=== PATIENT | female | born 1945 | race Caucasian/White ===

== ENCOUNTER 2019-10-05 14:52 | Emergency (ER) | payer MEDICARE, SELFPAY ==
--- NOTE | ~2019-10-05 | CT_ITS ---
EXAMINATION: CTA chest PE protocol DATE: 10/14/2019 18:46 INDICATION: Shortness of breath and hypoxia TECHNIQUE: Computed tomography angiography (CTA) of the chest was performed with 100 mL Omnipaque-350 intravenous contrast timed to evaluate the pulmonary arteries. Coronal maximum intensity projection 3D-reconstructions were created by the technologist. The dose-length product (DLP) was 327.93 mGy-cm. Automated exposure control and iterative reconstruction technique were employed. COMPARISON: 03/28/2019 FINDINGS: The pulmonary arteries are well-opacified. No pulmonary embolism is identified. There is mo derate to severe emphysema. There are airspace opacities with an upper lung zone predominance. Some s mooth interlobular septal thickening is seen in the upper lobes. Small pleural effusions are present. There is no pneumothorax. The heart size is normal. Mediastinal lymph nodes are subcentimeter in lali rt axis diameter. There is low attenuation of the left hepatic lobe compared to the right which may r eflect transient hepatic attenuation difference. There is atrophy of the pancreas with innumerable ca lcifications throughout the body of the pancreas, consistent with chronic pancreatitis. There is a 2. 3 cm hemorrhagic cyst of the left kidney upper pole. Severe thoracic spondylosis is noted. IMPRESSION: 1. No pulmonary embolism. 2. Diffuse airspace opacities, consistent with multifocal pneumonia and pulmonary edema. 3. Small pleural effusions. Reviewed, dictated and finalized at location A. GER SALES SUPPORT
--- NOTE | ~2019-10-05 | CT_ITS ---
EXAMINATION: CT brain wo con DATE: 10/05/2019 15:46 INDICATION: Head injury. TECHNIQUE: Computed tomography (CT) of the head was performed without intravenous contrast. The mA wa s adjusted according to patient size. Iterative reconstruction technique was employed. The dose-lengt h product was 605.33 mGy-cm. COMPARISON: Head CT 09/27/2017 FINDINGS: There is no intracranial hemorrhage, acute infarction, or abnormal intracranial mass lesion . The ventricles are normal in size. The orbits are normal. There is mild mucosal thickening in the p aranasal sinuses. The mastoid air cells are normal. IMPRESSION: 1. Normal brain. Reviewed, dictated and finalized at location A. GEMENT TECHNICIAN IMPRESSION: 1. Normal brain.
--- NOTE | ~2019-10-05 | XR_ITS ---
EXAMINATION: XR hip LT 2V w AP pelvis DATE: 10/05/2019 16:01 INDICATION: Left hip pain. Fall. TECHNIQUE: An anteroposterior view of the pelvis and 2 views of left hip were obtained. COMPARISON: Pelvis and hip radiographs 09/27/2017, CT abdomen and pelvis 04/06/2018 FINDINGS: There is a subcapital fracture of left femoral neck. The distal fracture fragment demonstra toño varus angulation, 1.0 cm lateral displacement, and 2.4 cm shortening. There are benign bone islan ds in proximal right femur. There is mild osteoarthritis of the hips. There is severe lumbar spondylo sis. IMPRESSION: 1. Subcapital fracture of left femoral neck. Reviewed, dictated and finalized at location A. TIC MIXER
[2019-10-05 14:52] VITALS: BP 148/75; PULSE 77; RESP 16; TEMP 36.6; O2SAT 95
--- NOTE | 2019-10-05 14:59 | ED.FALL ---
HPI - Fall General Chief Complaint: Extremity Injury, Lower Stated Complaint: Ambulance Time Seen by Provider: 10/05/19 14:59 Source: patient Mode of arrival: EMS Limitations: no limitations History of Present Illness HPI Narrative: 74-year-old woman comes in today complaining of left hip pain that she fell in the bathroom. She states that she bent over and thinks that she lost her balance. She does not recall exactly what happened. She denies any other injury, thorax, limb, neck or abdominal pain. She did not lose consciousness. She states she had a similar fall 2 weeks ago in which she struck her left lower leg resulting in a large hematoma and hit her head. complaint: fall Onset (ago): hour(s) (1) Fall from: standing Fall witnessed: no Place fall occurred: home Loss of consciousness: none Prolonged down time: no Symptoms prior to fall: none Location of injury - extremities: Left: thigh Severity: moderate Quality: sharp Associated symptoms (after fall): denies Related Data Allergies Allergy/AdvReac Type Severity Reaction Status Date / Time No Known Allergies Allergy Unverified 09/17/17 12:33 Review of Systems Constitutional: Constitutional: Denies chills, Denies fever(s) and Denies weakness Eyes: Eyes: Denies change in vision and Denies photophobia ENT: Denies dysphagia, Denies nasal congestion and Denies sore throat Cardiovascular: Cardiovascular: Denies chest pain and Denies radiating jaw, neck or arm pain Respiratory: Respiratory: Denies cough, Denies dyspnea and Denies wheezing Gastrointestinal: Gastrointestinal: Denies abdominal pain, Denies diarrhea, Denies nausea and Denies vomiting Genitourinary: Genitourinary: Denies hematuria, Denies nocturia and Denies dysuria Musculoskeletal: Musculoskeletal: Denies back pain, Reports arthralgias, Denies joint swelling and Denies muscle cramps Integumentary/Breasts: Skin/Breast: Denies pruritus, Denies erythema and Denies rash Neurologic: Denies vertigo, Denies dizziness and Denies syncope Psychiatric: Psychiatric: Denies anxiety and Denies depression Endocrine: Endocrine: Denies polydipsia and Denies polyuria Hematologic/Lymphatic: Hematologic/Lymphatic: Denies easy bleeding and Denies easy bruising Allergic/Immunologic: Allergic/Immunologic: Denies lip swelling and Denies wheezing PMFSH Past Medical History Medical History (Updated 10/05/19 @ 17:18 by Will Santos MD) CHF (congestive heart failure) COPD (chronic obstructive pulmonary disease) HTN (hypertension) Pancreatitis Surgical History Surgical History History of bladder suspension procedure History of hysterectomy S/P cholecystectomy Family History Family History Other Family history of malignant neoplasm Hypertension Social History Social History Smoking status: Former smoker Alcohol intake: never Gender identity (if verbalized by the patient): Female Course Vital Signs Vital signs: Vital Signs Temperature 36.6 C 10/05/19 14:52 Pulse Rate 77 10/05/19 14:52 Respiratory Rate 16 10/05/19 14:52 Blood Pressure 148/75 H 10/05/19 14:52 Pulse Oximetry 95 10/05/19 14:52 Temperature 36.6 C 10/05/19 14:52 Pulse Rate 81 10/05/19 15:59 Respiratory Rate 20 10/05/19 15:59 Blood Pressure 111/67 10/05/19 15:59 Pulse Oximetry 95 10/05/19 15:59 Transfer Transfered to: [place] Transfer rationale: Ortho consultation Accepting physician: Dr Birch. [facility] - Fall Lab Data Result diagrams: 10/05/19 15:21 10/05/19 15:21 Labs: Lab Results 10/05/19 10/05/19 10/05/19 Range/Units 15:21 15:21 15:21 WBC 11.1 H (4.8-10.8) K/mm3 RBC 3.90 L (4.20-5.40) M/mm3 Hgb 11.7 (11.7-13.8) g/dL Hct 35.9 (35.0-42.0) % MCV 92.1 (78.0
--- NOTE | 2019-10-05 15:03 | ECG_ITS ---
Measurements Intervals [place] Rate: 76 P: 82 AL: 161 QRS: 59 QRSD: 88 T: 76 QT: 376 QTc: 424 Interpretive Statements SINUS RHYTHM CANNOT RULE OUT SEPTAL INFARCT, AGE INDETERMINATE ST-T WAVE ABNORMALITY IN ANT/INF LEADS- CONSIDER ISCHEMIA BASELINE ARTIFACT- I, II, III, AVR, AVL, AVF ABNORMAL ECG Electronically Signed On 10-06-2019 8:14:52 ACCOUNT ANALYST by Ayush Pratt D.O.
[2019-10-05] MEDS: HYDROMORPHONE HCL 2 MG/ML VIAL 0.25 MG IV PUSH ×2 (15:16→17:25)
[2019-10-05 15:27] LABS: Basophils Absolute Auto 0.04 K/mm3 (0.00-0.10); Basophils Percent Auto 0.4 % (0.0-1.0); Eosinophils Absolute Auto 0.09 K/mm3 (0.02-0.50); Eosinophils Percent Auto 0.8 % (1.0-6.0); Hematocrit 35.9 % (35.0-42.0); Hemoglobin 11.7 g/dL (11.7-13.8); Immature Granulocyte Absolute 0.08 K/mm3 (0.00-0.00); Immature Granulocyte Percent A 0.7 % (0.0-0.0); Lymphocytes Absolute Auto 1.73 K/mm3 (1.10-4.50); Lymphocytes Percent Auto 15.6 % (18.0-42.0); Mean Corpuscular HGB Conc 32.6 g/dL (32.0-36.0); Mean Corpuscular Volume 92.1 fL (78.0-102.0); Monocytes Absolute Auto 0.41 K/mm3 (0.10-0.90); Monocytes Percent Auto 3.7 % (2.0-11.0); Neutrophils Absolute Auto 8.7 K/mm3 (1.7-7.2); Neutrophils Percent Auto 78.8 % (50.0-70.0); Platelet Count Result 208 K/mm3 (150-420); Red Cell Distribution Width 14.6 % (11.6-14.4); White Blood Count 11.1 K/mm3 (4.8-10.8)
[2019-10-05 15:35] LABS: INR 1.1; Partial Thromboplastin Time 29.7 SEC (22.3-31.6); Prothrombin Time 11.7 Seconds (9.64-11.0)
[2019-10-05 15:39] LABS: Alanine Aminotransferase 22 U/L (14-59); Albumin Level 1.8 g/dL (3.4-5.0); Alkaline Phosphatase 174 U/L (46-116); Anion Gap 9.1 mmol/L (7-16); Aspartate Amino Transferase 27 U/L (15-37); Bilirubin,Total 0.5 mg/dL (0.00-1.00); Blood Urea Nitrogen 19 mg/dL (7-18); Calcium 7.8 mg/dL (8.5-10.1); Carbon Dioxide 30 mmol/L (21-32); Chloride 106 mmol/L (98-108); Estimated CRCL calculation 37 ml/min; Estimated Glomerular Filt Rate 54; Glucose 78 mg/dL (70-99); Osmolality Calculated 293 mOsm/kg (285-295); Potassium 4.1 mmol/L (3.5-5.1); Sodium 141 mmol/L (136-145); Total Protein 5.8 g/dL (6.4-8.2)
[2019-10-05 15:41] LABS: Lactic Acid 0.7 mmol/L (0.4-2.0); Troponin I < 0.02 ng/mL (0.00-0.056)
[2019-10-05 15:59] VITALS: BP 111/67; PULSE 81; RESP 20; O2SAT 95
[2019-10-05 16:08] LABS: Add Urine Microscopic? YES; Appearance Urine Sl Cloudy (Clear); Bilirubin Urine Negative (Negative); Blood Urine Negative (Negative); Color Urine Yellow (Yellow); Glucose Urine UA Negative (Negative); Ketones Urine Negative (Negative); Leukocyte Esterase Ur Negative (Negative); Nitrate Urine Positive (Negative); Protein Urine Negative (Negative); Specific Grav Ur 1.015 (1.010-1.020); pH Urine 7.5 (5.0-8.0)
[2019-10-05 16:14] LABS: RBC Urine None seen /hpf (0-2); Renal Epithelial Cells Urine Few /hpf; Squamous Epithelial Cell Urine Few /hpf (Few); WBC Urine None seen /hpf (0-3)
[2019-10-05 16:15] LABS: Bacteria Urine 4+ /hpf
--- NOTE | 2019-10-05 16:25 | PC.NURSE ---
Call placed to [facility] charhouse worker for orthopedic consult. Awaiting call back.
[2019-10-05 16:57] VITALS: BP 151/80; PULSE 80; RESP 18; O2SAT 95
[2019-10-05 16:58] LABS: Lipase 78 U/L (73-393)
--- NOTE | 2019-10-05 16:58 | PC.NURSE ---
Resting quietly without change in condition. Aware that ortho has been called at [facility], awaiting call back.
--- NOTE | 2019-10-05 17:20 | PC.NURSE ---
Pt accepted by Dr Birch at [facility]. Awaiting room assignment from satish sup.
[2019-10-05 17:57] VITALS: BP 135/78; PULSE 80; RESP 20; O2SAT 94
--- NOTE | 2019-10-05 18:00 | PC.NURSE ---
Room assignment rcvd from [facility] house sup at this time. Pt will be admitted to room 325.
--- NOTE | 2019-10-05 18:08 | PC.NURSE ---
Attempt to call report to 3rd medical at [facility]. RICK Colon unavailable- will call back.
--- NOTE | 2019-10-05 18:15 | PC.NURSE ---
Report to RICK Colon, [address] [place] [address].
--- NOTE | 2019-10-05 18:25 | PC.NURSE ---
Verbal order Dr Santos: pt may be transported to [facility] by BLS unit. [facility] contacted at this time.
[2019-10-05 18:35] VITALS: BP 119/78; PULSE 80; RESP 20; O2SAT 98
== END 2019-10-05 18:50 | disposition short-term general hospital (02) ==
PROVIDERS: Emergency Provider Emergency Medicine; PCP Nurse Practitioner Family
DX: S72.002A Fracture of unspecified part of neck of left femur, initial encounter for closed fracture (principal); I50.9 Heart failure, unspecified; J44.9 Chronic obstructive pulmonary disease, unspecified; I10 Essential (primary) hypertension; Z87.891 Personal history of nicotine dependence; W18.30XA Fall on same level, unspecified, initial encounter
CPT/HCPCS: 36415; 70450; 71275; 73502; 73521; 80053; 81001; 83605; 83690; 84484; 85025; 85610; 85730; 93005; 96374; 96376; 99284; 99285; J1170; J2405; Q9965

== ENCOUNTER 2019-10-05 19:30 | Inpatient (IN) | payer MEDICARE, SELFPAY ==
--- NOTE | ~2019-10-05 | XR_ITS ---
EXAMINATION: XR chest 2V DATE: 10/09/2019 08:26 INDICATION: Shortness of breath. TECHNIQUE: Frontal and lateral views of the chest were obtained. COMPARISON: Chest 2 views 09/27/2017 FINDINGS: There is mild atelectasis at the lung bases. There are small pleural effusions. No pneumoth orax. The heart size is normal. IMPRESSION: 1. Small pleural effusions. 2. Mild atelectasis at the lung bases. Reviewed, dictated and finalized at location A. LE SCHOOL SPANISH TEACHER
--- NOTE | ~2019-10-05 | XR_ITS ---
EXAMINATION: XR hip LT min 2V EXAM DATE: 10/06/2019 16:26 INDICATION: Postoperative for left hip replacement. TECHNIQUE: Portable frontal, crosstable lateral projections left hip obtained immediately following arthroplasty. Procedure performed by Carrillo Foley MD. FINDINGS: Patient is status post left hip arthroplasty. The orthopedic hardware is in expected posi tion. There are britta overlying the lateral aspect of the thigh. There is small amount of subcuta neous gas, some soft tissue swelling. Correlate with procedure note. IMPRESSION: Status post left hip arthroplasty. Reviewed, dictated and finalized at location A. O PALEONTOLOGIST
[2019-10-05 19:35] VITALS: BMI 22.4
[2019-10-05 20:00] VITALS: BP 135/64; PULSE 97; RESP 16; TEMP 36.2; O2SAT 98
--- NOTE | 2019-10-05 20:03 | ADMGEN ---
This patient, Dahlia Bell, was admitted to [facility] Surg Room 325-01. Patient/family oriented to hospital policies and general routines including ID bracelet, bed and alarms, visiting hours, pain management, procedures, bathroom and other care routines, personal items, smoking policy, room service/diet, and visiting hours. Valuables list has been completed. Information on how to activate the Rapid Response Team has been discussed. Patient/Family are encouraged to report perceived risks to care and to ask questions if they do not understand what they are told or what they should do.
--- NOTE | 2019-10-05 20:28 | PM.IMHP ---
H&P: HPI History of Present Illness Chief complaint: Direct admission for left femoral neck fracture Narrative: This is a pleasant 74-year-old female with known history of chronic smoldering pancreatitis for which she has been attempting to gain enough weight to have a Whipple procedure done and who has been battling chronic fatigue and generalized weakness for some time now. She reports that she had a fall about 2 weeks ago when she did suffer head trauma. Today while she was in the bathroom she was getting ready to use the bathroom when suddenly she felt very nervous and realize she was about to fall she attempted to grab the door knob in the bathroom but continue to fall and landed on her left side. She denies passing out or suffering any head trauma today. Her daughter who lives with her attempted to help her get up but the patient could not ambulate on her own. She was experiencing significant left hip pain and was brought to [facility] for evaluation. The patient was found to have a subcapital fracture of left femoral neck. On further questioning she denies any fever, chills, nausea, vomiting, headache, abdominal pain, chest pain, dysuria, hematuria, diarrhea, or rectal bleeding. She is known to have chronic abdominal pain from her pancreatitis although tonight she denies any significant abdominal pain. [facility] has consulted Ortho, Dr. Gutierrez who has agreed to see the patient tomorrow. Wyatt catheter has been placed in the ER and [facility]. Review of Systems Review of Systems: All systems reviewed & are unremarkable except as noted in HPI and below PMFSH Past Medical History Medical History (Updated 10/06/19 @ 05:27 by Will Adkins MD) CHF (congestive heart failure) Chronic pancreatitis COPD (chronic obstructive pulmonary disease) HTN (hypertension) Pancreatitis Surgical History Surgical History History of bladder suspension procedure History of hysterectomy S/P cholecystectomy Family History Family History Other Family history of malignant neoplasm Hypertension Social History Social History Smoking packs per day: 1 Smoking cigarettes per day: 20.0 Years smoked: 20 Smoking pack-years: 20.00 Smoking status: Former smoker Alcohol intake: never Substance use: never Gender identity (if verbalized by the patient): Female Spiritual care concerns: No Agree to blood products: Yes Meds Home Medications and Allergies Home Medications Medication Instructions Recorded Confirmed Type budesonide-formoterol HFA 160 2 puff INHALATION Q12H #10.2 gm 07/08/19 10/05/19 Rx mcg-4.5 mcg/actuation aerosol inhaler bupropion HCl 150 mg tablet,12 hr 150 mg PO QAM #90 tablet 10/01/19 10/05/19 Rx sustained-release gabapentin 300 mg capsule 300 mg PO TID #270 cap 10/01/19 10/05/19 Rx omeprazole 20 mg capsule,delayed 20 mg PO BID #180 cap 10/01/19 10/05/19 Rx release sertraline 100 mg tablet 100 mg PO DAILY #90 tablet 10/03/19 10/05/19 Rx aspirin 81 mg PO DAILY 10/05/19 10/05/19 History carvedilol 3.125 mg PO BID 10/05/19 10/05/19 History diphenoxylate-atropine 1 tablet PO BID 10/05/19 10/05/19 History hydroxyzine HCl 25 mg PO TID 10/05/19 10/05/19 History montelukast 10 mg PO DAILY 10/05/19 10/05/19 History Allergies Allergy/AdvReac Type Severity Reaction Status Date / Time No Known Allergies Allergy Unverified 09/17/17 12:33 Exam Const: General: cooperative, healthy appearing, alert and awake Nutritional Appearance: thin and underweight Orientation/consciousness: patient oriented x3 HENMT: Head: normal to inspection General nose exam: Normal external nose present Face and sinus: normal facial exam Mouth: Yes Normal oral and palatal mucosa present and Yes oropharynx normal Eyes: Pupils: Equa
[2019-10-05] MEDS: ONDANSETRON INJ 4 MG/2 ML VIAL IV PUSH (20:38)
[2019-10-05] MEDS: MORPHINE SULFATE 4 MG/ML INJ IV PUSH ×2 (20:38→23:31)
[2019-10-05 20:42] LABS: Hematocrit 36.3 % (37.0-47.0); Hemoglobin 11.9 g/dL (12.0-15.0); Mean Corpuscular HGB Conc 32.8 g/dl (32-36); Mean Corpuscular Hemoglobin 30.4 pg (26-34); Mean Corpuscular Volume 92.8 fl (80-100); Mean Platelet Volume 9.9 fl (7.4-10.4); Platelet Count Result 204 k/mm3 (150-375); Red Blood Count 3.91 M/mm3 (4.2-5.4); Red Cell Distribution Width 14.6 % (11.5-14.5); White Blood Count 10.4 K/mm3 (4.5-10.0)
[2019-10-05 20:54] LABS: Blood Urea Nitrogen 19 mg/dL (7-17); Calcium 7.6 mg/dL (8.4-10.2); Carbon Dioxide 29 mmol/L (22-30); Chloride 100 mmol/L (98-107); Estimated Glomerular Filt Rate > 60; Glucose 62 mg/dL (65-105); Potassium 3.5 mmol/L (3.4-5.0); Sodium 135 mmol/L (137-145)
[2019-10-05] MEDS: LACTATED RINGERS 1,000 ML 100 ML IV CONT (20:57)
[2019-10-05] MEDS: PANTOPRAZOLE 40 MG TABLET PO (20:57)
[2019-10-05 21:09] LABS: INR 1.1; Prothrombin Time 13.5 Seconds (11.1-14.7)
[2019-10-06] VITALS (12 sets, daily range): BP systolic 101–156; BP diastolic 56–88; PULSE 92–101; RESP 10–18; TEMP 37.1–37.6; O2SAT 91–100
[2019-10-06] MEDS: MORPHINE SULFATE 4 MG/ML INJ IV PUSH ×2 (03:53→09:07)
--- NOTE | 2019-10-06 10:00 | WPDANESEPP ---
Anes - Eval Pre Procedure Procedure: Operation Date: 10/06/19 13:30 Proposed Procedures p Left Bipolar Hip Replacement - Carrillo Foley MD Date/Time: 10/06/19 10:01 Surgeon: Iman Foley MD Preop Diagnosis: closed hip fracture Pre Op Diagnosis: Direct admission for left femoral neck fracture Patient Data Age: 74 Gender: F Height: 5 ft 3 in Weight: 57.3 kg Last Vital Signs Temp 98.7 F 10/06/19 06:00 Pulse 96 10/06/19 06:00 Resp 18 10/06/19 06:00 BP 101/56 L 10/06/19 06:00 Pulse Ox 96 10/06/19 06:00 Allergies Allergy/AdvReac Type Severity Reaction Status Date / Time No Known Allergies Allergy Unverified 09/17/17 12:33 Home Medications Medication Instructions Recorded Confirmed Type budesonide-formoterol HFA 160 2 puff INHALATION Q12H #10.2 gm 07/08/19 10/05/19 Rx mcg-4.5 mcg/actuation aerosol inhaler bupropion HCl 150 mg tablet,12 hr 150 mg PO QAM #90 tablet 10/01/19 10/05/19 Rx sustained-release gabapentin 300 mg capsule 300 mg PO TID #270 cap 10/01/19 10/05/19 Rx omeprazole 20 mg capsule,delayed 20 mg PO BID #180 cap 10/01/19 10/05/19 Rx release sertraline 100 mg tablet 100 mg PO DAILY #90 tablet 10/03/19 10/05/19 Rx aspirin 81 mg PO DAILY 10/05/19 10/05/19 History carvedilol 3.125 mg PO BID 10/05/19 10/05/19 History diphenoxylate-atropine 1 tablet PO BID 10/05/19 10/05/19 History hydroxyzine HCl 25 mg PO TID 10/05/19 10/05/19 History montelukast 10 mg PO DAILY 10/05/19 10/05/19 History Laboratory Tests 10/05/19 10/05/19 10/05/19 20:31 20:31 20:31 WBC 10.4 K/mm3 H K/mm3 (4.5-10.0) RBC 3.91 M/mm3 L M/mm3 (4.2-5.4) Hgb 11.9 g/dL L g/dL (12.0-15.0) Hct 36.3 % L % (37.0-47.0) MCV 92.8 fl fl (80-100) MCH 30.4 pg pg (26-34) MCHC 32.8 g/dl g/dl (32-36) RDW 14.6 % H % (11.5-14.5) Plt Count 204 k/mm3 k/mm3 (150-375) MPV 9.9 fl fl (7.4-10.4) PT 13.5 Seconds Seconds (11.1-14.7) INR 1.1 Sodium 135 mmol/L L mmol/L (137-145) Potassium 3.5 mmol/L mmol/L (3.4-5.0) Chloride 100 mmol/L mmol/L (98-107) Carbon Dioxide 29 mmol/L mmol/L (22-30) BUN 19 mg/dL H mg/dL (7-17) Creatinine 0.90 mg/dL mg/dL (0.7-1.0) Estim Creat Clear Calc Not Reportable Estimated GFR > 60 (59 - ) Glucose 62 mg/dL L mg/dL (65-105) Calcium 7.6 mg/dL L mg/dL (8.4-10.2) ECG: Patient: Dahlia Bell GMR#: [id number] : 7Acct:[id number] Age/Sex: 74 / FADM Date: 10/05/19 Ordering Physician: Will Santos MD Date of Service: 10/05/19 Procedure(s): CA 12 lead EKG Accession Number(s): [id number] Measurements Intervals [place] Rate: 76 P: 82 MN: 161 QRS: 59 QRSD: 88 T: 76 QT: 376 QTc: 424 Interpretive Statements SINUS RHYTHM CANNOT RULE OUT SEPTAL INFARCT, AGE INDETERMINATE ST-T WAVE ABNORMALITY IN ANT/INF LEADS- CONSIDER ISCHEMIA BASELINE ARTIFACT- I, II, III, AVR, AVL, AVF ABNORMAL ECG Electronically Signed On 10-06-2019 8:14:52 PHOTOGRAPHER ASSISTANT by Ayush Pratt D.O. Dictated By: Ayush Pratt DO 10/05/19 1548 Signed By: <Electronically signed by Ayush Pratt DO in OV>10/06/19 0815 previous ECG 2018 LBBB, rate 60 : patient denies Patient hx anesthesia problems: other (intraoperative awareness) Family hx anesthesia problems: none Prior Surgeries: lap rena, hyste[facility], [facility] Past Medical History Medical History (Updated 10/06/19 @ 10:07 by Dora Marion CRNA)
[2019-10-06] MEDS: SERTRALINE HCL 50 MG TABLET 100 MG PO (10:08)
[2019-10-06] MEDS: carvediloL 3.125 MG TABLET PO ×2 (10:08→18:27)
--- NOTE | 2019-10-06 11:05 | PM.CNOR ---
Assessment and Plan Assessment and plan (1) Femoral neck fracture: Qualifiers: Encounter type: initial encounter Fracture type: closed Laterality: left Qualified Code(s): S72.002A - Fracture of unspecified part of neck of left femur, initial encounter for closed fracture Code(s): S72.009A - Fracture of unspecified part of neck of unspecified femur, initial encounter for closed fracture Status: Acute Assessment and Plan: 74 year old female transferred from [facility] s/p fall at home resulting in a fracture of left femoral neck. History, exam and radiographs reviewed with the patient. Radiographs of the left hip reveal a subcaptial fracture of the left femoral neck. Fracture type, condition, nature, etiology and course of natural history discussed. Conservative and operative treatment options reviewed as well as the risks and benefits of both. Discussed LEFT Hip Bipolar Arthroplasty by Dr. Foley Risks of surgery including but not limited to neurovascular damage, wound complications, blood clot, pulmonary embolus, stroke, myocardial infarction, anesthetic risks up to and including were reviewed. Continued pain and possible dysfunction were explained. No guarantees were offered. The patient understands and wishes to proceed. Plan: LEFT Hip Bipolar by Dr. Foley today NPO Bedrest. NWB Wyatt Catheter Pain control. Ice. History of Present Illness HPI Consult date: 10/06/19 Consult reason: fracture (Left Femoral Neck Fracture ) Chief complaint: Direct admission for left femoral neck fracture Narrative: 74 year old female admitted from [facility] s/p fall on 10/05 which resulted in a left femoral neck fracture. Patient reports a fall at home in the bathroom yesterday after going to sit on her raised toliet seat, losing her balance and landing on the left side. Her daughter, who lives with the patient, successfully lifted her off of the floor and back to the toliet but she was unable to bear weight on the LLE. She also reports a fall 2 weeks ago onto the left side which resulted in a hematoma of the lower leg. She did not seek medical treatment after that fall. Patient endorses generalized weakness/fatigue/weight loss and poor appetite due to chronic pancreatitis. She was scheduled to have a whipple procedure but did not gain enough weight per patient, causing it to be cancelled. Review of Systems Constitutional: Constitutional: Denies chills, Reports fatigue, Denies night sweats and Reports weakness Eyes: Eyes: Reports no additional eye complaints ENT: Reports Normal hearing present, Denies nasal congestion and Denies nasal discharge Cardiovascular: Cardiovascular: Denies chest pain and Denies lightheadedness Respiratory: Respiratory: Denies dyspnea and Denies wheezing Gastrointestinal: Gastrointestinal: Denies abdominal pain, Denies constipation and Denies diarrhea Genitourinary: Comments: Wyatt Catheter Musculoskeletal: Musculoskeletal: Denies back pain, Reports arthralgias (LEFT HIP ), Reports joint swelling (LEFT HIP ) and Denies neck pain Integumentary/Breasts: Comments: Hematoma LLE (anterior rascon) Neurologic: Comments: Weakness b/l LE Psychiatric: Psychiatric: Reports no additional psychiatric complaints [facility] Past Medical History Medical History (Updated 10/06/19 @ 11:59 by TIFFANIE Liriano) Anxiety CHF (congestive heart failure) Chronic GERD Chronic pancreatitis CKD (chronic kidney disease) COPD (chronic obstructive pulmonary disease) Depression Femoral neck fracture HTN (hypertension) Pancreatitis Surgical History Surgical History (Updated 10/06/19 @ 11:22 by TIFFANIE Liriano) History of appendectomy History of bladder suspension procedure History of hysterectomy Previous back surgery Discs removed S/P cholecystectomy Family History Family History Other Family history of malignant neopl
[2019-10-06] MEDS: LACTATED RINGERS 1,000 ML 30 ML IV CONT ×2 (12:45→16:07)
--- NOTE | 2019-10-06 13:26 | WPDANESEPPF ---
Anes - Initial Pre Proc Eval Procedure: Operation Date: 10/06/19 13:30 Proposed Procedures p Left Bipolar Hip Replacement - Carrillo Foley MD Date/Time: 10/06/19 13:26 Surgeon: Obed Tolentino PA-C Pre Op Diagnosis: Direct admission for left femoral neck fracture Patient Data Age: 74 Gender: F Height: 5 ft 3 in Weight: 57.3 kg Last Vital Signs Temp 98.7 F 10/06/19 06:00 Pulse 96 10/06/19 10:08 Resp 18 10/06/19 06:00 BP 101/56 L 10/06/19 06:00 Pulse Ox 96 10/06/19 06:00 Allergies Allergy/AdvReac Type Severity Reaction Status Date / Time No Known Allergies Allergy Unverified 09/17/17 12:33 Home Medications Medication Instructions Recorded Confirmed Type budesonide-formoterol HFA 160 2 puff INHALATION Q12H #10.2 gm 07/08/19 10/05/19 Rx mcg-4.5 mcg/actuation aerosol inhaler bupropion HCl 150 mg tablet,12 hr 150 mg PO QAM #90 tablet 10/01/19 10/05/19 Rx sustained-release gabapentin 300 mg capsule 300 mg PO TID #270 cap 10/01/19 10/05/19 Rx omeprazole 20 mg capsule,delayed 20 mg PO BID #180 cap 10/01/19 10/05/19 Rx release sertraline 100 mg tablet 100 mg PO DAILY #90 tablet 10/03/19 10/05/19 Rx aspirin 81 mg PO DAILY 10/05/19 10/05/19 History carvedilol 3.125 mg PO BID 10/05/19 10/05/19 History diphenoxylate-atropine 1 tablet PO BID 10/05/19 10/05/19 History hydroxyzine HCl 25 mg PO TID 10/05/19 10/05/19 History montelukast 10 mg PO DAILY 10/05/19 10/05/19 History Laboratory Tests 10/05/19 10/05/19 10/05/19 20:31 20:31 20:31 WBC 10.4 K/mm3 H K/mm3 (4.5-10.0) RBC 3.91 M/mm3 L M/mm3 (4.2-5.4) Hgb 11.9 g/dL L g/dL (12.0-15.0) Hct 36.3 % L % (37.0-47.0) MCV 92.8 fl fl (80-100) MCH 30.4 pg pg (26-34) MCHC 32.8 g/dl g/dl (32-36) RDW 14.6 % H % (11.5-14.5) Plt Count 204 k/mm3 k/mm3 (150-375) MPV 9.9 fl fl (7.4-10.4) PT 13.5 Seconds Seconds (11.1-14.7) INR 1.1 Sodium 135 mmol/L L mmol/L (137-145) Potassium 3.5 mmol/L mmol/L (3.4-5.0) Chloride 100 mmol/L mmol/L (98-107) Carbon Dioxide 29 mmol/L mmol/L (22-30) BUN 19 mg/dL H mg/dL (7-17) Creatinine 0.90 mg/dL mg/dL (0.7-1.0) Estim Creat Clear Calc Not Reportable Estimated GFR > 60 (59 - ) Glucose 62 mg/dL L mg/dL (65-105) Calcium 7.6 mg/dL L mg/dL (8.4-10.2) : patient denies Patient hx anesthesia problems: other (intraoperative awareness) Family hx anesthesia problems: none [facility] Past Medical History Medical History (Updated 10/06/19 @ 11:59 by TIFFANIE Liriano) Anxiety CHF (congestive heart failure) Chronic GERD Chronic pancreatitis CKD (chronic kidney disease) COPD (chronic obstructive pulmonary disease) Depression Femoral neck fracture HTN (hypertension) Pancreatitis Surgical History Surgical History (Updated 10/06/19 @ 11:22 by TIFFANIE Liriano) History of appendectomy History of bladder suspension procedure History of hysterectomy Previous back surgery Discs removed S/P cholecystectomy Family History Family History Other Family history of malignant neoplasm Hypertension Social History Social History Smoking packs per day: 1 Smoking cigarettes per day: 20.0 Years smoked: 20 Smoking pack-years: 20.00 Smoking status: Former smoker Tobacco type: cigarettes Alcohol intake: never Substance use: never Living arrangements: with family Additional living arrangements comments: Lives at home with 22 year old daughter Occupation/Education: retired Additional occupation/education comments: [employer] as a Coordinator for Domestic Violence Gender identity (if verbalized by the patient):
[2019-10-06] MEDS: BUPIVACAINE/EPINEPHRINE 0.5% 30 ML VIAL INFILTRATE (14:52)
--- NOTE | 2019-10-06 16:24 | PM.PROC ---
Procedure Note - Detailed Date of procedure: 10/06/19 Pre-op diagnosis: left hip fracture Left hip femoral neck fracture Post-op diagnosis: same Procedure performed: Left hip bipolar hemiarthroplasty Description of procedure: OPERATIVE INDICATIONS: The patient is an 74year-old woman who fell and sustained a left hip fracture. Requested operative treatment. A full discussion of the risks, benefits, and alternatives was had with the patient and family. They verbalized undferstanding and agreement. Patient has multiple medical comorbidities including chronic pancreatitis. Her fracture pattern is not amenable to fixation. She has elected for hemiarthroplasty. WHAT WAS DONE: After informed consent was given, the operative extremity was marked in the preoperative holding area. The patient received intravenous antibiotics. Patient was brought to the operating room where they underwent a general anesthetic. Positioned in the lateral decubitus position nonop side down and the operative hip up. The left hip was then prepped and draped in the usual sterile surgical fashion using ChloraPrep skin solution. Time-out performed confirming the patient, side of the surgery, and the plan. A longitudinal incision was then made over the lateral side of the hip with the 10-blade knife. Hemostasis was controlled with electrocautery. Dissection was carried down through the fascia, which was incised in line with the skin incision. Subfascial retractor was placed. The abductor musculature was then elevated off the lateral side of the femur leaving a cuff of tissue for repair. The short abductor musculature was then elevated off the capsule and retention sutures were placed at the corner. The capsule was then incised in line with the femoral neck and T'd at the base. This allowed exposure of the fracture. The fracture hematoma was evacuated. Proximal femoral cutting guide was used to make a femoral neck cut at 2 cm above the lesser trochanter. This bone was removed with a rongeur. We then removed the head with a corkscrew. This was measured on the back table. Trialing of the acetabulum was done and a size 45mm had excellent fit. The acetabulum was thoroughly irrigated and suctioned. Part of the fovea was removed with cautery. The rest of the acetabulum was inspected and noted to be with minimal degenerative changes. The proximal femur was then prepared. A posterior femoral retractor elevator was placed and a box cutting chisel was used to enter the femoral canal. We then used the canal finder. Broaching was then performed sequentially in 1 mm increments from a size 4 up to a size 13. This was noted to have excellent fit. We then trialed the hip. Excellent fit, stability with external and internal rotation at full extension and flexion of his hip and leg shuck were noted. The trial components were then removed. There was thorough irrigation with antibiotic solution of the proximal femur, acetabulum, and the wound. The femoral stem was then impacted into place. Good fit was noted. Trialing was once again performed and a -3mm neck with a 45mm acetabular cup had excellent stability and range of motion. The trial components were removed and the 28 mm head acetabular cup were then impacted onto the femoral stem. The hip was then reduced once again, taken through full range of motion and noted to be stable with the leg extended in full external and internal rotation with the hip flexed to 90 degrees with internal and external rotation. There was equal leg length noted. Wound was thoroughly irrigated with antibiotic solution. The capsule was repaired with #1 Vicryl interrupted suture. The abductors were repaired back with #1 Vicryl interrupted suture. The fascia was repaired with #1 Vicryl running suture. Subcutaneous tissue was repaired in layers with 2-0 Vicryl interrupted suture. Skin repaired with britta. A sterile dressing was placed. A hip abduction stave T pillow
--- NOTE | 2019-10-06 17:10 | PC.NURSE ---
Returned from OR. Family at bedside.
--- NOTE | 2019-10-06 17:58 | PM.IMPN ---
Progress Note: A&P Assessment and Plan (1) Closed left hip fracture: Qualifiers: Encounter type: initial encounter Qualified Code(s): S72.002A - Fracture of unspecified part of neck of left femur, initial encounter for closed fracture Code(s): S72.002A - Fracture of unspecified part of neck of left femur, initial encounter for closed fracture Status: Inactive Assessment and Plan: POD0 left hip bipolar hemiarthroplasty per Dr. Foley. Doing well post-op. PT/OT, DVT ppx, postop/pain management, placement planning per Orthopedic Surgery Monitor Artificial tears for left eye discomfort (2) Chronic pancreatitis: Qualifiers: Pancreatitis type: unspecified pancreatitis type Qualified Code(s): K86.1 - Other chronic pancreatitis Code(s): K86.1 - Other chronic pancreatitis Status: Chronic Assessment and Plan: No acute issues. Pain control as needed. Monitor for change in condition (3) COPD (chronic obstructive pulmonary disease): Qualifiers: COPD type: unspecified COPD Qualified Code(s): J44.9 - Chronic obstructive pulmonary disease, unspecified Code(s): J44.9 - Chronic obstructive pulmonary disease, unspecified Status: Chronic Assessment and Plan: Asymptomatic. Lung exam benign Continue bronchodilators. (4) HTN (hypertension): Qualifiers: Hypertension type: unspecified Qualified Code(s): I10 - Essential (primary) hypertension Code(s): I10 - Essential (primary) hypertension Status: Chronic Assessment and Plan: BP 147/76 post op Monitor Continue home Coreg for now Consider Orthostatics once able to ambulate as her history sounds she may have orthostatic hypotension Patient follow with what sounds like [facility] in [place] Consider f/u with their photographic equipment mechanic after discharge vs cardiology consult (5) CHF (congestive heart failure): Qualifiers: Heart failure type: unspecified Heart failure chronicity: chronic Qualified Code(s): I50.9 - Heart failure, unspecified Code(s): I50.9 - Heart failure, unspecified Status: Chronic Assessment and Plan: Well compensated. Continue home CHF meds. (6) CKD (chronic kidney disease): Code(s): N18.9 - Chronic kidney disease, unspecified Status: Acute Assessment and Plan: Cr is 0.90 - seemingly at baseline per EMR review Trend tomorrow Subjective Date/time seen: 10/06/19 17:58 Interval history: Patient is a 74 yo F with history of chronic smoldering pancreatitis for which she has been attempting to gain enough weight to have a Whipple procedure done, chronic fatigue and generalized weakness for some time now who is here s/p fall with subsequent left hip fracture; left hip bipolar hemiarthroplasty POD0 per Dr[address] Foley. Patient is doing okay postoperatively stating her main complaint is her left eye pain stating it feels like I scratched it . Her left hip pain is reasonable today. She has been noting some lightheadedness at home when she stands up too fast with the recent fall 2 weeks ago due to what sounds like a syncopal or presyncopal event from standing up too fast. Otherwise no complaints. Denies f/c/ns, headaches, changes in v/h, cp/palpitations, sob/cough, n/v/d/c, abd pain, dysphagia, melena, brbpr, dysuria, hematuria, cloudy urine, calf pain/swelling, s/sx of stroke. Review of Systems Review of Systems: All systems reviewed & are unremarkable except as noted in HPI and below Exam Narrative: Exam Narrative: Patient lying supine in bed with head raised. Family in room visiting Const: General: cooperative, healthy appearing, comfortable, no acute distress, alert a
[2019-10-06] MEDS: MONTELUKAST SODIUM 10 MG TABLET PO (18:27)
[2019-10-06] MEDS: PANTOPRAZOLE 40 MG TABLET PO ×2 (18:27→21:05)
[2019-10-06] MEDS: DOCUSATE SODIUM 100 MG CAPSULE PO (18:27)
[2019-10-06] MEDS: hydrOXYzine HCL 25 MG TABLET PO (18:28)
[2019-10-06] MEDS: GABAPENTIN 300 MG CAPSULE PO (18:28)
[2019-10-06] MEDS: MORPHINE SULFATE 2 MG/ML INJ IV PUSH ×2 (18:28→21:39)
[2019-10-06] MEDS: KCL 20 MEQ/D5/0.45% SOD CHL 1,000 ML 80 ML IV CONT (18:31)
[2019-10-06] MEDS: PROPARACAINE HCL 0.5% 15 ML OPHTH SOLN 1 DROP EACH EYE (19:39)
[2019-10-06] MEDS: DICLOFENAC SODIUM 0.1% OPHTH SOLN 2.5 ML BOTTLE 1 DROP EACH EYE (21:06)
[2019-10-06] MEDS: MOXIFLOXACIN HCL 0.5% 3 ML OPHTH SOLN 1 DROP EACH EYE (21:39)
[2019-10-07] VITALS (9 sets, daily range): BP systolic 101–110; BP diastolic 49–71; PULSE 73–100; RESP 16–18; TEMP 36.2–37.2; O2SAT 90–96
[2019-10-07] MEDS: MORPHINE SULFATE 2 MG/ML INJ IV PUSH ×4 (04:31→21:22)
[2019-10-07] MEDS: DICLOFENAC SODIUM 0.1% OPHTH SOLN 2.5 ML BOTTLE 1 DROP EACH EYE ×3 (05:06→21:20)
[2019-10-07] MEDS: MOXIFLOXACIN HCL 0.5% 3 ML OPHTH SOLN 1 DROP EACH EYE ×3 (05:07→21:20)
[2019-10-07 06:11] LABS: Basophils Absolute Auto 0.1 K/mm3 (0.0-0.1); Basophils Percent Auto 0.4 % (0.2-1.2); Eosinophils Absolute Auto 0.1 K/mm3 (0-0.3); Eosinophils Percent Auto 0.5 % (0-4.4); Hematocrit 30.5 % (37.0-47.0); Hemoglobin 9.7 g/dL (12.0-15.0); Immature Granulocyte Absolute 0.04 K/mm3 (0.00-0.031); Immature Granulocyte Percent A 0.3 % (0-0.5); Lymphocytes Percent Auto 14.9 % (18.3-44.2); Mean Corpuscular HGB Conc 31.8 g/dl (32-36); Mean Corpuscular Hemoglobin 29.6 pg (26-34); Mean Platelet Volume 10.5 fl (7.4-10.4); Monocytes Absolute Auto 0.8 K/mm3 (0.1-0.6); Neutrophils Percent Auto 77.9 % (45.5-73.1); Platelet Count Result 181 k/mm3 (150-375); Red Blood Count 3.28 M/mm3 (4.2-5.4); Red Cell Distribution Width 14.8 % (11.5-14.5); White Blood Count 12.8 K/mm3 (4.5-10.0)
[2019-10-07 06:23] LABS: Blood Urea Nitrogen 21 mg/dL (7-17); Calcium 7.2 mg/dL (8.4-10.2); Carbon Dioxide 28 mmol/L (22-30); Chloride 98 mmol/L (98-107); Estimated CRCL calculation 41 ml/min; Estimated Glomerular Filt Rate > 60; Glucose 98 mg/dL (65-105); Magnesium 1.3 mg/dL (1.6-2.3); Potassium 3.8 mmol/L (3.4-5.0); Sodium 131 mmol/L (137-145)
--- NOTE | 2019-10-07 07:54 | WPDANESPN ---
Anes - Prog Note Post-Op Date/Time: 10/07/19 07:54 Cardiovascular status: normal Respiratory status: normal Airway patency: baseline Mental status: baseline Post-Op hydration status: normal Vital Signs: Last Vital Signs Temp 37.1 C 10/07/19 06:00 Pulse 84 10/07/19 06:00 Resp 18 10/07/19 06:00 BP 110/60 10/07/19 06:00 Pulse Ox 96 10/07/19 06:00 I/O: Intake & Output 10/06/19 10/06/19 10/07/19 15:59 23:59 07:59 Intake Total 150 950 Output Total 550 Balance -400 950 Laboratory Tests 10/07/19 05:54 10/07/19 05:53 10/07/19 10/07/19 10/07/19 05:53 05:53 05:54 WBC 12.8 H RBC 3.28 L Hgb 9.7 L Hct 30.5 L MCV 93.0 MCH 29.6 MCHC 31.8 L RDW 14.8 H Plt Count 181 MPV 10.5 H Immature Gran % (Auto) 0.3 Neut % (Auto) 77.9 H Lymph % (Auto) 14.9 L [place] % (Auto) 6.0 Eos % (Auto) 0.5 Baso % (Auto) 0.4 Lymph # (Auto) 1.90 [place] # (Auto) 0.8 H Eos # (Auto) 0.1 Baso # (Auto) 0.1 Abs Immat Gran (auto) 0.04 H Absolute Neuts (auto) 10.0 H Absolute Nucleated RBC 0.0 Nucleated RBC % 0.0 Sodium 131 L Potassium 3.8 Chloride 98 Carbon Dioxide 28 BUN 21 H Creatinine 0.90 Estim Creat Clear Calc 41 Estimated GFR > 60 Glucose 98 Calcium 7.2 L Magnesium 1.3 L TSH (Reflex) 2.080 Post-procedural complaints: none Patient Feedback: Patient satisfied with anesthetic care.
[2019-10-07] MEDS: MAGNESIUM SULF 4 GM/WATER100ML 4 GM/100 ML BAG IVPB (09:21)
[2019-10-07] MEDS: ONDANSETRON INJ 4 MG/2 ML VIAL IV PUSH (09:26)
[2019-10-07] MEDS: ASPIRIN 81 MG CHEWABLE TABLET PO (09:28)
[2019-10-07] MEDS: carvediloL 3.125 MG TABLET PO ×2 (09:29→16:43)
[2019-10-07] MEDS: FONDAPARINUX SODIUM 2.5 MG/0.5 ML SYRINGE SUB-Q (09:36)
[2019-10-07] MEDS: MONTELUKAST SODIUM 10 MG TABLET PO (09:37)
[2019-10-07] MEDS: GABAPENTIN 300 MG CAPSULE PO ×3 (09:37→16:44)
[2019-10-07] MEDS: PANTOPRAZOLE 40 MG TABLET PO ×2 (09:38→21:19)
[2019-10-07] MEDS: SERTRALINE HCL 50 MG TABLET 100 MG PO (09:38)
[2019-10-07] MEDS: hydrOXYzine HCL 25 MG TABLET PO ×3 (09:40→16:44)
--- NOTE | 2019-10-07 09:46 | PM.PNORT ---
Progress Note: A&P Assessment and Plan (1) Femoral neck fracture: Qualifiers: Encounter type: initial encounter Fracture type: closed Laterality: left Qualified Code(s): S72.002A - Fracture of unspecified part of neck of left femur, initial encounter for closed fracture Code(s): S72.009A - Fracture of unspecified part of neck of unspecified femur, initial encounter for closed fracture Status: Acute Assessment and Plan: POD #1: LEFT Hip Bipolar Continue PT/OT. WBAT with Assistive Device/Supervision. OOB to chair. High Fall Risk. Continue pain control. Ice Lateral Hip. Monitor dressing. Change tomorrow. DVT prophylaxis with Arixtra. SCDs. Incentive Spirometry. Dispo: Acute Rehab at [facility] when medically stable. Care coordination consulted. Begin discharge planning process. Subjective Subjective Date/Time Seen: 10/07/19 09:46 Post Op day: 1 Principal diagnosis: Left Hip Bipolar Review of Systems Review of Systems: All systems reviewed & are unremarkable except as noted in HPI and below Constitutional: Constitutional: Denies chills, Denies fever(s) and Denies night sweats Cardiovascular: Cardiovascular: Denies chest pain and Denies lightheadedness Respiratory: Respiratory: Denies cough and Denies dyspnea Gastrointestinal: Gastrointestinal: Denies abdominal pain, Denies constipation, Denies diarrhea, Reports nausea and Denies vomiting Genitourinary: Comments: Wyatt Catheter Removed this AM, has not urinated yet Musculoskeletal: Musculoskeletal: Reports arthralgias (Left Hip ), Reports joint swelling (Left Hip ), Denies neck pain, Denies numbness and Denies tingling Exam Const: General: comfortable and no acute distress Resp: Effort & Inspection: normal respiratory effort Cardio: Rate: regular rate Rhythm: regular rhythm GI: Inspection: non-distended Neuro: Cognition (Neuro): normal cognition Motor exam (neuro): Abnormal motor strength present (Decreased b/l ) Sensory Exam: normal sensation Extrem: Right lower extremity: normal to inspection, full ROM, normal capillary refill and hip/thigh Details: normal to inspection; no tenderness and no swelling Left lower extremity: normal to inspection, normal capillary refill, hip/thigh Details: normal to inspection, tenderness Location: of the hip Location: laterally, swelling Location: of the hip and abnormal ROM (Limited due to recent surgery ), ankle (+ankle dorsiflexion/plantarflexion. Negative Arley's Sign) Details: no tenderness and no swelling and foot (2+ pedal pulses. Sensation intact to light touch. Moves toes. ) Details: vascular exam Details: dorsalis pedis pulse present and posterior tibial pulse present and motor-sensory exam light-touch normal Psych: Mental Status: mental status grossly normal Affect: normal affect Objective Data Vital Signs Vital Signs: Vital Signs - 24 hr 10/06/19 10:08 10/06/19 16:07 10/06/19 16:20 Temperature 37.3 C Pulse Rate 96 96 92 Respiratory Rate 10 L 10 L Blood Pressure 156/75 H 125/70 Pulse Oximetry 99 100 10/06/19 16:35 10/06/19 16:50 10/06/19 17:10 Temperature 37.1 C Pulse Rate 100 98 101 H Respiratory Rate 14 15 16 Blood Pressure 125/70 151/71 H 141/80 H Pulse Oximetry 100 93 91 10/06/19 17:25 10/06/19 17:55 10/06/19 18:27 Temperature 37.1 C 37.1 C Pulse Rate 100 94 94 Respiratory Rate 16 14 Blood Pressure 136/70 147/76 H Pulse Oximetry 91 94 10/06/19 18:55 10/06/19 22:00 10/07/19 03:31 Temperature 37.6 C 37.3 C 37.2 C Pulse Rate 96 97 88 Respiratory Rate 16 18 18 Blood Pressure 138/88 103/65 108/60 Pulse Oximetry 93 94 96 10/07/19 06:00 10/07/19 09:29 Temperature 37.1 C Pulse Rate 84 100 Respiratory Rate 18 Blood Pressure 110/60 Pulse Oximetry 96 Intake/Output Intake/Output: Intake & Output 10/04/19 10/05/19 10/06/19 10/07/19 23:59 23:59 23:59 23:59 Intake Total 940 950 Output Total 950 Balance -10 950 Meds
--- NOTE | 2019-10-07 10:33 | PM.IMPN ---
Progress Note: A&P Assessment and Plan (1) Closed left hip fracture: Qualifiers: Encounter type: initial encounter Qualified Code(s): S72.002A - Fracture of unspecified part of neck of left femur, initial encounter for closed fracture Code(s): S72.002A - Fracture of unspecified part of neck of left femur, initial encounter for closed fracture Status: Inactive Assessment and Plan: POD #1 left hip bipolar hemiarthroplasty per Dr. Foley. Doing well post-op. PT/OT, DVT ppx, postop/pain management, placement planning per Orthopedic Surgery Care coordination is working on getting the patient placed in a swing bed in [facility]. We are waiting for PT/OT evaluations to go through and we will send them to her insurance for authorization approval. Monitor (2) Chronic pancreatitis: Qualifiers: Pancreatitis type: unspecified pancreatitis type Qualified Code(s): K86.1 - Other chronic pancreatitis Code(s): K86.1 - Other chronic pancreatitis Status: Chronic Assessment and Plan: No acute issues. Pain control as needed. Monitor for change in condition (3) COPD (chronic obstructive pulmonary disease): Qualifiers: COPD type: unspecified COPD Qualified Code(s): J44.9 - Chronic obstructive pulmonary disease, unspecified Code(s): J44.9 - Chronic obstructive pulmonary disease, unspecified Status: Chronic Assessment and Plan: Asymptomatic. Lung exam benign Lungs are clear to auscultation this morning. Continue bronchodilators. (4) HTN (hypertension): Qualifiers: Hypertension type: unspecified Qualified Code(s): I10 - Essential (primary) hypertension Code(s): I10 - Essential (primary) hypertension Status: Chronic Assessment and Plan: BP 110/60 this morning. Continue home Coreg for now She is not having any lightheadedness or dizziness today. She denies any history of syncopal episodes at home causing her falls. She cannot tell me the reason why he has fallen multiple times over the last few months. Consider Orthostatics once able to ambulate as her history sounds she may have orthostatic hypotension Patient follow with what sounds like [facility] in [place] Consider f/u with their computed tomography scanner operator after discharge vs cardiology consult (5) CHF (congestive heart failure): Qualifiers: Heart failure chronicity: chronic Heart failure type: unspecified Qualified Code(s): I50.9 - Heart failure, unspecified Code(s): I50.9 - Heart failure, unspecified Status: Chronic Assessment and Plan: Well compensated. Continue home CHF meds. (6) CKD (chronic kidney disease): Code(s): N18.9 - Chronic kidney disease, unspecified Status: Acute Assessment and Plan: Cr is 0.90 - seemingly at baseline per EMR review Stable today. Time Spent With Patient Time with patient: 25 - 35 minutes Subjective Date/time seen: 10/07/19 10:33 Interval history: Date of service 10/07/2019: The patient is feeling well after surgery yesterday on her left hip. Pod #1. She has been eating and drinking without any issues other than some slight nausea this morning. She has been passing gas without any issues but has not had a bowel movement yet. She reports having history of soft stools since she has chronic pancreatitis and she refused to have a stool softener this morning to prevent further diarrhea issues. We will continue monitoring her bowel issues at this time. She denies any fever, chills, headache, lightheadedness, dizziness, chest pain, shortness of breath, cough, vomiting, abdominal pain, leg swelling, calf pain, or any other symptoms this t
[2019-10-08] VITALS (12 sets, daily range): BP systolic 75–100; BP diastolic 38–86; PULSE 87–98; RESP 16–18; TEMP 36.7–37.4; O2SAT 91–100
[2019-10-08] MEDS: DICLOFENAC SODIUM 0.1% OPHTH SOLN 2.5 ML BOTTLE 1 DROP EACH EYE ×3 (06:22→21:24)
[2019-10-08] MEDS: MOXIFLOXACIN HCL 0.5% 3 ML OPHTH SOLN 1 DROP EACH EYE ×3 (06:22→21:24)
[2019-10-08 06:33] LABS: Basophils Percent Auto 0.2 % (0.2-1.2); Eosinophils Absolute Auto 0.3 K/mm3 (0-0.3); Hematocrit 26.4 % (37.0-47.0); Hemoglobin 8.4 g/dL (12.0-15.0); Immature Granulocyte Absolute 0.11 K/mm3 (0.00-0.031); Immature Granulocyte Percent A 0.9 % (0-0.5); Lymphocytes Absolute Auto 2.07 K/mm3 (0.9-3.2); Lymphocytes Percent Auto 16.5 % (18.3-44.2); Mean Corpuscular HGB Conc 31.8 g/dl (32-36); Mean Corpuscular Hemoglobin 29.8 pg (26-34); Mean Corpuscular Volume 93.6 fl (80-100); Mean Platelet Volume 11.4 fl (7.4-10.4); Monocytes Absolute Auto 0.8 K/mm3 (0.1-0.6); Monocytes Percent Auto 6.1 % (2.6-8.5); Neutrophils Absolute Auto 9.4 K/mm3 (1.3-6.7); Neutrophils Percent Auto 74.3 % (45.5-73.1); Platelet Count Result 146 k/mm3 (150-375); Red Blood Count 2.82 M/mm3 (4.2-5.4); Red Cell Distribution Width 14.9 % (11.5-14.5); White Blood Count 12.6 K/mm3 (4.5-10.0)
[2019-10-08] MEDS: MORPHINE SULFATE 2 MG/ML INJ IV PUSH (06:33)
[2019-10-08 06:57] LABS: Blood Urea Nitrogen 29 mg/dL (7-17); Carbon Dioxide 29 mmol/L (22-30); Chloride 94 mmol/L (98-107); Estimated CRCL calculation 27 ml/min; Estimated Glomerular Filt Rate 37; Glucose 94 mg/dL (65-105); Magnesium 2.4 mg/dL (1.6-2.3); Potassium 4.1 mmol/L (3.4-5.0); Sodium 128 mmol/L (137-145)
[2019-10-08] MEDS: SODIUM CHLORIDE 0.9% IV 1,000 ML 75 ML IV CONT (08:37)
--- NOTE | 2019-10-08 09:06 | PM.PNORT ---
Progress Note: A&P Assessment and Plan (1) Femoral neck fracture: Onset Date: 10/06/19 Qualifiers: Encounter type: initial encounter Fracture type: closed Laterality: left Qualified Code(s): S72.002A - Fracture of unspecified part of neck of left femur, initial encounter for closed fracture Code(s): S72.009A - Fracture of unspecified part of neck of unspecified femur, initial encounter for closed fracture Status: Acute Assessment and Plan: postoperative day 2. Left hip hemiarthroplasty. Incision with mild drainage, otherwise appears normal. Expected postoperative pain with movement and weight-bearing. Continue with physical therapy/ occupational therapy. Weightbearing as tolerated left leg. DVT prophylaxis with Arixtra. Pain control. Patient most likely will require placement. Subjective Subjective Date/Time Seen: 10/08/19 09:06 Complains of pain left hip with motion and weight-bearing. No new complaints. Exam Const: General: comfortable and no acute distress Resp: Effort & Inspection: normal respiratory effort Cardio: Rate: regular rate Rhythm: regular rhythm GI: Inspection: non-distended Neuro: Cognition (Neuro): normal cognition Motor exam (neuro): Abnormal motor strength present (Decreased b/l ) Sensory Exam: normal sensation Extrem: Right lower extremity: normal to inspection, full ROM, normal capillary refill and hip/thigh Details: normal to inspection; no tenderness and no swelling Left lower extremity: normal to inspection, normal capillary refill, hip/thigh Details: normal to inspection, tenderness Location: of the hip Location: laterally, swelling Location: of the hip and abnormal ROM (Limited due to recent surgery ), ankle (+ankle dorsiflexion/plantarflexion. Negative Arley's Sign) Details: no tenderness and no swelling and foot (2+ pedal pulses. Sensation intact to light touch. Moves toes. ) Details: vascular exam Details: dorsalis pedis pulse present and posterior tibial pulse present and motor-sensory exam light-touch normal Other: Scant serosanguineous drainage left hip incision. Surrounding muscle compartments soft. No erythema or increased warmth. Able to flex and extend knee and ankle. Good sensation light touch throughout the toes. Palpable dorsalis pedis pulse. Psych: Mental Status: mental status grossly normal Affect: normal affect Objective Data Vital Signs Vital Signs: Vital Signs - 24 hr 10/07/19 09:29 10/07/19 10:52 10/07/19 10:55 Temperature 98.1 F Pulse Rate 100 73 Respiratory Rate 18 Blood Pressure 110/70 Pulse Oximetry 94 10/07/19 15:17 10/07/19 16:43 10/07/19 22:00 Temperature 97.2 F L 97.9 F Pulse Rate 86 78 93 Respiratory Rate 16 16 Blood Pressure 101/71 110/49 L Pulse Oximetry 94 90 10/07/19 22:18 10/08/19 06:00 10/08/19 07:35 Temperature 99.3 F 99.2 F Pulse Rate 97 98 Respiratory Rate 16 16 Blood Pressure 91/43 L 91/60 L Pulse Oximetry 94 100 91 Intake/Output Intake/Output: Intake & Output 10/05/19 10/06/19 10/07/19 10/08/19 23:59 23:59 23:59 23:59 Intake Total 940 1540 790 Output Total 950 1000 Balance -10 1540 -210 Meds/Results Medications: Active Medications Generic Name Dose Route Start Last Admin Trade Name Freq PRN Reason Stop Dose Admin Acetaminophen 650 mg 10/06/19 16:14 Tylenol Tablet PO Q6H PRN Mild Pain (1-3) or Fever Hydrocodone Bitart/Acetaminophen 1 tab 10/06/19 16:14 [place] 5-325 Mg PO Q3H PRN Pain Rated 4-6 Artificial Tears 1 drop 10/06/19 16:51 Artificial Tears EACH EYE Q2H PRN Dry Eye(s) Aspirin 81 mg 10/07/19 09:00 10/07/19 09:28 Aspirin Chewable PO 81 mg DAILY CHRISTELLE Administration Bisacodyl 10 mg 10/06/19 16:19 Dulcolax Suppository RECTAL DAILY PRN Constipation Budesonide/Formoterol Fumarate 2 puff 10/05/19 20:00 10/07/19 22:10 Symbicort 160-4.5 Mcg (*Sp) Inhaler IN
[2019-10-08] MEDS: carvediloL 3.125 MG TABLET PO (09:19)
[2019-10-08] MEDS: hydrOXYzine HCL 25 MG TABLET PO (09:19)
[2019-10-08] MEDS: MONTELUKAST SODIUM 10 MG TABLET PO (09:20)
[2019-10-08] MEDS: SERTRALINE HCL 50 MG TABLET 100 MG PO (09:20)
[2019-10-08] MEDS: GABAPENTIN 300 MG CAPSULE PO ×3 (09:21→17:38)
[2019-10-08] MEDS: PANTOPRAZOLE 40 MG TABLET PO ×2 (09:21→21:24)
[2019-10-08] MEDS: FONDAPARINUX SODIUM 2.5 MG/0.5 ML SYRINGE SUB-Q (09:21)
[2019-10-08] MEDS: DOCUSATE SODIUM 100 MG CAPSULE PO ×2 (09:21→17:39)
[2019-10-08] MEDS: ASPIRIN 81 MG CHEWABLE TABLET PO (09:21)
[2019-10-08] MEDS: ONDANSETRON INJ 4 MG/2 ML VIAL IV PUSH (09:30)
--- NOTE | 2019-10-08 10:34 | PCOTNOTE ---
Attempted to see patient this am, however patient unavailable. First attempt, pt was with physical therapy. Second attempt, pt was eating breakfast. Third attempt, patient was with nursing students and instructor. Fourth attempt, patient declined stating, I am not doing anything right now.
[2019-10-08 10:44] LABS: Add Urine Microscopic? YES; Appearance Urine Clear (Clear); Bacteria Urine Trace /hpf; Bilirubin Urine Negative (Negative); Blood Urine Negative (Negative); Color Urine Yellow (Yellow); Glucose Urine UA Negative (Negative); Hyaline Casts Urine 15-19 /lpf; Ketones Urine Negative (Negative); Leukocyte Esterase Ur 1+ LEU/UL (Negative); Mucus Urine Rare /lpf; Nitrate Urine Negative (Negative); Protein Urine Negative (Negative); RBC Urine 0-2 /hpf (0-2); Specific Grav Ur 1.016 (1.001-1.035); Squamous Epithelial Cell Urine Occasional /hpf (Few); Urobilinogen Urine Negative mg/dL (<2.0)
[2019-10-08 10:44] LABS: Iron 14 ug/dL (37-170)
[2019-10-08 10:51] LABS: Creatinine Urine 126.2 mg/dL
[2019-10-08 10:53] LABS: Percent Iron Saturation 11 % (20-50)
[2019-10-08 11:49] LABS: Folic Acid > 20.0 ng/mL (2.76->20)
[2019-10-08 12:02] LABS: Sodium Urine Random < 5 meq/L
[2019-10-08 12:14] LABS: Transferrin < 80 mg/dL (206-381)
--- NOTE | 2019-10-08 14:32 | PC.NURSE ---
On 10/08/19, the student, [ Akua Alarcon], provided care and completed [employer] documentation on this patient. I have reviewed the student's documentation and agree with the findings.
[2019-10-08 15:09] LABS: Hematocrit 25.6 % (37.0-47.0); Hemoglobin 8.3 g/dL (12.0-15.0)
[2019-10-08 15:20] LABS: Blood Urea Nitrogen 28 mg/dL (7-17); Carbon Dioxide 27 mmol/L (22-30); Chloride 95 mmol/L (98-107); Estimated CRCL calculation 29 ml/min; Estimated Glomerular Filt Rate 40; Glucose 115 mg/dL (65-105); Potassium 3.9 mmol/L (3.4-5.0); Sodium 128 mmol/L (137-145)
--- NOTE | 2019-10-08 15:23 | PM.IMPN ---
Progress Note: A&P Assessment and Plan (1) Hypotension: Code(s): I95.9 - Hypotension, unspecified Status: Acute Assessment and Plan: Blood pressure this morning was 91/43. She was started on IV fluid hydration at that time. Patient had orthostatic blood pressures checked which showed supine was 100/86, sitting was 85/65, standing was 94/52. She was positive for her orthostatics with the drop from diastolic blood pressure. We increased her IV fluids at this time 100 mils per hour. Her blood pressure was checked again and was 75/40. We recheck her H&H which remains stable with a hemoglobin of 8.3 and hematocrit at 25.6. I checked her FENA which showed that it was 0% which could include hypovolemia verses sepsis verses pre renal problem. We checked a urinalysis earlier which showed no acute signs of an infection. She is not having any respiratory symptoms that would require immediate check a chest x-ray at this time. We will give the patient a 500 cc bolus at this time and recheck her blood pressure. We will continue giving her IV fluid hydration and further monitoring for her symptoms and hypotension. (2) Urinary retention: Code(s): R33.9 - Retention of urine, unspecified Status: Acute Assessment and Plan: The patient had a Wyatt catheter placed once she was found to have an acute fracture. Her Wyatt catheter was removed yesterday and since then she has had a hard time urinating. She was straight cath this morning around 0500 and again when we needed a urinalysis at 10:30 a.m. this morning and catheterized amount out was 800 cc. If the patient continues to have urinary retention issues we will place a Wyatt catheter and start Flomax daily and have her follow-up with the urologist as an outpatient. Patient understands and agrees the plan at this time. (3) LAUREN (acute kidney injury): Code(s): N17.9 - Acute kidney failure, unspecified Status: Acute Assessment and Plan: Patient's creatinine increased this morning to 1.4. She is normally within normal range with a creatinine is 0.9-1. Patient's LAUREN could be from dehydration in a eating or drinking much, UTI was ruled out, urinary retention issues, hypotension She is receiving IV fluids at this time and will continue monitoring her creatinine, urine output, renal status. (4) Anemia of chronic disease: Code(s): D63.8 - Anemia in other chronic diseases classified elsewhere Status: Acute Assessment and Plan: The patient's hemoglobin is normally within normal range at 11.7. Yesterday after her surgery her hemoglobin dropped to 9.7. This could have been secondary to IV fluids during the procedure and some blood loss. This morning her hemoglobin dropped to 8.4. Repeat hemoglobin at 3:00 3.m. was 8.3 which is stable. She denies having any dark stools or bloody stools when she had a bowel movement yesterday. I completed an iron panel which shows she has anemia of chronic disease, with a normal vitamin B12 and folic acid level. We will continue to trend her H&H Q 6 hours. Transfuse as needed. (5) Closed left hip fracture: Qualifiers: Encounter type: initial encounter Qualified Code(s): S72.002A - Fracture of unspecified part of neck of left femur, initial encounter for closed fracture Code(s): S72.002A - Fracture of unspecified part of neck of left femur, initial encounter for closed fracture Status: Inactive Assessment and Plan: POD #2 left hip bipolar hemiarthroplasty per Dr. Foley. She did not do well with PT/OT today since she was feeling lightheaded and dizzy. DVT ppx, postop/pain management, placement planning per Orthopedic Surgery The patient was accepted into a swing bed at [facility]
[2019-10-08] MEDS: SODIUM CHLORIDE 0.9% IV 1,000 ML 100 ML IV CONT ×2 (16:16→17:37)
[2019-10-08 22:00] LABS: Hematocrit 25.8 % (37.0-47.0); Hemoglobin 8.2 g/dL (12.0-15.0)
[2019-10-09] VITALS (12 sets, daily range): BP systolic 85–119; BP diastolic 43–78; PULSE 80–103; RESP 16–18; TEMP 36.6–37.3; O2SAT 92–100; BMI 22.4
[2019-10-09] MEDS: SODIUM CHLORIDE 0.9% IV 1,000 ML 100 ML IV CONT (04:00)
[2019-10-09] MEDS: MOXIFLOXACIN HCL 0.5% 3 ML OPHTH SOLN 1 DROP EACH EYE ×3 (04:49→21:05)
[2019-10-09] MEDS: DICLOFENAC SODIUM 0.1% OPHTH SOLN 2.5 ML BOTTLE 1 DROP EACH EYE ×3 (04:49→21:05)
[2019-10-09 07:06] LABS: Alanine Aminotransferase 9 U/L (4-35); Albumin Level 1.7 g/dL (3.5-5.1); Alkaline Phosphatase 133 U/L (38-126); Aspartate Amino Transferase 20 U/L (14-36); Bilirubin,Total 0.3 mg/dL (0.2-1.3); Blood Urea Nitrogen 23 mg/dL (7-17); Calcium 6.5 mg/dL (8.4-10.2); Carbon Dioxide 23 mmol/L (22-30); Chloride 105 mmol/L (98-107); Estimated CRCL calculation 37 ml/min; Estimated Glomerular Filt Rate 55; Glucose 95 mg/dL (65-105); Magnesium 1.9 mg/dL (1.6-2.3); Potassium 3.8 mmol/L (3.4-5.0); Sodium 134 mmol/L (137-145)
[2019-10-09 07:07] LABS: Basophils Percent Auto 0.2 % (0.2-1.2); Eosinophils Absolute Auto 0.2 K/mm3 (0-0.3); Eosinophils Percent Auto 1.9 % (0-4.4); Hematocrit 22.9 % (37.0-47.0); Hemoglobin 7.4 g/dL (12.0-15.0); Immature Granulocyte Absolute 0.08 K/mm3 (0.00-0.031); Immature Granulocyte Percent A 0.7 % (0-0.5); Lymphocytes Absolute Auto 1.61 K/mm3 (0.9-3.2); Lymphocytes Percent Auto 13.7 % (18.3-44.2); Mean Corpuscular HGB Conc 32.3 g/dl (32-36); Mean Corpuscular Hemoglobin 30.5 pg (26-34); Mean Corpuscular Volume 94.2 fl (80-100); Mean Platelet Volume 11.2 fl (7.4-10.4); Monocytes Absolute Auto 0.6 K/mm3 (0.1-0.6); Monocytes Percent Auto 4.7 % (2.6-8.5); Neutrophils Absolute Auto 9.3 K/mm3 (1.3-6.7); Neutrophils Percent Auto 78.8 % (45.5-73.1); Platelet Count Result 134 k/mm3 (150-375); Red Blood Count 2.43 M/mm3 (4.2-5.4); Red Cell Distribution Width 15.1 % (11.5-14.5); White Blood Count 11.8 K/mm3 (4.5-10.0)
[2019-10-09 07:08] LABS: Lipase 11 U/L (23-300)
[2019-10-09] MEDS: SERTRALINE HCL 50 MG TABLET 100 MG PO (09:14)
[2019-10-09] MEDS: PANTOPRAZOLE 40 MG TABLET PO ×2 (09:14→21:04)
[2019-10-09] MEDS: hydrOXYzine HCL 25 MG TABLET PO ×3 (09:14→16:42)
[2019-10-09] MEDS: ACETAMINOPHEN 325 MG TABLET 650 MG PO (09:14)
[2019-10-09] MEDS: MONTELUKAST SODIUM 10 MG TABLET PO (09:15)
[2019-10-09] MEDS: DOCUSATE SODIUM 100 MG CAPSULE PO ×2 (09:15→16:42)
[2019-10-09] MEDS: ASPIRIN 81 MG CHEWABLE TABLET PO (09:15)
[2019-10-09] MEDS: GABAPENTIN 300 MG CAPSULE PO ×3 (09:15→16:42)
[2019-10-09] MEDS: FONDAPARINUX SODIUM 2.5 MG/0.5 ML SYRINGE SUB-Q (09:15)
[2019-10-09 09:17] LABS: Parathyroid Intact 126.1 pg/mL (7.5-53.5)
--- NOTE | 2019-10-09 09:28 | PM.PNORT ---
Progress Note: A&P Assessment and Plan (1) Femoral neck fracture: Onset Date: 10/06/19 Qualifiers: Encounter type: initial encounter Fracture type: closed Laterality: left Qualified Code(s): S72.002A - Fracture of unspecified part of neck of left femur, initial encounter for closed fracture Code(s): S72.009A - Fracture of unspecified part of neck of unspecified femur, initial encounter for closed fracture Status: Acute Assessment and Plan: POD #3: Left hip hemiarthroplasty. HgB 7.4 today. 2 units PRBCs ordered by Medicine team. Incision with mild serousanguinous drainage, otherwise appears normal. Continue coverlet dressings daily. Plan to transition to Mepilex Silver dressing prior to discharge if drainage slows. Continue pain control. Continue PT/OT. WBAT with walker. Fall Risk. DVT prophylaxis with Arixtra. Dispo: Acute Rehab when medically stable Subjective Subjective Date/Time Seen: 10/09/19 09:28 Post Op day: 3 Principal diagnosis: Left Hip Bipolar Interval history: No new complaints. Sitting up in chair. Awaiting blood transfusion. Review of Systems Review of Systems: All systems reviewed & are unremarkable except as noted in HPI and below Constitutional: Constitutional: Denies chills, Reports fatigue, Denies fever(s) and Denies night sweats Cardiovascular: Cardiovascular: Denies chest pain, Reports leg edema (LLE ) and Denies lightheadedness Respiratory: Respiratory: Denies cough and Denies dyspnea Gastrointestinal: Gastrointestinal: Denies abdominal pain, Denies constipation, Denies diarrhea, Reports nausea and Denies vomiting Genitourinary: Genitourinary: Reports urinary hesitancy (now with salgado catheter again ) Musculoskeletal: Musculoskeletal: Reports arthralgias (Left Hip ), Reports joint swelling (Left Hip/Left Knee ), Denies neck pain, Denies numbness and Denies tingling Exam Const: General: comfortable and no acute distress Resp: Effort & Inspection: normal respiratory effort Cardio: Rate: regular rate Rhythm: regular rhythm GI: Inspection: non-distended Urinary Catheter: Urinary Catheter: patent and draining and urine clear Neuro: Cognition (Neuro): normal cognition Motor exam (neuro): Abnormal motor strength present (Decreased b/l ) Sensory Exam: normal sensation Extrem: Right lower extremity: normal to inspection, full ROM, normal capillary refill and hip/thigh Details: normal to inspection; no tenderness and no swelling Left lower extremity: normal to inspection, normal capillary refill, hip/thigh Details: normal to inspection, tenderness Location: of the hip Location: laterally, swelling Location: of the hip and abnormal ROM (Limited due to recent surgery ), knee Details: swelling (Mild effusion ), normal ROM (AROM/PROM without pain ) and ecchymosis; no tenderness, ankle (+ankle dorsiflexion/plantarflexion. Negative Arley's Sign) Details: no tenderness and no swelling and foot (2+ pedal pulses. Sensation intact to light touch. Moves toes. ) Details: vascular exam Details: dorsalis pedis pulse present and posterior tibial pulse present and motor-sensory exam light-touch normal Other: Mild to moderate serosanguinous drainage left hip incision. Surrounding muscle compartments soft. No erythema or increased warmth. +ankle dorsiflexion/plantarflexion. Good sensation light touch throughout the toes. Palpable dorsalis pedis pulse. Psych: Mental Status: mental status grossly normal Affect: normal affect Objective Data Vital Signs Vital Signs: Vital Signs - 24 hr 10/08/19 10:19 10/08/19 10:20 10/08/19 13:48 Temperature Pulse Rate Respiratory Rate Blood Pressure 85/65 L 94/52 L 80/40 L Pulse Oximetry 10/08/19 14:00 10/08/19 15:12 10/08/19 17:08 Temperature 36.7 C Pulse Rate 89 Respiratory Rate 18 Blood Pressure 78/38 L 75/40 L 98/50 L Pulse Oximetry 94 10/08/19 17:36 10/08/19 20:01 10/08/19 21:47 Temperature
[2019-10-09 10:04] LABS: Vitamin D 25 Hydroxy < 12.8 ng/mL
--- NOTE | 2019-10-09 10:12 | PCOTNOTE ---
Attempted to see patient twice this am, however patient first attempt patient was eating breakfast. Second attempt, pt declined stating, I wish I could, but I can't. I'm getting ready to have a blood transfusion, and I already got cleaned up earlier today.
--- NOTE | 2019-10-09 10:30 | PCPTNOTE ---
PT attempted to see pt this AM. Pt declined PT. Pt receiving blood.
[2019-10-09 15:40] LABS: Hematocrit 29.7 % (37.0-47.0); Hemoglobin 9.4 g/dL (12.0-15.0)
--- NOTE | 2019-10-09 16:22 | PM.IMPN ---
Progress Note: A&P Assessment and Plan (1) Hypotension: Code(s): I95.9 - Hypotension, unspecified Status: Acute Assessment and Plan: Blood pressure this morning was 90/56. Yesterday, I checked her FENA which showed that it was 0% which could include hypovolemia verses sepsis verses pre renal problem. We checked a urinalysis earlier which showed no acute signs of an infection. Chest x-ray showed Small pleural effusions. Mild atelectasis at the lung bases. No acute infection. Yesterday, patient had orthostatic blood pressures checked which showed supine was 100/86, sitting was 85/65, standing was 94/52. She was positive for her orthostatics with the drop from diastolic blood pressure. Will recheck Orthostatics and Shay Hose are ordered. Continue on IV fluid hydration. The patients H&H was was low this morning and she received 1 Unit of PRBCs. We will continue giving her IV fluid hydration and further monitoring for her symptoms and hypotension. (2) Urinary retention: Code(s): R33.9 - Retention of urine, unspecified Status: Acute Assessment and Plan: The patient had a Wyatt catheter placed once she was found to have urinary retention after her Wyatt catheter was removed after surgery. We replaced a Wyatt catheter yesterday afternoon after she was having retention symptoms. Will start Flomax daily She will need to follow-up with the urologist as an outpatient. Patient understands and agrees the plan at this time. (3) LAUREN (acute kidney injury): Code(s): N17.9 - Acute kidney failure, unspecified Status: Acute Assessment and Plan: Patient's creatinine increased yesterday morning to 1.4. She is normally within normal range with a creatinine is 0.9-1. Patient's LAUREN could be from dehydration in a eating or drinking much, UTI was ruled out, urinary retention issues, hypotension Today, Cr was 1.0, normalized and BUN still slightly elevated at 23. Will continue light fluid hydration. She is receiving IV fluids at this time and will continue monitoring her creatinine, urine output, renal status. (4) Anemia of chronic disease: Code(s): D63.8 - Anemia in other chronic diseases classified elsewhere Status: Acute Assessment and Plan: The patient's hemoglobin is normally within normal range at 11.7. After her surgery her hemoglobin dropped to 9.7. This could have been secondary to IV fluids during the procedure and some blood loss. H&H was lower this morning hemoglobin of 7.4 and hematocrit at 22.9%. Could be secondary to IV fluids, recent surgery. I gave her 1 Unit of PRBCs with improvement of Hgb to 9.4 and Hct 29.7. She denies having any dark stools or bloody stools when she had a bowel movement yesterday. I completed an iron panel which shows she has anemia of chronic disease, with a normal vitamin B12 and folic acid level. We will continue to trend her H&H. Transfuse as needed. (5) Femoral neck fracture: Onset Date: 10/06/19 Qualifiers: Encounter type: initial encounter Fracture type: closed Laterality: left Qualified Code(s): S72.002A - Fracture of unspecified part of neck of left femur, initial encounter for closed fracture Code(s): S72.009A - Fracture of unspecified part of neck of unspecified femur, initial encounter for closed fracture Status: Acute Assessment and Plan: POD #2 left hip bipolar hemiarthroplasty per Dr. Foley. She reported doing better with PT/OT today but still has not walked very much. DVT ppx, postop/pain management, placement planning per Orthopedic Surgery The patient was accepted into a swing bed at [facility] Continue monitoring how she does with PT/OT. Orthopedic surgery will continue to monitor her fro
[2019-10-09] MEDS: ERGOCALCIFEROL 50,000 UNIT CAPSULE 50000 UNITS PO (16:42)
[2019-10-09] MEDS: SODIUM CHLORIDE 0.9% IV 1,000 ML 65 ML IV CONT (17:22)
[2019-10-09] MEDS: MELATONIN 3 MG TABLET PO (21:05)
--- NOTE | 2019-10-10 02:12 | PCRCNOTE ---
Window of time for administration has passed. See next scheduled administration.
[2019-10-10 05:00] VITALS: BP 85/44; PULSE 84; RESP 16; TEMP 36.6; O2SAT 94
[2019-10-10] MEDS: MOXIFLOXACIN HCL 0.5% 3 ML OPHTH SOLN 1 DROP EACH EYE ×3 (05:42→19:54)
[2019-10-10] MEDS: DICLOFENAC SODIUM 0.1% OPHTH SOLN 2.5 ML BOTTLE 1 DROP EACH EYE ×3 (05:42→19:54)
[2019-10-10 06:34] LABS: Basophils Percent Auto 0.5 % (0.2-1.2); Eosinophils Absolute Auto 0.2 K/mm3 (0-0.3); Eosinophils Percent Auto 2.4 % (0-4.4); Hematocrit 26.7 % (37.0-47.0); Hemoglobin 8.6 g/dL (12.0-15.0); Immature Granulocyte Absolute 0.07 K/mm3 (0.00-0.031); Immature Granulocyte Percent A 0.8 % (0-0.5); Lymphocytes Absolute Auto 1.46 K/mm3 (0.9-3.2); Lymphocytes Percent Auto 17.5 % (18.3-44.2); Mean Corpuscular HGB Conc 32.2 g/dl (32-36); Mean Corpuscular Hemoglobin 30.2 pg (26-34); Mean Corpuscular Volume 93.7 fl (80-100); Monocytes Absolute Auto 0.5 K/mm3 (0.1-0.6); Monocytes Percent Auto 6.5 % (2.6-8.5); Neutrophils Percent Auto 72.3 % (45.5-73.1); Platelet Count Result 126 k/mm3 (150-375); Red Blood Count 2.85 M/mm3 (4.2-5.4); Red Cell Distribution Width 15.3 % (11.5-14.5); White Blood Count 8.3 K/mm3 (4.5-10.0)
[2019-10-10 06:43] LABS: Albumin Level 1.6 g/dL (3.5-5.1); Blood Urea Nitrogen 18 mg/dL (7-17); Calcium 6.9 mg/dL (8.4-10.2); Carbon Dioxide 25 mmol/L (22-30); Chloride 105 mmol/L (98-107); Estimated CRCL calculation 46 ml/min; Estimated Glomerular Filt Rate > 60; Glucose 69 mg/dL (65-105); Phosphorus 2.3 mg/dL (2.5-4.5); Potassium 3.8 mmol/L (3.4-5.0); Sodium 137 mmol/L (137-145)
[2019-10-10 08:05] VITALS: BP 118/64
[2019-10-10] MEDS: SODIUM CHLORIDE 0.9% IV 1,000 ML 65 ML IV CONT (09:14)
[2019-10-10] MEDS: FONDAPARINUX SODIUM 2.5 MG/0.5 ML SYRINGE SUB-Q (09:15)
[2019-10-10] MEDS: SERTRALINE HCL 50 MG TABLET 100 MG PO (09:16)
[2019-10-10] MEDS: TAMSULOSIN HCL 0.4 MG CAPSULE PO (09:16)
[2019-10-10] MEDS: GABAPENTIN 300 MG CAPSULE PO ×3 (09:17→17:57)
[2019-10-10] MEDS: ASPIRIN 81 MG CHEWABLE TABLET PO (09:17)
[2019-10-10] MEDS: hydrOXYzine HCL 25 MG TABLET PO ×3 (09:18→17:58)
[2019-10-10] MEDS: PANTOPRAZOLE 40 MG TABLET PO ×2 (09:18→19:54)
[2019-10-10] MEDS: MONTELUKAST SODIUM 10 MG TABLET PO (09:18)
[2019-10-10] MEDS: DOCUSATE SODIUM 100 MG CAPSULE PO (09:18)
[2019-10-10 10:52] VITALS: PULSE 70
--- NOTE | 2019-10-10 12:55 | PM.IMPN ---
Progress Note: A&P Assessment and Plan (1) Hypotension: Code(s): I95.9 - Hypotension, unspecified Status: Acute Assessment and Plan: Blood pressure this morning was 85/44. I called the nurse had her mainly recheck it and it was 118/64. 10/08/2019: I checked her FENA which showed that it was 0% which could include hypovolemia verses sepsis verses pre renal problem. 10/08/2019: Patient had orthostatic blood pressures checked which showed supine was 100/86, sitting was 85/65, standing was 94/52. She was positive for her orthostatics with the drop from diastolic blood pressure. 10/09/2019: The patients H&H was was low 10/09/2019 and she received 1 Unit of PRBCs. We checked a urinalysis earlier which showed no acute signs of an infection. Chest x-ray showed Small pleural effusions. Mild atelectasis at the lung bases. No acute infection. Will continue Shay Hose. Continue with light IV fluid hydration. She is feeling better today. We will continue giving her IV fluid hydration and further monitoring for her symptoms and hypotension. (2) Urinary retention: Code(s): R33.9 - Retention of urine, unspecified Status: Acute Assessment and Plan: The patient had a Wyatt catheter placed once she was found to have urinary retention after her Wyatt catheter was removed after surgery. We placed a Wyatt catheter after she was having retention symptoms. Will start Flomax daily She will need to follow-up with the urologist as an outpatient. Patient understands and agrees the plan at this time. (3) LAUREN (acute kidney injury): Code(s): N17.9 - Acute kidney failure, unspecified Status: Acute Assessment and Plan: She is normally within normal range with a creatinine is 0.9-1. Patient's LAUREN could be from dehydration in a eating or drinking much, UTI was ruled out, urinary retention issues, hypotension Today, Cr was 0.8, normalized and BUN still slightly elevated at 25. Will continue light fluid hydration. She is receiving IV fluids at this time and will continue monitoring her creatinine, urine output, renal status. (4) Anemia of chronic disease: Code(s): D63.8 - Anemia in other chronic diseases classified elsewhere Status: Acute Assessment and Plan: The patient's hemoglobin is normally within normal range at 11.7. After her surgery her hemoglobin dropped to 9.7. This could have been secondary to IV fluids during the procedure and some blood loss. H&H was lower 10/09/2019 hemoglobin of 7.4 and hematocrit at 22.9%. Could be secondary to IV fluids, recent surgery. I gave her 1 Unit of PRBCs with improvement of Hgb to 9.4 and Hct 29.7. She denies having any dark stools or bloody stools when she had a bowel movement yesterday. I completed an iron panel which shows she has anemia of chronic disease, with a normal vitamin B12 and folic acid level. We will continue to trend her H&H. Transfuse as needed. (5) Femoral neck fracture: Onset Date: 10/06/19 Qualifiers: Encounter type: initial encounter Fracture type: closed Laterality: left Qualified Code(s): S72.002A - Fracture of unspecified part of neck of left femur, initial encounter for closed fracture Code(s): S72.009A - Fracture of unspecified part of neck of unspecified femur, initial encounter for closed fracture Status: Acute Assessment and Plan: POD #4 left hip bipolar hemiarthroplasty per Dr. Foley. She reported doing better with PT/OT today and walked to the bathroom. DVT ppx, postop/pain management, placement planning per Orthopedic Surgery The patient was accepted into a swing bed at [facility] Continue monitoring how she does with PT/OT. Orthopedic surgery will continue to monitor her from their [place]
[2019-10-10] MEDS: ONDANSETRON INJ 4 MG/2 ML VIAL IV PUSH (13:01)
[2019-10-10 14:00] VITALS: BP 100/64; PULSE 72; RESP 18; TEMP 36.7; O2SAT 100
--- NOTE | 2019-10-10 15:36 | PM.PNORT ---
Progress Note: A&P Assessment and Plan (1) Femoral neck fracture: Onset Date: 10/06/19 Qualifiers: Encounter type: initial encounter Fracture type: closed Laterality: left Qualified Code(s): S72.002A - Fracture of unspecified part of neck of left femur, initial encounter for closed fracture Code(s): S72.009A - Fracture of unspecified part of neck of unspecified femur, initial encounter for closed fracture Status: Acute Assessment and Plan: Postoperative day #4, left hip hemiarthroplasty. anemia from acute blood loss, chronic disease and possible other undiagnosed etiology improved with transfusion. Left hip drainage consistent with postoperative swelling and anticoagulation. Continue with dressing changes. Continue PT/OT. Weightbearing as tolerated. Agree with swing bed placement when medically stable and cleared. Subjective Subjective Date/Time Seen: 10/10/19 12:36. Patient complains of general malaise. States left hip pain improved. In complains of discomfort associated with pancreatitis. Review of Systems Review of Systems: All systems reviewed & are unremarkable except as noted in HPI and below Constitutional: Constitutional: Denies chills, Reports fatigue, Denies fever(s) and Denies night sweats Cardiovascular: Cardiovascular: Denies chest pain, Reports leg edema (LLE ) and Denies lightheadedness Respiratory: Respiratory: Denies cough and Denies dyspnea Gastrointestinal: Gastrointestinal: Denies abdominal pain, Denies constipation, Denies diarrhea, Reports nausea and Denies vomiting Genitourinary: Genitourinary: Reports urinary hesitancy (now with salgado catheter again ) Musculoskeletal: Musculoskeletal: Reports arthralgias (Left Hip ), Reports joint swelling (Left Hip/Left Knee ), Denies neck pain, Denies numbness and Denies tingling Exam Const: General: comfortable and no acute distress Resp: Effort & Inspection: normal respiratory effort Cardio: Rate: regular rate Rhythm: regular rhythm GI: Inspection: non-distended Urinary Catheter: Urinary Catheter: patent and draining and urine clear Neuro: Cognition (Neuro): normal cognition Motor exam (neuro): Abnormal motor strength present (Decreased b/l ) Sensory Exam: normal sensation Extrem: Right lower extremity: normal to inspection, full ROM, normal capillary refill and hip/thigh Details: normal to inspection; no tenderness and no swelling Left lower extremity: normal to inspection, normal capillary refill, hip/thigh Details: normal to inspection, tenderness Location: of the hip Location: laterally, swelling Location: of the hip and abnormal ROM (Limited due to recent surgery ), knee Details: swelling (Mild effusion ), normal ROM (AROM/PROM without pain ) and ecchymosis; no tenderness, ankle (+ankle dorsiflexion/plantarflexion. Negative Arley's Sign) Details: no tenderness and no swelling and foot (2+ pedal pulses. Sensation intact to light touch. Moves toes. ) Details: vascular exam Details: dorsalis pedis pulse present and posterior tibial pulse present and motor-sensory exam light-touch normal Other: Moderate serosanguinous drainage left hip incision. Surrounding muscle compartments soft. No erythema or increased warmth. +ankle dorsiflexion/plantarflexion. Good sensation light touch throughout the toes. Palpable dorsalis pedis pulse. Moderate swelling at the knee consistent with dependent edema. Psych: Mental Status: mental status grossly normal Affect: normal affect Objective Data Vital Signs Vital Signs: Vital Signs - 24 hr 10/09/19 16:42 10/09/19 22:00 10/10/19 05:00 Temperature 98.8 F 97.9 F Pulse Rate 95 84 Respiratory Rate 16 16 Blood Pressure 119/73 118/78 85/44 L Pulse Oximetry 97 94 10/10/19 08:05 10/10/19 10:52 10/10/19 14:00 Temperature 98.1 F Pulse Rate 70 72 Respiratory Rate 18 Blood Pressure 118/64 100/64 Pulse Oximetry 100 Intake/Output Intake/Output: Intake & Output
[2019-10-10] MEDS: MELATONIN 3 MG TABLET PO (19:54)
[2019-10-10 22:00] VITALS: BP 116/50; PULSE 95; RESP 16; TEMP 37.2; O2SAT 94
[2019-10-11] MEDS: SODIUM CHLORIDE 0.9% IV 1,000 ML 65 ML IV CONT (01:46)
[2019-10-11 06:00] VITALS: BP 108/52; PULSE 95; RESP 16; TEMP 36.6; O2SAT 95
[2019-10-11 06:45] LABS: Hemoglobin 8.8 g/dL (12.0-15.0); Mean Corpuscular HGB Conc 32.6 g/dl (32-36); Mean Corpuscular Volume 92.2 fl (80-100); Mean Platelet Volume 10.5 fl (7.4-10.4); Platelet Count Result 146 k/mm3 (150-375); Red Blood Count 2.93 M/mm3 (4.2-5.4); Red Cell Distribution Width 15.4 % (11.5-14.5); White Blood Count 9.5 K/mm3 (4.5-10.0)
[2019-10-11 06:55] LABS: Albumin Level 1.7 g/dL (3.5-5.1); Blood Urea Nitrogen 15 mg/dL (7-17); Carbon Dioxide 23 mmol/L (22-30); Chloride 107 mmol/L (98-107); Estimated CRCL calculation 52 ml/min; Estimated Glomerular Filt Rate > 60; Glucose 63 mg/dL (65-105); Phosphorus 2.4 mg/dL (2.5-4.5); Potassium 3.9 mmol/L (3.4-5.0); Sodium 136 mmol/L (137-145)
[2019-10-11 08:00] VITALS: PULSE 95; RESP 16; O2SAT 95
[2019-10-11] MEDS: GABAPENTIN 300 MG CAPSULE PO ×3 (09:45→18:00)
[2019-10-11] MEDS: DOCUSATE SODIUM 100 MG CAPSULE PO ×2 (09:46→18:00)
[2019-10-11] MEDS: PANTOPRAZOLE 40 MG TABLET PO (09:46)
[2019-10-11] MEDS: MONTELUKAST SODIUM 10 MG TABLET PO (09:46)
[2019-10-11] MEDS: hydrOXYzine HCL 25 MG TABLET PO ×3 (09:47→17:59)
[2019-10-11] MEDS: ASPIRIN 81 MG CHEWABLE TABLET PO (09:47)
[2019-10-11] MEDS: TAMSULOSIN HCL 0.4 MG CAPSULE PO (09:48)
[2019-10-11] MEDS: SERTRALINE HCL 50 MG TABLET 100 MG PO (09:48)
[2019-10-11] MEDS: FONDAPARINUX SODIUM 2.5 MG/0.5 ML SYRINGE SUB-Q (09:50)
[2019-10-11] MEDS: POTASSIUM/PHOSPHORUS/SODIUM 1.5 GM PACKET 1 PACKET PO (10:40)
[2019-10-11 12:30] VITALS: BP 118/80; PULSE 72; RESP 18; TEMP 36.7; O2SAT 92
--- NOTE | 2019-10-11 12:35 | PM.DS ---
DS: Diagnosis Admitting Diagnosis Admitting Diagnosis: Fracture of unspecified part of neck of left femur, initial encounter for closed fracture Discharge Diagnosis (1) Hypotension: Code(s): I95.9 - Hypotension, unspecified Status: Acute Assessment and Plan: Blood pressure at this time is 108/52. I called the nurse had her mainly recheck it and it was 118/80. We checked a urinalysis earlier which showed no acute signs of an infection. Chest x-ray showed Small pleural effusions. Mild atelectasis at the lung bases. No acute infection. 10/08/2019: I checked her FENA which showed that it was 0% which could include hypovolemia verses sepsis verses pre renal problem. 10/08/2019: Patient had orthostatic blood pressures checked which showed supine was 100/86, sitting was 85/65, standing was 94/52. She was positive for her orthostatics with the drop from diastolic blood pressure. 10/09/2019: The patients H&H was was low 10/09/2019 and she received 1 Unit of PRBCs. 10/10/2019: Patient is feeling better, hypotension is improved. Will switch her Beta Jordan to Metoprolol Succinate 12.5 mg HS once daily to prevent lightheadedness/dizziness while awake, less affect on causing hypotension and continue BB for CHF history. Will continue Shay Hose daily. She will be discharged to a Swing Bed for further PT/OT and monitoring of her BP. The patient understands and agrees with the plan. All questions answered. (2) Urinary retention: Code(s): R33.9 - Retention of urine, unspecified Status: Acute Assessment and Plan: The patient had a Wyatt catheter placed once she was found to have urinary retention after her Wyatt catheter was removed after surgery. We placed a Wyatt catheter after she was having retention symptoms. Will start Flomax daily She will need to follow-up with the urologist as an outpatient within 1 week. Patient understands and agrees the plan at this time. (3) LAUREN (acute kidney injury): Code(s): N17.9 - Acute kidney failure, unspecified Status: Acute Assessment and Plan: She is normally within normal range with a creatinine is 0.9-1. Patient's LAUREN could be from dehydration in a eating or drinking much, UTI was ruled out, urinary retention issues, hypotension Today, Cr was 0.7, normalized and BUN normal at 23. Will recheck BMP in 1 week. (4) Anemia of chronic disease: Code(s): D63.8 - Anemia in other chronic diseases classified elsewhere Status: Acute Assessment and Plan: The patient's hemoglobin is normally within normal range at 11.7. After her surgery her hemoglobin dropped to 9.7. This could have been secondary to IV fluids during the procedure and some blood loss. H&H was lower 10/09/2019 hemoglobin of 7.4 and hematocrit at 22.9%. Could be secondary to IV fluids, recent surgery. I gave her 1 Unit of PRBCs with improvement of Hgb to 9.4 and Hct 29.7. She denies having any dark stools or bloody stools when she had a bowel movement yesterday. I completed an iron panel which shows she has anemia of chronic disease, with a normal vitamin B12 and folic acid level. Today Hgb 8.8 and Hct 27%. Will recheck CBC in 1 week. (5) Femoral neck fracture: Onset Date: 10/06/19 Qualifiers: Encounter type: initial encounter Fracture type: closed Laterality: left Qualified Code(s): S72.002A - Fracture of unspecified part of neck of left femur, initial encounter for closed fracture Code(s): S72.009A - Fracture of unspecified part of neck of unspecified femur, initial encounter for closed fracture Status: Acute Assessment and Plan: POD #5 left hip bipolar hemiarthroplasty per Dr. Foley. She reported doing better with PT/OT today and walked to the bath
[2019-10-11 13:46] VITALS: BP 116/70; PULSE 78; RESP 18; TEMP 36.8; O2SAT 95
[2019-10-11] MEDS: FUROSEMIDE 20 MG TABLET PO (17:05)
[2019-10-12 04:34] LABS: Osmolality, Urine 385 mOsm/kg (50-1200)
[2019-10-12 04:34] LABS: Ionized Calcium 4.4 mg/dL (4.8-5.6)
[2019-10-13 12:09] LABS: Vitamin D 1,25 (OH)2 Total 16 pg/mL (18-72); Vitamin D2 1,25 (OH)2 <8 pg/mL; Vitamin D3 1,25 (OH)2 16 pg/mL
== END 2019-10-11 19:45 | disposition swing bed (61) | DRG 470 ==
PROVIDERS: Orthopaedic Surgery; Physician Assistant; Admitting Provider Hospitalist; PCP Nurse Practitioner Family; Visit Provider Internal Medicine
PROC: 0SRS01A Replacement of Left Hip Joint, Femoral Surface with Metal Synthetic Substitute, Uncemented, Open Approach (ICD-10-PCS; CPT 27125; principal; 2019-10-06 13:30)
DX: S72.012A Unspecified intracapsular fracture of left femur, initial encounter for closed fracture (principal); K86.1 Other chronic pancreatitis; N17.9 Acute kidney failure, unspecified; E46 Unspecified protein-calorie malnutrition; D62 Acute posthemorrhagic anemia; W19.XXXA Unspecified fall, initial encounter; J44.9 Chronic obstructive pulmonary disease, unspecified; I10 Essential (primary) hypertension; F41.8 Other specified anxiety disorders; I50.9 Heart failure, unspecified; N18.9 Chronic kidney disease, unspecified; Z87.891 Personal history of nicotine dependence; Z90.710 Acquired absence of both cervix and uterus; I95.9 Hypotension, unspecified; R33.9 Retention of urine, unspecified; D63.8 Anemia in other chronic diseases classified elsewhere; Z68.22 Body mass index [BMI] 22.0-22.9, adult; E83.51 Hypocalcemia; E55.9 Vitamin D deficiency, unspecified; E88.09 Other disorders of plasma-protein metabolism, not elsewhere classified; E86.0 Dehydration
CPT/HCPCS: 36415; 36430; 71046; 73502; 80048; 80053; 80069; 81001; 82306; 82330; 82570; 82607; 82652; 82728; 82746; 83519; 83540; 83550; 83690; 83735; 83935; 83970; 84300; 84443; 84466; 85014; 85018; 85025; 85027; 85610; 86850; 86900; 86901; 86923; 94640; 97110; 97116; 97161; 97165; 97530; 97535; A9270; C1776; J0330; J0690; J1100; J1652; J2250; J2270; J2405; J2704; J3010; J3475; J3480; J7030; J7120; P9016

== ENCOUNTER 2019-10-11 20:50 | Inpatient (IN) | payer MEDICARE, SELFPAY ==
--- NOTE | ~2019-10-11 | CT_ITS ---
EXAMINATION: CTA chest PE protocol DATE: 10/14/2019 18:46 INDICATION: Shortness of breath and hypoxia TECHNIQUE: Computed tomography angiography (CTA) of the chest was performed with 100 mL Omnipaque-350 intravenous contrast timed to evaluate the pulmonary arteries. Coronal maximum intensity projection 3D-reconstructions were created by the technologist. The dose-length product (DLP) was 327.93 mGy-cm. Automated exposure control and iterative reconstruction technique were employed. COMPARISON: 03/28/2019 FINDINGS: The pulmonary arteries are well-opacified. No pulmonary embolism is identified. There is mo derate to severe emphysema. There are airspace opacities with an upper lung zone predominance. Some s mooth interlobular septal thickening is seen in the upper lobes. Small pleural effusions are present. There is no pneumothorax. The heart size is normal. Mediastinal lymph nodes are subcentimeter in lali rt axis diameter. There is low attenuation of the left hepatic lobe compared to the right which may r eflect transient hepatic attenuation difference. There is atrophy of the pancreas with innumerable ca lcifications throughout the body of the pancreas, consistent with chronic pancreatitis. There is a 2. 3 cm hemorrhagic cyst of the left kidney upper pole. Severe thoracic spondylosis is noted. IMPRESSION: 1. No pulmonary embolism. 2. Diffuse airspace opacities, consistent with multifocal pneumonia and pulmonary edema. 3. Small pleural effusions. Reviewed, dictated and finalized at location A. N SKIN LIFTER IMPRESSION: 1. No pulmonary embolism. 2. Diffuse airspace opacities, consistent with multifocal pneumonia and pulmona ry edema. 3. Small pleural effusions.
--- NOTE | ~2019-10-11 | US_ITS ---
EXAMINATION: US venous doppler [facility] EXAM DATE: 10/16/2019 12:29 INDICATION: Bilateral lower extremity edema. TECHNIQUE: Multiple grayscale, color flow and Doppler images of the lower extremity deep venous syste ms bilaterally were obtained and reviewed. Comparison is made to prior examination from 09/28/2017. FINDINGS: Right side: The right common femoral, femoral and profunda veins demonstrate normal color flow, respi ratory variation, augmentation and compressibility. Compressibility, color flow confirmed within the right popliteal, posterior tibial, peroneal, and greater saphenous veins. Left side: The left common femoral, femoral and profunda veins demonstrate normal color flow, respira tory variation, augmentation and compressibility. Compressibility, color flow confirmed within the l eft popliteal, posterior tibial, peroneal, and greater saphenous veins. IMPRESSION: 1. No lower extremity deep venous thrombosis bilaterally. Reviewed, dictated and finalized at location B. NCE TECHNICIAN
--- NOTE | ~2019-10-11 | XR_ITS ---
EXAMINATION: XR hip LT min 2V DATE: 10/16/2019 14:05 INDICATION: Worsening left hip pain TECHNIQUE: Anteroposterior and cross-table lateral views of the left hip were obtained. COMPARISON: Radiograph dated 10/05/2019 and 10/06/2019 FINDINGS: Again seen is a noncemented bipolar type left hip hemiarthroplasty. There is 2 cm proximal/medial dis placement of a small fragment along the proximal tip of the greater trochanter. Unclear whether this represents a new fracture or displacement of a previously nondisplaced fracture related to the initia l trauma from 11 days prior. No other fractures identified although the distal tip of the femoral com ponent is excluded on the frontal projection. The head of the arthroplasty remains normally seated in the left acetabulum which demonstrates mild nonuniform air space narrowing consistent with partial t hickness cartilage loss along the superomedial aspect of the acetabulum. Multiple skin britta latera l to the left hip. Atherosclerotic calcific a cyst at the left groin. Surgical clip in the left hemip kurtis. IMPRESSION: 1. Approximately 2 cm proximal/medial displacement of a small likely avulsion fracture fragment arisi ng from the proximal tip of the greater trochanter which likely comprises at least a portion of the g luteal medius and/or minimus tendon footplate. Reviewed, dictated and finalized at location A. REEZE OPERATOR IMPRESSION: 1. Approximately 2 cm proximal/medial displacement of a small likely avulsion f racture fragment arising from the proximal tip of the greater trochanter which likely comprises at least a portion of the gluteal medius and/or minimus tendon footplate.
--- NOTE | ~2019-10-11 | XR_ITS ---
EXAMINATION: XR chest 2V DATE: 10/14/2019 16:03 INDICATION: Increasing oxygen requirements. TECHNIQUE: Frontal and lateral views of the chest were obtained. COMPARISON: Chest 2 views 10/12/2019, chest CT 03/28/2019 FINDINGS: There is a diffuse interstitial pattern in the lungs, left worse than right. There are smal l pleural effusions. No pneumothorax. The heart size is normal. IMPRESSION: 1. Worsened diffuse lung disease, consistent with pneumonia versus asymmetric pulmonary edema. 2. Stable small pleural effusions. Reviewed, dictated and finalized at location A. TING AGENT IMPRESSION: 1. Worsened diffuse lung disease, consistent with pneumonia versus asymmetric p ulmonary edema. 2. Stable small pleural effusions.
--- NOTE | ~2019-10-11 | CT_ITS ---
EXAMINATION: CTA chest PE protocol EXAM DATE: 10/16/2019 13:08 INDICATION: Elevated shortness of breath, hypoxia. TECHNIQUE: Spiral CTA of the chest (pulmonary arteries) was performed with 100 cc Omnipaque 350 intr avenous contrast injection. Images were acquired during the pulmonary arterial phase. Coronal maxi mum intensity projection 3D-reconstructions were created by the technologist on dedicated workstation . Axial, coronal and sagittal reformatted images were reviewed. The dose-length product (DLP) for t his examination was 243.87 mGy-cm. The exposure was tailored according to patient size (auto mA exp osure control), and iterative reconstruction (ASIR) was used as additional dose reduction technique. Comparison is made to prior examination from 10/14/2019. FINDINGS: Pulmonary arteries are well opacified and without intraluminal filling defects. No thora cic aortic dissection. The lungs are clear. Small bilateral nonloculated pleural effusions. There has been progression of rather extensive bilateral groundglass opacities with upper lobe predominance , could be edema or pneumonia. Tracheobronchial tree is patent. There is no mediastinal, hilar or axillary lymphadenopathy. There is no pneumothorax. Heart normal in size. There is mild coronar y arterial calcification, arterial sclerosis. Left liver lobe is lower in density, appears to have s teatosis. There is lesion at the superior pole of the left kidney likely hemorrhagic cysts correlatin g with prior studies. Chronic pancreatitis. There is moderate thoracic spondylosis without osteoblast ic or osteolytic lesions identified. IMPRESSION: 1. Progression of rather extensive groundglass airspace disease likely edema or pneumonia. 2. Small bilateral pleural effusions unchanged. 3. No pulmonary emboli. Reviewed, dictated and finalized at location B. ODITIES MANAGER IMPRESSION: 1. Progression of rather extensive groundglass airspace disease likely edema o r pneumonia. 2. Small bilateral pleural effusions unchanged. 3. No pulmonary emboli.
--- NOTE | ~2019-10-11 | XR_ITS ---
EXAMINATION: XR chest 2V DATE: 10/12/2019 14:42 INDICATION: Cough and elevated white blood cell count TECHNIQUE: frontal and lateral views of the chest were obtained. COMPARISON: Chest radiograph dated 10/09/2019 FINDINGS: Full development of patchy airspace opacities in the left mid to lower lung zone concerning for pneum onia. Mild increased interstitial pattern throughout the left lung and at the right upper and lower l sommer zones which could also be related to pneumonia or superimposed mild pulmonary edema. Very small b ilateral pleural effusions with blunting of the posterior sulci. No pneumothorax. The cardiomediastin al silhouette is normal. Atherosclerotic aorta. Severe thoracic spondylosis. IMPRESSION: 1. Bilateral lung disease most prominent in the left mid and lower lung zones which is concerning for pneumonia, potentially with superimposed mild pulmonary edema. 2. Very small bilateral pleural effusions. Reviewed, dictated and finalized at location A. GLE PACKER IMPRESSION: 1. Bilateral lung disease most prominent in the left mid and lower lung zones w hich is concerning for pneumonia, potentially with superimposed mild pulmonary edema. 2. Very small bilateral pleural effusions.
[2019-10-11 20:59] VITALS: BMI 27.3
--- NOTE | 2019-10-11 21:24 | PC.NURSE ---
pt reports trouble swallowing since surgery, also reports that salgado has been in since surgery due to inability to pee on her own, dressing to hip has serous/yellow drainage visible upon arrival, pt states they were having trouble with that at [place], it just keeps having so much drainage , rates pain 03/12, belongings in room, dr notified of arrival, no s/sx of distress
[2019-10-11 21:27] VITALS: BP 119/67; PULSE 106; RESP 16; TEMP 36.7; O2SAT 94
[2019-10-11 23:43] VITALS: PULSE 95; RESP 14; O2SAT 87
[2019-10-12] VITALS (7 sets, daily range): BP systolic 98–126; BP diastolic 53–92; PULSE 91–101; RESP 14–20; TEMP 36.3–37.7; O2SAT 85–95
[2019-10-12] MEDS: BUDESONIDE/FORMOTEROL (*SP) 160-4.5 MCG 6 GM INH 2 PUFF INHALATION ×2 (06:17→18:09)
--- NOTE | 2019-10-12 09:33 | PC.NURSE ---
0900 pt here to eval and message left with speech therapy Re. swallowing issues since intubation.
[2019-10-12] MEDS: GABAPENTIN 300 MG CAPSULE PO ×3 (10:28→16:42)
[2019-10-12] MEDS: ASPIRIN 81 MG CHEWABLE TABLET PO (10:28)
[2019-10-12] MEDS: hydrOXYzine HCL 25 MG TABLET PO ×3 (10:28→16:42)
[2019-10-12] MEDS: TAMSULOSIN HCL 0.4 MG CAPSULE PO (10:29)
[2019-10-12] MEDS: SERTRALINE HCL 50 MG TABLET 100 MG PO (10:29)
[2019-10-12] MEDS: METOPROLOL SUCCINATE EXT REL 25 MG TABCR PO (10:29)
[2019-10-12] MEDS: buPROPion HCL XL (24 HR) 150 MG TABCR PO (10:30)
[2019-10-12] MEDS: PANTOPRAZOLE 40 MG TABLET PO (10:30)
[2019-10-12] MEDS: FONDAPARINUX SODIUM 2.5 MG/0.5 ML SYRINGE SUB-Q (10:30)
[2019-10-12] MEDS: ONDANSETRON HCL ODT 4 MG TABLET PO (10:39)
[2019-10-12] MEDS: POLYSACCHARIDE IRON COMPLEX 150 MG CAPSULE PO ×2 (11:22→16:42)
[2019-10-12 12:41] LABS: Hematocrit 28.9 % (35.0-42.0); Hemoglobin 9.8 g/dL (11.7-13.8); Mean Corpuscular HGB Conc 33.9 g/dL (32.0-36.0); Mean Corpuscular Volume 91.5 fL (78.0-102.0); Mean Platelet Volume 10.1 fl (9.2-11.8); Platelet Count Result 184 K/mm3 (150-420); Red Blood Count 3.16 M/mm3 (4.20-5.40); Red Cell Distribution Width 15.2 % (11.6-14.4); White Blood Count 13.9 K/mm3 (4.8-10.8)
[2019-10-12 12:58] LABS: Alanine Aminotransferase 12 U/L (14-59); Albumin Level 1.2 g/dL (3.4-5.0); Alkaline Phosphatase 190 U/L (46-116); Anion Gap 12.5 mmol/L (7-16); Aspartate Amino Transferase 20 U/L (15-37); Bilirubin,Total 0.7 mg/dL (0.00-1.00); Blood Urea Nitrogen 17 mg/dL (7-18); Calcium 7.3 mg/dL (8.5-10.1); Carbon Dioxide 26 mmol/L (21-32); Chloride 105 mmol/L (98-108); Estimated CRCL calculation 44 ml/min; Estimated Glomerular Filt Rate 58; Glucose 123 mg/dL (70-99); Magnesium 1.2 mg/dL (1.8-2.4); Osmolality Calculated 292 mOsm/kg (285-295); Phosphorus 3.3 mg/dL (2.6-4.7); Potassium 3.5 mmol/L (3.5-5.1); Sodium 140 mmol/L (136-145); Total Protein 5.2 g/dL (6.4-8.2)
--- NOTE | 2019-10-12 14:11 | PM.IMHP ---
H&P: HPI History of Present Illness Chief complaint: admit from [facility] Narrative: Dahlia Bell is a 74 year old female admitted to [facility] care s/p Left hip bipolar hemiarthroplasty per Dr. Foley due to femoral neck fracture from falling in the bathroom at her home. Will inpatient at [facility], she had some Hypotensive episodes, received RBCs due to significant anemia, as well as urinary retention requiring replacement of indwelling salgado catheter. She has a prior history of chronic pancreatitis, COPD, HTN, and CHF. Ordered daily doll wig hackler orthostatic BPs, as she had concerning +orthostatic BPs while at [facility]. Continue to encourage oral hydration. Leaving Lasix as PRN due to CHF history. Continuing NUBIA hose. Patient having foul odor from perineum, noted clear nikole drainage and some redness upon exam, no purulent drainage noted, and no swelling noted. Will check labwork, get a urine culture, ordered Fluconazole, continue her Flomax and complete a salgado/voiding trial today. If voiding trial not successful today, she will need to follow up with Urologist Dr. Quirino Mathew after discharge. Her CBC showed an elevated WBC, so ordered blood cultures and CXR. CXR then showed development of patchy airspace opacities in the left mid to lower lung zone concerning for pneumonia. Mild increased interstitial pattern throughout the left lung and at the right upper and lower lung zones which could also be related to pneumonia or superimposed mild pulmonary edema. Very small bilateral pleural effusions with blunting of the posterior sulci. To treat her bilateral pleural effusions AND her BLL and LML hospital acquired pneumonia (with no previous antibx used at [facility]), I ordered Incentive Spirometery, DouNeb Txs every 6 hours scheduled, and Levaquin 750mg daily PO dosing for 5 days. Will repeat CXR in 5-6 days. Keep left hip incision and blister site CLEAN and DRY, change dressing as needed due to serous drainage. After drainage has stopped, my start trying to leave open to air (unless britta are catching on clothing). Remove her Left hip britta on , which is 2 weeks s/p surgery. Her Orthopedic surgery follow up is scheduled for November 02 at 10:15am with Ortho Dr. Foley She is to follow up with Urologist Dr. Quirino Mathew due to her Urinary Retention, failed Salgado/Voiding trial x 1, and need for Salgado longer than expected. F/U with PCP Radha Dale of [place], [place]. Review of Systems Constitutional: Constitutional: Denies excessive sweating, Denies headache(s), Denies increased appetite, Denies snoring and Denies weight gain Eyes: Eyes: Denies exophthalmos, Denies diplopia, Denies floaters and Denies loss of peripheral vision ENT: Denies facial pain, Denies headache(s), Denies odynophagia and Denies tinnitus Respiratory: Respiratory: Denies snoring Gastrointestinal: Gastrointestinal: Denies odynophagia Neurologic: Denies headache(s) Endocrine: Endocrine: Denies excessive sweating [facility] Past Medical History Medical History Anxiety CHF (congestive heart failure) Chronic GERD Chronic pancreatitis CKD (chronic kidney disease) COPD (chronic obstructive pulmonary disease) Depression Femoral neck fracture (10/06/19) HTN (hypertension) Pancreatitis Surgical History Surgical History History of appendectomy History of bladder suspension procedure History of hysterectomy Previous back surgery Discs removed S/P cholecystectomy Family History Family History Other Family history of malignant neoplasm Hypertension Social History Social History Smoking packs per day: 1 Smoking cigarettes per day: 20.0 Years smoked: 20 Smoking pack-years: 20.00 Smoking status: Current every
[2019-10-12 15:24] LABS: Add Urine Microscopic? YES; Appearance Urine Clear (Clear); Bilirubin Urine Negative (Negative); Blood Urine 1+ (Negative); Color Urine Yellow (Yellow); Glucose Urine UA Negative (Negative); Ketones Urine Trace (Negative); Leukocyte Esterase Ur 1+ (Negative); Nitrate Urine Negative (Negative); Protein Urine Negative (Negative); Specific Grav Ur 1.025 (1.010-1.020)
[2019-10-12 15:45] LABS: Bacteria Urine Trace /hpf; Squamous Epithelial Cell Urine Many /hpf (Few)
[2019-10-12] MEDS: MAGNESIUM OXIDE 400 MG TABLET PO (16:42)
[2019-10-12] MEDS: IPRATROPIUM 0.5 MG/ALBUTEROL SULFATE 2.5 MG AMPUL.NEB 3 ML INHALATION (18:09)
--- NOTE | 2019-10-12 20:50 | P.PNCROSS_ITS ---
Event Note Event Note Event Note: For this patient encounter, I reviewed the RISK MANAGEMENT INTERN or PA documentation, treatment plan, and medical decision making; and I had wwqk-ab-nwie time with this patient. Pt is in no resp. distress. Lungs sounds are distant. No wheezes or rales auscultated. Left lateral hip without redness or exudate. Internal/external rotation without pain.
--- NOTE | 2019-10-12 20:50 | PM.EVENT ---
Event Note Event Note Event Note: For this patient encounter, I reviewed the PIECER UP or PA documentation, treatment plan, and medical decision making; and I had krxq-dh-bjro time with this patient. Pt is in no resp. distress. Lungs sounds are distant. No wheezes or rales auscultated. Left lateral hip without redness or exudate. Internal/external rotation without pain.
[2019-10-12] MEDS: MONTELUKAST SODIUM 10 MG TABLET PO (21:00)
[2019-10-12] MEDS: MELATONIN 3 MG TABLET PO (21:01)
[2019-10-13] VITALS (8 sets, daily range): BP systolic 90–100; BP diastolic 48–59; PULSE 88–98; RESP 14–20; TEMP 36.2–36.9; O2SAT 85–94
[2019-10-13] MEDS: IPRATROPIUM 0.5 MG/ALBUTEROL SULFATE 2.5 MG AMPUL.NEB 3 ML INHALATION ×3 (00:08→13:31)
[2019-10-13] MEDS: BUDESONIDE/FORMOTEROL (*SP) 160-4.5 MCG 6 GM INH 2 PUFF INHALATION (06:14)
[2019-10-13] MEDS: ONDANSETRON HCL ODT 4 MG TABLET PO ×2 (07:09→15:26)
--- NOTE | 2019-10-13 09:10 | ECG_ITS ---
Measurements Intervals [place] Rate: 97 P: 85 MN: 163 QRS: 95 QRSD: 166 T: -32 QT: 389 QTc: 495 Interpretive Statements SINUS RHYTHM RIGHT AXIS DEVIATION LEFT BUNDLE BRANCH BLOCK ABNORMAL ECG Electronically Signed On 10-13-2019 14:23:39 [facility] by Ayush Pratt D.O.
[2019-10-13] MEDS: METOPROLOL SUCCINATE EXT REL 25 MG TABCR PO (09:53)
[2019-10-13] MEDS: buPROPion HCL XL (24 HR) 150 MG TABCR PO (09:53)
[2019-10-13] MEDS: FONDAPARINUX SODIUM 2.5 MG/0.5 ML SYRINGE SUB-Q (09:53)
[2019-10-13] MEDS: LORATADINE 10 MG TABLET PO (09:53)
[2019-10-13] MEDS: LIDOCAINE 5% PATCH 2 PATCH TRANSDERM (09:53)
[2019-10-13] MEDS: PANTOPRAZOLE 40 MG TABLET PO (09:54)
[2019-10-13] MEDS: SERTRALINE HCL 50 MG TABLET 100 MG PO (09:54)
[2019-10-13] MEDS: GABAPENTIN 300 MG CAPSULE PO ×3 (09:54→17:44)
[2019-10-13] MEDS: TAMSULOSIN HCL 0.4 MG CAPSULE PO (09:54)
[2019-10-13] MEDS: POLYSACCHARIDE IRON COMPLEX 150 MG CAPSULE PO ×2 (09:54→17:44)
[2019-10-13] MEDS: MAGNESIUM OXIDE 400 MG TABLET PO ×3 (09:54→17:44)
[2019-10-13] MEDS: ASPIRIN 81 MG CHEWABLE TABLET PO (09:55)
--- NOTE | 2019-10-13 11:07 | PC.NURSE ---
Speech Therapist Jennifer here to evaluate patient.
--- NOTE | 2019-10-13 15:36 | PM.IMPN ---
Progress Note: A&P Assessment and Plan (1) Weakness: Code(s): R53.1 - Weakness Status: Acute Assessment and Plan: ACUTE. RECOVERING. in REHAB. S/P Left hip bipolar hemiarthroplasty per Dr. Foley on 2019 due to a fall [facility] therapy admission PT/OT Therapeutic activity participation on daily Anticoagulation - daily Fondaparinux for DVT prophlaxis. pain controlled with current regime PRNs ordered and scheduled lidocaine patches. (2) History of left hip hemiarthroplasty: Code(s): Z96.642 - Presence of left artificial hip joint Status: Acute Assessment and Plan: ACUTE. RECOVERING. in REHAB. S/P Left hip bipolar hemiarthroplasty per Dr. Foley on 2019 due to a fall Sw[facility] Re[facility] therapy admission PT/OT Therapeutic activity participation on daily Anticoagulation - daily Fondaparinux for DVT prophlaxis. pain controlled with current regime PRNs ordered and scheduled lidocaine patches. (3) Hypotension: Code(s): I95.9 - Hypotension, unspecified Status: Acute Assessment and Plan: RESOLVED. Improved. Anemia improved after 1 RBC. Monitoring and treating Anemia, as well as CHF. Lasix is not scheduled, but PRN. Metoprolol 25 mg PO Q HS. Vital signs are Q 8 hours. (4) Anemia of chronic disease: Code(s): D63.8 - Anemia in other chronic diseases classified elsewhere Status: Acute Assessment and Plan: CHRONIC. Treated and Monitored. ordered occult of stool x 1 (was not done at [facility]) CBC done today Hgb 9.8, improved from 8.8 on previous day. Hct 28.9 today, improved from 27.0 on previous day. Continue Niferex BID her Vit B12 and Folic acid levels were WNL at [facility]. on daily Anticoagulation - daily Fondaparinux. (5) COPD (chronic obstructive pulmonary disease): Qualifiers: COPD type: unspecified COPD Qualified Code(s): J44.9 - Chronic obstructive pulmonary disease, unspecified Code(s): J44.9 - Chronic obstructive pulmonary disease, unspecified Status: Chronic Assessment and Plan: CHRONIC. CONTROLLED with home medications. on daily Singular and Budesonide-formoterol HFA inhaler. To treat her BLL and LML hospital acquired pneumonia (with no previous antibx used at [facility]), I ordered Incentive Spirometery, DouNeb Txs every 6 hours scheduled, and Levaquin 750mg daily PO dosing for 5 days. Will repeat CXR in 5-6 days. (6) Chronic pancreatitis: Qualifiers: Pancreatitis type: unspecified pancreatitis type Qualified Code(s): K86.1 - Other chronic pancreatitis Code(s): K86.1 - Other chronic pancreatitis Status: Chronic Assessment and Plan: CONTROLLED. Chronic. BASELINE. last lipase was Oct.09 and was WNL. no abdominal pain, no bloating, no N/V/diarrhea today. no complaints at this time. (7) CHF (congestive heart failure): Qualifiers: Heart failure chronicity: chronic Heart failure type: unspecified Qualified Code(s): I50.9 - Heart failure, unspecified Code(s): I50.9 - Heart failure, unspecified Status: Chronic Assessment and Plan: TREATING. CXR showed bilateral pleural effusions. BPs and HRs stable. To treat her bilateral pleural effusions, I ordered Incentive Spirometery, DouNeb Txs every 6 hours scheduled. Lasix is already ordered PRN. Will repeat CXR in 5-6 days. (8) Hospital acquired PNA: Code(s): J18.9 - Pneumonia, unspecified organism; Y95 - Nosocomial condition Status: Acute Assessment and Plan: ACUTE. TREATING and MONITORING. Her CBC showed an elevated WBC, so ordered blood cultures and CXR. CXR then showed development of patchy airspace opacities in the left mid to lower lung zone concerning for pneumonia. Mild increased interstitial pattern throughout the left lung and at the right upper and lower lung zones which could also be related to pneumonia or sup
[2019-10-13 19:16] LABS: Occult Blood Negative (Negative)
[2019-10-13] MEDS: SENNA/DOCUSATE SODIUM TABLET 1 TAB PO (21:36)
[2019-10-13] MEDS: MONTELUKAST SODIUM 10 MG TABLET PO (21:36)
[2019-10-14] VITALS (12 sets, daily range): BP systolic 90–110; BP diastolic 39–60; PULSE 80–108; RESP 14–20; TEMP 36.7–37.4; O2SAT 85–95
[2019-10-14] MEDS: IPRATROPIUM 0.5 MG/ALBUTEROL SULFATE 2.5 MG AMPUL.NEB 3 ML INHALATION ×6 (00:29→23:57)
[2019-10-14] MEDS: BUDESONIDE/FORMOTEROL (*SP) 160-4.5 MCG 6 GM INH 2 PUFF INHALATION ×3 (05:44→20:27)
--- NOTE | 2019-10-14 08:57 | ECG_ITS ---
Measurements Intervals [place] Rate: 102 P: 78 LA: 171 QRS: 85 QRSD: 153 T: -27 QT: 388 QTc: 507 Interpretive Statements SINUS TACHYCARDIA LEFT BUNDLE BRANCH BLOCK BASELINE ARTIFACT- II, III, AVF ABNORMAL ECG Electronically Signed On 10-14-2019 11:33:57 WELDER AND FITTER by Ayush Pratt D.O.
[2019-10-14] MEDS: buPROPion HCL XL (24 HR) 150 MG TABCR PO (08:58)
[2019-10-14] MEDS: LIDOCAINE 5% PATCH 2 PATCH TRANSDERM (08:58)
[2019-10-14] MEDS: TAMSULOSIN HCL 0.4 MG CAPSULE PO (08:59)
[2019-10-14] MEDS: POLYSACCHARIDE IRON COMPLEX 150 MG CAPSULE PO ×2 (09:00→16:45)
[2019-10-14] MEDS: PANTOPRAZOLE 40 MG TABLET PO (09:01)
[2019-10-14] MEDS: SERTRALINE HCL 50 MG TABLET 100 MG PO (09:01)
[2019-10-14] MEDS: METOPROLOL SUCCINATE EXT REL 25 MG TABCR PO (09:01)
[2019-10-14] MEDS: MAGNESIUM OXIDE 400 MG TABLET PO ×3 (09:01→16:47)
[2019-10-14] MEDS: LORATADINE 10 MG TABLET PO (09:01)
[2019-10-14] MEDS: FONDAPARINUX SODIUM 2.5 MG/0.5 ML SYRINGE SUB-Q (09:02)
[2019-10-14] MEDS: ASPIRIN 81 MG CHEWABLE TABLET PO (09:02)
[2019-10-14] MEDS: GABAPENTIN 300 MG CAPSULE PO ×3 (09:02→16:45)
--- NOTE | 2019-10-14 09:05 | PCPTNOTE ---
10/14/19- Attempted to see pt at 9:40. Upon arrival pt reported she felt very tired and nauseated, and had been unable to eat. pt states she is also getting dizzy. pt was on 2.5 liters of O2, and pt oxygen level was recorded at 85% with one machine on two different fingers, then again on a different machine with same read out. Iva/RN was notified and came in and took full vitals. pt had not done any exercises at all at this point, she was just sitting in her chair with her breakfast in front of her. pt did report pain rated at 6/10 on left hip, and notes pain across her chest as well. Nurse was going to notify nurse practitioner. Held PT at this time secondary to pt symptoms and low oxygen level. - HM/TUTORING ASSISTANT.
[2019-10-14] MEDS: ONDANSETRON HCL ODT 4 MG TABLET PO (09:10)
[2019-10-14 10:14] LABS: Hematocrit 26.3 % (35.0-42.0); Hemoglobin 8.7 g/dL (11.7-13.8); Mean Corpuscular HGB Conc 33.1 g/dL (32.0-36.0); Mean Corpuscular Hemoglobin 30.4 pg (27.0-31.0); Platelet Count Result 194 K/mm3 (150-420); Red Blood Count 2.86 M/mm3 (4.20-5.40); Red Cell Distribution Width 15.6 % (11.6-14.4)
[2019-10-14 10:21] LABS: BNP 52.9 pg/mL (0-100)
[2019-10-14 10:31] LABS: Alanine Aminotransferase 12 U/L (14-59); Albumin Level 1.1 g/dL (3.4-5.0); Alkaline Phosphatase 192 U/L (46-116); Anion Gap 12.4 mmol/L (7-16); Aspartate Amino Transferase 21 U/L (15-37); Bilirubin,Total 0.5 mg/dL (0.00-1.00); Blood Urea Nitrogen 14 mg/dL (7-18); Calcium 7.3 mg/dL (8.5-10.1); Carbon Dioxide 25 mmol/L (21-32); Chloride 105 mmol/L (98-108); Estimated CRCL calculation 36 ml/min; Estimated Glomerular Filt Rate 53; Glucose 123 mg/dL (70-99); Osmolality Calculated 289 mOsm/kg (285-295); Potassium 3.4 mmol/L (3.5-5.1); Sodium 139 mmol/L (136-145); Total Protein 4.9 g/dL (6.4-8.2)
[2019-10-14 10:39] LABS: Lactic Acid 3.6 mmol/L (0.4-2.0)
[2019-10-14 10:53] LABS: Troponin I < 0.02 ng/mL (0.00-0.056)
--- NOTE | 2019-10-14 10:58 | PC.NURSE ---
Hellen Muhammad LOCK MASTER notified that labs are resulted with abnormal labs.
[2019-10-14 11:17] LABS: Magnesium 1.1 mg/dL (1.8-2.4)
[2019-10-14] MEDS: SODIUM CHLORIDE 0.9% IV 500 ML IV CONT (11:56)
[2019-10-14] MEDS: levoFLOXacin TAB 500 MG, levoFLOXacin TAB 250 MG 750 MG PO (12:10)
[2019-10-14] MEDS: POTASSIUM CHLORIDE 20 MEQ TABLET PO (12:10)
[2019-10-14] MEDS: MAGNESIUM SULF 4 GM/WATER100ML 4 GM/100 ML BAG IVPB (13:03)
--- NOTE | 2019-10-14 15:37 | PM.IMPN ---
Progress Note: A&P Assessment and Plan (1) Weakness: Code(s): R53.1 - Weakness Status: Acute Assessment and Plan: ACUTE. RECOVERING. in REHAB. S/P Left hip bipolar hemiarthroplasty per Dr. Foley on 2019 due to a fall Swing Rehab therapy admission PT/OT Therapeutic activity participation on daily Anticoagulation - daily Fondaparinux for DVT prophlaxis. pain controlled with current regime PRNs ordered and scheduled lidocaine patches. (2) History of left hip hemiarthroplasty: Code(s): Z96.642 - Presence of left artificial hip joint Status: Acute Assessment and Plan: ACUTE. RECOVERING. in REHAB. S/P Left hip bipolar hemiarthroplasty per Dr. Foley on 2019 due to a fall Swing Rehab therapy admission PT/OT Therapeutic activity participation on daily Anticoagulation - daily Fondaparinux for DVT prophlaxis. pain controlled with current regime PRNs ordered and scheduled lidocaine patches. (3) Hypotension: Code(s): I95.9 - Hypotension, unspecified Status: Acute Assessment and Plan: RESOLVED. Improved. Anemia improved after 1 RBC. Monitoring and treating Anemia, as well as CHF. Lasix is not scheduled, but PRN. Metoprolol 25 mg PO Q HS. Vital signs are Q 8 hours. moniotoring BNPs, Vital signs and CBCs to avoid futher hypotension. (4) Anemia of chronic disease: Code(s): D63.8 - Anemia in other chronic diseases classified elsewhere Status: Acute Assessment and Plan: CHRONIC. Treated and Monitored. ordered occult of stool x 1 (was not done at [facility]) CBC past Hgb 9.8, improved from 8.8 on previous day. Hct 28.9 today, improved from 27.0 on previous day. Continue Niferex BID her Vit B12 and Folic acid levels were WNL at [facility]. on daily Anticoagulation - daily Fondaparinux. Repeating CBC. (5) COPD (chronic obstructive pulmonary disease): Qualifiers: COPD type: unspecified COPD Qualified Code(s): J44.9 - Chronic obstructive pulmonary disease, unspecified Code(s): J44.9 - Chronic obstructive pulmonary disease, unspecified Status: Chronic Assessment and Plan: CHRONIC. CONTROLLED with home medications. on daily Singular and Budesonide-formoterol HFA inhaler. To treat her BLL and LML hospital acquired pneumonia (with no previous antibx used at [facility]), I ordered Incentive Spirometery, DouNeb Txs every 6 hours scheduled, and Levaquin 750mg daily PO dosing for 5 days. Repeating CXR today. (6) Chronic pancreatitis: Qualifiers: Pancreatitis type: unspecified pancreatitis type Qualified Code(s): K86.1 - Other chronic pancreatitis Code(s): K86.1 - Other chronic pancreatitis Status: Chronic Assessment and Plan: CONTROLLED. Chronic. BASELINE. MONITORING. last lipase was Oct.09 and was WNL. no abdominal pain, no bloating, no N/V/diarrhea today. no complaints at this time. Checking Lactic Acid and Lipase level. (7) CHF (congestive heart failure): Qualifiers: Heart failure type: unspecified Heart failure chronicity: chronic Qualified Code(s): I50.9 - Heart failure, unspecified Code(s): I50.9 - Heart failure, unspecified Status: Chronic Assessment and Plan: TREATING. CXR showed bilateral pleural effusions. BPs and HRs stable. To treat her bilateral pleural effusions, I ordered Incentive Spirometery, DouNeb Txs every 6 hours scheduled. Lasix is already ordered PRN. Will repeat CXR in 5-6 days. (8) Hospital acquired PNA: Code(s): J18.9 - Pneumonia, unspecified organism; Y95 - Nosocomial condition Status: Acute Assessment and Plan: ACUTE. TREATING and MONITORING. Her CBC showed an elevated WBC, so ordered blood cultures and CXR. CXR then showed development of patchy airspace opacities in the left mid to lower lung zone concerning for pneumonia. Mild increased interstitial pa
[2019-10-14 17:29] LABS: Magnesium 2.1 mg/dL (1.8-2.4)
[2019-10-14 17:38] LABS: Lactic Acid 2.5 mmol/L (0.4-2.0)
[2019-10-14 17:54] LABS: Lipase 54 U/L (73-393)
--- NOTE | 2019-10-14 18:23 | PC.NURSE ---
Patient transported off of floor for CTA
--- NOTE | 2019-10-14 18:38 | PC.NURSE ---
Patient transported back to floor
[2019-10-14] MEDS: MONTELUKAST SODIUM 10 MG TABLET PO (20:34)
--- NOTE | 2019-10-14 23:07 | PM.EVENT ---
Event Note Event Note Event Note: Patient is having increasing shortness of breath and developed an oxygen requirement today. She denies any chest pain but feels short of breath. Is a large amount of serous fluid from wound when she rolled over. He states her pain is controlled enough to participate in physical therapy. Few rales of the left base with decreased breath sounds there as well. She is otherwise moving air well. Regular rate rhythm murmur. Change in status MRSA workup including CTA of chest. Elevated lactate. BNP, CBC and electrolytes are stable. Will reassess after fluid bolus. I have reviewed the chart and examined the patient. Have discussed the patient's care with A Jb GARCIA and agree with her assessment and plan.
[2019-10-15] VITALS (9 sets, daily range): BP systolic 91–113; BP diastolic 45–77; PULSE 60–108; RESP 16–20; TEMP 36.5–37.2; O2SAT 90–95
--- NOTE | 2019-10-15 02:20 | PC.NURSE ---
pt sleeping, respirations even and regular, no evidence of distress noted, call light and belongings within reach
[2019-10-15 05:22] LABS: Hematocrit 25.1 % (35.0-42.0); Hemoglobin 8.4 g/dL (11.7-13.8); Mean Corpuscular HGB Conc 33.5 g/dL (32.0-36.0); Mean Corpuscular Hemoglobin 30.7 pg (27.0-31.0); Mean Corpuscular Volume 91.6 fL (78.0-102.0); Mean Platelet Volume 10.3 fl (9.2-11.8); Platelet Count Result 176 K/mm3 (150-420); Red Blood Count 2.74 M/mm3 (4.20-5.40); Red Cell Distribution Width 15.9 % (11.6-14.4); White Blood Count 12.1 K/mm3 (4.8-10.8)
[2019-10-15] MEDS: BUDESONIDE/FORMOTEROL (*SP) 160-4.5 MCG 6 GM INH 2 PUFF INHALATION ×2 (05:29→19:00)
[2019-10-15 05:36] LABS: Anion Gap 10.1 mmol/L (7-16); Blood Urea Nitrogen 13 mg/dL (7-18); Calcium 7.1 mg/dL (8.5-10.1); Carbon Dioxide 27 mmol/L (21-32); Chloride 108 mmol/L (98-108); Estimated CRCL calculation 41 ml/min; Estimated Glomerular Filt Rate > 60; Glucose 71 mg/dL (70-99); Osmolality Calculated 290 mOsm/kg (285-295); Potassium 4.1 mmol/L (3.5-5.1); Sodium 141 mmol/L (136-145)
[2019-10-15] MEDS: IPRATROPIUM 0.5 MG/ALBUTEROL SULFATE 2.5 MG AMPUL.NEB 3 ML INHALATION ×3 (05:36→19:00)
[2019-10-15] MEDS: FONDAPARINUX SODIUM 2.5 MG/0.5 ML SYRINGE SUB-Q (08:56)
[2019-10-15] MEDS: SERTRALINE HCL 50 MG TABLET 100 MG PO (08:56)
[2019-10-15] MEDS: buPROPion HCL XL (24 HR) 150 MG TABCR PO (08:56)
[2019-10-15] MEDS: LIDOCAINE 5% PATCH 2 PATCH TRANSDERM (08:56)
[2019-10-15] MEDS: GABAPENTIN 300 MG CAPSULE PO ×3 (08:56→17:01)
[2019-10-15] MEDS: METOPROLOL SUCCINATE EXT REL 25 MG TABCR PO (08:57)
[2019-10-15] MEDS: TAMSULOSIN HCL 0.4 MG CAPSULE PO (08:57)
[2019-10-15] MEDS: LORATADINE 10 MG TABLET PO (08:57)
[2019-10-15] MEDS: PANTOPRAZOLE 40 MG TABLET PO (08:57)
[2019-10-15] MEDS: MAGNESIUM OXIDE 400 MG TABLET PO ×3 (08:57→17:01)
[2019-10-15] MEDS: ASPIRIN 81 MG CHEWABLE TABLET PO (08:58)
[2019-10-15] MEDS: levoFLOXacin TAB 500 MG, levoFLOXacin TAB 250 MG 750 MG PO (08:58)
[2019-10-15] MEDS: POLYSACCHARIDE IRON COMPLEX 150 MG CAPSULE PO ×2 (08:58→17:01)
--- NOTE | 2019-10-15 09:23 | PC.NURSE ---
Patient transported off of floor for therapy
--- NOTE | 2019-10-15 10:15 | PC.NURSE ---
Patient transported back to floor
[2019-10-15] MEDS: TRAMADOL HCL 50 MG TABLET PO (17:00)
[2019-10-15] MEDS: MELATONIN 3 MG TABLET PO (21:35)
[2019-10-15] MEDS: MONTELUKAST SODIUM 10 MG TABLET PO (21:35)
--- NOTE | 2019-10-15 21:59 | PC.NURSE ---
blister located below incision is c/d/i, left open to air
[2019-10-16] VITALS (11 sets, daily range): BP systolic 94–98; BP diastolic 44–57; PULSE 82–103; RESP 12–20; TEMP 36.7–36.8; O2SAT 86–96
[2019-10-16] MEDS: IPRATROPIUM 0.5 MG/ALBUTEROL SULFATE 2.5 MG AMPUL.NEB 3 ML INHALATION ×2 (05:34→13:31)
[2019-10-16] MEDS: BUDESONIDE/FORMOTEROL (*SP) 160-4.5 MCG 6 GM INH 2 PUFF INHALATION (05:46)
[2019-10-16] MEDS: TRAMADOL HCL 50 MG TABLET PO ×2 (05:51→14:12)
[2019-10-16] MEDS: LIDOCAINE 5% PATCH 2 PATCH TRANSDERM (09:41)
[2019-10-16] MEDS: POLYSACCHARIDE IRON COMPLEX 150 MG CAPSULE PO ×2 (09:42→17:17)
[2019-10-16] MEDS: buPROPion HCL XL (24 HR) 150 MG TABCR PO (09:42)
[2019-10-16] MEDS: FONDAPARINUX SODIUM 2.5 MG/0.5 ML SYRINGE SUB-Q (09:42)
[2019-10-16] MEDS: METOPROLOL SUCCINATE EXT REL 25 MG TABCR PO (09:43)
[2019-10-16] MEDS: SERTRALINE HCL 50 MG TABLET 100 MG PO (09:44)
[2019-10-16] MEDS: TAMSULOSIN HCL 0.4 MG CAPSULE PO (09:44)
[2019-10-16] MEDS: ASPIRIN 81 MG CHEWABLE TABLET PO (09:44)
[2019-10-16] MEDS: LORATADINE 10 MG TABLET PO (09:44)
[2019-10-16] MEDS: PANTOPRAZOLE 40 MG TABLET PO (09:45)
[2019-10-16] MEDS: GABAPENTIN 300 MG CAPSULE PO ×3 (09:45→17:17)
[2019-10-16] MEDS: MAGNESIUM OXIDE 400 MG TABLET PO ×3 (09:45→17:17)
--- NOTE | 2019-10-16 11:06 | PC.NURSE ---
Patient transported off of floor for CTA, bilateral doppler
--- NOTE | 2019-10-16 12:04 | PM.IMPN ---
Progress Note: A&P Assessment and Plan (1) Hospital acquired PNA: Code(s): J18.9 - Pneumonia, unspecified organism; Y95 - Nosocomial condition Status: Acute Assessment and Plan: ACUTE. TREATING and MONITORING. Her CBC showed an elevated WBC, - blood cultures Eliminate every reading with no growth CXR then showed development of patchy airspace opacities in the left mid to lower lung zone concerning for pneumonia. Mild increased interstitial pattern throughout the left lung and at the right upper and lower lung zones which could also be related to pneumonia or superimposed mild pulmonary edema. Very small bilateral pleural effusions with blunting of the posterior sulci. 1. Bilateral lung disease most prominent in the left mid and lower lung zones which is concerning for pneumonia, potentially with superimposed mild pulmonary edema. 2. Very small bilateral pleural effusions. To treat her BLL and LML hospital acquired pneumonia (with no previous antibx used at [facility]), ordered Incentive Spirometery, DouNeb Txs every 6 hours scheduled, Levaquin 750mg daily PO dosing for 5 days. Repeating CXR today (2) History of left hip hemiarthroplasty: Code(s): Z96.642 - Presence of left artificial hip joint Status: Acute Assessment and Plan: ACUTE. RECOVERING. in REHAB. S/P Left hip bipolar hemiarthroplasty per Dr. Foley on 2019 due to a fall [facility] admission PT/OT Therapeutic activity participation on daily Anticoagulation - daily Fondaparinux for DVT prophlaxis. pain controlled with current regime PRNs ordered and scheduled lidocaine patches. (3) Weakness: Code(s): R53.1 - Weakness Status: Acute Assessment and Plan: ACUTE. RECOVERING. in REHAB. S/P Left hip bipolar hemiarthroplasty per Dr. Foley on 2019 due to a fall [facility] admission PT/OT Therapeutic activity participation on daily Anticoagulation - daily Fondaparinux for DVT prophlaxis. pain controlled with current regime PRNs ordered and scheduled lidocaine patches. (4) Femoral neck fracture: Onset Date: 10/06/19 Qualifiers: Encounter type: initial encounter Fracture type: closed Laterality: left Qualified Code(s): S72.002A - Fracture of unspecified part of neck of left femur, initial encounter for closed fracture Code(s): S72.009A - Fracture of unspecified part of neck of unspecified femur, initial encounter for closed fracture Status: Acute (5) CKD (chronic kidney disease): Code(s): N18.9 - Chronic kidney disease, unspecified Status: Acute (6) COPD (chronic obstructive pulmonary disease): Qualifiers: COPD type: unspecified COPD Qualified Code(s): J44.9 - Chronic obstructive pulmonary disease, unspecified Code(s): J44.9 - Chronic obstructive pulmonary disease, unspecified Status: Chronic Assessment and Plan: CHRONIC. CONTROLLED with home medications. on daily Singular and Budesonide-formoterol HFA inhaler. To treat her BLL and LML hospital acquired pneumonia (with no previous antibx used at [facility]), I ordered Incentive Spirometery, DouNeb Txs every 6 hours scheduled, and Levaquin 750mg daily PO dosing for 5 days. Repeating CXR today. (7) HTN (hypertension): Qualifiers: Hypertension type: unspecified Qualified Code(s): I10 - Essential (primary) hypertension Code(s): I10 - Essential (primary) hypertension Status: Chronic (8) CHF (congestive heart failure): Qualifiers: Heart failure type: unspecified Heart failure chronicity: chronic Qualified Code(s): I50.9 - Heart failure, unspecified Code(s): I50.9 - Heart failure, unspecified Status: Chronic Assessment and Plan: TREATING. CXR showed bilateral pleural effusions. BPs and HRs stable. To treat her bilateral pleural effusions, I ordered Incentive Spirometery, DouNe
--- NOTE | 2019-10-16 12:39 | PC.NURSE ---
Patient transported back to floor from CTA and doppler. Class C Driver picked patient's foot off of pedal on wheelchair. Patient yelled loudly, stated her hip hurts worse than ever. Patient stated my hip popped as I was scooting off of doppler table. Bijan Fernandez notified.
[2019-10-16 13:00] LABS: Hematocrit 27.2 % (35.0-42.0); Mean Corpuscular HGB Conc 33.1 g/dL (32.0-36.0); Mean Corpuscular Hemoglobin 30.6 pg (27.0-31.0); Mean Corpuscular Volume 92.5 fL (78.0-102.0); Mean Platelet Volume 10.1 fl (9.2-11.8); Platelet Count Result 283 K/mm3 (150-420); Red Blood Count 2.94 M/mm3 (4.20-5.40); Red Cell Distribution Width 16.2 % (11.6-14.4); White Blood Count 17.6 K/mm3 (4.8-10.8)
[2019-10-16 13:15] LABS: Alanine Aminotransferase 17 U/L (14-59); Albumin Level 1.2 g/dL (3.4-5.0); Alkaline Phosphatase 225 U/L (46-116); Anion Gap 13.5 mmol/L (7-16); Aspartate Amino Transferase 31 U/L (15-37); Bilirubin,Total 0.5 mg/dL (0.00-1.00); Blood Urea Nitrogen 13 mg/dL (7-18); Calcium 7.5 mg/dL (8.5-10.1); Carbon Dioxide 25 mmol/L (21-32); Chloride 103 mmol/L (98-108); Estimated CRCL calculation 37 ml/min; Estimated Glomerular Filt Rate 55; Glucose 70 mg/dL (70-99); Magnesium 1.5 mg/dL (1.8-2.4); Osmolality Calculated 282 mOsm/kg (285-295); Potassium 4.5 mmol/L (3.5-5.1); Sodium 137 mmol/L (136-145); Total Protein 5.4 g/dL (6.4-8.2)
[2019-10-16 13:17] LABS: Lactic Acid Reflex 2.8 mmol/L (0.4-2.0)
[2019-10-16 13:18] LABS: BNP 73.1 pg/mL (0-100)
[2019-10-16] MEDS: SODIUM CHLORIDE 0.9% IV 500 ML IV CONT (14:06)
[2019-10-16] MEDS: methylPREDNISolone SOD SUCC 125 MG VIAL 80 MG IV PUSH (14:06)
[2019-10-16] MEDS: LORAZEPAM INJ 2 MG/ML VIAL 0.5 MG IV PUSH (14:19)
[2019-10-16] MEDS: LIDOCAINE HCL 2% JELLY 5 ML TUBE 1 APPLIC MUCOUS MEM (14:20)
[2019-10-16 14:56] LABS: Base Excess ABG -0.1 mmol/L (0-2); Fractional Inspired Oxygen 50 %; HCO3 ABG 23.9 mmol/L (23-29); Oxygen Content ABG 9.9 %vol (16.0-22.0); Oxygen Saturation ABG 83.7 % (95-97); Oxyhemoglobin 82.3 % (94-100); PCO2 ABG 35.7 mmHg (35-45); PO2 ABG 48.3 mmHg (75-85); PO2 FiO2 Ratio Arterial Blood 0.97 %; Total Hemoglobin 8.5 g/dL; pH ABG 7.44 (7.35-7.45)
[2019-10-16 15:00] LABS: Device HIGH FLOW NASAL CANN; Modified Allen's Test Pass; Site Drawn RIGHT RADIAL
--- NOTE | 2019-10-16 15:22 | PM.DS ---
DS: Diagnosis Admitting Diagnosis Admitting Diagnosis: 10/12 admission notes from previous provider Chief complaint: admit from [facility] Narrative: Dahlia Bell is a 74 year old female admitted to [facility] care s/p Left hip bipolar hemiarthroplasty per Dr. Foley due to femoral neck fracture from falling in the bathroom at her home. Will inpatient at [facility], she had some Hypotensive episodes, received RBCs due to significant anemia, as well as urinary retention requiring replacement of indwelling salgado catheter. She has a prior history of chronic pancreatitis, COPD, HTN, and CHF. Ordered daily junior systems engineer orthostatic BPs, as she had concerning +orthostatic BPs while at [facility]. Continue to encourage oral hydration. Leaving Lasix as PRN due to CHF history. Continuing NUBIA hose. Patient having foul odor from perineum, noted clear nikole drainage and some redness upon exam, no purulent drainage noted, and no swelling noted. Will check labwork, get a urine culture, ordered Fluconazole, continue her Flomax and complete a salgado/voiding trial today. If voiding trial not successful today, she will need to follow up with Urologist Dr. Quirino Mathew after discharge. Her CBC showed an elevated WBC, so ordered blood cultures and CXR. CXR then showed development of patchy airspace opacities in the left mid to lower lung zone concerning for pneumonia. Mild increased interstitial pattern throughout the left lung and at the right upper and lower lung zones which could also be related to pneumonia or superimposed mild pulmonary edema. Very small bilateral pleural effusions with blunting of the posterior sulci. To treat her bilateral pleural effusions AND her BLL and LML hospital acquired pneumonia (with no previous antibx used at [facility]), I ordered Incentive Spirometery, DouNeb Txs every 6 hours scheduled, and Levaquin 750mg daily PO dosing for 5 days. Will repeat CXR in 5-6 days. Keep left hip incision and blister site CLEAN and DRY, change dressing as needed due to serous drainage. After drainage has stopped, my start trying to leave open to air (unless britta are catching on clothing). Remove her Left hip britta on , which is 2 weeks s/p surgery. Her Orthopedic surgery follow up is scheduled for November 02 at 10:15am with Ortho Dr. Foley She is to follow up with Urologist Dr. Quirino Mathew due to her Urinary Retention, failed Salgado/Voiding trial x 1, and need for Salgado longer than expected. F/U with PCP Radha Dale of [place], [place]. discharge summary on 10/16/19 12:04 Received a call from physical therapy, patient seemed to be more short of breath and complained of shortness of breath while in therapy today. Patient did appear to be short of breath with labored breathing this assessment. CTA and Doppler of the lower extremities ordered both negative for DVT or PE, labs and an ABG also ordered refer to labs. patient sats in the mid to upper 80s with 2 L nasal cannula. patient placed on high-flow nasal cannula saturation improved to 96%. Patient noted that when she went for her get her CTA she heard a pop on her operatively leg. afterwards she was unable to move her left leg without pain. x-ray of the right hip indicated a 2 cm proximal / medial displacement of a small fragment along the proximal tip of the greater trochanter. Unclear whether this represents a new fracture or disc placement of a previous nondisplaced fracture related to the initial trauma from 11 days prior. this patient will transfer back to [facility] under hospitalist and ortho will be consulted. Her chest x-ray does indicate that her pneumonia has worsening vancomycin has been aided to the levo. this patient has been accepted by Dr. Stewart at [facility] in Dr. Foley office has been notified patient's condition. Discharge Diagnosis (1) Hospital acquired PNA: Code(s): J18.9 - Pneumonia, unspecified organism; Y95 - Noso
[2019-10-16 15:56] LABS: Reflex Lactic Acid Yes or No Add Lactic
--- NOTE | 2019-10-16 16:16 | PC.NURSE ---
Report called to [facility]
--- NOTE | 2019-10-16 16:18 | PC.NURSE ---
RN called for EMS transfer by [facility]
--- NOTE | 2019-10-16 16:23 | PC.NURSE ---
[facility] called back, unable to take transfer for three to four hours. Called to [facility] for transfer
[2019-10-16] MEDS: MAGNESIUM SULF 2 GM/WATER 50ML 2 GM/50 ML BAG IVPB (17:10)
--- NOTE | 2019-10-31 10:40 | PCOTNOTE ---
Patient is discharged from skilled OT services as she was transferred to another facility. Patient was making good progress towards goals, see last treatment note for status of skills. Discharged skilled OT services. MS
== END 2019-10-16 17:35 | disposition short-term general hospital (02) | DRG 559 ==
PROVIDERS: Nurse Practitioner; Admitting Provider Family Medicine; PCP Physician Assistant; Visit Provider Family Medicine
DX: S72.002D Fracture of unspecified part of neck of left femur, subsequent encounter for closed fracture with routine healing (principal); J18.9 Pneumonia, unspecified organism; K86.1 Other chronic pancreatitis; I13.0 Hypertensive heart and chronic kidney disease with heart failure and stage 1 through stage 4 chronic kidney disease, or unspecified chronic kidney disease; I50.9 Heart failure, unspecified; N18.9 Chronic kidney disease, unspecified; M25.552 Pain in left hip; R06.02 Shortness of breath; D63.8 Anemia in other chronic diseases classified elsewhere; K21.9 Gastro-esophageal reflux disease without esophagitis; J44.9 Chronic obstructive pulmonary disease, unspecified; F41.9 Anxiety disorder, unspecified; F17.210 Nicotine dependence, cigarettes, uncomplicated; R33.9 Retention of urine, unspecified; W19.XXXD Unspecified fall, subsequent encounter
CPT/HCPCS: 36415; 36600; 71046; 71275; 73502; 80048; 80053; 81001; 82272; 82805; 83605; 83690; 83735; 83880; 84100; 84484; 85027; 87040; 87070; 87081; 87086; 87205; 93005; 93970; 94640; 97110; 97161; 97165; 97530; 97535; A9270; J1652; J2060; J2930; J3370; J3475; J7040; Q9965

== ENCOUNTER 2019-10-16 18:13 | Inpatient (IN) | payer MEDICARE, SELFPAY ==
[2019-10-16] VITALS (9 sets, daily range): BP systolic 111–140; BP diastolic 57–91; PULSE 84–98; RESP 18–28; TEMP 36.2–36.9; O2SAT 92–99; BMI 26.4
--- NOTE | ~2019-10-16 | XR_ITS ---
EXAMINATION: XR chest 2V DATE: 10/29/2019 09:19 INDICATION: Shortness of breath. Infiltrates. TECHNIQUE: Frontal and lateral views of the chest were obtained. COMPARISON: Chest 2 views 10/22/2019, 10/09/2019, chest CT 10/16/2019 FINDINGS: There are diffuse coarse interstitial opacities and hazy airspace opacities in the lungs, l eft worse than right. There is a small left pleural effusion. No pneumothorax. The heart size is norm al. IMPRESSION: 1. Stable diffuse lung disease, consistent with pulmonary edema versus pneumonia superimposed on emph ysema. 2. Stable small left pleural effusion. Reviewed, dictated and finalized at location A. E GAMES DEALER IMPRESSION: 1. Stable diffuse lung disease, consistent with pulmonary edema versus pneumoni a superimposed on emphysema. 2. Stable small left pleural effusion.
--- NOTE | ~2019-10-16 | XR_ITS ---
XR chest 1V portable DATE: 10/20/2019 08:01 INDICATION: Shortness of breath, hypoxia TECHNIQUE: Portable upright AP chest on 10/20/2019 at 0754 hours COMPARISON: 10/14/2019 AP chest FINDINGS: There are increased diffuse bilateral pulmonary infiltrates bilaterally, increased particul silas on the right since 10/14/2019. Differential diagnosis includes pulmonary edema, pneumonia, adult respiratory distress syndrome. Slight pleural effusions are suggested. Normal heart size. Aortic arch calcification and minimal aortic unfolding. Diffuse osteopenia. IMPRESSION: Diffuse bilateral pulmonary infiltrates, increased since 10/14/2019 Reviewed, dictated and finalized at location B. REPRESENTATIVE
--- NOTE | ~2019-10-16 | XR_ITS ---
XR chest 2V 10/22/2019 16:55 Indication: Respiratory failure. Procedure: AP and lateral views of the chest Comparison: Comparison to multiple prior studies sequentially, with oldest reviewed study dated 02/2020. Findings: There is persistent extensive bilateral airspace disease. Small pleural effusions. There is underlying emphysema. No pneumothorax. Impression: 1: Extensive bilateral airspace disease superimposed on emphysema. Differential diagnosis includes ed armen and pneumonia. 2: Small pleural effusions. Reviewed, dictated and finalized at location A. ETING EXECUTIVE Impression: 1: Extensive bilateral airspace disease superimposed on emphysema. Differential diagnosis includes edema and pneumonia. 2: Small pleural effusions.
--- NOTE | 2019-10-16 18:13 | PC.NURSE ---
This patient, Dahlia Bell, was admitted to IMU Room 200-01. Patient/family oriented to hospital policies and general routines including ID bracelet, bed and alarms, visiting hours, pain management, procedures, bathroom and other care routines, personal items, smoking policy, room service/diet, and visiting hours. Valuables list has been completed. Information on how to activate the Rapid Response Team has been discussed. Patient/Family are encouraged to report perceived risks to care and to ask questions if they do not understand what they are told or what they should do.
--- NOTE | 2019-10-16 19:18 | PM.IMHP ---
H&P: HPI History of Present Illness Chief complaint: Pneumonia, Dislocated L Hip Narrative: Dahlia Bell is a 74 year old female who is a direct admit from [facility]. I spoke to nury Fernandez the hospitalist nurse-practitioner at [facility]. The patient had been in [facility] re[facility] therapy. Looks like she was having some urinary retention and was cath x1 and that seemed to resolve. Also she had a episode were blood pressure dropped and she was given IV fluids and that her blood pressure came up. The patient had been treated for Hcap. The patient has been very short of breath and a CTA pulmonary as well as venous Dopplers were performed. The patient has been on anticoagulation since her left hip arthroplasty that was performed on the 06 of October this year by Dr. davis. The patient had just completed her venous Dopplers when she was getting off the table and heard a pop. Left hip x-ray today was read as approximately 2 cm proximal medial displacement of a small likely of avulsion fracture fragment arising from the proximal tip of the greater trochanter which likely compromises at least a portion of the gluteal medius and/are minimus tendon footplate. Dr. davis had been notified. Is recommended that the patient be transferred to [facility]. The patient also has a history of congestive heart failure. Her CTA pulmonary was read as progression of rather extensive ground-glass airspace disease likely edema or pneumonia. Small bilateral pleural effusions unchanged no pulmonary emboli. Venous Dopplers were read as no lower extremity deep vein thrombosis bilaterally. Patient was on a non-rebreather mask at 50%. Arterial blood gases were obtained. PH was normal but PO2 was 48.3 O2 saturation were 82.3. Date of service 10/16/2019 Review of Systems Review of Systems: Narrative: Left hip pain especially with movement. All systems reviewed & are unremarkable except as noted in HPI and below Constitutional: Constitutional: Reports as per HPI and Reports no additional constitutional complaints Eyes: Eyes: Reports as per HPI and Reports no additional eye complaints ENT: Reports system reviewed and no additional complaints, except as documented and Reports Normal hearing present Cardiovascular: Cardiovascular: Reports no additional cardiovascular complaints Respiratory: Respiratory: Reports no additional respiratory complaints and Reports no additional respiratory complaints Gastrointestinal: Gastrointestinal: Reports as per HPI and Reports no additional gastrointestinal complaints Musculoskeletal: Musculoskeletal: Reports no additional musculoskeletal complaints Integumentary/Breasts: Skin/Breast: Reports system reviewed and no additional complaints, except as docu and Reports as per HPI Neurologic: Reports system reviewed and no additional complaints, except as documented, Reports as per HPI and Reports Normal hearing present Psychiatric: Psychiatric: Reports no additional psychiatric complaints and Reports as per HPI Endocrine: Endocrine: Reports no additional endocrine complaints Hematologic/Lymphatic: Hematologic/Lymphatic: Reports no additional hematologic/lymphatic complaints Allergic/Immunologic: Allergic/Immunologic: Reports no additional allergic/immunologic complaints [facility] Past Medical History Medical History (Updated 10/16/19 @ 19:27 by Christine Salazar NP) Anxiety CHF (congestive heart failure) Chronic GERD Chronic pancreatitis CKD (chronic kidney disease) COPD (chronic obstructive pulmonary disease) Depression Femoral neck fracture (10/06/19) HTN (hypertension) Osteoarthritis Pancreatitis Surgical History Surgical History (Updated 10/16/19 @ 19:25 by Christine Salazar NP) History of appendectomy History of bladder suspension procedure History of hysterectomy History of total left hip arthroplasty On October 06, 2019 Previous back surgery Discs removed S/P cholecystectomy Family
[2019-10-16 20:24] LABS: Estimated CRCL calculation 46 ml/min; Estimated Glomerular Filt Rate > 60
[2019-10-16] MEDS: levoFLOXacin 500 MG/D5W 100 ML 500 MG/100 ML BAG 100 MG IVPB (21:33)
[2019-10-16] MEDS: MELATONIN 3 MG TABLET PO (23:14)
[2019-10-16] MEDS: METOPROLOL SUCCINATE EXT REL 25 MG TABCR PO (23:46)
[2019-10-16] MEDS: GABAPENTIN 300 MG CAPSULE PO (23:46)
[2019-10-16] MEDS: hydrOXYzine HCL 25 MG TABLET PO (23:46)
[2019-10-17] VITALS (30 sets, daily range): BP systolic 97–121; BP diastolic 47–77; PULSE 75–88; RESP 16–20; TEMP 36–37; O2SAT 89–100
[2019-10-17] MEDS: IPRATROPIUM BR 0.02% INH SOLN 0.5 MG/2.5 ML VIAL INHALATION ×4 (01:27→19:54)
[2019-10-17] MEDS: ALBUTEROL SULFATE NEB 2.5 MG/0.5 ML INH INHALATION ×4 (01:27→19:54)
[2019-10-17 04:56] LABS: Basophils Percent Auto 0.1 % (0.2-1.2); Eosinophils Percent Auto 0.2 % (0-4.4); Hematocrit 23.3 % (37.0-47.0); Hemoglobin 7.6 g/dL (12.0-15.0); Immature Granulocyte Absolute 0.14 K/mm3 (0.00-0.031); Immature Granulocyte Percent A 0.9 % (0-0.5); Lymphocytes Absolute Auto 1.04 K/mm3 (0.9-3.2); Mean Corpuscular HGB Conc 32.6 g/dl (32-36); Mean Corpuscular Hemoglobin 30.5 pg (26-34); Mean Corpuscular Volume 93.6 fl (80-100); Mean Platelet Volume 10.5 fl (7.4-10.4); Monocytes Absolute Auto 0.4 K/mm3 (0.1-0.6); Monocytes Percent Auto 2.5 % (2.6-8.5); Neutrophils Absolute Auto 13.3 K/mm3 (1.3-6.7); Neutrophils Percent Auto 89.3 % (45.5-73.1); Platelet Count Result 231 k/mm3 (150-375); Red Blood Count 2.49 M/mm3 (4.2-5.4); Red Cell Distribution Width 16.1 % (11.5-14.5); White Blood Count 14.9 K/mm3 (4.5-10.0)
[2019-10-17 05:17] LABS: Alanine Aminotransferase 17 U/L (4-35); Albumin Level 1.7 g/dL (3.5-5.1); Alkaline Phosphatase 175 U/L (38-126); Aspartate Amino Transferase 26 U/L (14-36); Bilirubin,Total 0.2 mg/dL (0.2-1.3); Blood Urea Nitrogen 13 mg/dL (7-17); Carbon Dioxide 26 mmol/L (22-30); Chloride 101 mmol/L (98-107); Estimated CRCL calculation 47 ml/min; Estimated Glomerular Filt Rate > 60; Glucose 88 mg/dL (65-105); Magnesium 1.9 mg/dL (1.6-2.3); Potassium 4.4 mmol/L (3.4-5.0); Sodium 134 mmol/L (137-145)
[2019-10-17 08:18] LABS: Free T4 Free Thyroxine Reflex 0.57 ng/dL (0.78-2.19)
[2019-10-17] MEDS: ASPIRIN 81 MG CHEWABLE TABLET PO (08:31)
[2019-10-17] MEDS: POLYSACCHARIDE IRON COMPLEX 150 MG CAPSULE PO ×2 (08:31→17:41)
[2019-10-17] MEDS: PANTOPRAZOLE 40 MG TABLET PO (08:32)
[2019-10-17] MEDS: LORATADINE 10 MG TABLET PO (08:32)
[2019-10-17] MEDS: GABAPENTIN 300 MG CAPSULE PO ×3 (08:32→17:41)
[2019-10-17] MEDS: hydrOXYzine HCL 25 MG TABLET PO ×3 (08:32→17:41)
[2019-10-17] MEDS: LIDOCAINE 5% PATCH 2 PATCH TRANSDERM (08:32)
[2019-10-17] MEDS: TAMSULOSIN HCL 0.4 MG CAPSULE PO (08:32)
[2019-10-17] MEDS: FONDAPARINUX SODIUM 2.5 MG/0.5 ML SYRINGE SUB-Q (08:32)
[2019-10-17] MEDS: MONTELUKAST SODIUM 10 MG TABLET PO (08:32)
[2019-10-17] MEDS: DOCUSATE SODIUM 100 MG CAPSULE PO ×2 (08:32→17:41)
[2019-10-17] MEDS: MAGNESIUM OXIDE 400 MG TABLET PO ×3 (08:32→17:41)
[2019-10-17] MEDS: SERTRALINE HCL 50 MG TABLET 100 MG PO (08:32)
--- NOTE | 2019-10-17 11:14 | PM.IMPN ---
Progress Note: A&P Assessment and Plan (1) Hospital acquired PNA: Code(s): J18.9 - Pneumonia, unspecified organism; Y95 - Nosocomial condition Status: Acute Assessment and Plan: The patient has been on vancomycin and Zosyn and levaquin for now. Continue with nebulizer treatments. Sputum specimen when able. Patient had ABGs performed in the pH was within normal limits but patient is hypoxic. Patient was on 50% non-rebreather however the patient may possibly have COPD. Now on high flow saturating ok. We will titrate oxygen level to keep her above 92%. CTA shows no signs of any PE. She has been on anticoagulation since her left hip arthroplasty. with arixtra (2) Femoral neck fracture: Onset Date: 10/06/19 Qualifiers: Encounter type: initial encounter Fracture type: closed Laterality: left Qualified Code(s): S72.002A - Fracture of unspecified part of neck of left femur, initial encounter for closed fracture Code(s): S72.009A - Fracture of unspecified part of neck of unspecified femur, initial encounter for closed fracture Status: Acute Assessment and Plan: This was repaired on the of the month by Dr. davis with total hip prosthesis. The x-ray from 10/16 shows that there is a some dislocation of 2 cm on the left hip. Dr. davis is aware and has been consulted. He was notified from [facility]. The patient has been on Arixtra For DVT prophylaxis (3) Depression: Code(s): F32.9 - Major depressive disorder, single episode, unspecified Status: Chronic Assessment and Plan: Continue with Wellbutrin. And sertraline. (4) Chronic pancreatitis: Qualifiers: Pancreatitis type: unspecified pancreatitis type Qualified Code(s): K86.1 - Other chronic pancreatitis Code(s): K86.1 - Other chronic pancreatitis Status: Chronic Assessment and Plan: Low-fat diet. (5) COPD (chronic obstructive pulmonary disease): Qualifiers: COPD type: unspecified COPD Qualified Code(s): J44.9 - Chronic obstructive pulmonary disease, unspecified Code(s): J44.9 - Chronic obstructive pulmonary disease, unspecified Status: Chronic Assessment and Plan: Nebs. And Singulair. (6) HTN (hypertension): Qualifiers: Hypertension type: unspecified Qualified Code(s): I10 - Essential (primary) hypertension Code(s): I10 - Essential (primary) hypertension Status: Chronic Assessment and Plan: Continue metoprolol (7) CHF (congestive heart failure): Qualifiers: Heart failure type: unspecified Heart failure chronicity: chronic Qualified Code(s): I50.9 - Heart failure, unspecified Code(s): I50.9 - Heart failure, unspecified Status: Chronic Assessment and Plan: Continue with metoprolol for blood pressure allows and Lasix. BNP only 75 (8) Anemia of chronic disease: Code(s): D63.8 - Anemia in other chronic diseases classified elsewhere Status: Acute Assessment and Plan: Looks like the patient has been on an iron supplement. Continue to monitor CBC. Her hemoglobin appears to be at baseline. down some today and follow . could be some loss with hip trauma (9) Acute respiratory failure with hypoxia: Code(s): J96.01 - Acute respiratory failure with hypoxia Status: Acute Assessment and Plan: secondary to pna, continue antibiotics broad spectrum and (10) DVT prophylaxis: Code(s): Z29.9 - Encounter for prophylactic measures, unspecified Status: Acute Assessment and Plan: continue arixtra Subjective Date/time seen: 10/17/19 11:14 Interval history: Date of visit 10/17. 79-year-old hypertensive white female with COPD status post left total hip arthroplasty for femeral neck fracture 10/06/2019. She was rehabbing at [facility] and developed what appeared to be pneumonia the and was being treated for the same.
--- NOTE | 2019-10-17 14:04 | PM.CNOR ---
Assessment and Plan Assessment and plan (1) Femoral neck fracture: Onset Date: 10/06/19 Qualifiers: Encounter type: initial encounter Fracture type: closed Laterality: left Qualified Code(s): S72.002A - Fracture of unspecified part of neck of left femur, initial encounter for closed fracture Code(s): S72.009A - Fracture of unspecified part of neck of unspecified femur, initial encounter for closed fracture Status: Acute Assessment and Plan: 11 days status post left hip hemiarthroplasty. Continue with dry gauze dressings for the incision. Arixtra for DVT prophylaxis. Continue with PT /OT with weight-bearing as tolerated. (2) Anemia of chronic disease: Code(s): D63.8 - Anemia in other chronic diseases classified elsewhere Status: Acute Assessment and Plan: Decreased hemoglobin and hematocrit on lab. Consider transfusion. (3) Malnutrition: Qualifiers: Malnutrition type: protein-calorie malnutrition Protein-calorie malnutrition severity: moderate Qualified Code(s): E44.0 - Moderate protein-calorie malnutrition Code(s): E46 - Unspecified protein-calorie malnutrition Status: Acute Assessment and Plan: Decreased protein and albumin. Decreased wound healing and bone healing with malnutrition. Consider supplement. (4) Avulsion fracture of left hip: Onset Date: 10/16/19 Qualifiers: Encounter type: initial encounter Fracture type: closed Qualified Code(s): S72.002A - Fracture of unspecified part of neck of left femur, initial encounter for closed fracture Code(s): S72.002A - Fracture of unspecified part of neck of left femur, initial encounter for closed fracture Status: Acute Assessment and Plan: Radiographs reviewed which show avulsion fracture from the greater trochanter. Not surprising given the patient's osteoporosis, malnutrition and overall medical condition. Mild displacement of small fracture fragment. Discussed operative and non operative treatment with the patient. She has declined operative treatment. The risks, benefits and alternatives were discussed in detail. She verbalizes understanding. She should do okay with conservative treatment. Pain control with gentle range of motion of the left hip during therapy. May continue with weight-bearing as tolerated. Most likely will continue to need placement after discharge with rehab or [facility] facility. Will continue to follow. No surgical indication at this time. History of Present Illness HPI Consult date: 10/17/19 Requesting physician: Ross Huerta MD Consult reason: joint pain Chief complaint: Pneumonia Narrative: 74-year-old woman known to me for previous left hip femoral neck fracture. Treated with hemiarthroplasty October 06, 2019. postoperative course complicated by anemia requiring transfusion, urinary incontinence requiring Wyatt catheter and orthostatic hypotensive episodes. Was discharged to [facility] swing bed for rehab. while she was there she developed respiratory difficulty and was transferred back to [facility] for possible pneumonia and hypoxia. Apparently yesterday had episode where she felt a pop in left hip while she was getting off the x-ray table. New x-rays show a avulsion from the greater trochanter. States that today her pain is better but she still has difficulty moving the leg. Review of Systems Review of Systems: All systems reviewed & are unremarkable except as noted in HPI and below Constitutional: Constitutional: Denies chills, Reports fatigue, Denies fever(s) and Denies night sweats Cardiovascular: Cardiovascular: Denies chest pain, Reports leg edema (LLE ) and Denies lightheadedness Respiratory: Respiratory: Denies cough and Denies dyspnea Gastrointestinal: Gastrointestinal: Denies abdominal pain, Denies constipation, Denies diarrhea, Reports nausea and Denies vomiting Genitou
[2019-10-17 17:04] LABS: Glucose Point of Care 66 (65-105)
[2019-10-17] MEDS: levoFLOXacin 500 MG/D5W 100 ML 500 MG/100 ML BAG 100 MG IVPB (20:04)
[2019-10-17] MEDS: METOPROLOL SUCCINATE EXT REL 25 MG TABCR PO (20:08)
[2019-10-17] MEDS: MELATONIN 3 MG TABLET PO (23:14)
[2019-10-18] VITALS (25 sets, daily range): BP systolic 94–129; BP diastolic 43–86; PULSE 69–95; RESP 16–20; TEMP 36–36.8; O2SAT 93–100
[2019-10-18] MEDS: ALBUTEROL SULFATE NEB 2.5 MG/0.5 ML INH INHALATION ×4 (02:11→20:05)
[2019-10-18] MEDS: IPRATROPIUM BR 0.02% INH SOLN 0.5 MG/2.5 ML VIAL INHALATION ×4 (02:12→20:04)
[2019-10-18 04:41] LABS: Basophils Absolute Auto 0.1 K/mm3 (0.0-0.1); Basophils Percent Auto 0.3 % (0.2-1.2); Eosinophils Percent Auto 6.4 % (0-4.4); Hematocrit 24.7 % (37.0-47.0); Immature Granulocyte Absolute 0.09 K/mm3 (0.00-0.031); Immature Granulocyte Percent A 0.6 % (0-0.5); Lymphocytes Absolute Auto 1.95 K/mm3 (0.9-3.2); Lymphocytes Percent Auto 13.2 % (18.3-44.2); Mean Corpuscular HGB Conc 32.4 g/dl (32-36); Mean Corpuscular Hemoglobin 30.1 pg (26-34); Mean Corpuscular Volume 92.9 fl (80-100); Mean Platelet Volume 10.2 fl (7.4-10.4); Monocytes Absolute Auto 0.3 K/mm3 (0.1-0.6); Monocytes Percent Auto 1.7 % (2.6-8.5); Neutrophils Absolute Auto 11.5 K/mm3 (1.3-6.7); Neutrophils Percent Auto 77.8 % (45.5-73.1); Platelet Count Result 248 k/mm3 (150-375); Red Blood Count 2.66 M/mm3 (4.2-5.4); Red Cell Distribution Width 16.5 % (11.5-14.5); White Blood Count 14.8 K/mm3 (4.5-10.0)
[2019-10-18 04:55] LABS: Blood Urea Nitrogen 14 mg/dL (7-17); Calcium 7.1 mg/dL (8.4-10.2); Carbon Dioxide 29 mmol/L (22-30); Chloride 100 mmol/L (98-107); Estimated CRCL calculation 42 ml/min; Estimated Glomerular Filt Rate 55; Glucose 61 mg/dL (65-105); Potassium 4.8 mmol/L (3.4-5.0); Sodium 133 mmol/L (137-145)
[2019-10-18] MEDS: SERTRALINE HCL 50 MG TABLET 100 MG PO (08:09)
[2019-10-18] MEDS: hydrOXYzine HCL 25 MG TABLET PO ×3 (08:10→17:40)
[2019-10-18] MEDS: MAGNESIUM OXIDE 400 MG TABLET PO ×3 (08:10→17:41)
[2019-10-18] MEDS: LORATADINE 10 MG TABLET PO (08:10)
[2019-10-18] MEDS: ASPIRIN 81 MG CHEWABLE TABLET PO (08:11)
[2019-10-18] MEDS: POLYSACCHARIDE IRON COMPLEX 150 MG CAPSULE PO ×2 (08:11→17:41)
[2019-10-18] MEDS: GABAPENTIN 300 MG CAPSULE PO ×3 (08:11→17:40)
[2019-10-18] MEDS: TAMSULOSIN HCL 0.4 MG CAPSULE PO (08:11)
[2019-10-18] MEDS: MONTELUKAST SODIUM 10 MG TABLET PO (08:11)
[2019-10-18] MEDS: PANTOPRAZOLE 40 MG TABLET PO (08:11)
[2019-10-18] MEDS: LIDOCAINE 5% PATCH 2 PATCH TRANSDERM (08:12)
[2019-10-18] MEDS: FONDAPARINUX SODIUM 2.5 MG/0.5 ML SYRINGE SUB-Q (08:12)
--- NOTE | 2019-10-18 10:58 | PM.IMPN ---
Progress Note: A&P Assessment and Plan (1) Hospital acquired PNA: Code(s): J18.9 - Pneumonia, unspecified organism; Y95 - Nosocomial condition Status: Acute Assessment and Plan: The patient has been on vancomycin and Zosyn and levaquin for now. Continue with nebulizer treatments. Sputum specimen if able. Patient had ABGs performed in the pH was within normal limits but patient was hypoxic. Patient was on 50% non-rebreather however the patient may possibly have COPD. Now on high flow saturating ok. We will titrate oxygen level to keep her above 90%. CTA shows no signs of any PE. She has been on anticoagulation since her left hip arthroplasty. with arixtra (2) Femoral neck fracture: Onset Date: 10/06/19 Qualifiers: Encounter type: initial encounter Fracture type: closed Laterality: left Qualified Code(s): S72.002A - Fracture of unspecified part of neck of left femur, initial encounter for closed fracture Code(s): S72.009A - Fracture of unspecified part of neck of unspecified femur, initial encounter for closed fracture Status: Acute Assessment and Plan: This was repaired on the of the month by Dr. davis with total hip prosthesis. The x-ray from 10/16 shows that there is a some dislocation of 2 cm on the left hip. Dr. davis has seen and recommending conservative treatment with continue to Ot/ PT. The patient has been on Arixtra For DVT prophylaxis (3) Depression: Code(s): F32.9 - Major depressive disorder, single episode, unspecified Status: Chronic Assessment and Plan: Continue with Wellbutrin. And sertraline. (4) Chronic pancreatitis: Qualifiers: Pancreatitis type: unspecified pancreatitis type Qualified Code(s): K86.1 - Other chronic pancreatitis Code(s): K86.1 - Other chronic pancreatitis Status: Chronic Assessment and Plan: Low-fat diet. (5) COPD (chronic obstructive pulmonary disease): Qualifiers: COPD type: unspecified COPD Qualified Code(s): J44.9 - Chronic obstructive pulmonary disease, unspecified Code(s): J44.9 - Chronic obstructive pulmonary disease, unspecified Status: Chronic Assessment and Plan: Nebs. And Singulair. (6) HTN (hypertension): Qualifiers: Hypertension type: unspecified Qualified Code(s): I10 - Essential (primary) hypertension Code(s): I10 - Essential (primary) hypertension Status: Chronic Assessment and Plan: Continue metoprolol (7) CHF (congestive heart failure): Qualifiers: Heart failure type: unspecified Heart failure chronicity: chronic Qualified Code(s): I50.9 - Heart failure, unspecified Code(s): I50.9 - Heart failure, unspecified Status: Chronic Assessment and Plan: Continue with metoprolol for blood pressure allows and Lasix. BNP only 73 (8) Anemia of chronic disease: Code(s): D63.8 - Anemia in other chronic diseases classified elsewhere Status: Acute Assessment and Plan: Looks like the patient has been on an iron supplement. Continue to monitor CBC. Her hemoglobin 8.0 today. could be some loss with hip trauma (9) Acute respiratory failure with hypoxia: Code(s): J96.01 - Acute respiratory failure with hypoxia Status: Acute Assessment and Plan: secondary to pna, continue antibiotics broad spectrum and (10) DVT prophylaxis: Code(s): Z29.9 - Encounter for prophylactic measures, unspecified Status: Acute Assessment and Plan: continue arixtra Subjective Date/time seen: 10/18/19 10:58 Interval history: Date of visit 10/18. 79-year-old hypertensive white female with COPD status post left total hip arthroplasty for femoral neck fracture 10/06/2019. She was rehabbing at [facility] and developed what appeared to be pneumonia the and was being treated for the same. After venous Doppler exam she was getting off a
--- NOTE | 2019-10-18 12:18 | PM.PNORT ---
Progress Note: A&P Additional Plan LEFT GREATER TROCH AVULSION FRX DOING WELL. CONT CURRENT REGIMEN. NONOPERATIVE TREATMENT FOR GREATER TROCH FRACTURE. Subjective Subjective Date/Time Seen: 10/18/19 12:LEFT GREATER TROCH AVULSION FRACTURE. DOING WELL TODAY. 02 SATS ARE IMPROVED. NO CALF PAIN Exam Extrem: Other: VSS AFEBRILE WOUND CLEAN [place] INTACT NEG HOMANS SIGN Objective Data Vital Signs Vital Signs: Vital Signs - 24 hr 10/17/19 12:28 10/17/19 14:00 10/17/19 15:08 Temperature 37.0 C Pulse Rate 84 83 83 Respiratory Rate 18 16 Blood Pressure 98/51 L Pulse Oximetry 100 10/17/19 15:18 10/17/19 15:24 10/17/19 16:00 Temperature 36.3 C L Pulse Rate 81 82 83 Respiratory Rate 18 16 Blood Pressure 97/57 L Pulse Oximetry 100 96 10/17/19 18:00 10/17/19 19:25 10/17/19 19:48 Temperature 36.6 C Pulse Rate 85 87 75 Respiratory Rate 18 Blood Pressure 104/47 L Pulse Oximetry 91 89 L 10/17/19 19:54 10/17/19 20:00 10/17/19 20:05 Temperature Pulse Rate 75 88 77 Respiratory Rate 16 16 16 Blood Pressure Pulse Oximetry 93 10/17/19 20:08 10/17/19 22:00 10/17/19 23:29 Temperature Pulse Rate 87 85 85 Respiratory Rate 16 Blood Pressure Pulse Oximetry 93 10/18/19 00:34 10/18/19 02:00 10/18/19 02:12 Temperature 36.1 C L Pulse Rate 85 88 69 Respiratory Rate 18 16 Blood Pressure 122/86 Pulse Oximetry 98 10/18/19 04:11 10/18/19 05:14 10/18/19 05:44 Temperature 36.8 C Pulse Rate 88 87 88 Respiratory Rate 16 20 Blood Pressure 104/45 L Pulse Oximetry 98 95 10/18/19 08:00 10/18/19 08:40 10/18/19 08:42 Temperature Pulse Rate 90 87 Respiratory Rate 16 Blood Pressure Pulse Oximetry 93 10/18/19 08:45 10/18/19 08:55 10/18/19 10:00 Temperature 36.1 C L Pulse Rate 87 87 91 Respiratory Rate 20 16 Blood Pressure 129/63 Pulse Oximetry 100 10/18/19 11:35 Temperature 36.0 C L Pulse Rate 84 Respiratory Rate 20 Blood Pressure 100/53 L Pulse Oximetry 100 Intake/Output Intake/Output: Intake & Output 10/15/19 10/16/19 10/17/19 10/18/19 23:59 23:59 23:59 23:59 Intake Total 450 1430 630 Output Total 300 1000 950 Balance 150 430 -320 Meds/Results Medications: Active Medications Generic Name Dose Route Start Last Admin Trade Name Freq PRN Reason Stop Dose Admin Acetaminophen 650 mg 10/16/19 22:46 Tylenol Tablet PO Q6H PRN Mild Pain (1-3) Or Fever Hydrocodone Bitart/Acetaminophen 1 tab 10/16/19 22:47 10/18/19 06:15 [place] 5-325 Mg PO 1 tab Q4H PRN Administration Pain Rated 4-6 Albuterol 2.5 mg 10/16/19 20:00 10/18/19 08:39 Albuterol Sulf Neb 2.5mg/0.5ml INHALATION 2.5 mg Q6HRT CHRISTELLE Administration Aspirin 81 mg 10/17/19 09:00 10/18/19 08:11 Aspirin Chewable PO 81 mg DAILY CHRISTELLE Administration Budesonide/Formoterol Fumarate 2 puff 10/17/19 08:00 10/18/19 08:39 Symbicort 160-4.5 Mcg (*Sp) Inhaler INHALATION 2 puff Q12HRT CHRISTELLE Administration Bupropion HCl 150 mg 10/17/19 09:00 10/18/19 08:11 Wellbutrin-Sr (12 Hr) PO 150 mg QAM CHRISTELLE Administration Diphenoxylate HCl/Atropine 1 tablet 10/17/19 09:00 10/18/19 10:10 Lomotil Tab 2.5 Mg PO Not Given BID CHRISTELLE Docusate Sodium 100 mg 10/16/19 17:00 10/18/19 10:10 Colace Capsule PO Not Given BID CHRISTELLE Docusate Sodium 100 mg 10/16/19 22:46 Colace Capsule PO BID PRN constipation Fentanyl Citrate 25 mcg 10/16/19 22:47 Sublimaze IV PUSH Q4H PRN Pain Rated 7-10 Fondaparinux 2.5 mg 10/17/19 09:00 10/18/19 08:12 Arixtra SUB-Q 2.5 mg DAILY CHRISTELLE Administration Furosemide 20 mg 10/16/19 22:46 Lasix Tablet PO DAILY PRN leg swelling Gabapentin 300 mg 10/16/19 23:00 10/18/19 08:11 Neurontin PO 300 mg TID CHRISTELLE Administration Guaifenesin 600 mg 10/16/19 23:00 10/18/19 08:11 Mucinex 12 Hr Tab PO 600 mg Q1
[2019-10-18] MEDS: ONDANSETRON INJ 4 MG/2 ML VIAL IV PUSH (13:58)
[2019-10-18] MEDS: METOPROLOL SUCCINATE EXT REL 25 MG TABCR PO (20:24)
[2019-10-18] MEDS: levoFLOXacin 500 MG/D5W 100 ML 500 MG/100 ML BAG 100 MG IVPB (21:30)
[2019-10-19] VITALS (22 sets, daily range): BP systolic 95–118; BP diastolic 46–60; PULSE 80–96; RESP 16–24; TEMP 36.1–36.9; O2SAT 87–99
[2019-10-19] MEDS: IPRATROPIUM BR 0.02% INH SOLN 0.5 MG/2.5 ML VIAL INHALATION ×4 (02:06→21:45)
[2019-10-19] MEDS: ALBUTEROL SULFATE NEB 2.5 MG/0.5 ML INH INHALATION ×4 (02:06→21:45)
[2019-10-19 05:39] LABS: Basophils Absolute Auto 0.1 K/mm3 (0.0-0.1); Basophils Percent Auto 0.5 % (0.2-1.2); Eosinophils Absolute Auto 0.9 K/mm3 (0-0.3); Eosinophils Percent Auto 6.7 % (0-4.4); Hemoglobin 8.1 g/dL (12.0-15.0); Immature Granulocyte Absolute 0.13 K/mm3 (0.00-0.031); Lymphocytes Absolute Auto 1.31 K/mm3 (0.9-3.2); Lymphocytes Percent Auto 10.2 % (18.3-44.2); Mean Corpuscular HGB Conc 32.4 g/dl (32-36); Mean Corpuscular Hemoglobin 30.6 pg (26-34); Mean Corpuscular Volume 94.3 fl (80-100); Mean Platelet Volume 10.2 fl (7.4-10.4); Monocytes Absolute Auto 0.3 K/mm3 (0.1-0.6); Monocytes Percent Auto 2.3 % (2.6-8.5); Neutrophils Absolute Auto 10.2 K/mm3 (1.3-6.7); Neutrophils Percent Auto 79.3 % (45.5-73.1); Platelet Count Result 226 k/mm3 (150-375); Red Blood Count 2.65 M/mm3 (4.2-5.4); Red Cell Distribution Width 16.7 % (11.5-14.5); White Blood Count 12.8 K/mm3 (4.5-10.0)
[2019-10-19 06:11] LABS: Blood Urea Nitrogen 13 mg/dL (7-17); Calcium 7.1 mg/dL (8.4-10.2); Carbon Dioxide 29 mmol/L (22-30); Chloride 102 mmol/L (98-107); Estimated CRCL calculation 42 ml/min; Estimated Glomerular Filt Rate 55; Glucose 56 mg/dL (65-105); Potassium 4.4 mmol/L (3.4-5.0); Sodium 135 mmol/L (137-145)
[2019-10-19 06:41] LABS: Glucose Point of Care 83 (65-105)
[2019-10-19] MEDS: GABAPENTIN 300 MG CAPSULE PO ×3 (09:40→17:53)
[2019-10-19] MEDS: MONTELUKAST SODIUM 10 MG TABLET PO (09:40)
[2019-10-19] MEDS: ASPIRIN 81 MG CHEWABLE TABLET PO (09:40)
[2019-10-19] MEDS: hydrOXYzine HCL 25 MG TABLET PO ×3 (09:40→17:53)
[2019-10-19] MEDS: POLYSACCHARIDE IRON COMPLEX 150 MG CAPSULE PO ×2 (09:40→17:54)
[2019-10-19] MEDS: LORATADINE 10 MG TABLET PO (09:40)
[2019-10-19] MEDS: SERTRALINE HCL 50 MG TABLET 100 MG PO (09:40)
[2019-10-19] MEDS: PANTOPRAZOLE 40 MG TABLET PO (09:41)
[2019-10-19] MEDS: TAMSULOSIN HCL 0.4 MG CAPSULE PO (09:41)
[2019-10-19] MEDS: FONDAPARINUX SODIUM 2.5 MG/0.5 ML SYRINGE SUB-Q (09:41)
[2019-10-19] MEDS: MAGNESIUM OXIDE 400 MG TABLET PO ×3 (09:41→17:53)
[2019-10-19] MEDS: LIDOCAINE 5% PATCH 2 PATCH TRANSDERM (09:41)
[2019-10-19] MEDS: ONDANSETRON INJ 4 MG/2 ML VIAL IV PUSH (09:45)
--- NOTE | 2019-10-19 13:36 | PM.IMPN ---
Progress Note: A&P Assessment and Plan (1) Hospital acquired PNA: Code(s): J18.9 - Pneumonia, unspecified organism; Y95 - Nosocomial condition Status: Acute Assessment and Plan: The patient has been on vancomycin and Zosyn and levaquin for now.D#5 Continue with nebulizer treatments. . Patient had ABGs performed in the pH was within normal limits but patient was hypoxic. . Now on high flow saturating ok. We will titrate oxygen level to keep her above 90%. CTA shows no signs of any PE. She has been on anticoagulation since her left hip arthroplasty. with arixtra, recheck xray am (2) Femoral neck fracture: Onset Date: 10/06/19 Qualifiers: Encounter type: initial encounter Fracture type: closed Laterality: left Qualified Code(s): S72.002A - Fracture of unspecified part of neck of left femur, initial encounter for closed fracture Code(s): S72.009A - Fracture of unspecified part of neck of unspecified femur, initial encounter for closed fracture Status: Acute Assessment and Plan: This was repaired on the of the month by Dr. davis with total hip prosthesis. The x-ray from 10/16 shows that there is a some dislocation of 2 cm on the left hip. Dr. davis has seen and recommending conservative treatment with continue to Ot/ PT. The patient has been on Arixtra For DVT prophylaxis and will continue (3) Depression: Code(s): F32.9 - Major depressive disorder, single episode, unspecified Status: Chronic Assessment and Plan: Continue with Wellbutrin. And sertraline. (4) Chronic pancreatitis: Qualifiers: Pancreatitis type: unspecified pancreatitis type Qualified Code(s): K86.1 - Other chronic pancreatitis Code(s): K86.1 - Other chronic pancreatitis Status: Chronic Assessment and Plan: Low-fat diet. (5) COPD (chronic obstructive pulmonary disease): Qualifiers: COPD type: unspecified COPD Qualified Code(s): J44.9 - Chronic obstructive pulmonary disease, unspecified Code(s): J44.9 - Chronic obstructive pulmonary disease, unspecified Status: Chronic Assessment and Plan: Nebs. And Singulair.no steroids with no bronchospasm (6) HTN (hypertension): Qualifiers: Hypertension type: unspecified Qualified Code(s): I10 - Essential (primary) hypertension Code(s): I10 - Essential (primary) hypertension Status: Chronic Assessment and Plan: Continue metoprolol (7) CHF (congestive heart failure): Qualifiers: Heart failure type: unspecified Heart failure chronicity: chronic Qualified Code(s): I50.9 - Heart failure, unspecified Code(s): I50.9 - Heart failure, unspecified Status: Chronic Assessment and Plan: Continue with metoprolol for blood pressure allows and Lasix. BNP only 73 (8) Anemia of chronic disease: Code(s): D63.8 - Anemia in other chronic diseases classified elsewhere Status: Acute Assessment and Plan: Looks like the patient has been on an iron supplement. Continue to monitor CBC. Her hemoglobin 8.1 today. could be some loss with hip trauma (9) Acute respiratory failure with hypoxia: Code(s): J96.01 - Acute respiratory failure with hypoxia Status: Acute Assessment and Plan: secondary to pna, continue antibiotics broad spectrum and bronchodilators (10) DVT prophylaxis: Code(s): Z29.9 - Encounter for prophylactic measures, unspecified Status: Acute Assessment and Plan: continue arixtra Subjective Date/time seen: 10/19/19 13:36 Interval history: Date of visit 10/19. 79-year-old hypertensive white female with COPD status post left total hip arthroplasty for femoral neck fracture 10/06/2019. She was rehabbing at [facility] and developed what appeared to be pneumonia the and was being treated for the same. After venous Doppler exam she was getting off a table when
--- NOTE | 2019-10-19 13:52 | PCPTNOTE ---
Patient refused treatment this session due to eating lunch at this time.
--- NOTE | 2019-10-19 18:40 | PC.NURSE ---
This patient, Dahlia Bell, was received from IMU on 10/19/19 at 1840. Personal belongings list checked and signed. Patient/family oriented to unit policies and routines
[2019-10-19] MEDS: METOPROLOL SUCCINATE EXT REL 25 MG TABCR PO (20:19)
[2019-10-19] MEDS: levoFLOXacin 500 MG/D5W 100 ML 500 MG/100 ML BAG 100 MG IVPB (20:19)
[2019-10-19 20:30] LABS: Vancomycin Trough 12.5 ug/mL (10.0-20.0)
[2019-10-20] VITALS (10 sets, daily range): BP systolic 90–105; BP diastolic 50–52; PULSE 75–90; RESP 16–20; TEMP 36.3–37.2; O2SAT 91–98
[2019-10-20] MEDS: ALBUTEROL SULFATE NEB 2.5 MG/0.5 ML INH INHALATION ×3 (03:09→13:53)
[2019-10-20] MEDS: IPRATROPIUM BR 0.02% INH SOLN 0.5 MG/2.5 ML VIAL INHALATION ×3 (03:09→13:53)
[2019-10-20 06:06] LABS: Basophils Absolute Auto 0.1 K/mm3 (0.0-0.1); Basophils Percent Auto 0.4 % (0.2-1.2); Eosinophils Percent Auto 7.3 % (0-4.4); Hematocrit 25.6 % (37.0-47.0); Hemoglobin 8.2 g/dL (12.0-15.0); Immature Granulocyte Absolute 0.11 K/mm3 (0.00-0.031); Immature Granulocyte Percent A 0.8 % (0-0.5); Mean Corpuscular Hemoglobin 30.3 pg (26-34); Mean Corpuscular Volume 94.5 fl (80-100); Monocytes Absolute Auto 0.3 K/mm3 (0.1-0.6); Monocytes Percent Auto 2.2 % (2.6-8.5); Neutrophils Absolute Auto 10.3 K/mm3 (1.3-6.7); Neutrophils Percent Auto 77.3 % (45.5-73.1); Platelet Count Result 232 k/mm3 (150-375); Red Blood Count 2.71 M/mm3 (4.2-5.4); Red Cell Distribution Width 17.1 % (11.5-14.5); White Blood Count 13.3 K/mm3 (4.5-10.0)
[2019-10-20 06:17] LABS: Blood Urea Nitrogen 15 mg/dL (7-17); Calcium 7.3 mg/dL (8.4-10.2); Carbon Dioxide 28 mmol/L (22-30); Chloride 100 mmol/L (98-107); Estimated CRCL calculation 42 ml/min; Estimated Glomerular Filt Rate 55; Glucose 60 mg/dL (65-105); Potassium 4.5 mmol/L (3.4-5.0); Sodium 134 mmol/L (137-145)
[2019-10-20] MEDS: GABAPENTIN 300 MG CAPSULE PO ×3 (08:52→17:47)
[2019-10-20] MEDS: LIDOCAINE 5% PATCH 2 PATCH TRANSDERM (08:52)
[2019-10-20] MEDS: PANTOPRAZOLE 40 MG TABLET PO (08:52)
[2019-10-20] MEDS: LORATADINE 10 MG TABLET PO (08:52)
[2019-10-20] MEDS: TAMSULOSIN HCL 0.4 MG CAPSULE PO (08:55)
[2019-10-20] MEDS: hydrOXYzine HCL 25 MG TABLET PO ×3 (08:55→17:47)
[2019-10-20] MEDS: MAGNESIUM OXIDE 400 MG TABLET PO ×3 (08:56→17:48)
[2019-10-20] MEDS: MONTELUKAST SODIUM 10 MG TABLET PO (08:56)
[2019-10-20] MEDS: SERTRALINE HCL 50 MG TABLET 100 MG PO (08:56)
[2019-10-20] MEDS: FONDAPARINUX SODIUM 2.5 MG/0.5 ML SYRINGE SUB-Q (08:56)
[2019-10-20] MEDS: POLYSACCHARIDE IRON COMPLEX 150 MG CAPSULE PO ×2 (08:57→17:47)
[2019-10-20] MEDS: ASPIRIN 81 MG CHEWABLE TABLET PO (08:57)
[2019-10-20 09:39] LABS: Glucose Point of Care 102 (65-105)
--- NOTE | 2019-10-20 14:32 | PM.IMPN ---
Progress Note: A&P Assessment and Plan (1) Hospital acquired PNA: Code(s): J18.9 - Pneumonia, unspecified organism; Y95 - Nosocomial condition Status: Acute Assessment and Plan: The patient has been on vancomycin and Zosyn and levaquin for now.D#6 Continue with nebulizer treatments. . Patient had ABGs performed and the pH was within normal limits but patient was hypoxic. . Now on high flow saturating ok. CTA shows no signs of any PE. She has been on anticoagulation since her left hip arthroplasty. with arixtra, chest x-ray today revealed worsening diffuse infiltrates. Her BNP was normal but will check echocardiogram Eosinophil percentage has been slightly increase so will check absolute eosinophil count and aspergillosis antigen. Have seen by ID (2) Femoral neck fracture: Onset Date: 10/06/19 Qualifiers: Encounter type: initial encounter Fracture type: closed Laterality: left Qualified Code(s): S72.002A - Fracture of unspecified part of neck of left femur, initial encounter for closed fracture Code(s): S72.009A - Fracture of unspecified part of neck of unspecified femur, initial encounter for closed fracture Status: Acute Assessment and Plan: This was repaired on the 3rd of the month by Dr. davis with total hip prosthesis. The x-ray from 10/16 shows that there is a some dislocation of 2 cm on the left hip. Dr. davis has seen and recommending conservative treatment with continue to Ot/ PT. The patient has been on Arixtra For DVT prophylaxis and will continue (3) Depression: Code(s): F32.9 - Major depressive disorder, single episode, unspecified Status: Chronic Assessment and Plan: Continue with Wellbutrin. And sertraline. (4) Chronic pancreatitis: Qualifiers: Pancreatitis type: unspecified pancreatitis type Qualified Code(s): K86.1 - Other chronic pancreatitis Code(s): K86.1 - Other chronic pancreatitis Status: Chronic Assessment and Plan: Low-fat diet. (5) COPD (chronic obstructive pulmonary disease): Qualifiers: COPD type: unspecified COPD Qualified Code(s): J44.9 - Chronic obstructive pulmonary disease, unspecified Code(s): J44.9 - Chronic obstructive pulmonary disease, unspecified Status: Chronic Assessment and Plan: Nebs. And Singulair.no steroids with no bronchospasm (6) HTN (hypertension): Qualifiers: Hypertension type: unspecified Qualified Code(s): I10 - Essential (primary) hypertension Code(s): I10 - Essential (primary) hypertension Status: Chronic Assessment and Plan: Continue metoprolol (7) CHF (congestive heart failure): Qualifiers: Heart failure type: unspecified Heart failure chronicity: chronic Qualified Code(s): I50.9 - Heart failure, unspecified Code(s): I50.9 - Heart failure, unspecified Status: Chronic Assessment and Plan: Continue with metoprolol for blood pressure allows and Lasix. BNP only 73. Probable diastolic heart failure chronic but with chest x-ray findings will obtain echocardiogram (8) Anemia of chronic disease: Code(s): D63.8 - Anemia in other chronic diseases classified elsewhere Status: Acute Assessment and Plan: Looks like the patient has been on an iron supplement. Continue to monitor CBC. Her hemoglobin 8.2 today. could be some loss with hip trauma (9) Acute respiratory failure with hypoxia: Code(s): J96.01 - Acute respiratory failure with hypoxia Status: Acute Assessment and Plan: secondary to pna, continue antibiotics broad spectrum and bronchodilators (10) DVT prophylaxis: Code(s): Z29.9 - Encounter for prophylactic measures, unspecified Status: Acute Assessment and Plan: continue arixtra Subjective Date/time seen: 10/20/19 14:32 Interval history: Date of visit 10/20. 79-year-old hypertensive white fem
--- NOTE | 2019-10-20 16:44 | WPDINFPN2 ---
Progress Note: A&P Assessment and Plan (1) Lung infiltrate: Onset Date: 10/12/19 Code(s): R91.8 - Other nonspecific abnormal finding of lung field Status: Acute Assessment and Plan: 1. Lung infiltrates with hypoxia. I think this is TRALI (transfusion lung injury) and not HCAP. But cannot exclude the latter 2. Leukocytosis 3. Hip fracture, with drainage likely from seroma 4. COPD/chronic bronchitis Rec Cefepime # 1, several days additional therapy. Micro in process. Subjective Date/time seen: 10/20/19 16:44 Objective Data Vital Signs Vital Signs: Vital Signs - 24 hr 10/19/19 20:19 10/19/19 21:45 10/19/19 22:00 Temperature 36.9 C Pulse Rate 84 85 84 Respiratory Rate 16 16 Blood Pressure 110/52 L Pulse Oximetry 87 L 96 10/19/19 22:02 10/19/19 22:20 10/20/19 03:09 Temperature Pulse Rate 82 80 Respiratory Rate 16 16 Blood Pressure Pulse Oximetry 93 93 10/20/19 03:17 10/20/19 03:20 10/20/19 06:04 Temperature 36.9 C Pulse Rate 78 86 Respiratory Rate 16 16 Blood Pressure 105/52 L Pulse Oximetry 91 98 10/20/19 08:20 10/20/19 08:30 10/20/19 13:50 Temperature Pulse Rate 76 79 75 Respiratory Rate 16 16 16 Blood Pressure Pulse Oximetry 91 10/20/19 14:00 Temperature 36.3 C L Pulse Rate 90 Respiratory Rate 18 Blood Pressure 90/50 L Pulse Oximetry 97 Intake/Output Intake/Output: Intake & Output 10/17/19 10/18/19 10/19/19 10/20/19 23:59 23:59 23:59 23:59 Intake Total 1430 1620 1270 460 Output Total 1000 1900 1600 951 Balance 080 -067 -142 -710 Meds/Results Medications: Active Medications Generic Name Dose Route Start Last Admin Trade Name Freq PRN Reason Stop Dose Admin Acetaminophen 650 mg 10/16/19 22:46 Tylenol Tablet PO Q6H PRN Mild Pain (1-3) Or Fever Hydrocodone Bitart/Acetaminophen 1 tab 10/16/19 22:47 10/20/19 15:31 [place] 5-325 Mg PO 1 tab Q4H PRN Administration Pain Rated 4-6 Albuterol 2.5 mg 10/16/19 20:00 10/20/19 13:53 Albuterol Sulf Neb 2.5mg/0.5ml INHALATION 2.5 mg Q6HRT CHRISTELLE Administration Aspirin 81 mg 10/17/19 09:00 10/20/19 08:57 Aspirin Chewable PO 81 mg DAILY CHRISTELLE Administration Budesonide/Formoterol Fumarate 2 puff 10/17/19 08:00 10/20/19 08:26 Symbicort 160-4.5 Mcg (*Sp) Inhaler INHALATION 2 puff Q12HRT CHRISTELLE Administration Bupropion HCl 150 mg 10/17/19 09:00 10/20/19 08:55 Wellbutrin-Sr (12 Hr) PO 150 mg QAM CHRISTELLE Administration Dextrose 12.5 gm 10/20/19 06:38 Dextrose 50% Syringe IV PUSH PRN PRN Hypoglycemia Protocol Diphenoxylate HCl/Atropine 1 tablet 10/17/19 09:00 10/20/19 09:00 Lomotil Tab 2.5 Mg PO 1 tablet BID COUNT INCLUDES THE [facility] Administration Docusate Sodium 100 mg 10/16/19 17:00 10/20/19 08:55 Colace Capsule PO Not Given BID COUNT INCLUDES THE [facility] Docusate Sodium 100 mg 10/16/19 22:46 Colace Capsule PO BID PRN constipation Fentanyl Citrate 25 mcg 10/16/19 22:47 Sublimaze IV PUSH Q4H PRN Pain Rated 7-10 Fondaparinux 2.5 mg 10/17/19 09:00 10/20/19 08:56 Arixtra SUB-Q 2.5 mg DAILY COUNT INCLUDES THE [facility] Administration Furosemide 20 mg 10/16/19 22:46 Lasix Tablet PO DAILY PRN leg swelling Gabapentin 300 mg 10/16/19 23:00 10/20/19 13:07 Neurontin PO 300 mg TID CHRISTELLE Administration Glucagon 1 mg 10/20/19 06:38 Glucagon For Inj IM PRN PRN Hypoglycemia Protocol Glucose 15 gm 10/20/19 06:38 Glutose 15 PO PRN PRN Hypoglycemia Protocol Guaifenesin 600 mg 10/16/19 23:00 10/20/19 08:56 Mucinex 12 Hr Tab PO 600 mg Q12HR CHRISTELLE Administration Hydroxyzine HCl 25 mg 10/16/19 23:00 10/20/19 13:07 Atarax Tablet PO 25 mg TID CHRISTELLE Administration Piperacillin/Tazobactam/Dextrose 3.375 gm in 50 mls @ 100 mls/hr 10/17/19 00:00 10/20/19 11:52 Zosyn 3.375 Gm/D5w 50ml Pm IVPB 100 mls/hr Q6HR CHRISTELLE Admin
--- NOTE | 2019-10-20 21:21 | CONS_ITS ---
DATE OF CONSULTATION: 10/20/2019 REASON FOR CONSULTATION: Lung infiltrates. HISTORY OF PRESENT ILLNESS: The patient is a 74-year-old female, who smoked for many years, having quit about 2 years ago. She in the meantime has been diagnosed with chronic bronchitis, possibly due to asthma, and is on a daily inhaler with relief. She has no oxygen at home and does not have chronic shortness of breath nor home O2. She unfortunately fell and injured her hip on October 05. She was taken to the operating room the following day here and underwent left hip bipolar hemiarthroplasty for a left hip femoral neck fracture. There were no postoperative complications apparent. The patient did have 2 units of packed red blood cells performed on postop day #3. Her chest x-ray that morning was normal other than some atelectasis. In the next 24 hours, however, she developed progressive shortness of breath requiring O2. A chest x-ray and chest CT performed on the were abnormal as noted below. She was transferred to [place] on the . While at [place], she had increasing respiratory distress. She also felt something pop in her hip. She has had drainage from the left hip with avulsion fracture also noted. No further operative intervention is planned for the moment. The patient was started on vancomycin, levofloxacin, and piperacillin and tazobactam due to concern over healthcare-associated pneumonia and consultation requested today. The patient has had no sputum production. She has chest pain when she takes a deep breath. This is substernal. She has generalized fatigue. No nausea, vomiting, symptoms of aspiration, lateral chest pain. She thinks that she had some chills and sweats prior to her fracture, but not since then. She has had no skin rash. She does have easy bruisability. No nausea or vomiting. No diarrhea. She has a cat at home. No other pets. She has not traveled out of the [place] in the last 6 months. She is retired. No ill household contacts. PRESENT MEDICATIONS: List reviewed. No immunosuppressants systemically. ALLERGIES: NONE PERTINENT. HABITS: Ex-smoker. No alcohol. PAST MEDICAL HISTORY: In addition to the above, cholecystectomy, back surgery, hysterectomy, bladder suspension, appendectomy, chronic pancreatitis. It has not been told the underlying etiology, but has had several stents, hypertension, osteoarthritis, depression, chronic kidney disease, GERD, heart failure. REVIEW OF SYSTEMS: 14-point review is otherwise negative. FAMILY HISTORY: Not pertinent to her present illness. SOCIAL HISTORY: Lives with her daughter. Retired from [employer]. PHYSICAL EXAMINATION: GENERAL: This is a thin, but not cachectic elderly female, appears her actual age. No acute distress. VITAL SIGNS: She has been afebrile throughout her recent illness. 90/50, 90, 18, 97%. SKIN: Warm and dry. No rashes. Some ecchymoses. HEENT: The conjunctivae are normal. The oropharynx and oral mucosa normal, other than dry mucous membranes. NECK: No masses or thyromegaly. LUNGS: She has dry [facility] up in both lung ruiz. Breath sounds are vesicular. No egophony, no fremitus changes. Clear to percussion. CHEST: Equal expansion. Normal AP diameter. CARDIAC: Regular rate and rhythm. No murmurs or gallops. Soft S1, S2. No heaves. PMI is not displaced. ABDOMEN: Nontender, soft. No organomegaly. No masses. EXTREMITIES: No clubbing, cyanosis, edema. MUSCULOSKELETAL: Left hip dressing is somewhat saturated with clear yellow fluid. The incision is stapled and intact. No erythema, tenderness, necrosis. NEUROLOGIC: Awake, alert, oriented, appropriate. LABORATORY DATA: Blood cultures from the 9th are no growth. Final urine culture same.
[2019-10-20] MEDS: METOPROLOL SUCCINATE EXT REL 25 MG TABCR PO (22:05)
[2019-10-21] VITALS (13 sets, daily range): BP systolic 90–114; BP diastolic 56–64; PULSE 73–100; RESP 16–20; TEMP 37.2–37.3; O2SAT 90–97
--- NOTE | 2019-10-21 | ECHO_ITS ---
Patient Info Name: Dahlia Bell Age: 74 years : 1945 Gender: Female Ht: 63 in Wt: 151 lbs BSA: 1.76 m2 HR: 93 bpm BP: 102 / 58 mmHg Technical Quality: Good Exam Date: 10/21/2019 10:24 AM Exam Location: [facility] Patient Status: Inpatient Admit Date: 10/16/2019 Staff Ordering Physician: Ross Huerta MD Chief Optometry Service: Augustin Diaz, JCARLOS, RT Attending Provider: Carrillo Foley MD Referring Physician: eDanna LONDON; Exam Type: CA echo doppler color flow Study Info Indications I26.99 - Other pulmonary embolism without acute cor pulmonale Complete two-dimensional, color flow and Doppler transthoracic echocardiogram is performed. Summary 1. Normal left ventricular size with mild concentric hypertrophy. Overall left ventricular function at the lower limit of normal, with abnormal septal motion probably secondary to LBBB. Visual estimate of ejection fraction is 50-55%. Diastolic dysfunction grade 2 is present. Global longitudinal strain average is-13%, moderately diminished, suggesting early systolic dysfunction. 2. Right ventricular size and function appear normal. 3. Mild pulmonary hypertension, estimated pulmonary arterial systolic pressure is 37 mmHg. 4. No significant valve disease. 5. The aortic root size at the sinus of Valsalva is mildly dilated at 3.8 cm. 6. Probable sinus rhythm. Left Ventricle Left ventricular chamber dimension is normal. Left ventricular systolic function is mildly reduced, estimated at 50-55%. There is moderately increased left ventricular wall thickness. Left ventricular septal wall motion is abnormal with septal motion related to bundle branch block. The left ventricular diastolic function is grade II diastolic dysfunction. Global longitudinal strain is moderately elevated at 13 %. Normal left ventricular size with mild concentric hypertrophy. Overall left ventricular function at the lower limit of normal, with abnormal septal motion probably secondary to LBBB. Visual estimate of ejection fraction is 50-55%. Diastolic dysfunction grade 2 is present. Global longitudinal strain average is-13%, moderately diminished, suggesting early systolic dysfunction. Right Ventricle Right ventricular size and function appear normal. Right ventricular systolic function is normal. Left Atria Left atrial chamber dimension is normal. Right Atria Right atrial chamber dimension is normal. Aortic Valve The aortic valve is trileaflet. There is no aortic valve sclerosis. There is no aortic valve stenosis. There is no aortic valve regurgitation. Pulmonic Valve The pulmonic valve is normal. There is no pulmonic valve stenosis. There is no pulmonic regurgitation. Mitral Valve The mitral valve has thickened leaflets. There is no mitral valve stenosis. There is trace mitral valve regurgitation. Tricuspid Valve The tricuspid valve leaflets are normal. There is no significant tricuspid valve stenosis. There is trace tricuspid valve regurgitation. Mild pulmonary hypertension, estimated pulmonary arterial systolic pressure is 37 mmHg. Pericardium/Pleural The pericardium appears normal. There is no pericardial effusion. Inferior Vena Cava Normal inferior vena cava with >50% collapse upon inspiration consistent with Empty right atrial pressure, 10 mmHg. Aorta The aortic root size at the sinus of Valsalva is mildly dilated at 3.8 cm. The prox ascending aorta size is normal. Left Ventricular Outflow Tract -
[2019-10-21 06:32] LABS: Basophils Absolute Auto 0.1 K/mm3 (0.0-0.1); Basophils Percent Auto 0.4 % (0.2-1.2); Eosinophils Absolute Auto 1.1 K/mm3 (0-0.3); Eosinophils Percent Auto 8.1 % (0-4.4); Hematocrit 24.4 % (37.0-47.0); Hemoglobin 7.9 g/dL (12.0-15.0); Immature Granulocyte Absolute 0.13 K/mm3 (0.00-0.031); Lymphocytes Absolute Auto 1.67 K/mm3 (0.9-3.2); Lymphocytes Percent Auto 12.3 % (18.3-44.2); Mean Corpuscular HGB Conc 32.4 g/dl (32-36); Mean Corpuscular Hemoglobin 30.3 pg (26-34); Mean Corpuscular Volume 93.5 fl (80-100); Mean Platelet Volume 9.8 fl (7.4-10.4); Monocytes Absolute Auto 0.4 K/mm3 (0.1-0.6); Monocytes Percent Auto 2.7 % (2.6-8.5); Neutrophils Absolute Auto 10.2 K/mm3 (1.3-6.7); Neutrophils Percent Auto 75.5 % (45.5-73.1); Platelet Count Result 232 k/mm3 (150-375); Red Blood Count 2.61 M/mm3 (4.2-5.4); Red Cell Distribution Width 17.1 % (11.5-14.5); White Blood Count 13.5 K/mm3 (4.5-10.0)
[2019-10-21 07:06] LABS: Albumin Level 1.8 g/dL (3.5-5.1); Blood Urea Nitrogen 15 mg/dL (7-17); Calcium 7.4 mg/dL (8.4-10.2); Carbon Dioxide 26 mmol/L (22-30); Chloride 100 mmol/L (98-107); Estimated CRCL calculation 38 ml/min; Estimated Glomerular Filt Rate 49; Glucose 60 mg/dL (65-105); Phosphorus 3.3 mg/dL (2.5-4.5); Potassium 4.5 mmol/L (3.4-5.0); Sodium 134 mmol/L (137-145)
[2019-10-21] MEDS: LIDOCAINE 5% PATCH 2 PATCH TRANSDERM (08:10)
[2019-10-21] MEDS: ASPIRIN 81 MG CHEWABLE TABLET PO (08:11)
[2019-10-21] MEDS: POLYSACCHARIDE IRON COMPLEX 150 MG CAPSULE PO ×2 (08:11→16:06)
[2019-10-21] MEDS: DOCUSATE SODIUM 100 MG CAPSULE PO ×2 (08:12→16:05)
[2019-10-21] MEDS: hydrOXYzine HCL 25 MG TABLET PO ×3 (08:13→16:05)
[2019-10-21] MEDS: MONTELUKAST SODIUM 10 MG TABLET PO (08:13)
[2019-10-21] MEDS: GABAPENTIN 300 MG CAPSULE PO ×3 (08:13→16:05)
[2019-10-21] MEDS: LORATADINE 10 MG TABLET PO (08:13)
[2019-10-21] MEDS: FONDAPARINUX SODIUM 2.5 MG/0.5 ML SYRINGE SUB-Q (08:13)
[2019-10-21] MEDS: MAGNESIUM OXIDE 400 MG TABLET PO ×3 (08:13→16:06)
[2019-10-21] MEDS: TAMSULOSIN HCL 0.4 MG CAPSULE PO (08:14)
[2019-10-21] MEDS: SERTRALINE HCL 50 MG TABLET 100 MG PO (08:14)
[2019-10-21] MEDS: PANTOPRAZOLE 40 MG TABLET PO (08:14)
[2019-10-21] MEDS: ONDANSETRON INJ 4 MG/2 ML VIAL IV PUSH (08:16)
[2019-10-21] MEDS: ALBUTEROL SULFATE NEB 2.5 MG/0.5 ML INH INHALATION ×3 (09:19→21:48)
[2019-10-21] MEDS: IPRATROPIUM BR 0.02% INH SOLN 0.5 MG/2.5 ML VIAL INHALATION ×3 (09:19→21:48)
--- NOTE | 2019-10-21 12:20 | PM.IMPN ---
Progress Note: A&P Assessment and Plan (1) Acute respiratory failure with hypoxia: Code(s): J96.01 - Acute respiratory failure with hypoxia Status: Acute Assessment and Plan: secondary to pulmonary infiltrates continue supportive care (2) Hospital acquired PNA: Code(s): J18.9 - Pneumonia, unspecified organism; Y95 - Nosocomial condition Status: Acute Assessment and Plan: cepepime day 2 for pulmonary infiltrates more likely transfusion reaction (or other noninfectious etiology) stable on high flow oxygen continue supportive care and monitor progress (3) Femoral neck fracture: Onset Date: 10/06/19 Qualifiers: Encounter type: initial encounter Fracture type: closed Laterality: left Qualified Code(s): S72.002A - Fracture of unspecified part of neck of left femur, initial encounter for closed fracture Code(s): S72.009A - Fracture of unspecified part of neck of unspecified femur, initial encounter for closed fracture Status: Acute Assessment and Plan: This was repaired on the of the month by Dr. davis with total hip prosthesis. The x-ray from 10/16 shows that there is a some dislocation of 2 cm on the left hip. Dr. davis has seen and recommending conservative treatment with continue to Ot/ PT. The patient has been on Arixtra For DVT prophylaxis and will continue (4) Depression: Qualifiers: Depression Type: unspecified Qualified Code(s): F32.9 - Major depressive disorder, single episode, unspecified Code(s): F32.9 - Major depressive disorder, single episode, unspecified Status: Chronic Assessment and Plan: Continue with Wellbutrin and Zoloft. (5) Chronic pancreatitis: Qualifiers: Pancreatitis type: unspecified pancreatitis type Qualified Code(s): K86.1 - Other chronic pancreatitis Code(s): K86.1 - Other chronic pancreatitis Status: Chronic Assessment and Plan: Low-fat diet. (6) COPD (chronic obstructive pulmonary disease): Qualifiers: COPD type: unspecified COPD Qualified Code(s): J44.9 - Chronic obstructive pulmonary disease, unspecified Code(s): J44.9 - Chronic obstructive pulmonary disease, unspecified Status: Chronic Assessment and Plan: Nebulized bronchodilators and montelukast (7) HTN (hypertension): Qualifiers: Hypertension type: unspecified Qualified Code(s): I10 - Essential (primary) hypertension Code(s): I10 - Essential (primary) hypertension Status: Chronic Assessment and Plan: Continue metoprolol (8) CHF (congestive heart failure): Qualifiers: Heart failure type: unspecified Heart failure chronicity: chronic Qualified Code(s): I50.9 - Heart failure, unspecified Code(s): I50.9 - Heart failure, unspecified Status: Chronic Assessment and Plan: Continue with metoprolol for blood pressure allows and Lasix. BNP only 73. Probable diastolic heart failure chronic but with chest x-ray findings will obtain echocardiogram (9) Anemia of chronic disease: Code(s): D63.8 - Anemia in other chronic diseases classified elsewhere Status: Acute Assessment and Plan: 10/21 hgb 7.9 Subjective Date/time seen: 10/21/19 12:20 Interval history: Left hip discomfort with movement. Mild at rest. DEL RIO with any exertion. Denied other pain, bleeding, gi/gu issues. No weakness or numbness. No headache. Review of Systems Review of Systems: All systems reviewed & are unremarkable except as noted in HPI and below Exam Narrative: Exam Narrative: HEENT: EOMI, PERRL, pharyngeal mucosa pink and intact NECK: No JVD CHEST: Clear with slightly coarse BS. Normal effort. HEART: NL S1/S2, regular, no murmur ABDOMEN: BS+, soft, nontender, no mass, no bruits EXTREMITIES: No cyanosis, edema, or clubbing NEUROLOGIC: CN intact and symmetric to inspection. MUSCULOSKELE
--- NOTE | 2019-10-21 13:16 | WPDINFPN2 ---
Progress Note: A&P Assessment and Plan (1) Lung infiltrate: Onset Date: 10/12/19 Code(s): R91.8 - Other nonspecific abnormal finding of lung field Status: Acute Assessment and Plan: 1. Lung infiltrates with hypoxia. I suspect TRALI (transfusion lung injury) and not HCAP. But cannot exclude the latter 2. Leukocytosis about the same today 3. Hip fracture, with drainage likely from seroma 4. COPD/chronic bronchitis Rec Cefepime # 2, check procalcitonin level AM. Subjective Date/time seen: 10/21/19 13:16 Interval history: a little less dyspnea. No cough Exam Narrative: Exam Narrative: afebrile Const: General: no acute distress Resp: Effort & Inspection: abnormal respiratory effort Auscultation: clear to auscultation bilaterally and lung sounds not diminished Other: percussion normal Urinary Catheter: Urinary Catheter: patent and draining and urine clear Objective Data Vital Signs Vital Signs: Vital Signs - 24 hr 10/20/19 13:50 10/20/19 14:00 10/20/19 22:00 Temperature 36.3 C L 37.2 C Pulse Rate 75 90 89 Respiratory Rate 16 18 20 Blood Pressure 90/50 L 100/51 L Pulse Oximetry 97 97 10/20/19 22:05 10/21/19 00:30 10/21/19 06:00 Temperature 37.3 C Pulse Rate 89 80 90 Respiratory Rate 20 Blood Pressure 111/64 102/58 L Pulse Oximetry 97 90 10/21/19 09:21 10/21/19 09:31 Temperature Pulse Rate 78 73 Respiratory Rate 16 16 Blood Pressure Pulse Oximetry 90 Intake/Output Intake/Output: Intake & Output 10/18/19 10/19/19 10/20/19 10/21/19 23:59 23:59 23:59 23:59 Intake Total 1620 1270 660 540 Output Total 1900 1600 1301 450 Balance -280 -119 -171 90 Meds/Results Medications: Active Medications Generic Name Dose Route Start Last Admin Trade Name Freq PRN Reason Stop Dose Admin Acetaminophen 650 mg 10/16/19 22:46 Tylenol Tablet PO Q6H PRN Mild Pain (1-3) Or Fever Hydrocodone Bitart/Acetaminophen 1 tab 10/16/19 22:47 10/21/19 12:53 [place] 5-325 Mg PO 1 tab Q4H PRN Administration Pain Rated 4-6 Albuterol 2.5 mg 10/16/19 20:00 10/21/19 09:19 Albuterol Sulf Neb 2.5mg/0.5ml INHALATION 2.5 mg Q6HRT CHRISTELLE Administration Aspirin 81 mg 10/17/19 09:00 10/21/19 08:11 Aspirin Chewable PO 81 mg DAILY CHRISTELLE Administration Budesonide/Formoterol Fumarate 2 puff 10/17/19 08:00 10/21/19 09:20 Symbicort 160-4.5 Mcg (*Sp) Inhaler INHALATION 2 puff Q12HRT CHRISTELLE Administration Bupropion HCl 150 mg 10/17/19 09:00 10/21/19 08:11 Wellbutrin-Sr (12 Hr) PO 150 mg QAM CHRISTELLE Administration Dextrose 12.5 gm 10/20/19 06:38 Dextrose 50% Syringe IV PUSH PRN PRN Hypoglycemia Protocol Diphenoxylate HCl/Atropine 1 tablet 10/17/19 09:00 10/21/19 08:16 Lomotil Tab 2.5 Mg PO 1 tablet BID CHRISTELLE Administration Docusate Sodium 100 mg 10/16/19 17:00 10/21/19 08:12 Colace Capsule PO 100 mg BID CHRISTELLE Administration Docusate Sodium 100 mg 10/16/19 22:46 Colace Capsule PO BID PRN constipation Fentanyl Citrate 25 mcg 10/16/19 22:47 Sublimaze IV PUSH Q4H PRN Pain Rated 7-10 Fondaparinux 2.5 mg 10/17/19 09:00 10/21/19 08:13 Arixtra SUB-Q 2.5 mg DAILY CHRISTELLE Administration Furosemide 20 mg 10/16/19 22:46 Lasix Tablet PO DAILY PRN leg swelling Gabapentin 300 mg 10/16/19 23:00 10/21/19 12:54 Neurontin PO 300 mg TID CHRISTELLE Administration Glucagon 1 mg 10/20/19 06:38 Glucagon For Inj IM PRN PRN Hypoglycemia Protocol Glucose 15 gm 10/20/19 06:38 Glutose 15 PO PRN PRN Hypoglycemia Protocol Guaifenesin 600 mg 10/16/19 23:00 10/21/19 08:13 Mucinex 12 Hr Tab PO 600 mg Q12HR CHRISTELLE Administration Hydroxyzine HCl 25 mg 10/16/19 23:00 10/21/19 12:54 Atarax Tablet PO 25 mg TID CHRISTELLE Administration Dextrose 1,000 mls @ 100 mls/hr 10/20/19 06:38 Dextrose 5% 1,
--- NOTE | 2019-10-21 15:50 | PCRCNOTE ---
10/20/191999 and 10/21/19 0200 nebulizer treatments not given. Window of time for administration has passed. See next scheduled administration.
[2019-10-21] MEDS: METOPROLOL SUCCINATE EXT REL 25 MG TABCR PO (22:12)
[2019-10-22] VITALS (15 sets, daily range): BP systolic 91–110; BP diastolic 48–55; PULSE 88–95; RESP 16–20; TEMP 36.7–37.3; O2SAT 90–93
[2019-10-22] MEDS: IPRATROPIUM BR 0.02% INH SOLN 0.5 MG/2.5 ML VIAL INHALATION ×4 (01:46→20:30)
[2019-10-22] MEDS: ALBUTEROL SULFATE NEB 2.5 MG/0.5 ML INH INHALATION ×4 (01:46→20:30)
[2019-10-22] MEDS: POLYSACCHARIDE IRON COMPLEX 150 MG CAPSULE PO ×2 (08:08→17:40)
[2019-10-22] MEDS: LIDOCAINE 5% PATCH 2 PATCH TRANSDERM (09:19)
[2019-10-22] MEDS: FONDAPARINUX SODIUM 2.5 MG/0.5 ML SYRINGE SUB-Q (09:19)
[2019-10-22] MEDS: hydrOXYzine HCL 25 MG TABLET PO ×3 (09:19→17:40)
[2019-10-22] MEDS: FUROSEMIDE 20 MG TABLET PO (09:20)
[2019-10-22] MEDS: MONTELUKAST SODIUM 10 MG TABLET PO (09:21)
[2019-10-22] MEDS: PANTOPRAZOLE 40 MG TABLET PO (09:22)
[2019-10-22] MEDS: ONDANSETRON INJ 4 MG/2 ML VIAL IV PUSH (09:44)
[2019-10-22] MEDS: SERTRALINE HCL 50 MG TABLET 100 MG PO (09:45)
[2019-10-22] MEDS: LORATADINE 10 MG TABLET PO (09:45)
[2019-10-22] MEDS: GABAPENTIN 300 MG CAPSULE PO ×3 (09:45→17:40)
[2019-10-22] MEDS: MAGNESIUM OXIDE 400 MG TABLET PO ×3 (09:45→17:40)
[2019-10-22] MEDS: ASPIRIN 81 MG CHEWABLE TABLET PO (09:46)
[2019-10-22] MEDS: TAMSULOSIN HCL 0.4 MG CAPSULE PO (09:47)
--- NOTE | 2019-10-22 11:39 | WPDINFPN2 ---
Progress Note: A&P Assessment and Plan (1) Lung infiltrate: Onset Date: 10/12/19 Code(s): R91.8 - Other nonspecific abnormal finding of lung field Status: Acute Assessment and Plan: 1. Lung infiltrates with hypoxia. I suspect TRALI (transfusion lung injury) and not HCAP. But cannot exclude the latter. Still with O2 requirement 2. Leukocytosis 3. Hip fracture, with drainage from seroma 4. COPD/chronic bronchitis Rec Cefepime # 3. Await PCT level, stop antibiotics if normal. Subjective Date/time seen: 10/22/19 11:39 Interval history: still on 6 lpm, less dyspnea. No sputum Exam Narrative: Exam Narrative: afebrile Const: General: in distress Eyes: General: appearance normal, both eyes and all related structures Neck: Neck: no JVD Resp: Effort & Inspection: normal respiratory effort Auscultation: clear to auscultation bilaterally Other: mild decreased breath sounds at r lung base. Vesicular Cardio: Rate: regular rate Rhythm: regular rhythm Heart sounds: no gallops and no murmurs GI: Inspection: non-distended GI Palp: Yes Soft to palpation, No Tenderness to palpation present (GI) and No Guarding due to palpation present (GI) Objective Data Vital Signs Vital Signs: Vital Signs - 24 hr 10/21/19 13:21 10/21/19 13:34 10/21/19 14:00 Temperature 37.2 C Pulse Rate 88 80 100 Respiratory Rate 16 16 20 Blood Pressure 90/56 L Pulse Oximetry 93 95 10/21/19 14:01 10/21/19 21:51 10/21/19 21:52 Temperature Pulse Rate 94 Respiratory Rate 16 Blood Pressure Pulse Oximetry 91 95 10/21/19 22:00 10/21/19 22:03 10/21/19 22:12 Temperature 37.3 C Pulse Rate 99 97 99 Respiratory Rate 18 16 Blood Pressure 114/57 L Pulse Oximetry 95 10/22/19 01:47 10/22/19 01:57 10/22/19 06:00 Temperature 37.2 C Pulse Rate 93 95 88 Respiratory Rate 16 16 20 Blood Pressure 110/48 L Pulse Oximetry 93 10/22/19 09:00 10/22/19 09:03 10/22/19 09:09 Temperature Pulse Rate 92 93 Respiratory Rate 16 16 Blood Pressure Pulse Oximetry 92 Intake/Output Intake/Output: Intake & Output 10/19/19 10/20/19 10/21/19 10/22/19 23:59 23:59 23:59 23:59 Intake Total 2189 442 0112 1060 Output Total 1600 1301 1700 1500 Yvpxvnq -330 -641 -270 -440 Meds/Results Medications: Active Medications Generic Name Dose Route Start Last Admin Trade Name Freq PRN Reason Stop Dose Admin Acetaminophen 650 mg 10/16/19 22:46 Tylenol Tablet PO Q6H PRN Mild Pain (1-3) Or Fever Hydrocodone Bitart/Acetaminophen 1 tab 10/22/19 11:18 [place] 5-325 Mg PO Q4H PRN Pain Rated 4-6 Hydrocodone Bitart/Acetaminophen 1 tab 10/22/19 11:18 [facility] 10-325 Mg PO Q4H PRN Pain Rated 7-10 Albuterol 2.5 mg 10/16/19 20:00 10/22/19 09:00 Albuterol Sulf Neb 2.5mg/0.5ml INHALATION 2.5 mg Q6HRT CHRISTELLE Administration Aspirin 81 mg 10/17/19 09:00 10/22/19 09:46 Aspirin Chewable PO 81 mg DAILY CHRISTELLE Administration Budesonide/Formoterol Fumarate 2 puff 10/17/19 08:00 10/21/19 21:49 Symbicort 160-4.5 Mcg (*Sp) Inhaler INHALATION 2 puff Q12HRT CHRISTELLE Administration Bupropion HCl 150 mg 10/17/19 09:00 10/22/19 11:20 Wellbutrin-Sr (12 Hr) PO 150 mg QAM CHRISTELLE Administration Dextrose 12.5 gm 10/20/19 06:38 Dextrose 50% Syringe IV PUSH PRN PRN Hypoglycemia Protocol Diphenoxylate HCl/Atropine 1 tablet 10/17/19 09:00 10/22/19 09:44 Lomotil Tab 2.5 Mg PO 1 tablet BID CHRISTELLE Administration Docusate Sodium 100 mg 10/16/19 22:46 Colace Capsule PO BID PRN constipation Fondaparinux 2.5 mg 10/17/19 09:00 10/22/19 09:19 Arixtra SUB-Q 2.5 mg DAILY CHRISTELLE Administration Furosemide 20 mg 10/16/19 22:46 10/22/19 09:20 Lasix Tablet PO 20 mg DAILY PRN Administration leg swelling Gabapentin 300 mg 10/16/19 23:00 10/22/19 09:45 Neurontin PO 300 mg TID [facility] Ad
--- NOTE | 2019-10-22 14:49 | PM.IMPN ---
Progress Note: A&P Assessment and Plan (1) Acute respiratory failure with hypoxia: Code(s): J96.01 - Acute respiratory failure with hypoxia Status: Acute Assessment and Plan: secondary to pulmonary infiltrates continue supportive care (2) Hospital acquired PNA: Code(s): J18.9 - Pneumonia, unspecified organism; Y95 - Nosocomial condition Status: Acute Assessment and Plan: cepepime day 3 for pulmonary infiltrates more likely transfusion reaction (or other noninfectious etiology) stable on high flow oxygen continue supportive care and monitor progress (3) Femoral neck fracture: Onset Date: 10/06/19 Qualifiers: Encounter type: initial encounter Fracture type: closed Laterality: left Qualified Code(s): S72.002A - Fracture of unspecified part of neck of left femur, initial encounter for closed fracture Code(s): S72.009A - Fracture of unspecified part of neck of unspecified femur, initial encounter for closed fracture Status: Acute Assessment and Plan: This was repaired on the of the month by Dr. davis with total hip prosthesis. The x-ray from 10/16 shows that there is a some dislocation of 2 cm on the left hip. Dr. davis has seen and recommending conservative treatment with continue to Ot/ PT. The patient has been on Arixtra For DVT prophylaxis and will continue (4) Depression: Qualifiers: Depression Type: unspecified Qualified Code(s): F32.9 - Major depressive disorder, single episode, unspecified Code(s): F32.9 - Major depressive disorder, single episode, unspecified Status: Chronic Assessment and Plan: Continue with Wellbutrin and Zoloft. (5) Chronic pancreatitis: Qualifiers: Pancreatitis type: unspecified pancreatitis type Qualified Code(s): K86.1 - Other chronic pancreatitis Code(s): K86.1 - Other chronic pancreatitis Status: Chronic Assessment and Plan: Low-fat diet. (6) COPD (chronic obstructive pulmonary disease): Qualifiers: COPD type: unspecified COPD Qualified Code(s): J44.9 - Chronic obstructive pulmonary disease, unspecified Code(s): J44.9 - Chronic obstructive pulmonary disease, unspecified Status: Chronic Assessment and Plan: Nebulized bronchodilators and montelukast (7) HTN (hypertension): Qualifiers: Hypertension type: unspecified Qualified Code(s): I10 - Essential (primary) hypertension Code(s): I10 - Essential (primary) hypertension Status: Chronic Assessment and Plan: Continue metoprolol (8) CHF (congestive heart failure): Qualifiers: Heart failure type: unspecified Heart failure chronicity: chronic Qualified Code(s): I50.9 - Heart failure, unspecified Code(s): I50.9 - Heart failure, unspecified Status: Chronic Assessment and Plan: Continue with metoprolol for blood pressure allows and Lasix. BNP only 73. Probable diastolic heart failure chronic but with chest x-ray findings will obtain echocardiogram (9) Anemia of chronic disease: Code(s): D63.8 - Anemia in other chronic diseases classified elsewhere Status: Acute Assessment and Plan: 10/21 hgb 7.9 Subjective Date/time seen: 10/22/19 14:49 Interval history: Severe pain left hip with movement. Still draining serous. Review of Systems Review of Systems: All systems reviewed & are unremarkable except as noted in HPI and below Exam Narrative: Exam Narrative: HEENT: EOMI, PERRL, pharyngeal mucosa pink and intact NECK: No JVD CHEST: Slightly coarse BS. Normal effort. HEART: NL S1/S2, regular, no murmur ABDOMEN: BS+, soft, nontender, no mass, no bruits EXTREMITIES: No cyanosis, edema, or clubbing NEUROLOGIC: CN intact and symmetric to inspection. MUSCULOSKELETAL: Tone and strength symmetric. PSYCH: Alert. Oriented to person, place, and time. Objective Data Amirah
[2019-10-22 17:10] LABS: Pneumococcal Antigen Urine Not Detected (Not Detected)
--- NOTE | 2019-10-22 18:43 | PM.PNORT ---
Progress Note: A&P Assessment and Plan (1) History of left hip hemiarthroplasty: Onset Date: 10/06/19 Code(s): Z96.642 - Presence of left artificial hip joint Status: Acute Assessment and Plan: Sixteen days status post left hip hemiarthroplasty for hip fracture complicated by avulsion fracture. Overall incision much improved. Minimal clear drainage. No signs of infection. Swelling improved left leg. Ecchymosis improved. Active motion of the hip and knee improved. Distally neurovascular intact, negative Homans sign. Overall, doing much better. She had a little bit of pain last night but that has subsided. Discussed that she should experience some improvement over the next week. Continue with PT / OT. Weightbearing as tolerated left leg with gentle range of motion. Pain control as necessary would limit narcotics and sedatives. Disposition when medically stable. Will arrange follow-up in outpatient orthopedic clinic. Subjective Subjective Date/Time Seen: 10/22/19 14:43 patient states last night had another episode of increased hip pain. Better today. She was progressing fairly well with physical therapy. Not much pain with standing but pain when she tries to move the leg. She feels like her breathing is better. No other new complaints. Exam Narrative: Exam Narrative: General: No confusion Orientation/consciousness: No confusion HENMT: Head: normal to inspection, normocephalic and atraumatic Eyes: Conjunctivae: conjunctivae normal Sclera: sclerae normal Neck: Neck: supple and nontender Chest: Chest palpation & inspection: normal inspection of the chest Resp: Effort & Inspection: normal respiratory effort and no audible wheezes Cardio: Rate: regular rate Rhythm: regular rhythm : General: Yes deferred Skin: General skin exam: no rashes or lesions noted Neuro: General: No confusion Extrem: General: capillary refill normal Right upper extremity: normal to inspection Left upper extremity: normal to inspection Right lower extremity: normal to inspection and hip/thigh Details: normal to inspection Left lower extremity: hip/thigh Details: tenderness Location: of the hip Location: laterally, swelling Location: of the hip ( Moderate) Improved and abnormal ROM Details: pain with passive ROM Details: with flexion and with internal rotation, ankle (no calf tenderness) and foot Details: vascular exam Details: dorsalis pedis pulse present and normal capillary refill and motor-sensory exam light-touch normal in all toes Other: left hip incision intact. Mild serous drainage improved. Less swelling distal thigh and knee with less ecchymosis compared to previous. Muscle compartments soft. Negative Homans sign. able to perform active straight leg raise, active abduction and adduction intact. Psych: Affect: normal affect Objective Data Vital Signs Vital Signs: Vital Signs - 24 hr 10/21/19 21:51 10/21/19 21:52 10/21/19 22:00 Temperature 99.2 F Pulse Rate 94 99 Respiratory Rate 16 18 Blood Pressure 114/57 L Pulse Oximetry 95 95 10/21/19 22:03 10/21/19 22:12 10/22/19 01:47 Temperature Pulse Rate 97 99 93 Respiratory Rate 16 16 Blood Pressure Pulse Oximetry 10/22/19 01:57 10/22/19 06:00 10/22/19 09:00 Temperature 98.9 F Pulse Rate 95 88 92 Respiratory Rate 16 20 16 Blood Pressure 110/48 L Pulse Oximetry 93 10/22/19 09:03 10/22/19 09:09 10/22/19 14:24 Temperature Pulse Rate 93 90 Respiratory Rate 16 16 Blood Pressure Pulse Oximetry 92 10/22/19 14:31 10/22/19 15:07 Temperature 99.2 F Pulse Rate 91 92 Respiratory Rate 16 18 Blood Pressure 108/50 L Pulse Oximetry 93 Intake/Output Intake/Output: Intake & Output 10/19/19 10/20/19 10/21/19 10/22/19 23:59 23:59 23:59 23:59 Intake Total 0593 158 4981 2110 Output Total 1600 1301 1700 2600 Balance -330 -641 -270 -490 Meds/Results Medications: Active Medication
[2019-10-22 19:01] LABS: Legionella pneumophila Ag Ur Not Detected (Not Detected)
[2019-10-22] MEDS: METOPROLOL SUCCINATE EXT REL 25 MG TABCR PO (20:21)
[2019-10-23] VITALS (15 sets, daily range): BP systolic 90–100; BP diastolic 51–65; PULSE 83–92; RESP 14–20; TEMP 36.6–37.7; O2SAT 86–93; BMI 26.0
[2019-10-23] MEDS: ALBUTEROL SULFATE NEB 2.5 MG/0.5 ML INH INHALATION ×4 (02:45→20:35)
[2019-10-23] MEDS: IPRATROPIUM BR 0.02% INH SOLN 0.5 MG/2.5 ML VIAL INHALATION ×4 (02:45→20:35)
[2019-10-23 04:03] LABS: Aspergillus Fumigatus K/UL <0.10 (<0.10); Conventional Class 0 (0)
[2019-10-23 06:34] LABS: Hematocrit 25.3 % (37.0-47.0); Hemoglobin 7.9 g/dL (12.0-15.0); Mean Corpuscular HGB Conc 31.2 g/dl (32-36); Mean Corpuscular Hemoglobin 30.4 pg (26-34); Mean Corpuscular Volume 97.3 fl (80-100); Platelet Count Result 203 k/mm3 (150-375); Red Cell Distribution Width 17.8 % (11.5-14.5); White Blood Count 10.6 K/mm3 (4.5-10.0)
[2019-10-23 06:46] LABS: Blood Urea Nitrogen 17 mg/dL (7-17); Calcium 7.5 mg/dL (8.4-10.2); Carbon Dioxide 30 mmol/L (22-30); Chloride 100 mmol/L (98-107); Estimated CRCL calculation 34 ml/min; Estimated Glomerular Filt Rate 49; Glucose 70 mg/dL (65-105); Potassium 4.4 mmol/L (3.4-5.0); Sodium 135 mmol/L (137-145)
[2019-10-23] MEDS: POLYSACCHARIDE IRON COMPLEX 150 MG CAPSULE PO ×2 (08:10→17:01)
[2019-10-23] MEDS: ASPIRIN 81 MG CHEWABLE TABLET PO (08:10)
[2019-10-23] MEDS: GABAPENTIN 300 MG CAPSULE PO ×3 (08:11→17:01)
[2019-10-23] MEDS: MAGNESIUM OXIDE 400 MG TABLET PO ×3 (08:11→17:01)
[2019-10-23] MEDS: PANTOPRAZOLE 40 MG TABLET PO (08:11)
[2019-10-23] MEDS: MONTELUKAST SODIUM 10 MG TABLET PO (08:11)
[2019-10-23] MEDS: LIDOCAINE 5% PATCH 2 PATCH TRANSDERM (08:12)
[2019-10-23] MEDS: hydrOXYzine HCL 25 MG TABLET PO ×3 (08:12→17:00)
[2019-10-23] MEDS: SERTRALINE HCL 50 MG TABLET 100 MG PO (08:12)
[2019-10-23] MEDS: LORATADINE 10 MG TABLET PO (08:12)
[2019-10-23] MEDS: FONDAPARINUX SODIUM 2.5 MG/0.5 ML SYRINGE SUB-Q (08:13)
[2019-10-23] MEDS: TAMSULOSIN HCL 0.4 MG CAPSULE PO (08:13)
[2019-10-23] MEDS: ONDANSETRON INJ 4 MG/2 ML VIAL IV PUSH (10:16)
--- NOTE | 2019-10-23 13:18 | WPDINFPN2 ---
Progress Note: A&P Assessment and Plan (1) Lung infiltrate: Onset Date: 10/12/19 Code(s): R91.8 - Other nonspecific abnormal finding of lung field Status: Acute Assessment and Plan: 1. Lung infiltrates with hypoxia. I suspect TRALI (transfusion lung injury) and not HCAP. But cannot exclude the latter. Still with O2 requirement. PCT still pending 2. Leukocytosis, almost resolved 3. Hip fracture, with drainage from seroma 4. COPD/chronic bronchitis Rec Cefepime # 4, stop and follow. Discussed with her that O2 requirement may take a while longer to resolve Will see prn, thanks. Subjective Date/time seen: 10/23/19 13:18 Interval history: no sputum. Still dyspnea. No chest pain. Exam Narrative: Exam Narrative: afebrile Const: General: no acute distress Eyes: General: appearance normal, both eyes and all related structures Resp: Effort & Inspection: normal respiratory effort Auscultation: clear to auscultation bilaterally Cardio: Rate: regular rate Rhythm: regular rhythm Heart sounds: no gallops and no murmurs GI: Inspection: non-distended GI Palp: Yes Soft to palpation and No Tenderness to palpation present (GI) Objective Data Vital Signs Vital Signs: Vital Signs - 24 hr 10/22/19 14:24 10/22/19 14:31 10/22/19 15:07 Temperature 37.3 C Pulse Rate 90 91 92 Respiratory Rate 16 16 18 Blood Pressure 108/50 L Pulse Oximetry 93 10/22/19 20:21 10/22/19 20:30 10/22/19 20:42 Temperature Pulse Rate 88 91 91 Respiratory Rate 16 16 Blood Pressure Pulse Oximetry 10/22/19 20:44 10/22/19 22:00 10/22/19 22:06 Temperature 36.7 C Pulse Rate 92 88 Respiratory Rate 16 16 Blood Pressure 91/55 L Pulse Oximetry 93 91 90 10/23/19 02:45 10/23/19 02:58 10/23/19 06:00 Temperature 36.6 C Pulse Rate 87 88 83 Respiratory Rate 16 16 16 Blood Pressure 100/51 L Pulse Oximetry 90 10/23/19 08:19 10/23/19 09:42 10/23/19 09:48 Temperature Pulse Rate 83 85 Respiratory Rate 14 18 Blood Pressure Pulse Oximetry 88 L 93 Intake/Output Intake/Output: Intake & Output 02/17/20 02/18/20 02/19/20 02/20/20 23:59 23:59 23:59 23:59 Intake Total 660 1430 2160 630 Output Total 1301 1700 2600 1300 Balance -641 -270 -440 -670 Meds/Results Medications: Active Medications Generic Name Dose Route Start Last Admin Trade Name Freq PRN Reason Stop Dose Admin Acetaminophen 650 mg 10/16/19 22:46 Tylenol Tablet PO Q6H PRN Mild Pain (1-3) Or Fever Hydrocodone Bitart/Acetaminophen 1 tab 10/22/19 11:18 [place] 5-325 Mg PO Q4H PRN Pain Rated 4-6 Hydrocodone Bitart/Acetaminophen 1 tab 10/22/19 11:18 10/23/19 08:08 [place] 10-325 Mg PO 1 tab Q4H PRN Administration Pain Rated 7-10 Albuterol 2.5 mg 10/16/19 20:00 10/23/19 09:40 Albuterol Sulf Neb 2.5mg/0.5ml INHALATION 2.5 mg Q6HRT CHRISTELLE Administration Aspirin 81 mg 10/17/19 09:00 10/23/19 08:10 Aspirin Chewable PO 81 mg DAILY CHRISTELLE Administration Budesonide/Formoterol Fumarate 2 puff 10/17/19 08:00 10/23/19 01:54 Symbicort 160-4.5 Mcg (*Sp) Inhaler INHALATION Not Given Q12HRT CHRISTELLE Bupropion HCl 150 mg 10/17/19 09:00 10/23/19 08:12 Wellbutrin-Sr (12 Hr) PO 150 mg QAM CHRISTELLE Administration Dextrose 12.5 gm 10/20/19 06:38 Dextrose 50% Syringe IV PUSH PRN PRN Hypoglycemia Protocol Diphenoxylate HCl/Atropine 1 tablet 10/17/19 09:00 10/23/19 08:20 Lomotil Tab 2.5 Mg PO 1 tablet BID CHRISTELLE Administration Docusate Sodium 100 mg 10/16/19 22:46 Colace Capsule PO BID PRN constipation Fondaparinux 2.5 mg 10/17/19 09:00 10/23/19 08:13 Arixtra SUB-Q 2.5 mg DAILY CHRISTELLE Administration Furosemide 20 mg 10/16/19 22:46 10/22/19 09:20 Lasix Tablet PO 20 mg DAILY PRN Administration leg swelling Gabapentin 300 mg 10/16/19 23:00 10/23/19 08:11 Neurontin PO 300 mg TI
--- NOTE | 2019-10-23 14:16 | PCNSR ---
On 10/23/19, the student, [Becky Melchor], provided care and completed [facility] documentation on this patient. I have reviewed the student's documentation and agree with the findings.
--- NOTE | 2019-10-23 14:33 | PM.IMPN ---
Progress Note: A&P Assessment and Plan (1) Acute respiratory failure with hypoxia: Code(s): J96.01 - Acute respiratory failure with hypoxia Status: Acute Assessment and Plan: secondary to pulmonary infiltrates continue supportive care (2) Hospital acquired PNA: Code(s): J18.9 - Pneumonia, unspecified organism; Y95 - Nosocomial condition Status: Acute Assessment and Plan: cepepime day 4 for pulmonary infiltrates, c;d and observe more likely transfusion reaction (or other noninfectious etiology) stable on high flow oxygen continue supportive care and monitor progress Home oxygen evaluation 10/24. (3) Femoral neck fracture: Onset Date: 10/06/19 Qualifiers: Encounter type: initial encounter Fracture type: closed Laterality: left Qualified Code(s): S72.002A - Fracture of unspecified part of neck of left femur, initial encounter for closed fracture Code(s): S72.009A - Fracture of unspecified part of neck of unspecified femur, initial encounter for closed fracture Status: Acute Assessment and Plan: This was repaired on the of the month by Dr. davis with total hip prosthesis. The x-ray from 10/16 shows that there is a some dislocation of 2 cm on the left hip. Dr. davis has seen and recommending conservative treatment with continue to Ot/ PT. The patient has been on Arixtra For DVT prophylaxis and will continue (4) Depression: Qualifiers: Depression Type: unspecified Qualified Code(s): F32.9 - Major depressive disorder, single episode, unspecified Code(s): F32.9 - Major depressive disorder, single episode, unspecified Status: Chronic Assessment and Plan: Continue with Wellbutrin and Zoloft. (5) Chronic pancreatitis: Qualifiers: Pancreatitis type: unspecified pancreatitis type Qualified Code(s): K86.1 - Other chronic pancreatitis Code(s): K86.1 - Other chronic pancreatitis Status: Chronic Assessment and Plan: Low-fat diet. (6) COPD (chronic obstructive pulmonary disease): Qualifiers: COPD type: unspecified COPD Qualified Code(s): J44.9 - Chronic obstructive pulmonary disease, unspecified Code(s): J44.9 - Chronic obstructive pulmonary disease, unspecified Status: Chronic Assessment and Plan: Nebulized bronchodilators and montelukast (7) HTN (hypertension): Qualifiers: Hypertension type: unspecified Qualified Code(s): I10 - Essential (primary) hypertension Code(s): I10 - Essential (primary) hypertension Status: Chronic Assessment and Plan: Continue metoprolol (8) CHF (congestive heart failure): Qualifiers: Heart failure type: unspecified Heart failure chronicity: chronic Qualified Code(s): I50.9 - Heart failure, unspecified Code(s): I50.9 - Heart failure, unspecified Status: Chronic Assessment and Plan: Continue with metoprolol for blood pressure allows and Lasix. BNP only 73. Probable diastolic heart failure chronic but with chest x-ray findings will Echo with good LV function, mild pulmonary HTN. (9) Anemia of chronic disease: Code(s): D63.8 - Anemia in other chronic diseases classified elsewhere Status: Acute Assessment and Plan: 10/21 hgb 7.9 Subjective Date/time seen: 10/23/19 14:33 Interval history: Tolerating diet. Only pain is in left hip. Twisted it again today. Still with serous drainage. No gi/gu c/o. No cp or sob at rest. On 5 L O2. Review of Systems Review of Systems: All systems reviewed & are unremarkable except as noted in HPI and below Exam Narrative: Exam Narrative: HEENT: EOMI, PERRL, pharyngeal mucosa pink and intact NECK: No JVD CHEST: Slightly coarse BS. Normal effort. HEART: NL S1/S2, regular, no murmur ABDOMEN: BS+, soft, nontender, no mass, no bruits EXTREMITIES: No cyanosis, edema, or clubbing NEUROLOGIC:
[2019-10-23 14:40] LABS: Procalcitonin 2.92 ng/mL (<0.10)
[2019-10-23] MEDS: METOPROLOL SUCCINATE EXT REL 25 MG TABCR PO (20:58)
[2019-10-24] VITALS (14 sets, daily range): BP systolic 95–116; BP diastolic 42–62; PULSE 61–99; RESP 14–20; TEMP 36.7–37.2; O2SAT 88–98
[2019-10-24] MEDS: IPRATROPIUM BR 0.02% INH SOLN 0.5 MG/2.5 ML VIAL INHALATION ×4 (03:15→19:44)
[2019-10-24] MEDS: ALBUTEROL SULFATE NEB 2.5 MG/0.5 ML INH INHALATION ×4 (03:15→19:44)
[2019-10-24 06:20] LABS: Hematocrit 25.5 % (37.0-47.0); Hemoglobin 7.9 g/dL (12.0-15.0); Mean Platelet Volume 9.7 fl (7.4-10.4); Platelet Count Result 189 k/mm3 (150-375); Red Blood Count 2.63 M/mm3 (4.2-5.4); Red Cell Distribution Width 18.3 % (11.5-14.5); White Blood Count 11.8 K/mm3 (4.5-10.0)
[2019-10-24 06:33] LABS: Blood Urea Nitrogen 17 mg/dL (7-17); Calcium 7.7 mg/dL (8.4-10.2); Carbon Dioxide 32 mmol/L (22-30); Chloride 101 mmol/L (98-107); Estimated CRCL calculation 31 ml/min; Estimated Glomerular Filt Rate 44; Glucose 89 mg/dL (65-105); Potassium 4.7 mmol/L (3.4-5.0); Sodium 136 mmol/L (137-145)
[2019-10-24] MEDS: MONTELUKAST SODIUM 10 MG TABLET PO (10:20)
[2019-10-24] MEDS: SERTRALINE HCL 50 MG TABLET 100 MG PO (10:21)
[2019-10-24] MEDS: FONDAPARINUX SODIUM 2.5 MG/0.5 ML SYRINGE SUB-Q (10:21)
[2019-10-24] MEDS: GABAPENTIN 300 MG CAPSULE PO ×3 (10:21→17:36)
[2019-10-24] MEDS: LORATADINE 10 MG TABLET PO (10:21)
[2019-10-24] MEDS: TAMSULOSIN HCL 0.4 MG CAPSULE PO (10:22)
[2019-10-24] MEDS: ASPIRIN 81 MG CHEWABLE TABLET PO (10:22)
[2019-10-24] MEDS: hydrOXYzine HCL 25 MG TABLET PO ×3 (10:22→17:36)
[2019-10-24] MEDS: POLYSACCHARIDE IRON COMPLEX 150 MG CAPSULE PO ×2 (10:22→17:37)
[2019-10-24] MEDS: PANTOPRAZOLE 40 MG TABLET PO (10:23)
[2019-10-24] MEDS: MAGNESIUM OXIDE 400 MG TABLET PO ×3 (10:26→17:37)
[2019-10-24] MEDS: ONDANSETRON INJ 4 MG/2 ML VIAL IV PUSH (10:49)
--- NOTE | 2019-10-24 14:27 | PCRCNOTE ---
HOME O2 EVAL NOT REQUIRED, PT. [facility]ING [facility]
--- NOTE | 2019-10-24 15:07 | PCRCNOTE ---
HOME O2 EVAL TESTING COMPLETE, PT. REQUIRES 3L AT REST AND 4L WITH ACTIVITY. PT. HAS NO QUALIFYING DIAGNOSIS FOR INSURANCE COVERAGE. DR. SHERIDAN AWARE AND HE WILL REVIEW CHART.
--- NOTE | 2019-10-24 15:45 | PM.IMPN ---
Progress Note: A&P Assessment and Plan (1) Acute respiratory failure with hypoxia: Code(s): J96.01 - Acute respiratory failure with hypoxia Status: Acute Assessment and Plan: secondary to pulmonary infiltrates continue supportive care (2) Hospital acquired PNA: Code(s): J18.9 - Pneumonia, unspecified organism; Y95 - Nosocomial condition Status: Acute Assessment and Plan: cepepime day 4 10/23 for pulmonary infiltrates, d/c'd 10/23, but restarted 10/24 due to fever, increased WBC, elevated procalcitonin possible transfusion reaction (or other noninfectious etiology) as well urine benzos she agrees call stable on high flow oxygen Home oxygen evaluation noted (3) Femoral neck fracture: Onset Date: 10/06/19 Qualifiers: Encounter type: initial encounter Fracture type: closed Laterality: left Qualified Code(s): S72.002A - Fracture of unspecified part of neck of left femur, initial encounter for closed fracture Code(s): S72.009A - Fracture of unspecified part of neck of unspecified femur, initial encounter for closed fracture Status: Acute Assessment and Plan: This was repaired on the of the month by Dr. davis with total hip prosthesis. The x-ray from 10/16 shows that there is a some dislocation of left hip Continue PT per ortho The patient has been on Arixtra For DVT prophylaxis and will continue (4) Depression: Qualifiers: Depression Type: unspecified Qualified Code(s): F32.9 - Major depressive disorder, single episode, unspecified Code(s): F32.9 - Major depressive disorder, single episode, unspecified Status: Chronic Assessment and Plan: Continue with Wellbutrin and Zoloft. (5) Chronic pancreatitis: Qualifiers: Pancreatitis type: unspecified pancreatitis type Qualified Code(s): K86.1 - Other chronic pancreatitis Code(s): K86.1 - Other chronic pancreatitis Status: Chronic Assessment and Plan: Low-fat diet. (6) COPD (chronic obstructive pulmonary disease): Qualifiers: COPD type: unspecified COPD Qualified Code(s): J44.9 - Chronic obstructive pulmonary disease, unspecified Code(s): J44.9 - Chronic obstructive pulmonary disease, unspecified Status: Chronic Assessment and Plan: Nebulized bronchodilators and montelukast (7) HTN (hypertension): Qualifiers: Hypertension type: unspecified Qualified Code(s): I10 - Essential (primary) hypertension Code(s): I10 - Essential (primary) hypertension Status: Chronic Assessment and Plan: Continue metoprolol (8) CHF (congestive heart failure): Qualifiers: Heart failure type: unspecified Heart failure chronicity: chronic Qualified Code(s): I50.9 - Heart failure, unspecified Code(s): I50.9 - Heart failure, unspecified Status: Chronic Assessment and Plan: Continue with metoprolol for blood pressure allows and Lasix. BNP only 73. Probable diastolic heart failure chronic but with chest x-ray findings will Echo with good LV function, mild pulmonary HTN. (9) Anemia of chronic disease: Code(s): D63.8 - Anemia in other chronic diseases classified elsewhere Status: Acute Assessment and Plan: 10/21 hgb 7.9 Subjective Date/time seen: 10/24/19 15:45 Interval history: Feeling very tired run down today. Pain in hip area still. Denied of the pain. Very dyspneic with exertion. Very difficult doing physical therapy today. She was 7 L of oxygen earlier this morning but has been able to wean down to 5 through the high-flow cannula. Review of Systems Review of Systems: All systems reviewed & are unremarkable except as noted in HPI and below Exam Narrative: Exam Narrative: HEENT: EOMI, PERRL, pharyngeal mucosa pink and intact NECK: No JVD CHEST: Slightly coarse BS. Normal effort. HEART: NL S1/S2, regular, no murmur ABDO
[2019-10-24] MEDS: METOPROLOL SUCCINATE EXT REL 25 MG TABCR PO (21:11)
[2019-10-25] VITALS (11 sets, daily range): BP systolic 86–110; BP diastolic 49–54; PULSE 72–85; RESP 18–20; TEMP 36.5–37.2; O2SAT 97–100
[2019-10-25] MEDS: IPRATROPIUM BR 0.02% INH SOLN 0.5 MG/2.5 ML VIAL INHALATION ×3 (02:29→21:41)
[2019-10-25] MEDS: ALBUTEROL SULFATE NEB 2.5 MG/0.5 ML INH INHALATION ×3 (02:29→21:41)
[2019-10-25 06:49] LABS: Hematocrit 24.9 % (37.0-47.0); Mean Corpuscular HGB Conc 32.1 g/dl (32-36); Mean Corpuscular Hemoglobin 31.3 pg (26-34); Mean Corpuscular Volume 97.3 fl (80-100); Platelet Count Result 209 k/mm3 (150-375); Red Blood Count 2.56 M/mm3 (4.2-5.4); Red Cell Distribution Width 18.8 % (11.5-14.5); White Blood Count 12.7 K/mm3 (4.5-10.0)
[2019-10-25 07:01] LABS: Blood Urea Nitrogen 18 mg/dL (7-17); Calcium 7.5 mg/dL (8.4-10.2); Carbon Dioxide 31 mmol/L (22-30); Chloride 101 mmol/L (98-107); Estimated CRCL calculation 34 ml/min; Estimated Glomerular Filt Rate 49; Glucose 90 mg/dL (65-105); Potassium 4.8 mmol/L (3.4-5.0); Sodium 134 mmol/L (137-145)
--- NOTE | 2019-10-25 09:40 | PCRCNOTE ---
Window of time for administration has passed. See next scheduled administration.
[2019-10-25] MEDS: POLYSACCHARIDE IRON COMPLEX 150 MG CAPSULE PO ×2 (09:54→17:47)
[2019-10-25] MEDS: ASPIRIN 81 MG CHEWABLE TABLET PO (09:55)
[2019-10-25] MEDS: PANTOPRAZOLE 40 MG TABLET PO (09:55)
[2019-10-25] MEDS: FONDAPARINUX SODIUM 2.5 MG/0.5 ML SYRINGE SUB-Q (09:55)
[2019-10-25] MEDS: MONTELUKAST SODIUM 10 MG TABLET PO (09:55)
[2019-10-25] MEDS: GABAPENTIN 300 MG CAPSULE PO ×3 (09:55→17:46)
[2019-10-25] MEDS: SERTRALINE HCL 50 MG TABLET 100 MG PO (09:56)
[2019-10-25] MEDS: hydrOXYzine HCL 25 MG TABLET PO ×3 (09:56→17:46)
[2019-10-25] MEDS: LORATADINE 10 MG TABLET PO (09:56)
[2019-10-25] MEDS: TAMSULOSIN HCL 0.4 MG CAPSULE PO (09:56)
[2019-10-25] MEDS: MAGNESIUM OXIDE 400 MG TABLET PO ×3 (09:56→17:47)
[2019-10-25] MEDS: ONDANSETRON INJ 4 MG/2 ML VIAL IV PUSH (10:58)
--- NOTE | 2019-10-25 15:48 | PCOTNOTE ---
Patient refused treatment this session due to feeling way too tired for any of that . Pt was sleeping upon therapist arrival.
--- NOTE | 2019-10-25 17:19 | PM.IMPN ---
Progress Note: A&P Assessment and Plan (1) Acute respiratory failure with hypoxia: Code(s): J96.01 - Acute respiratory failure with hypoxia Status: Acute Assessment and Plan: secondary to pulmonary infiltrates continue supportive care (2) Hospital acquired PNA: Code(s): J18.9 - Pneumonia, unspecified organism; Y95 - Nosocomial condition Status: Acute Assessment and Plan: cepepime day 5: 10/23 for pulmonary infiltrates, d/c'd 10/23, but restarted 10/24 due to fever, increased WBC, elevated procalcitonin possible transfusion reaction (or other noninfectious etiology) as well urine benzos she agrees call stable on high flow oxygen Home oxygen evaluation noted (3) Femoral neck fracture: Onset Date: 10/06/19 Qualifiers: Encounter type: initial encounter Fracture type: closed Laterality: left Qualified Code(s): S72.002A - Fracture of unspecified part of neck of left femur, initial encounter for closed fracture Code(s): S72.009A - Fracture of unspecified part of neck of unspecified femur, initial encounter for closed fracture Status: Acute Assessment and Plan: This was repaired on the of the month by Dr. davis with total hip prosthesis. The x-ray from 10/16 shows that there is a some dislocation of left hip Continue PT per ortho The patient has been on Arixtra For DVT prophylaxis and will continue (4) Depression: Qualifiers: Depression Type: unspecified Qualified Code(s): F32.9 - Major depressive disorder, single episode, unspecified Code(s): F32.9 - Major depressive disorder, single episode, unspecified Status: Chronic Assessment and Plan: Continue with Wellbutrin and Zoloft. (5) Chronic pancreatitis: Qualifiers: Pancreatitis type: unspecified pancreatitis type Qualified Code(s): K86.1 - Other chronic pancreatitis Code(s): K86.1 - Other chronic pancreatitis Status: Chronic Assessment and Plan: Low-fat diet. (6) COPD (chronic obstructive pulmonary disease): Qualifiers: COPD type: unspecified COPD Qualified Code(s): J44.9 - Chronic obstructive pulmonary disease, unspecified Code(s): J44.9 - Chronic obstructive pulmonary disease, unspecified Status: Chronic Assessment and Plan: Nebulized bronchodilators and montelukast (7) HTN (hypertension): Qualifiers: Hypertension type: unspecified Qualified Code(s): I10 - Essential (primary) hypertension Code(s): I10 - Essential (primary) hypertension Status: Chronic Assessment and Plan: Continue metoprolol (8) CHF (congestive heart failure): Qualifiers: Heart failure type: unspecified Heart failure chronicity: chronic Qualified Code(s): I50.9 - Heart failure, unspecified Code(s): I50.9 - Heart failure, unspecified Status: Chronic Assessment and Plan: Continue with metoprolol for blood pressure allows and Lasix. BNP only 73. Probable diastolic heart failure chronic but with chest x-ray findings will Echo with good LV function, mild pulmonary HTN. (9) Anemia of chronic disease: Code(s): D63.8 - Anemia in other chronic diseases classified elsewhere Status: Acute Assessment and Plan: 10/21 hgb 7.9 Subjective Date/time seen: 10/25/19 17:19 Interval history: Only complaint is fatigue. No cough. No pain. Except for hip. With movement. Review of Systems Review of Systems: All systems reviewed & are unremarkable except as noted in HPI and below Exam Narrative: Exam Narrative: HEENT: EOMI, PERRL, pharyngeal mucosa pink and intact NECK: No JVD CHEST: Slightly coarse BS. Normal effort. HEART: NL S1/S2, regular, no murmur ABDOMEN: BS+, soft, nontender, no mass, no bruits EXTREMITIES: No cyanosis, edema, or clubbing NEUROLOGIC: CN intact and symmetric to inspection. MUSCULOSKELETAL: Tone and strength symmetr
[2019-10-26] VITALS (17 sets, daily range): BP systolic 83–110; BP diastolic 46–58; PULSE 64–101; RESP 16–20; TEMP 36.4–37.8; O2SAT 90–98
[2019-10-26] MEDS: ALBUTEROL SULFATE NEB 2.5 MG/0.5 ML INH INHALATION ×4 (02:54→20:27)
[2019-10-26] MEDS: IPRATROPIUM BR 0.02% INH SOLN 0.5 MG/2.5 ML VIAL INHALATION ×4 (02:54→20:27)
[2019-10-26] MEDS: ACETAMINOPHEN 325 MG TABLET 650 MG PO (06:43)
[2019-10-26] MEDS: FONDAPARINUX SODIUM 2.5 MG/0.5 ML SYRINGE SUB-Q (09:59)
[2019-10-26] MEDS: MAGNESIUM OXIDE 400 MG TABLET PO ×3 (10:00→18:02)
[2019-10-26] MEDS: hydrOXYzine HCL 25 MG TABLET PO ×3 (10:00→18:02)
[2019-10-26] MEDS: GABAPENTIN 300 MG CAPSULE PO ×3 (10:00→18:01)
[2019-10-26] MEDS: TAMSULOSIN HCL 0.4 MG CAPSULE PO (10:00)
[2019-10-26] MEDS: MONTELUKAST SODIUM 10 MG TABLET PO (10:01)
[2019-10-26] MEDS: SERTRALINE HCL 50 MG TABLET 100 MG PO (10:01)
[2019-10-26] MEDS: POLYSACCHARIDE IRON COMPLEX 150 MG CAPSULE PO ×2 (10:01→18:02)
[2019-10-26] MEDS: ASPIRIN 81 MG CHEWABLE TABLET PO (10:01)
[2019-10-26] MEDS: PANTOPRAZOLE 40 MG TABLET PO (10:01)
[2019-10-26] MEDS: LORATADINE 10 MG TABLET PO (10:02)
[2019-10-26] MEDS: LIDOCAINE 5% PATCH 2 PATCH TRANSDERM (10:02)
[2019-10-26] MEDS: ONDANSETRON INJ 4 MG/2 ML VIAL IV PUSH (10:21)
[2019-10-26 10:26] LABS: Hematocrit 26.1 % (37.0-47.0); Hemoglobin 8.3 g/dL (12.0-15.0); Mean Corpuscular HGB Conc 31.8 g/dl (32-36); Mean Corpuscular Hemoglobin 31.9 pg (26-34); Mean Corpuscular Volume 100.4 fl (80-100); Mean Platelet Volume 10.4 fl (7.4-10.4); Platelet Count Result 238 k/mm3 (150-375); White Blood Count 13.6 K/mm3 (4.5-10.0)
[2019-10-26 10:35] LABS: Blood Urea Nitrogen 18 mg/dL (7-17); Calcium 7.3 mg/dL (8.4-10.2); Carbon Dioxide 25 mmol/L (22-30); Chloride 100 mmol/L (98-107); Estimated CRCL calculation 37 ml/min; Estimated Glomerular Filt Rate 55; Glucose 136 mg/dL (65-105); Potassium 4.6 mmol/L (3.4-5.0); Sodium 133 mmol/L (137-145)
--- NOTE | 2019-10-26 12:17 | PM.IMPN ---
Progress Note: A&P Assessment and Plan (1) Acute respiratory failure with hypoxia: Code(s): J96.01 - Acute respiratory failure with hypoxia Status: Acute Assessment and Plan: secondary to pulmonary infiltrates continue supportive care (2) Hospital acquired PNA: Code(s): J18.9 - Pneumonia, unspecified organism; Y95 - Nosocomial condition Status: Acute Assessment and Plan: cepepime day 6: 10/23 for pulmonary infiltrates, d/c'd 10/23, but restarted 10/24 due to fever, increased WBC, elevated procalcitonin possible transfusion reaction (or other noninfectious etiology) stable on high flow oxygen now at 5 L Home oxygen evaluation noted (3) Femoral neck fracture: Onset Date: 10/06/19 Qualifiers: Encounter type: initial encounter Fracture type: closed Laterality: left Qualified Code(s): S72.002A - Fracture of unspecified part of neck of left femur, initial encounter for closed fracture Code(s): S72.009A - Fracture of unspecified part of neck of unspecified femur, initial encounter for closed fracture Status: Acute Assessment and Plan: This was repaired on the of the month by Dr. davis with total hip prosthesis. The x-ray from 10/16 shows that there is a some dislocation of left hip Continue PT per ortho The patient has been on Arixtra For DVT prophylaxis and will continue (4) Depression: Qualifiers: Depression Type: unspecified Qualified Code(s): F32.9 - Major depressive disorder, single episode, unspecified Code(s): F32.9 - Major depressive disorder, single episode, unspecified Status: Chronic Assessment and Plan: Continue with Wellbutrin and Zoloft. (5) Chronic pancreatitis: Qualifiers: Pancreatitis type: unspecified pancreatitis type Qualified Code(s): K86.1 - Other chronic pancreatitis Code(s): K86.1 - Other chronic pancreatitis Status: Chronic Assessment and Plan: Low-fat diet. (6) COPD (chronic obstructive pulmonary disease): Qualifiers: COPD type: unspecified COPD Qualified Code(s): J44.9 - Chronic obstructive pulmonary disease, unspecified Code(s): J44.9 - Chronic obstructive pulmonary disease, unspecified Status: Chronic Assessment and Plan: Nebulized bronchodilators and montelukast (7) HTN (hypertension): Qualifiers: Hypertension type: unspecified Qualified Code(s): I10 - Essential (primary) hypertension Code(s): I10 - Essential (primary) hypertension Status: Chronic Assessment and Plan: Continue metoprolol (8) CHF (congestive heart failure): Qualifiers: Heart failure type: unspecified Heart failure chronicity: chronic Qualified Code(s): I50.9 - Heart failure, unspecified Code(s): I50.9 - Heart failure, unspecified Status: Chronic Assessment and Plan: Continue with metoprolol for blood pressure allows and Lasix. BNP only 73. Probable diastolic heart failure chronic but with chest x-ray findings will Echo with good LV function, mild pulmonary HTN. (9) Anemia of chronic disease: Code(s): D63.8 - Anemia in other chronic diseases classified elsewhere Status: Acute Assessment and Plan: 10/21 hgb 7.9 Subjective Date/time seen: 10/26/19 12:17 Interval history: Eating much better. Denied pain. No shortness of breath while wearing oxygen. Are no abnormal bleeding. Still has some loose stools but doing much better. Review of Systems Review of Systems: All systems reviewed & are unremarkable except as noted in HPI and below Exam Narrative: Exam Narrative: HEENT: EOMI, PERRL, pharyngeal mucosa pink and intact NECK: No JVD CHEST: Slightly coarse BS. Normal effort. HEART: NL S1/S2, regular, no murmur ABDOMEN: BS+, soft, nontender, no mass, no bruits EXTREMITIES: No cyanosis, edema, or clubbing NEUROLOGIC: CN intact and symmetric to insp
[2019-10-26 16:53] LABS: Aspergillus fumigatus (m3) IgG 25.9 mcg/mL (<2.0)
[2019-10-26] MEDS: MELATONIN 3 MG TABLET PO (20:18)
[2019-10-26] MEDS: METOPROLOL SUCCINATE EXT REL 25 MG TABCR PO (20:21)
[2019-10-27] VITALS (12 sets, daily range): BP systolic 75–96; BP diastolic 45–49; PULSE 76–97; RESP 16–20; TEMP 36.7–37.1; O2SAT 92–100
[2019-10-27] MEDS: ALBUTEROL SULFATE NEB 2.5 MG/0.5 ML INH INHALATION ×3 (02:43→13:54)
[2019-10-27] MEDS: IPRATROPIUM BR 0.02% INH SOLN 0.5 MG/2.5 ML VIAL INHALATION ×3 (02:43→13:54)
[2019-10-27 06:25] LABS: Basophils Absolute Auto 0.1 K/mm3 (0.0-0.1); Basophils Percent Auto 0.8 % (0.2-1.2); Eosinophils Absolute Auto 1.6 K/mm3 (0-0.3); Eosinophils Percent Auto 15.1 % (0-4.4); Hematocrit 26.3 % (37.0-47.0); Hemoglobin 8.1 g/dL (12.0-15.0); Immature Granulocyte Absolute 0.08 K/mm3 (0.00-0.031); Immature Granulocyte Percent A 0.8 % (0-0.5); Lymphocytes Absolute Auto 2.12 K/mm3 (0.9-3.2); Lymphocytes Percent Auto 19.9 % (18.3-44.2); Mean Corpuscular HGB Conc 30.8 g/dl (32-36); Mean Corpuscular Hemoglobin 31.8 pg (26-34); Mean Corpuscular Volume 103.1 fl (80-100); Mean Platelet Volume 10.3 fl (7.4-10.4); Monocytes Absolute Auto 0.6 K/mm3 (0.1-0.6); Monocytes Percent Auto 5.3 % (2.6-8.5); Neutrophils Absolute Auto 6.2 K/mm3 (1.3-6.7); Neutrophils Percent Auto 58.1 % (45.5-73.1); Platelet Count Result 199 k/mm3 (150-375); Red Blood Count 2.55 M/mm3 (4.2-5.4); Red Cell Distribution Width 19.6 % (11.5-14.5); White Blood Count 10.7 K/mm3 (4.5-10.0)
[2019-10-27 06:44] LABS: Blood Urea Nitrogen 19 mg/dL (7-17); Calcium 7.2 mg/dL (8.4-10.2); Carbon Dioxide 27 mmol/L (22-30); Chloride 101 mmol/L (98-107); Estimated CRCL calculation 37 ml/min; Estimated Glomerular Filt Rate 55; Glucose 84 mg/dL (65-105); Sodium 134 mmol/L (137-145)
[2019-10-27] MEDS: POLYSACCHARIDE IRON COMPLEX 150 MG CAPSULE PO ×2 (07:51→17:10)
[2019-10-27] MEDS: ONDANSETRON INJ 4 MG/2 ML VIAL IV PUSH (09:51)
[2019-10-27] MEDS: PANTOPRAZOLE 40 MG TABLET PO (09:56)
[2019-10-27] MEDS: hydrOXYzine HCL 25 MG TABLET PO ×3 (09:56→17:09)
[2019-10-27] MEDS: ASPIRIN 81 MG CHEWABLE TABLET PO (09:56)
[2019-10-27] MEDS: FUROSEMIDE 20 MG TABLET PO (09:56)
[2019-10-27] MEDS: MAGNESIUM OXIDE 400 MG TABLET PO ×3 (09:56→17:09)
[2019-10-27] MEDS: MONTELUKAST SODIUM 10 MG TABLET PO (09:58)
[2019-10-27] MEDS: TAMSULOSIN HCL 0.4 MG CAPSULE PO (09:58)
[2019-10-27] MEDS: LORATADINE 10 MG TABLET PO (09:58)
[2019-10-27] MEDS: GABAPENTIN 300 MG CAPSULE PO ×3 (09:58→17:09)
[2019-10-27] MEDS: FONDAPARINUX SODIUM 2.5 MG/0.5 ML SYRINGE SUB-Q (09:58)
[2019-10-27] MEDS: LIDOCAINE 5% PATCH 2 PATCH TRANSDERM (09:59)
[2019-10-27] MEDS: SERTRALINE HCL 50 MG TABLET 100 MG PO (09:59)
--- NOTE | 2019-10-27 15:29 | PM.IMPN ---
Progress Note: A&P Assessment and Plan (1) Acute respiratory failure with hypoxia: Code(s): J96.01 - Acute respiratory failure with hypoxia Status: Acute Assessment and Plan: secondary to pulmonary infiltrates continue supportive care (2) Hospital acquired PNA: Code(s): J18.9 - Pneumonia, unspecified organism; Y95 - Nosocomial condition Status: Acute Assessment and Plan: cepepime day 6: 10/23 for pulmonary infiltrates, d/c'd 10/23, but restarted 10/24 due to fever, increased WBC, elevated procalcitonin possible transfusion reaction (or other noninfectious etiology) stable on high flow oxygen now at 5 L Asergillosis IgG Ab positive 10/26 and 10/27 CBC with WBC 10.1k and 15.1% eosinophils Pulmonary consultation requested (3) Femoral neck fracture: Onset Date: 10/06/19 Qualifiers: Encounter type: initial encounter Fracture type: closed Laterality: left Qualified Code(s): S72.002A - Fracture of unspecified part of neck of left femur, initial encounter for closed fracture Code(s): S72.009A - Fracture of unspecified part of neck of unspecified femur, initial encounter for closed fracture Status: Acute Assessment and Plan: This was repaired on the of the month by Dr. davis with total hip prosthesis. The x-ray from 10/16 shows that there is a some dislocation of left hip Continue PT per ortho The patient has been on Arixtra For DVT prophylaxis and will continue (4) Depression: Qualifiers: Depression Type: unspecified Qualified Code(s): F32.9 - Major depressive disorder, single episode, unspecified Code(s): F32.9 - Major depressive disorder, single episode, unspecified Status: Chronic Assessment and Plan: Continue with Wellbutrin and Zoloft. (5) Chronic pancreatitis: Qualifiers: Pancreatitis type: unspecified pancreatitis type Qualified Code(s): K86.1 - Other chronic pancreatitis Code(s): K86.1 - Other chronic pancreatitis Status: Chronic Assessment and Plan: Low-fat diet. (6) COPD (chronic obstructive pulmonary disease): Qualifiers: COPD type: unspecified COPD Qualified Code(s): J44.9 - Chronic obstructive pulmonary disease, unspecified Code(s): J44.9 - Chronic obstructive pulmonary disease, unspecified Status: Chronic Assessment and Plan: Nebulized bronchodilators and montelukast (7) HTN (hypertension): Qualifiers: Hypertension type: unspecified Qualified Code(s): I10 - Essential (primary) hypertension Code(s): I10 - Essential (primary) hypertension Status: Chronic Assessment and Plan: Continue metoprolol (8) CHF (congestive heart failure): Qualifiers: Heart failure type: unspecified Heart failure chronicity: chronic Qualified Code(s): I50.9 - Heart failure, unspecified Code(s): I50.9 - Heart failure, unspecified Status: Chronic Assessment and Plan: Continue with metoprolol for blood pressure allows and Lasix. BNP only 73. Probable diastolic heart failure chronic but with chest x-ray findings will Echo with good LV function, mild pulmonary HTN. (9) Anemia of chronic disease: Code(s): D63.8 - Anemia in other chronic diseases classified elsewhere Status: Acute Assessment and Plan: 10/21 hgb 7.9 Subjective Date/time seen: 10/27/19 15:29 Interval history: Eating much better. Denied pain. No shortness of breath while wearing oxygen. Are no abnormal bleeding. BMs less frequent Review of Systems Review of Systems: All systems reviewed & are unremarkable except as noted in HPI and below Exam Narrative: Exam Narrative: HEENT: EOMI, PERRL, pharyngeal mucosa pink and intact NECK: No JVD CHEST: coarse BS. Normal effort. HEART: NL S1/S2, regular, no murmur ABDOMEN: BS+, soft, nontender, no mass, no bruits EXTREMITIES: No cyanosis, edema, or clubb
--- NOTE | 2019-10-27 16:06 | PM.PNORT ---
Progress Note: A&P Assessment and Plan (1) History of left hip hemiarthroplasty: Onset Date: 10/06/19 Code(s): Z96.642 - Presence of left artificial hip joint Status: Acute Assessment and Plan: 3 weeks status post left hip hemiarthroplasty. Incision well-healed. Ben to be removed today. Swelling and ecchymosis improved. No drainage from incision. D/C DVT prophylaxis. Continue PT/OT with weight-bearing as tolerated. We will continue to follow and plan follow-up as outpatient. Subjective Subjective Date/Time Seen: 10/27/19 14:06 Patient reports pain left hip better. Still painful when standing or bearing weight. Denies drainage. Up to chair Exam Narrative: Exam Narrative: General: No confusion Orientation/consciousness: No confusion HENMT: Head: normal to inspection, normocephalic and atraumatic Eyes: Conjunctivae: conjunctivae normal Sclera: sclerae normal Neck: Neck: supple and nontender Chest: Chest palpation & inspection: normal inspection of the chest Resp: Effort & Inspection: normal respiratory effort and no audible wheezes Cardio: Rate: regular rate Rhythm: regular rhythm : General: Yes deferred Skin: General skin exam: no rashes or lesions noted Neuro: General: No confusion Extrem: General: capillary refill normal Right upper extremity: normal to inspection Left upper extremity: normal to inspection Right lower extremity: normal to inspection and hip/thigh Details: normal to inspection Left lower extremity: hip/thigh Details: tenderness Location: of the hip Location: laterally, swelling Location: of the hip (Moderate)- Improved ROM Details: pain with passive ROM Details: with flexion and with internal rotation, ankle (no calf tenderness) and foot Details: vascular exam Details: dorsalis pedis pulse present and normal capillary refill and motor-sensory exam light-touch normal in all toes Other: left hip incision intact, healed, dry, no drainage. Less swelling distal thigh and knee with less ecchymosis compared to previous. Muscle compartments soft. Negative Homans sign. able to perform active straight leg raise, active abduction and adduction intact. Psych: Affect: normal affect Objective Data Vital Signs Vital Signs: Vital Signs - 24 hr 10/26/19 20:21 10/26/19 20:27 10/26/19 20:31 Temperature Pulse Rate 85 91 64 Respiratory Rate 18 18 Blood Pressure Pulse Oximetry 97 95 10/26/19 20:37 10/26/19 21:15 10/26/19 22:00 Temperature 100.0 F H Pulse Rate 93 94 99 Respiratory Rate 18 18 16 Blood Pressure 90/58 L Pulse Oximetry 95 90 10/27/19 02:43 10/27/19 02:53 10/27/19 06:00 Temperature 98.1 F Pulse Rate 88 91 91 Respiratory Rate 18 18 16 Blood Pressure 96/49 L Pulse Oximetry 99 10/27/19 09:45 10/27/19 09:51 10/27/19 13:54 Temperature Pulse Rate 86 88 89 Respiratory Rate 20 20 20 Blood Pressure Pulse Oximetry 10/27/19 13:59 10/27/19 14:00 Temperature 98.1 F Pulse Rate 90 97 Respiratory Rate 20 18 Blood Pressure 75/47 L Pulse Oximetry 100 Intake/Output Intake/Output: Intake & Output 10/24/19 10/25/19 10/26/19 10/27/19 23:59 23:59 23:59 23:59 Intake Total 1270 1880 1620 1180 Output Total 1400 1550 1425 1075 Balance -130 330 195 105 Meds/Results Medications: Active Medications Generic Name Dose Route Start Last Admin Trade Name Freq PRN Reason Stop Dose Admin Acetaminophen 650 mg 10/16/19 22:46 10/26/19 06:43 Tylenol Tablet PO 650 mg Q6H PRN Administration Mild Pain (1-3) Or Fever Hydrocodone Bitart/Acetaminophen 1 tab 10/22/19 11:18 10/27/19 13:22 Shickley 5-325 Mg PO 1 tab Q4H PRN Administration Pain Rated 4-6 Hydrocodone Bitart/Acetaminophen 1 tab 10/22/19 11:18 10/25/19 17:45 Shickley 10-325 Mg PO 1 tab Q4H PRN Administration Pain Rated 7-10 Albuterol 2.5 mg 10/16/19 20:00 10/27/19 13:54 Albuterol Sulf Neb 2.5mg/0.5ml I
[2019-10-27] MEDS: METOPROLOL SUCCINATE EXT REL 25 MG TABCR PO (21:26)
--- NOTE | 2019-10-27 23:16 | PCRCNOTE ---
Window of time for administration has passed. See next scheduled administration.
[2019-10-28] VITALS (14 sets, daily range): BP systolic 75–98; BP diastolic 40–51; PULSE 76–100; RESP 14–20; TEMP 37–37.3; O2SAT 92–98
[2019-10-28] MEDS: ALBUTEROL SULFATE NEB 2.5 MG/0.5 ML INH INHALATION ×4 (02:58→20:07)
[2019-10-28] MEDS: IPRATROPIUM BR 0.02% INH SOLN 0.5 MG/2.5 ML VIAL INHALATION ×4 (02:58→20:08)
[2019-10-28] MEDS: hydrOXYzine HCL 25 MG TABLET PO ×3 (09:04→17:17)
[2019-10-28] MEDS: ONDANSETRON INJ 4 MG/2 ML VIAL IV PUSH (09:04)
[2019-10-28] MEDS: POLYSACCHARIDE IRON COMPLEX 150 MG CAPSULE PO ×2 (09:05→17:18)
[2019-10-28] MEDS: LIDOCAINE 5% PATCH 2 PATCH TRANSDERM (09:05)
[2019-10-28] MEDS: ASPIRIN 81 MG CHEWABLE TABLET PO (09:05)
[2019-10-28] MEDS: SERTRALINE HCL 50 MG TABLET 100 MG PO (09:06)
[2019-10-28] MEDS: PANTOPRAZOLE 40 MG TABLET PO (09:06)
[2019-10-28] MEDS: TAMSULOSIN HCL 0.4 MG CAPSULE PO (09:07)
[2019-10-28] MEDS: LORATADINE 10 MG TABLET PO (09:07)
[2019-10-28] MEDS: GABAPENTIN 300 MG CAPSULE PO ×3 (09:07→17:18)
[2019-10-28] MEDS: FONDAPARINUX SODIUM 2.5 MG/0.5 ML SYRINGE SUB-Q (09:07)
[2019-10-28] MEDS: MONTELUKAST SODIUM 10 MG TABLET PO (09:08)
[2019-10-28] MEDS: MAGNESIUM OXIDE 400 MG TABLET PO ×3 (09:08→17:18)
--- NOTE | 2019-10-28 13:33 | PCDIET ---
Nutrition Follow-Up Complete: Inadequate oral intake related to increased needs as evidenced by pt's dietary recall and estimated needs of 1582-1740kcals/day. Pt will consume greater than 75% of all meals Goal: Goal met. Continue with current goal. Pt current nutrition is Regular Level 7. Nutrition recommendation:Agree Last recorded weight is 66 kg. Bowel Motility:Diarrhea stopped with no BMs as of Sunday Labs Reviewed:GFR 55, C reactive 5.0, Na 134 Meds Noted:Zofran, Mag Ox, Protonix, Fe, Zoloft Additional Notes: Pt up in chair and doing well. Last three meals with 75% intake. Wt steady. Hgb/Hct trending up. Fe noted. Diarrhea stopped. Diet appropriate. We will continue to monitor every five days.
--- NOTE | 2019-10-28 16:09 | PM.IMPN ---
Progress Note: A&P Assessment and Plan (1) Acute respiratory failure with hypoxia: Code(s): J96.01 - Acute respiratory failure with hypoxia Status: Acute Assessment and Plan: secondary to pulmonary infiltrates continue supportive care Requiring less oxygen and finished course of antibiotics. Aspergillosis antibiotic positive. Pulmonary seeing (2) Hospital acquired PNA: Code(s): J18.9 - Pneumonia, unspecified organism; Y95 - Nosocomial condition Status: Acute Assessment and Plan: cepepime finsished 9 days total today : 10/23 for pulmonary infiltrates, d/c'd 10/23, but restarted 10/24 due to fever, increased WBC, elevated procalcitonin. will stop today and repeat cxr 10/29 possible transfusion reaction (or other noninfectious etiology) stable on oxygen now at 3 L Asergillosis IgG Ab positive 10/26 and 10/27 CBC with WBC 10.1k and 15.1% eosinophils Pulmonary consultation requested (3) Femoral neck fracture: Onset Date: 10/06/19 Qualifiers: Encounter type: initial encounter Fracture type: closed Laterality: left Qualified Code(s): S72.002A - Fracture of unspecified part of neck of left femur, initial encounter for closed fracture Code(s): S72.009A - Fracture of unspecified part of neck of unspecified femur, initial encounter for closed fracture Status: Acute Assessment and Plan: This was repaired on the of the month by Dr. davis with total hip prosthesis. The x-ray from 10/16 shows that there is a some dislocation of left hip Continue PT per ortho The patient has been on Arixtra For DVT prophylaxis and will continue (4) Depression: Qualifiers: Depression Type: unspecified Qualified Code(s): F32.9 - Major depressive disorder, single episode, unspecified Code(s): F32.9 - Major depressive disorder, single episode, unspecified Status: Chronic Assessment and Plan: Continue with Wellbutrin and Zoloft. (5) Chronic pancreatitis: Qualifiers: Pancreatitis type: unspecified pancreatitis type Qualified Code(s): K86.1 - Other chronic pancreatitis Code(s): K86.1 - Other chronic pancreatitis Status: Chronic Assessment and Plan: Low-fat diet. (6) COPD (chronic obstructive pulmonary disease): Qualifiers: COPD type: unspecified COPD Qualified Code(s): J44.9 - Chronic obstructive pulmonary disease, unspecified Code(s): J44.9 - Chronic obstructive pulmonary disease, unspecified Status: Chronic Assessment and Plan: Nebulized bronchodilators and montelukast (7) HTN (hypertension): Qualifiers: Hypertension type: unspecified Qualified Code(s): I10 - Essential (primary) hypertension Code(s): I10 - Essential (primary) hypertension Status: Chronic Assessment and Plan: Continue metoprolol (8) CHF (congestive heart failure): Qualifiers: Heart failure type: unspecified Heart failure chronicity: chronic Qualified Code(s): I50.9 - Heart failure, unspecified Code(s): I50.9 - Heart failure, unspecified Status: Chronic Assessment and Plan: Continue with metoprolol for blood pressure allows and Lasix. BNP only 73. Probable diastolic heart failure chronic but with chest x-ray findings repeated l Echo with good LV function, mild pulmonary HTN. (9) Anemia of chronic disease: Code(s): D63.8 - Anemia in other chronic diseases classified elsewhere Status: Acute Assessment and Plan: 10/21 hgb 7.9, chronically around 8.0 Subjective Date/time seen: 10/28/19 16:09 Interval history: Date of visit 10/28. 79-year-old hypertensive white female with COPD status post left total hip arthroplasty for femoral neck fracture 10/06/2019. She was rehabbing at [facility] and developed what appeared to be pneumonia the and was being treated for the same. After venous Doppler exam she was getting off
--- NOTE | 2019-10-28 18:02 | PM.CNPUL ---
Assessment and Plan Assessment and plan (1) Eosinophilia: Code(s): D72.1 - Eosinophilia Status: Acute Assessment and Plan: Recent eosinophil level Feb 24 is 1600; elevated. She has asthma, infiltrates, shortness of breath and hypoxemia requiring supplemental O2, elevated Aspergillus fumigatus IgG titer 25. She may have APBA, allergic bronchopulmonary aspergillosis vs other eosinophilic pulmonary condition such as eosinophilc asthma, acute eosinophilic pneumonia, Churg Amelia. She is clinically improving. In 2018, she had a huge wt poss of 100# in 6 months and a pancreatic mass with recurrent episodes of pancreatitis. Nonallergic conditions can increase eosinophil levels, such as malignanacy, no clear evidence of that. Because she is improving, will not plan to bronch her. PLAN: repeat CXR to determine if infiltrates are improving;, check IgE level, Aspergillus panel including IgE to A fumigatus which is part of the criteria for ABPA; check peak flows, eventual PFTs, continue bronchodilators. She can continue to have additional follow up after discharge. A previous CARLOS was negative, and she does not appear to have any new criteria which would suggest SLE, RA or other obvious collagen vascular condition. Will check CARLOS again and ANCA for possible Churg Amelia ( EGPA - eosinophilic granulomatosis with polyangiitis ). Stop montelukast as if can increase eosinophils which is counterintuitive as an asthma and allergy medication. Bronchoscopy is an option to obtain eosinophil count. Surgical lung biopsy can help as the gold standard for EGPA but not if she is improving. Echo for shortness of breath and evaluation for EGPA. This is an interesting case. (2) Acute respiratory failure with hypoxia: Code(s): J96.01 - Acute respiratory failure with hypoxia Status: Acute Assessment and Plan: Decreasing O2 need now at 1 L/min, previously up to 5 L/min; Differential diagnosis includes TRALI, pneumonia, acute eosinophilic penumonia, allergic broncho aspergillosis, CHF with pulmonary edema. (3) Unspecified asthma: Code(s): J45.909 - Unspecified asthma, uncomplicated Status: Acute Assessment and Plan: Diagnosed in her 30s, still using rescue inhaler several times per year. Check peak flows, PFTs after discharge. History of Present Illness History of Present Illness Consult date: 10/28/19 Requesting physician: Lane Gardiner MD Reason for consult: abnormal CXR/CT Chief complaint: hcap, Dislocated L hip Narrative: NEW CONSULT: Dahlia Bell is a 74 yo female with chronic pancreatitis, COPD, HTN, and CHF; admitted with a left hip fracture Oct 05, repaired Oct 06 with a left hip bipolar hemiarthroplasty. She was transfused 2 units of packed red cells on Oct 6; within a day, she began having shortness of breath, required oxygen. A chest x-ray showed infiltrates. Other issues while she was post op included acute renal failure with urinary retention and hypotension. These issues improved, and Fe 8 she was transferred to [facility] to a swing bed for rehab. At [facility], she was diagnosed with pneumonia based on elevated WBC, worsening CXR with infiltrates and increased O2 need; was treated with Levaquin, and later vancomycin was added. She returned to [facility] Oct 13 with worsening oxygenation and a feeling of something popping in her hip with drainage from the left hip with avulsion fracture. Pip-tazo was started, ID consultation was obtained. Dr. Peralta noted that she had no sputum, no cough, and did have pleuritic substernal chest discomfort. He was concerned about TRALI transfusion related acute lung injury - and her infiltrates and O2 requirement have improved since the transfusion. Beginning Oct 18, her eosinoph
[2019-10-28] MEDS: METOPROLOL SUCCINATE EXT REL 25 MG TABCR PO (21:20)
[2019-10-29] VITALS (14 sets, daily range): BP systolic 82–97; BP diastolic 46–49; PULSE 76–99; RESP 14–20; TEMP 36.3–37.1; O2SAT 90–100
[2019-10-29] MEDS: IPRATROPIUM BR 0.02% INH SOLN 0.5 MG/2.5 ML VIAL INHALATION ×4 (02:03→22:32)
[2019-10-29] MEDS: ALBUTEROL SULFATE NEB 2.5 MG/0.5 ML INH INHALATION ×4 (02:03→22:32)
[2019-10-29 06:02] LABS: Basophils Absolute Auto 0.1 K/mm3 (0.0-0.1); Basophils Percent Auto 0.8 % (0.2-1.2); Eosinophils Absolute Auto 1.4 K/mm3 (0-0.3); Hematocrit 23.9 % (37.0-47.0); Hemoglobin 7.5 g/dL (12.0-15.0); Immature Granulocyte Absolute 0.04 K/mm3 (0.00-0.031); Immature Granulocyte Percent A 0.5 % (0-0.5); Lymphocytes Absolute Auto 2.16 K/mm3 (0.9-3.2); Lymphocytes Percent Auto 24.4 % (18.3-44.2); Mean Corpuscular HGB Conc 31.4 g/dl (32-36); Mean Corpuscular Hemoglobin 31.4 pg (26-34); Mean Platelet Volume 10.4 fl (7.4-10.4); Monocytes Absolute Auto 0.5 K/mm3 (0.1-0.6); Monocytes Percent Auto 5.7 % (2.6-8.5); Neutrophils Absolute Auto 4.7 K/mm3 (1.3-6.7); Neutrophils Percent Auto 52.6 % (45.5-73.1); Platelet Count Result 216 k/mm3 (150-375); Red Blood Count 2.39 M/mm3 (4.2-5.4); Red Cell Distribution Width 19.4 % (11.5-14.5); White Blood Count 8.9 K/mm3 (4.5-10.0)
[2019-10-29 06:24] LABS: Alanine Aminotransferase 10 U/L (4-35); Albumin Level 1.8 g/dL (3.5-5.1); Alkaline Phosphatase 198 U/L (38-126); Aspartate Amino Transferase 15 U/L (14-36); Bilirubin,Total 0.2 mg/dL (0.2-1.3); Blood Urea Nitrogen 22 mg/dL (7-17); Calcium 7.2 mg/dL (8.4-10.2); Carbon Dioxide 28 mmol/L (22-30); Chloride 101 mmol/L (98-107); Estimated CRCL calculation 37 ml/min; Estimated Glomerular Filt Rate 55; Glucose 66 mg/dL (65-105); Potassium 4.7 mmol/L (3.4-5.0); Sodium 136 mmol/L (137-145)
[2019-10-29 06:37] LABS: Rheumatoid Factor < 8.6 IU/ML (<12)
--- NOTE | 2019-10-29 09:48 | PM.IMPN ---
Progress Note: A&P Assessment and Plan (1) Acute respiratory failure with hypoxia: Code(s): J96.01 - Acute respiratory failure with hypoxia Status: Acute Assessment and Plan: secondary to pulmonary infiltrates continue supportive care Requiring less oxygen and finished course of antibiotics. Aspergillosis antibiotic positive. Pulmonary seeing CxR today shows improvement both lungs with lessened infiltrates (2) Hospital acquired PNA: Code(s): J18.9 - Pneumonia, unspecified organism; Y95 - Nosocomial condition Status: Acute Assessment and Plan: cepepime finsished 9 days total today : 10/23 for pulmonary infiltrates, d/c'd 10/23, but restarted 10/24 due to fever, increased WBC, elevated procalcitonin. stopped 10/29 and repeat cxr 10/29 much improved possible transfusion reaction (or other noninfectious etiology) stable on oxygen now at 1 L Asergillosis IgG Ab positive 10/26 and wbc today 8.9 with 16% eosin Pulmonary consultation appreciated (3) Femoral neck fracture: Onset Date: 10/06/19 Qualifiers: Encounter type: initial encounter Fracture type: closed Laterality: left Qualified Code(s): S72.002A - Fracture of unspecified part of neck of left femur, initial encounter for closed fracture Code(s): S72.009A - Fracture of unspecified part of neck of unspecified femur, initial encounter for closed fracture Status: Acute Assessment and Plan: This was repaired on the of the month by Dr. davis with total hip prosthesis. The x-ray from 10/16 shows that there is a some dislocation of left hip Continue PT per ortho The patient has been on Arixtra For DVT prophylaxis and will continue (4) Depression: Qualifiers: Depression Type: unspecified Qualified Code(s): F32.9 - Major depressive disorder, single episode, unspecified Code(s): F32.9 - Major depressive disorder, single episode, unspecified Status: Chronic Assessment and Plan: Continue with Wellbutrin and Zoloft. (5) Chronic pancreatitis: Qualifiers: Pancreatitis type: unspecified pancreatitis type Qualified Code(s): K86.1 - Other chronic pancreatitis Code(s): K86.1 - Other chronic pancreatitis Status: Chronic Assessment and Plan: Low-fat diet. (6) COPD (chronic obstructive pulmonary disease): Qualifiers: COPD type: unspecified COPD Qualified Code(s): J44.9 - Chronic obstructive pulmonary disease, unspecified Code(s): J44.9 - Chronic obstructive pulmonary disease, unspecified Status: Chronic Assessment and Plan: Nebulized bronchodilators (7) HTN (hypertension): Qualifiers: Hypertension type: unspecified Qualified Code(s): I10 - Essential (primary) hypertension Code(s): I10 - Essential (primary) hypertension Status: Chronic Assessment and Plan: Continue metoprolol (8) CHF (congestive heart failure): Qualifiers: Heart failure type: unspecified Heart failure chronicity: chronic Qualified Code(s): I50.9 - Heart failure, unspecified Code(s): I50.9 - Heart failure, unspecified Status: Chronic Assessment and Plan: Continue with metoprolol for blood pressure allows and Lasix. BNP only 73. Probable diastolic heart failure chronic but with chest x-ray findings repeated Echo with good LV function, mild pulmonary HTN. (9) Anemia of chronic disease: Code(s): D63.8 - Anemia in other chronic diseases classified elsewhere Status: Acute Assessment and Plan: 10/21 hgb 7.9, chronically around 8.0 7.5 today 10/29 Subjective Date/time seen: 10/29/19 09:48 Interval history: Date of visit 10/29. 79-year-old hypertensive white female with COPD status post left total hip arthroplasty for femoral neck fracture 10/06/2019. She was rehabbing at [facility] and developed what appeared to be pneumonia the and was being treat
[2019-10-29] MEDS: MAGNESIUM OXIDE 400 MG TABLET PO ×3 (09:51→17:10)
[2019-10-29] MEDS: hydrOXYzine HCL 25 MG TABLET PO ×3 (09:52→17:10)
[2019-10-29] MEDS: TAMSULOSIN HCL 0.4 MG CAPSULE PO (09:52)
[2019-10-29] MEDS: MONTELUKAST SODIUM 10 MG TABLET PO (09:52)
[2019-10-29] MEDS: GABAPENTIN 300 MG CAPSULE PO ×3 (09:52→17:10)
[2019-10-29] MEDS: ASPIRIN 81 MG CHEWABLE TABLET PO (09:52)
[2019-10-29] MEDS: SERTRALINE HCL 50 MG TABLET 100 MG PO (09:52)
[2019-10-29] MEDS: FONDAPARINUX SODIUM 2.5 MG/0.5 ML SYRINGE SUB-Q (09:52)
[2019-10-29] MEDS: POLYSACCHARIDE IRON COMPLEX 150 MG CAPSULE PO ×2 (09:52→17:10)
[2019-10-29] MEDS: LORATADINE 10 MG TABLET PO (09:52)
[2019-10-29] MEDS: LIDOCAINE 5% PATCH 2 PATCH TRANSDERM (09:53)
[2019-10-29] MEDS: PANTOPRAZOLE 40 MG TABLET PO (09:53)
--- NOTE | 2019-10-29 14:42 | PM.PNPUL ---
Progress Note: A&P Assessment and Plan (1) Eosinophilia: Code(s): D72.1 - Eosinophilia Status: Acute Assessment and Plan: Today, 1400 eosinophils. Recent eosinophil level Feb 24 is 1600; elevated. She has history of asthma (/COPD per records at [facility]), infiltrates, shortness of breath and hypoxemia requiring supplemental O2, elevated Aspergillus fumigatus IgG titer 25. DDx includes APBA, allergic bronchopulmonary aspergillosis vs other eosinophilic pulmonary condition such as eosinophilc asthma, acute eosinophilic pneumonia, Churg Amelia. She is clinically improving. In 2018, she had a huge wt loss of 70 - 100# in 6 months and a pancreatic mass with recurrent episodes of pancreatitis, tube feedings March -Aug 2018 with a small amount of weight gained. . Nonallergic conditions can increase eosinophil levels, such as malignancy, no clear evidence of that. Because she is improving, will not plan to bronch her. CXR today is stable with infiltrates, Rheumatoid Factor is negative; pending are IgE level, Aspergillus panel including IgE to A fumigatus; ANCA. peak flows started: she can get to 250 L/min; estimated best is 410 L/min; and this may be an overestimate. Plan for eventual PFTs in 6 - 8 weeks. Continue bronchodilators and controller therapy. echo: results are pending; she says taht her prescriptionist never thought she had COPD. She can continue to have additional follow up after discharge. ANCA was ordered for possible Churg Amelia ( EGPA - eosinophilic granulomatosis with polyangiitis ). Stopped montelukast as if can increase eosinophils which is counterintuitive as an asthma and allergy medication. Bronchoscopy is not needed at this point, but is an option to obtain eosinophil count and cultures. Surgical lung biopsy can help as the gold standard for EGPA but not if she is improving. Echo for shortness of breath and evaluation for EGPA. (2) Acute respiratory failure with hypoxia: Code(s): J96.01 - Acute respiratory failure with hypoxia Status: Acute Assessment and Plan: Decreasing O2 need now on rom air; previously up to 5 L/min; Differential diagnosis includes TRALI, pneumonia, acute eosinophilic penumonia, allergic broncho aspergillosis, CHF with pulmonary edema. Home O2 evaluation before discharge which is planned for tomorrow. (3) Unspecified asthma: Code(s): J45.909 - Unspecified asthma, uncomplicated Status: Acute Assessment and Plan: Diagnosed in her 30s, still using rescue inhaler several times per year. Continue to follow Check peak flows, PFTs after discharge. Subjective Date/time seen: 10/29/19 14:42 this 74 yo female is seen in follow up for eosinophilia with acute hypoxemia respiratory failure, weaning to lower levels of O2. total eos count today is 1400; 16% of 8 K wbc. She did not have poor kidney function or elevated eosinophils at [facility]. PMH: pancreatitis, atrial fib, CHF, chronic bronchitis/COPD, CKD stage 3, arthritis, anemia. 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 Was in and out at [facility] March and Apr 2018. Review of Systems Constitutional: Constitutional: Reports fatigue and Reports weakness Cardiovascular: Cardiovascul
--- NOTE | 2019-10-29 16:56 | PCRCNOTE ---
HOME O2 EVAL COMPLETE, NO REQUIREMENTS
[2019-10-29] MEDS: METOPROLOL SUCCINATE EXT REL 25 MG TABCR PO (21:01)
[2019-10-30] MEDS: ALBUTEROL SULFATE NEB 2.5 MG/0.5 ML INH INHALATION ×2 (02:52→10:26)
[2019-10-30] MEDS: IPRATROPIUM BR 0.02% INH SOLN 0.5 MG/2.5 ML VIAL INHALATION ×2 (02:52→10:26)
[2019-10-30 02:53] VITALS: PULSE 74
[2019-10-30 03:02] VITALS: PULSE 76
[2019-10-30 06:00] VITALS: BP 113/52; PULSE 82; RESP 18; TEMP 37.1; O2SAT 93
[2019-10-30] MEDS: LIDOCAINE 5% PATCH 2 PATCH TRANSDERM (08:54)
[2019-10-30] MEDS: FONDAPARINUX SODIUM 2.5 MG/0.5 ML SYRINGE SUB-Q (08:55)
[2019-10-30] MEDS: POLYSACCHARIDE IRON COMPLEX 150 MG CAPSULE PO (08:58)
[2019-10-30] MEDS: SERTRALINE HCL 50 MG TABLET 100 MG PO (08:58)
[2019-10-30] MEDS: MAGNESIUM OXIDE 400 MG TABLET PO ×2 (08:58→12:53)
[2019-10-30] MEDS: TAMSULOSIN HCL 0.4 MG CAPSULE PO (08:58)
[2019-10-30] MEDS: ASPIRIN 81 MG CHEWABLE TABLET PO (08:58)
[2019-10-30] MEDS: ONDANSETRON INJ 4 MG/2 ML VIAL IV PUSH (08:58)
[2019-10-30] MEDS: hydrOXYzine HCL 25 MG TABLET PO ×2 (08:58→12:53)
[2019-10-30] MEDS: GABAPENTIN 300 MG CAPSULE PO ×2 (08:58→12:53)
[2019-10-30] MEDS: PANTOPRAZOLE 40 MG TABLET PO (08:58)
[2019-10-30] MEDS: LORATADINE 10 MG TABLET PO (08:59)
[2019-10-30 10:27] VITALS: PULSE 75; RESP 20
[2019-10-30 10:39] VITALS: PULSE 86; RESP 20
[2019-10-30 14:25] LABS: Procalcitonin 0.18 ng/mL (<0.10)
--- NOTE | 2019-10-30 18:23 | PM.DS ---
DS: Diagnosis Admitting Diagnosis Admitting Diagnosis: Pneumonia, unspecified organism Discharge Diagnosis (1) Acute respiratory failure with hypoxia: Code(s): J96.01 - Acute respiratory failure with hypoxia Status: Acute Assessment and Plan: secondary to pulmonary infiltrates continue supportive care Requiring less oxygen and finished course of antibiotics. Aspergillosis antibiotic positive. Pulmonary seeing CxR 10/29 shows improvement both lungs with lessened infiltrates and was not hypoxic on home O2 eval Discharged on inhalers to follow-up with Dr. Martino (2) Hospital acquired PNA: Code(s): J18.9 - Pneumonia, unspecified organism; Y95 - Nosocomial condition Status: Acute Assessment and Plan: cepepime finsished 9 days total today : 10/23 for pulmonary infiltrates, d/c'd 10/23, but restarted 10/24 due to fever, increased WBC, elevated procalcitonin. stopped 10/29 and repeat cxr 10/29 much improved possible transfusion reaction (or other noninfectious etiology) which was what ID thought was etiology and since patient steadily improved could very well still be the cause Asergillosis IgG Ab positive 10/26 and wbc 10/29 8.9 with 16% eosin Pulmonary consultation appreciated and will follow-up on outpatient As stated above past home O2 eval with no hypoxia (3) Femoral neck fracture: Onset Date: 10/06/19 Qualifiers: Encounter type: initial encounter Fracture type: closed Laterality: left Qualified Code(s): S72.002A - Fracture of unspecified part of neck of left femur, initial encounter for closed fracture Code(s): S72.009A - Fracture of unspecified part of neck of unspecified femur, initial encounter for closed fracture Status: Acute Assessment and Plan: This was repaired on the of the month by Dr. davis with total hip prosthesis. The x-ray from 10/16 shows that there is a some dislocation of left hip Continue PT per ortho The patient has been on Arixtra For DVT prophylaxis and will continue Will follow-up with Dr. mandujano in 1 month (4) Depression: Qualifiers: Depression Type: unspecified Qualified Code(s): F32.9 - Major depressive disorder, single episode, unspecified Code(s): F32.9 - Major depressive disorder, single episode, unspecified Status: Chronic Assessment and Plan: Continue with Wellbutrin and Zoloft. (5) Chronic pancreatitis: Qualifiers: Pancreatitis type: unspecified pancreatitis type Qualified Code(s): K86.1 - Other chronic pancreatitis Code(s): K86.1 - Other chronic pancreatitis Status: Chronic Assessment and Plan: Low-fat diet. (6) COPD (chronic obstructive pulmonary disease): Qualifiers: COPD type: unspecified COPD Qualified Code(s): J44.9 - Chronic obstructive pulmonary disease, unspecified Code(s): J44.9 - Chronic obstructive pulmonary disease, unspecified Status: Chronic Assessment and Plan: Nebulized bronchodilators (7) HTN (hypertension): Qualifiers: Hypertension type: unspecified Qualified Code(s): I10 - Essential (primary) hypertension Code(s): I10 - Essential (primary) hypertension Status: Chronic Assessment and Plan: Continue metoprolol (8) CHF (congestive heart failure): Qualifiers: Heart failure type: unspecified Heart failure chronicity: chronic Qualified Code(s): I50.9 - Heart failure, unspecified Code(s): I50.9 - Heart failure, unspecified Status: Chronic Assessment and Plan: By history so continued with metoprolol for blood pressure allows and Lasix. BNP only 73. Probable diastolic heart failure chronic but with chest x-ray findings repeated Echo with good LV function, mild pulmonary HTN. (9) Anemia of chronic disease: Code(s): D63.8 - Anemia in other chronic diseases classified elsewhere Status: Acute Assessment a
[2019-10-31 11:20] LABS: ANCA Screen Negative (Negative)
[2019-11-01 21:58] LABS: Immunoglobulin E 304 kU/L (<=114)
[2019-11-03 15:43] LABS: Reference Lab Test Result Not Detected
== END 2019-10-30 13:35 | disposition home or self-care (01) | DRG 193 ==
LOC: ANHIMU 10-17 14:07 → ANH3MEDSUR 10-20 11:47 → ANHICU 10-31 09:51 → ANHIMU 10-31 09:51
PROVIDERS: Internal Medicine; Internal Medicine Critical Care Medicine; Internal Medicine Infectious Disease; Nurse Practitioner; Orthopaedic Surgery; Admitting Provider Internal Medicine; PCP Physician Assistant; Visit Provider Internal Medicine
DX: J18.9 Pneumonia, unspecified organism (principal); S72.112A Displaced fracture of greater trochanter of left femur, initial encounter for closed fracture; J96.01 Acute respiratory failure with hypoxia; M97.02XA Periprosthetic fracture around internal prosthetic left hip joint, initial encounter; K86.1 Other chronic pancreatitis; J44.0 Chronic obstructive pulmonary disease with (acute) lower respiratory infection; E44.0 Moderate protein-calorie malnutrition; I13.0 Hypertensive heart and chronic kidney disease with heart failure and stage 1 through stage 4 chronic kidney disease, or unspecified chronic kidney disease; I50.32 Chronic diastolic (congestive) heart failure; N18.9 Chronic kidney disease, unspecified; Y95 Nosocomial condition; F41.8 Other specified anxiety disorders; D63.8 Anemia in other chronic diseases classified elsewhere; K21.9 Gastro-esophageal reflux disease without esophagitis; M19.90 Unspecified osteoarthritis, unspecified site; Z96.642 Presence of left artificial hip joint; Z90.710 Acquired absence of both cervix and uterus; Z90.49 Acquired absence of other specified parts of digestive tract; Z87.891 Personal history of nicotine dependence; Z68.26 Body mass index [BMI] 26.0-26.9, adult; R91.8 Other nonspecific abnormal finding of lung field; D72.829 Elevated white blood cell count, unspecified; X50.9XXA Other and unspecified overexertion or strenuous movements or postures, initial encounter
CPT/HCPCS: 36415; 71045; 71046; 80048; 80053; 80069; 80076; 80202; 82565; 82785; 83735; 84145; 84439; 84443; 85025; 85027; 85048; 86001; 86003; 86021; 86038; 86140; 86430; 86606; 87305; 87449; 87899; 93306; 94618; 94640; 97110; 97116; 97162; 97165; 97530; 97535; A9270; J0692; J1652; J1956; J2405; J2543; J3370

== ENCOUNTER 2020-01-01 11:13 | Observation (INO) | payer MEDICARE, SELFPAY ==
--- NOTE | ~2020-01-01 | XR_ITS ---
EXAMINATION: XR hip BI 2V w AP pelvis DATE: 01/01/2020 12:03 INDICATION: Pelvic pain. Fall. TECHNIQUE: An anteroposterior view of the pelvis and 2 views of each hip were obtained. COMPARISON: Left hip radiographs 10/16/2019, pelvis radiograph 10/05/2019 FINDINGS: There are acute fractures of the parasymphyseal pubis on both sides. There is a bipolar lef t hip hemiarthroplasty in near-anatomic alignment. There is unchanged displacement of a fragment from the greater trochanter. No periprosthetic lucency to suggest loosening or infection. There is mild r ight hip osteoarthritis. There is lumbar dextroscoliosis and at least moderate spondylosis. Surgical clips overlie the pelvis. IMPRESSION: 1. Acute fractures of the parasymphyseal pubis on both sides. 2. Bipolar left hip hemiarthroplasty in near-anatomic alignment. 3. Mild right hip osteoarthritis. Reviewed, dictated and finalized at location A.
--- NOTE | ~2020-01-01 | XR_ITS ---
EXAMINATION: XR chest 1V DATE: 01/01/2020 12:03 INDICATION: Shortness of breath. TECHNIQUE: A single frontal view of the chest was obtained. COMPARISON: Chest 2 views 10/29/2019, chest CT 10/16/2019 FINDINGS: There are lucencies in the lungs, consistent with emphysema. There is mild scarring at the lung apices. There are interstitial opacities in left lung with a lower lung predominance. No pleural effusion or pneumothorax. The heart size is normal. IMPRESSION: 1. Interstitial opacities in left lung with improvement, which may be asymmetric mild pulmonary edema or atypical pneumonia. 2. Emphysema. Reviewed, dictated and finalized at location A. IMPRESSION: 1. Interstitial opacities in left lung with improvement, which may be asymmetri c mild pulmonary edema or atypical pneumonia. 2. Emphysema.
[2020-01-01 11:25] VITALS: BP 97/49; PULSE 83; RESP 18; TEMP 36.4; O2SAT 100
--- NOTE | 2020-01-01 11:29 | ECG_ITS ---
Measurements Intervals [place] Rate: 81 P: 72 VA: 181 QRS: 36 QRSD: 90 T: 78 QT: 379 QTc: 442 Interpretive Statements SINUS RHYTHM CANNOT RULE OUT SEPTAL INFARCT, AGE INDETERMINATE ST-T WAVE ABNORMALITY IN ANTERIOR LEADS- CONSIDER ISCHEMIA BASELINE ARTIFACT- I, II, III, AVR, AVL, AVF, V1-V6 ABNORMAL ECG Electronically Signed On 01-01-2020 12:33:26 CDT by Ayush Pratt D.O.
[2020-01-01] MEDS: KETOROLAC 30 MG/ML VIAL (*BKC) IV PUSH (12:15)
[2020-01-01 12:20] LABS: Basophils Absolute Auto 0.03 K/mm3 (0.00-0.10); Basophils Percent Auto 0.3 % (0.0-1.0); Eosinophils Absolute Auto 0.15 K/mm3 (0.02-0.50); Eosinophils Percent Auto 1.3 % (1.0-6.0); Hematocrit 27.4 % (35.0-42.0); Hemoglobin 9.3 g/dL (11.7-13.8); Immature Granulocyte Absolute 0.08 K/mm3 (0.00-0.00); Immature Granulocyte Percent A 0.7 % (0.0-0.0); Lymphocytes Percent Auto 16.3 % (18.0-42.0); Mean Corpuscular HGB Conc 33.9 g/dL (32.0-36.0); Mean Corpuscular Volume 91.3 fL (78.0-102.0); Mean Platelet Volume 11.4 fl (9.2-11.8); Monocytes Absolute Auto 0.51 K/mm3 (0.10-0.90); Monocytes Percent Auto 4.4 % (2.0-11.0); Platelet Count Result 140 K/mm3 (150-420); Red Cell Distribution Width 15.2 % (11.6-14.4); White Blood Count 11.7 K/mm3 (4.8-10.8)
[2020-01-01 12:37] LABS: BNP 36 pg/mL (0-100)
[2020-01-01 12:39] LABS: Alanine Aminotransferase 27 U/L (14-59); Alkaline Phosphatase 178 U/L (46-116); Anion Gap 10.2 mmol/L (7-16); Aspartate Amino Transferase 26 U/L (15-37); Bilirubin,Total 0.5 mg/dL (0.00-1.00); Blood Urea Nitrogen 14 mg/dL (7-18); Calcium 6.8 mg/dL (8.5-10.1); Carbon Dioxide 28 mmol/L (21-32); Chloride 107 mmol/L (98-108); Estimated CRCL calculation 34 ml/min; Estimated Glomerular Filt Rate 49; Glucose 102 mg/dL (70-99); Osmolality Calculated 294 mOsm/kg (285-295); Potassium 3.2 mmol/L (3.5-5.1); Sodium 142 mmol/L (136-145); Total Protein 4.4 g/dL (6.4-8.2); Troponin I < 0.02 ng/mL (0.00-0.056)
[2020-01-01 12:40] LABS: Lactic Acid 2.6 mmol/L (0.4-2.0)
[2020-01-01 12:59] VITALS: BP 109/62; PULSE 83; RESP 16; O2SAT 94
--- NOTE | 2020-01-01 12:59 | ED.FALL ---
HPI - Fall General Chief Complaint: Fall Stated Complaint: ambulance Source: patient and EMS Mode of arrival: EMS Limitations: no limitations History of Present Illness HPI Narrative: This is a 74-year-old female presents from home after she fell last night from a standing position causing pain that is elicited on the right hip area and pelvic area, patient states that she has been weak, has a history hypertension COPD peripheral neuropathy depression, and CHF.. The patient was seen by Orthopedics back in October with a left hip hemiarthroplasty. Currently there is no fever chills, the patient has a history of COPD and is chronically short of breath currently no chest pain no abdominal pain no diarrhea constipation currently no dysuria no hematuria. complaint: fall Onset (ago): day(s) Fall from: standing Fall witnessed: no Place fall occurred: home Loss of consciousness: none Prolonged down time: no Symptoms prior to fall: lightheadedness Location of injury: pelvis Severity: moderate Severity scale (1-10): 8 Quality: sharp and aching Associated symptoms (after fall): denies Related Data Home Medications Medication Instructions Recorded Confirmed aspirin 81 mg PO DAILY 10/05/19 01/01/20 Allergies Allergy/AdvReac Type Severity Reaction Status Date / Time clams Allergy Unknown Verified 12/30/19 14:12 Review of Systems Review of Systems: All systems reviewed & are unremarkable except as noted in HPI and below PMFSH Past Medical History Medical History Acute respiratory failure with hypoxia Anxiety Avulsion fracture of left hip (10/16/19) CHF (congestive heart failure) Chronic GERD Chronic pancreatitis CKD (chronic kidney disease) COPD (chronic obstructive pulmonary disease) Depression Dyspnea Femoral neck fracture (10/06/19) Hospital acquired PNA HTN (hypertension) Lung infiltrate (10/12/19) Osteoarthritis Pancreatitis Surgical History Surgical History (Updated 12/30/19 @ 14:43 by Radha Ahumada NP) History of appendectomy History of bladder suspension procedure History of hysterectomy History of left hip hemiarthroplasty (10/06/19) History of total left hip arthroplasty On October 06, 2019 Previous back surgery Discs removed S/P biopsy 5 biopsies of pancreas in 2018 S/P cholecystectomy Social History Social History Social History: Patient lives at home with her adopted daughter who is really her biological granddaughter. That daughter is durable power trade mark attorney for healthcare. The patient wishes to be a full code. She had 3 biological children and 1 adopted child. The patient tells me that she smoked to half a pack a cigarettes a day and quit 12 years ago. 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 Smoking packs per day: 1 Smoking cigarettes per day: 20.0 Years smoked: 20 Smoking pack-years: 20.00 Smoking status: Former smoker Tobacco type: cigarettes Second hand tobacco smoke exposure: Yes Alcohol intake: unknown Substance use: never Substance use type: does not use Additional living arrangements comments: Lives at home with 22 year old daughter Additional occupation/education comments: [employer] as a Coordinator for Domestic Violence Gender identity (if verbalized by the patient): Female Spiritual care concerns: No Agree to blood products: Yes Exam Const: General: no acute distress and alert Nutritional Appearance: well nourished Orientation/consciousness: patient oriented x3 HENMT: Head: normal to inspection Eyes: Pupils: Equal, round and reactive pupils present Neck: Neck: normal visual inspection and no lymphadenopathy Chest: Chest palpation & inspection: normal inspection of the chest Resp: Effort & Inspection: normal respiratory effort Auscultation: diminished lung sounds
--- NOTE | 2020-01-01 13:00 | PC.NURSE ---
Dr. James speaking with Dr. Foley about pt.
--- NOTE | 2020-01-01 13:07 | PC.NURSE ---
Pt unable to provide urine sample at this time.
--- NOTE | 2020-01-01 13:11 | PC.NURSE ---
Pts family updated with pts permission.
[2020-01-01 13:27] VITALS: BP 93/57; PULSE 80; RESP 18; O2SAT 99
[2020-01-01 13:45] VITALS: BP 99/56; PULSE 62; RESP 18; TEMP 36.6; O2SAT 92; BMI 24.2
--- NOTE | 2020-01-01 14:00 | PC.NURSE ---
Fall at home, here for pain related to pelvic fracture, is al/ox4, cooperative, reviewed admit process, call light and activity of bedrest at his time
--- NOTE | 2020-01-01 14:19 | PM.IMHP ---
H&P: HPI History of Present Illness Chief complaint: ambulance Narrative: Dahlia Bell is a 74 year old female admitted after falling last night at home. She was recovering at home from a left hip arthroplasty with orthostatic surgeon Dr. Gutierrez. She arrived via ambulance after calling EMS. She has a large hematoma on the side of her leg near her hip on the right side. She fell last night from a standing position after feeling lightheadedness. She now has pain that is elicited on the right hip area and pelvic area. Patient has decreased range of motion in her right lower extremity and tenderness in the pelvic area with some movement. Currently no bruising no hematoma in the pelvic area, does have bruising in the right lateral hip area. No pedal edema Patient states that she has been weak, has a history hypertension, COPD, peripheral neuropathy depression, and CHF. The patient was seen by Orthopedics back in October with a left hip hemiarthroplasty. Currently there is no fever chills, the patient has a history of COPD and is chronically short of breath, but currently no chest pain, no abdominal pain, no diarrhea constipation, currently no dysuria no hematuria. she denies being around anyone with a cough or fevers, and states that her daughter has been doing all of the grocery shopping and errands. Patient lives at home with her adopted 22yo daughter who is really her biological granddaughter. That daughter is durable power yield improvement engineer for healthcare. The patient wishes to be a full code. She had 3 biological children and 1 adopted child. The patient says that she smoked to half a pack a cigarettes a day and quit 12 years ago. 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 ER Dr. James spoke with orthopedic physician and agrees with in-hospital care with weight-bearing as tolerated, and with pain control. She was admitted for Weakness, Acute dehydration, Fracture of left pubis, and Closed fracture of right pubis. ER doctor James has held multiple home meds of hers including her Lasix to help improve her blood pressures. Patient has stated to therapist that she would prefer to stay here for Sw[facility] Rehab after her hospitalization for further strengthening, learning to use any devices and durable medical equipment, and recovering from this new injury. Review of Systems Review of Systems: All systems reviewed & are unremarkable except as noted in HPI and below Constitutional: Constitutional: Reports as per HPI, Reports body ache(s), Denies fatigue, Denies lethargy and Reports weakness Eyes: Eyes: Reports as per HPI ENT: Reports as per HPI, Reports Normal hearing present, Denies epistaxis, Denies nasal congestion and Denies nasal discharge Cardiovascular: Cardiovascular: Reports as per HPI, Denies chest pain, Denies diaphoresis, Reports pedal edema, Reports leg edema, Reports lightheadedness and Denies palpitations Respiratory: Respiratory: Reports as per HPI, Denies chest congestion, Denies cough, Denies hemoptysis, Denies dyspnea, Denies dyspnea on exertion and Denies wheezing Gastrointestinal: Gastrointestinal: Reports as per HPI, Denies abdominal pain, Denies melena, Denies bloating, Denies hematochezia, Denies constipation, Denies diarrhea, Reports nausea (nauseated due to pain.), Denies vomiting and Denies hematemesis Genitourinary: Genitourinary: Reports as per HPI Musculoskeletal: Musculoskeletal: Reports as per HPI, Denies back pain, Reports myalgias and Reports joint swelling Comments: Pain to the right lateral and posterior upper leg and right hip area as well as a large flat hematoma evident. Integumentary/Breasts: Skin/Breast: Reports as per HPI Neurologic: Reports as per HPI and Denies headache(s) Psychiatric: Psychiatric: Reports as per HPI [facility] Past Medical History Medical History Acute respiratory failure with hypoxia Anxiety Avulsion f
--- NOTE | 2020-01-01 14:24 | PC.NURSE ---
confirmation with physician, patient is to be weight bearing as tolerated
[2020-01-01] MEDS: SODIUM CHLORIDE 0.9% IV 1,000 ML 100 ML IV CONT (14:40)
[2020-01-01] MEDS: KCL 20 MEQ/SW 100 ML 100 ML 25 MEQ IVPB (14:40)
--- NOTE | 2020-01-01 14:42 | PC.NURSE ---
fluids started and bony hose applied, potassium rider started
[2020-01-01 15:37] VITALS: BP 120/76; PULSE 83; RESP 18; TEMP 36.7; O2SAT 94
[2020-01-01] MEDS: CALCIUM CARBONATE (OSCAL) 500 MG TABLET PO (16:11)
[2020-01-01] MEDS: PANTOPRAZOLE 40 MG TABLET PO (16:12)
[2020-01-01 20:00] VITALS: BP 131/69; PULSE 83; RESP 16; TEMP 36.5; O2SAT 95
--- NOTE | 2020-01-01 23:00 | PC.NURSE ---
Patient resting in bed. No signs of distress are observed. Call light is within reach. IV is intact and continuous NS is infusing at 100 ml/hr.
[2020-01-02] VITALS: BP 98/55; PULSE 86; RESP 20; TEMP 36.8; O2SAT 100
[2020-01-02 00:27] LABS: Add Urine Microscopic? YES; Appearance Urine Sl Cloudy (Clear); Bilirubin Urine 1+ (Negative); Blood Urine Negative (Negative); Color Urine Amber (Yellow); Glucose Urine UA Negative (Negative); Ketones Urine Negative (Negative); Leukocyte Esterase Ur 3+ (Negative); Nitrate Urine Negative (Negative); Protein Urine Trace (Negative); Specific Grav Ur 1.025 (1.010-1.020)
[2020-01-02 00:41] LABS: RBC Urine 0-2 /hpf (0-2); WBC Urine 51-75 /hpf (0-3)
[2020-01-02 00:42] LABS: Bacteria Urine Trace /hpf; Budding Yeast Urine Present /hpf; Squamous Epithelial Cell Urine Rare /hpf (Few)
[2020-01-02] MEDS: SODIUM CHLORIDE 0.9% IV 1,000 ML 100 ML IV CONT (00:57)
[2020-01-02 01:04] VITALS: BP 102/82; RESP 18; TEMP 36.1
[2020-01-02] MEDS: MORPHINE SULFATE 2 MG/ML INJ IV PUSH (01:08)
--- NOTE | 2020-01-02 03:12 | PC.NURSE ---
Patient appears to be sleeping. No signs of pain or distress are observed. Continuous IV fluids are running at 100 ml/hr. Call light is within reach.
[2020-01-02 04:00] VITALS: BP 104/62; PULSE 86; RESP 20; TEMP 36.8; O2SAT 94
[2020-01-02] MEDS: PANTOPRAZOLE 40 MG TABLET PO (05:47)
[2020-01-02 07:41] VITALS: BP 95/47; PULSE 84; RESP 18; TEMP 36.6; O2SAT 94
--- NOTE | 2020-01-02 08:18 | PC.NURSE ---
In bed with HOB elevated for breakfast, denies needs, pain tolerable if not up on legs
[2020-01-02 08:51] LABS: Basophils Absolute Auto 0.04 K/mm3 (0.00-0.10); Basophils Percent Auto 0.4 % (0.0-1.0); Eosinophils Absolute Auto 0.15 K/mm3 (0.02-0.50); Eosinophils Percent Auto 1.4 % (1.0-6.0); Hematocrit 27.6 % (35.0-42.0); Hemoglobin 9.3 g/dL (11.7-13.8); Immature Granulocyte Absolute 0.04 K/mm3 (0.00-0.00); Immature Granulocyte Percent A 0.4 % (0.0-0.0); Lymphocytes Absolute Auto 2.43 K/mm3 (1.10-4.50); Mean Corpuscular HGB Conc 33.7 g/dL (32.0-36.0); Mean Platelet Volume 11.4 fl (9.2-11.8); Monocytes Absolute Auto 0.43 K/mm3 (0.10-0.90); Monocytes Percent Auto 4.1 % (2.0-11.0); Neutrophils Absolute Auto 7.5 K/mm3 (1.7-7.2); Neutrophils Percent Auto 70.7 % (50.0-70.0); Platelet Count Result 132 K/mm3 (150-420); Red Cell Distribution Width 15.2 % (11.6-14.4); White Blood Count 10.6 K/mm3 (4.8-10.8)
[2020-01-02] MEDS: CALCIUM CARBONATE (OSCAL) 500 MG TABLET PO (08:53)
[2020-01-02] MEDS: TAMSULOSIN HCL 0.4 MG CAPSULE PO (08:53)
[2020-01-02] MEDS: SERTRALINE HCL 50 MG TABLET 100 MG PO (08:54)
[2020-01-02] MEDS: ASPIRIN 81 MG CHEWABLE TABLET PO (08:54)
[2020-01-02] MEDS: ONDANSETRON INJ 4 MG/2 ML VIAL IV PUSH (08:59)
[2020-01-02 09:09] LABS: Lactic Acid 1.9 mmol/L (0.4-2.0)
[2020-01-02 09:21] LABS: Alanine Aminotransferase 26 U/L (14-59); Albumin Level 0.9 g/dL (3.4-5.0); Alkaline Phosphatase 172 U/L (46-116); Anion Gap 10.4 mmol/L (7-16); Aspartate Amino Transferase 24 U/L (15-37); Bilirubin,Total 0.4 mg/dL (0.00-1.00); Blood Urea Nitrogen 15 mg/dL (7-18); Calcium 6.4 mg/dL (8.5-10.1); Carbon Dioxide 27 mmol/L (21-32); Chloride 108 mmol/L (98-108); Estimated CRCL calculation 34 ml/min; Estimated Glomerular Filt Rate 49; Glucose 82 mg/dL (70-99); Osmolality Calculated 293 mOsm/kg (285-295); Potassium 3.4 mmol/L (3.5-5.1); Sodium 142 mmol/L (136-145); Total Protein 4.3 g/dL (6.4-8.2)
[2020-01-02 10:00] LABS: BNP 29.6 pg/mL (0-100)
--- NOTE | 2020-01-02 10:21 | PC.NURSE ---
Discharge to skilled swing bed
--- NOTE | 2020-01-02 10:38 | PM.DS ---
DS: Diagnosis Admitting Diagnosis Admitting Diagnosis: Unspecified fracture of left pubis, initial encounter for closed fracture Discharge Diagnosis (1) Urinary tract infection: Code(s): N39.0 - Urinary tract infection, site not specified Status: Acute Assessment and Plan: Continue IV ceftriaxone until UCx reveals better course. Lactic acidosis resolved. Recheck CBC tomorrow. (2) Hypokalemia: Code(s): E87.6 - Hypokalemia Status: Acute Assessment and Plan: Oral supplementation. Recheck tomorrow. (3) Closed fracture of right pubis: Qualifiers: Encounter type: initial encounter Fracture alignment: nondisplaced Qualified Code(s): S32.501A - Unspecified fracture of right pubis, initial encounter for closed fracture Code(s): S32.501A - Unspecified fracture of right pubis, initial encounter for closed fracture Status: Acute Assessment and Plan: PT/OT in swing bed. Will recheck CBC tomorrow. Transition to oral pain meds and presumptively treat constipation. (4) Fracture of left pubis: Qualifiers: Encounter type: initial encounter Fracture alignment: nondisplaced Fracture type: closed Qualified Code(s): S32.502A - Unspecified fracture of left pubis, initial encounter for closed fracture Code(s): S32.502A - Unspecified fracture of left pubis, initial encounter for closed fracture Status: Acute Assessment and Plan: As above. (5) Weakness: Code(s): R53.1 - Weakness Status: Acute Assessment and Plan: PT/OT in Swing bed. Complicated by poor nutritional status. (6) Malnutrition: Qualifiers: Malnutrition type: protein-calorie malnutrition Protein-calorie malnutrition severity: moderate Qualified Code(s): E44.0 - Moderate protein-calorie malnutrition Code(s): E46 - Unspecified protein-calorie malnutrition Status: Acute Assessment and Plan: Dietary consult. Supplement protein intake for starters. (7) LAUREN (acute kidney injury): Code(s): N17.9 - Acute kidney failure, unspecified Status: Acute Assessment and Plan: No change from yesterday. Will recheck in am after IVF overnight and watch for signs of fluid overload. BNP normal today in spite of h/o CHF. DS: Summary Time Spent with Patient Time attestation: Total time spent providing and/or coordinating discharge services: 50 min Exam Const: Limitations: no limitations Other: Mild acute distress. HENMT: Mouth: Yes dry mucous membranes Eyes: Sclera: sclerae normal Pupils: Equal, round and reactive pupils present EOM: EOMs intact bilaterally Resp: Auscultation: wheezes (late exp bilaterally. No acute distress.) Cardio: Rate: regular rate Heart sounds: no murmurs GI: Inspection: non-distended GI Palp: Yes Soft to palpation, No Tenderness to palpation present (GI) and No Guarding due to palpation present (GI) Auscultation: normal bowel sounds Skin: General skin exam: normal color and no rashes or lesions noted Wounds: no wounds Other: Warm, dry and pink Neuro: Motor exam (neuro): Normal motor muscle tone present throughout Sensory Exam: normal sensation Other: Mild diffuse weakness Extrem: Right lower extremity: normal capillary refill, edema Details: pitting and 1+ and no joint enlargement; no cyanosis Left lower extremity: normal capillary refill, edema Details: pitting and 1+ and no joint enlargement; no cyanosis Psych: Appearance: grossly normal and well kempt Mental Status: mental status grossly normal Speech and movement: Normal speech and movement present and Clear speech present Affect: normal affect Thought content: Yes Normal thought content present DS: Data Data Completed and Pending Pending studies at discharge: Blood and urine cx Labs on day of discharge: Labs from last 24 hours 01/02/20 01/02/20 01/02/20 08:34 08:34 08:34 WBC RBC Hgb Hct MCV M[facility]
== END 2020-01-02 10:21 | disposition swing bed (61) ==
LOC: CHSED 13:11 → CHS2ND 13:31
PROVIDERS: Emergency Medicine; Admitting Provider Emergency Medicine; Emergency Provider Emergency Medicine; Visit Provider Emergency Medicine
DX: S32.592A Other specified fracture of left pubis, initial encounter for closed fracture (principal); S32.591A Other specified fracture of right pubis, initial encounter for closed fracture; N39.0 Urinary tract infection, site not specified; E87.6 Hypokalemia; E86.0 Dehydration; E44.0 Moderate protein-calorie malnutrition; I13.0 Hypertensive heart and chronic kidney disease with heart failure and stage 1 through stage 4 chronic kidney disease, or unspecified chronic kidney disease; J44.9 Chronic obstructive pulmonary disease, unspecified; I50.9 Heart failure, unspecified; N18.9 Chronic kidney disease, unspecified; G62.9 Polyneuropathy, unspecified; K21.9 Gastro-esophageal reflux disease without esophagitis; F41.9 Anxiety disorder, unspecified; F32.9 Major depressive disorder, single episode, unspecified; Z87.81 Personal history of (healed) traumatic fracture; Z87.891 Personal history of nicotine dependence; Y92.019 Unspecified place in single-family (private) house as the place of occurrence of the external cause; W19.XXXA Unspecified fall, initial encounter
CPT/HCPCS: 36415; 71045; 73521; 80053; 81001; 83605; 83880; 84484; 85025; 87040; 87077; 87086; 87088; 87186; 93005; 96361; 96365; 96366; 96367; 96374; 96375; 97161; 99285; A9270; G0378; J0696; J1885; J2270; J2405; J3480; J7030

== ENCOUNTER 2020-01-02 10:22 | Inpatient (IN) | payer MEDICARE, SELFPAY ==
--- NOTE | ~2020-01-02 | XR_ITS ---
XR chest 1V portable DATE: 01/11/2020 01:50 INDICATION: Increasing shortness of breath, hypoxemia. Hypotension. TECHNIQUE: Portable AP chest on 01/11/2020 at 0103 hours COMPARISON: 01/06/2020 portable AP chest FINDINGS: There are diffuse substantially increased bilateral pulmonary infiltrates, suggesting pulmo nary edema. Infiltrate is greatest in the lower lung zones, greater on the right. Other consideration s include pneumonia, ARDS. Heart size appears within normal range. His aortic arch calcification. Diffuse osteopenia. IMPRESSION: Considerably increased diffuse bilateral pulmonary infiltrates since 01/06/2020 Reviewed, dictated and finalized at location A. IMPRESSION: Considerably increased diffuse bilateral pulmonary infiltrates sinc e 01/06/2020
--- NOTE | ~2020-01-02 | XR_ITS ---
EXAMINATION: XR chest 1V portable EXAM DATE: 01/06/2020 15:24 INDICATION: Shortness of breath, nausea and vomiting. Chest pressure. TECHNIQUE: Portable AP frontal chest x-ray was obtained. Comparison is made to prior examination from 01/01/2020, 10/29/2019, 10/22/2019. FINDINGS: There is small to moderate amount of nonconfluent left mid and lower lung zone, small amoun t of right basilar nonspecific airspace disease. Uncertain how much of this is acute given that there is similar appearance to examination from October. Probable small pleural effusions. Cardiomediasti nal silhouette is normal. There is no pneumothorax suspected. The bones are osteopenic. There are ene ny degenerative changes. IMPRESSION: Persistent airspace disease, acute versus chronic. Could be nonspecific interstitial pne umonitis pattern interstitial lung disease but also may have superimposed acute edema or pneumonia. N o confluent consolidation. Reviewed, dictated and finalized at location A. IMPRESSION: Persistent airspace disease, acute versus chronic. Could be nonspe cific interstitial pneumonitis pattern interstitial lung disease but also may h ave superimposed acute edema or pneumonia. No confluent consolidation.
--- NOTE | ~2020-01-02 | US_ITS ---
EXAMINATION: US right upper quadrant DATE: 01/07/2020 08:01 INDICATION: Elevated liver function tests. TECHNIQUE: Multiple grayscale and Doppler ultrasound images of the abdomen were obtained. COMPARISON: None FINDINGS: Region of the pancreas is obscured by shadowing bowel gas. Liver has normal contour, with a smooth hernandez rface. There is increased parenchymal echogenicity and coarsened echotexture consistent with diffuse hepatic steatosis. No liver lesion identified. No intrahepatic biliary duct dilation suspected. Port al venous flow was seen in the hepatopetal, normal direction and has normal Doppler waveform. The vis ualized proximal inferior vena cava is normal. Gallbladder is not visualized and reportedly surgicall y absent. The common bile duct measures up to 8 mm diameter which is within normal limits post cholec ystectomy. 2.9 cm anechoic exophytic cyst at the upper pole of the right kidney. IMPRESSION: 1. Common bile duct mildly dilated to 8 mm which is within normal limits post cholecystectomy. No int rahepatic biliary ductal dilation. 2. Diffuse hepatic steatosis. Reviewed, dictated and finalized at location A. IMPRESSION: 1. Common bile duct mildly dilated to 8 mm which is within normal limits post c holecystectomy. No intrahepatic biliary ductal dilation. 2. Diffuse hepatic steatosis.
[2020-01-02 10:25] VITALS: BP 95/47; PULSE 84; RESP 18; TEMP 36.6; O2SAT 94
[2020-01-02 10:50] VITALS: BMI 24.7
--- NOTE | 2020-01-02 10:52 | PC.NURSE ---
Transition from observation status to skilled swing bed for therapy, getting stronger, due to recent fall weak and cannot function as before fall due to pain and weakness
[2020-01-02] MEDS: ACETAMINOPHEN 325 MG TABLET 650 MG PO (11:52)
[2020-01-02] MEDS: SODIUM CHLORIDE 0.9% IV 1,000 ML 100 ML IV CONT ×2 (12:19→23:41)
--- NOTE | 2020-01-02 12:23 | PC.NURSE ---
Fluids re started at this time, ate fair for lunch, states never has much of an appetite and know she needs to drink more
--- NOTE | 2020-01-02 12:39 | PC.NURSE ---
Therapy here to consult with patient for new skilled swing bed status
--- NOTE | 2020-01-02 12:52 | PC.NURSE ---
Shay hospaula on at this time,no change in edema to legs noted, non slip socks in place for safety
[2020-01-02] MEDS: GABAPENTIN 300 MG CAPSULE PO ×2 (13:47→17:23)
[2020-01-02] MEDS: PANTOPRAZOLE 40 MG TABLET PO (13:47)
--- NOTE | 2020-01-02 15:00 | PC.NURSE ---
Resting with HOB elevated, fluids infusing, personal items in reach
[2020-01-02 15:35] VITALS: BP 90/56; PULSE 88; RESP 18; TEMP 36.8; O2SAT 95
[2020-01-02] MEDS: POTASSIUM CHLORIDE 20 MEQ PACKET (FOR LIQUID) PO (17:22)
[2020-01-02] MEDS: CALCIUM CARBONATE (OSCAL) 500 MG TABLET PO (17:22)
[2020-01-02] MEDS: MORPHINE SULFATE 2 MG/ML INJ IV PUSH (18:56)
[2020-01-02 20:48] VITALS: PULSE 80
[2020-01-02] MEDS: METOPROLOL SUCCINATE EXT REL 25 MG TABCR PO (20:48)
--- NOTE | 2020-01-02 22:00 | PC.NURSE ---
pt reported she does not use oxygen at home, o2 removed at this time for trial
[2020-01-02 23:41] VITALS: BP 106/54; PULSE 85; RESP 18; TEMP 36.8; O2SAT 89
[2020-01-03] VITALS: RESP 18; O2SAT 97
[2020-01-03 02:00] VITALS: BP 100/58
--- NOTE | 2020-01-03 02:21 | PC.NURSE ---
Sleeping; oxygen @1.5L per n.c. in place. Respirations easy/unlabored and regular. Skin pink. Belongings and call light within reach.
[2020-01-03 03:00] VITALS: BP 98/54
--- NOTE | 2020-01-03 03:54 | PC.NURSE ---
States awakened with severe pain. Skin pink, respirations easy/unlabored. Given fresh ice water.
[2020-01-03 05:42] LABS: Basophils Absolute Auto 0.03 K/mm3 (0.00-0.10); Basophils Percent Auto 0.3 % (0.0-1.0); Eosinophils Absolute Auto 0.14 K/mm3 (0.02-0.50); Eosinophils Percent Auto 1.6 % (1.0-6.0); Hematocrit 24.9 % (35.0-42.0); Hemoglobin 8.4 g/dL (11.7-13.8); Immature Granulocyte Absolute 0.04 K/mm3 (0.00-0.00); Immature Granulocyte Percent A 0.4 % (0.0-0.0); Lymphocytes Absolute Auto 2.32 K/mm3 (1.10-4.50); Lymphocytes Percent Auto 25.7 % (18.0-42.0); Mean Corpuscular HGB Conc 33.7 g/dL (32.0-36.0); Mean Corpuscular Volume 91.9 fL (78.0-102.0); Mean Platelet Volume 11.8 fl (9.2-11.8); Monocytes Absolute Auto 0.34 K/mm3 (0.10-0.90); Monocytes Percent Auto 3.8 % (2.0-11.0); Neutrophils Absolute Auto 6.2 K/mm3 (1.7-7.2); Neutrophils Percent Auto 68.2 % (50.0-70.0); Platelet Count Result 112 K/mm3 (150-420); Red Blood Count 2.71 M/mm3 (4.20-5.40); Red Cell Distribution Width 15.5 % (11.6-14.4)
[2020-01-03 05:57] LABS: Anion Gap 9.6 mmol/L (7-16); Blood Urea Nitrogen 14 mg/dL (7-18); Calcium 6.5 mg/dL (8.5-10.1); Carbon Dioxide 27 mmol/L (21-32); Chloride 110 mmol/L (98-108); Estimated CRCL calculation 35 ml/min; Estimated Glomerular Filt Rate 52; Glucose 73 mg/dL (70-99); Osmolality Calculated 295 mOsm/kg (285-295); Potassium 3.6 mmol/L (3.5-5.1); Sodium 143 mmol/L (136-145)
--- NOTE | 2020-01-03 06:10 | PC.NURSE ---
Slept most of night,Awakens easily during IVPB administration. No complaints of pain or discomfort. Call light and belongings within reach.
--- NOTE | 2020-01-03 06:40 | PC.NURSE ---
Roecephin gm1 IVPB completed with 50ml infused.
[2020-01-03 08:00] VITALS: BP 94/48; PULSE 84; RESP 16; TEMP 36.6; O2SAT 96
[2020-01-03] MEDS: SODIUM CHLORIDE 0.9% IV 1,000 ML 100 ML IV CONT ×2 (10:10→20:27)
[2020-01-03] MEDS: POLYSACCHARIDE IRON COMPLEX 150 MG CAPSULE PO ×2 (10:10→17:05)
[2020-01-03] MEDS: MONTELUKAST SODIUM 10 MG TABLET PO (10:11)
[2020-01-03] MEDS: SERTRALINE HCL 50 MG TABLET 100 MG PO (10:11)
[2020-01-03] MEDS: TAMSULOSIN HCL 0.4 MG CAPSULE PO (10:11)
[2020-01-03] MEDS: GABAPENTIN 300 MG CAPSULE PO ×3 (10:11→17:05)
[2020-01-03] MEDS: CALCIUM CARBONATE (OSCAL) 500 MG TABLET PO ×2 (10:12→17:05)
[2020-01-03] MEDS: ASPIRIN 81 MG CHEWABLE TABLET PO (10:12)
[2020-01-03] MEDS: POTASSIUM CHLORIDE 20 MEQ PACKET (FOR LIQUID) PO ×2 (10:12→17:05)
--- NOTE | 2020-01-03 13:17 | PM.IMHP ---
H&P: HPI History of Present Illness Chief complaint: rehab <Hellen Muhammad NP - Last Filed: 01/03/20 14:18> Narrative: Dahlia Bell is a 74 year old female admitted to [facility] on 01/02/2020; after falling 12/31/2019, Acute fractures of the parasymphyseal pubis on both sides, hospitalization on 12/31. She had previous left hip surgery with Orthostatic surgeon Dr. Gutierrez in October 2019, so she will need to F/U with him after discharge or for any complications. She still has a large hematoma on the side of her leg near her hip on the right side. She is transferring to the bedside commode better today, than she was 2 days ago. Her pain is elicited on the right hip area and pelvic area; decreased range of motion in her right lower extremity and tenderness in the pelvic area with some movement; no bruising no hematoma in the pelvic area, does have bruising in the right lateral hip area. No pedal edema Currently there is no fever chills, the patient has a history of COPD and is chronically short of breath, but currently no chest pain, no abdominal pain, no diarrhea constipation, currently no dysuria no hematuria. Patient lives at home with her adopted 22yo daughter who is really her biological granddaughter. That daughter is durable power superintendent commissary for healthcare. The patient wishes to be a full code. She had 3 biological children and 1 adopted child. The patient says that she smoked to half a pack a cigarettes a day and quit 12 years ago. 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 Admitted to [facility] after her hospitalization for further strengthening, learning to use any devices and durable medical equipment, and recovering from this new injury. <Hellen Muhammad NP - Last Filed: 01/03/20 14:18> Review of Systems Review of Systems: All systems reviewed & are unremarkable except as noted in HPI and below <Hellen Muhammad NP - Last Filed: 01/03/20 14:18> Constitutional: Constitutional: Reports as per HPI, Denies fatigue and Reports weakness <Hellen Muhammad NP - Last Filed: 01/03/20 14:18> Eyes: Eyes: Reports as per HPI <Hellen Muhammad NP - Last Filed: 01/03/20 14:18> ENT: Reports as per HPI and Reports Normal hearing present <Hellen Muhammad NP - Last Filed: 01/03/20 14:18> Cardiovascular: Cardiovascular: Reports as per HPI, Reports pedal edema and Reports leg edema <Hellen Muhammad FOILING MACHINE OPERATOR - Last Filed: 01/03/20 14:18> Respiratory: Respiratory: Reports as per HPI, Denies cough, Denies hemoptysis, Denies dyspnea, Denies dyspnea on exertion and Denies wheezing <Hellen Muhammad FOILING MACHINE OPERATOR - Last Filed: 01/03/20 14:18> Gastrointestinal: Gastrointestinal: Reports as per HPI <Hellen Muhammad NP - Last Filed: 01/03/20 14:18> Genitourinary: Genitourinary: Reports as per HPI <Hellen Muhammad NP - Last Filed: 01/03/20 14:18> Musculoskeletal: Musculoskeletal: Reports as per HPI <Hellen Muhammad NP - Last Filed: 01/03/20 14:18> Integumentary/Breasts: Skin/Breast: Reports as per HPI and Reports unusual bruising <Hellen Muhammad NP - Last Filed: 01/03/20 14:18> Neurologic: Reports as per HPI and Denies headache(s) <Hellen Muhammad NP - Last Filed: 01/03/20 14:18> Psychiatric: Psychiatric: Reports as per HPI and Denies anxiety <Hellen Muhammad NP - Last Filed: 01/03/20 14:18> [facility] Past Medical History Medical History: Medical History Acute respiratory failure with hypoxia Anxiety Avulsion fracture of left hip (10/16/19) CHF (congestive heart failure) Chronic GERD Chronic pancreatitis CKD (chronic kidney disease) COPD (chronic obstructive pulmonary disease) Depression Dyspnea Femoral neck fracture (10/06/19) Hospital acquired PNA HTN (hypertension) Lung infiltrate (10/12/19) Osteoarthritis Pancreatitis <Hellen Muhammad NP - Last Filed: 01/03/20 14:18> Surgical History Surgical History: Surgical History (Review
--- NOTE | 2020-01-03 14:55 | PC.NURSE ---
she has been turned and positioned every 2 hr. heels kept off bed. savanah bony millan on. r leg has edema and different shades of red to black bruising on hip area going into posterior.
[2020-01-03 16:00] VITALS: BP 102/64; PULSE 72; RESP 18; TEMP 36.8; O2SAT 94
[2020-01-03] MEDS: SACCHAROMYCES BOULARDII 250 MG CAPSULE PO (17:15)
[2020-01-03] MEDS: ONDANSETRON HCL ODT 4 MG TABLET PO (17:28)
--- NOTE | 2020-01-03 17:30 | PC.NURSE ---
c/o of feeling sick to stomach. after sitting up on bsc. does not oral meds and pain at this time. does not want supper either.baxck to bed. wants bony off. r leg is has 2+ edema and l trace. still bruising to black on r side. heels off bed. sm soft brown stool.
--- NOTE | 2020-01-03 18:12 | PC.NURSE ---
picking at supper at this time. denies any n/v. took all her meds at this time.
[2020-01-03 20:25] VITALS: BP 106/53; PULSE 84
[2020-01-03] MEDS: MELATONIN 3 MG TABLET PO (20:27)
[2020-01-03] MEDS: METOPROLOL SUCCINATE EXT REL 25 MG TABCR 12.5 MG PO (20:33)
[2020-01-04] VITALS: BP 92/44; PULSE 82; RESP 18; TEMP 36.4; O2SAT 95
[2020-01-04 04:34] VITALS: BP 94/52; PULSE 84
[2020-01-04] MEDS: SODIUM CHLORIDE 0.9% IV 1,000 ML 100 ML IV CONT (06:18)
--- NOTE | 2020-01-04 06:40 | PC.NURSE ---
Patient up to bedside commode. She voided 100 ml. She had pitting edema to bilateral legs and hips. Patient states that she feels very SOB with transfers. Patient continues to have continuous normal saline infusing at 100 ml/hr. Charge nurse notified of patient condition and urine output.
[2020-01-04 08:00] VITALS: BP 96/48; PULSE 68; RESP 16; TEMP 36.2
[2020-01-04 09:00] VITALS: BP 100/54
[2020-01-04] MEDS: ASPIRIN 81 MG CHEWABLE TABLET PO (09:46)
[2020-01-04] MEDS: SACCHAROMYCES BOULARDII 250 MG CAPSULE PO ×2 (09:46→17:09)
[2020-01-04] MEDS: CALCIUM CARBONATE (OSCAL) 500 MG TABLET PO ×2 (09:46→17:07)
[2020-01-04] MEDS: TAMSULOSIN HCL 0.4 MG CAPSULE PO (09:46)
[2020-01-04] MEDS: MONTELUKAST SODIUM 10 MG TABLET PO (09:46)
[2020-01-04] MEDS: SERTRALINE HCL 50 MG TABLET 100 MG PO (09:47)
[2020-01-04] MEDS: GABAPENTIN 300 MG CAPSULE PO ×3 (09:47→17:07)
[2020-01-04] MEDS: POLYSACCHARIDE IRON COMPLEX 150 MG CAPSULE PO ×2 (09:47→17:07)
[2020-01-04] MEDS: POTASSIUM CHLORIDE 20 MEQ TABLET PO ×2 (09:52→17:07)
[2020-01-04] MEDS: FUROSEMIDE 20 MG TABLET PO (09:52)
[2020-01-04] MEDS: LIDOCAINE 5% PATCH 3 PATCH TRANSDERM (09:53)
[2020-01-04] MEDS: LIDOCAINE 5% PATCH 3 PATCH (10:21)
[2020-01-04] MEDS: ONDANSETRON HCL ODT 4 MG TABLET PO (10:50)
--- NOTE | 2020-01-04 11:02 | PC.NURSE ---
gets n/v with transfer. claims every time she puts pressure on legs she gets n/v. prn given. ot here and refuses tx. car restorer aware of all.
--- NOTE | 2020-01-04 11:27 | PM.IMPN ---
Progress Note: A&P Assessment and Plan (1) Closed bilateral fracture of pubic rami: Onset Date: 01/01/20 Code(s): S32.591A - Other specified fracture of right pubis, initial encounter for closed fracture; S32.592A - Other specified fracture of left pubis, initial encounter for closed fracture Status: Acute Assessment and Plan: Fracture of right and left pubis, intial, nondisplaced, closed. at admission ER Dr. James spoke with orthopedic physician Dr. Gutierrez and both agreed with in-hospital care with weight-bearing as tolerated, and with pain control. She was admitted for Weakness, Acute dehydration, Fracture of left pubis, and Closed fracture of right pubis. Patient admitted for Swing Rehab after her brief hospitalization for further strengthening, learning to use any devices and durable medical equipment, and recovering from this new injury. PRN and scheduled pain control in place WBC improved, white count is 9.0 today, will monitor with repeat labs in the morning she will need to follow-up with her orthopedic surgeon Dr. Gutierrez after discharge PT and OT evaluation in place may participate in therapeutic activities for Pain control: ordered p.r.n. Tylenol, p.r.n. [place], p.r.n. morphine, p.r.n. lidocaine patches IF this is not enough pain control may consider muscle relaxant she does not seem to be anxious at this time so no need for anti anxiety medication will continue to monitor her daily physical therapy session to see if there is an increased need for further pain control ice and elevate on a regular basis maintain compression stocking to keep swelling down consistently (2) Hypotension: Onset Date: ~01/01/20 Code(s): I95.9 - Hypotension, unspecified Status: Acute Assessment and Plan: ER doctor Jacob had to hold multiple home meds of hers including her Lasix to help improve her blood pressures at admission on 12/31. the following home medications are held: lasix 20mg daily and tamsulosin 0.4mg Q am Avoiding IV narcotics such as Morphine. Home Med Metoprolol Succinate 25 mg Q HS was decreased today to 12.5 mg Q HS. no fevers, WBC 9.0, no chills, no wounds, no s/s of infection or sepsis. CXR on 12/31 showed emphysema, no active pneumonia, ordered IS and home inhalers/Nebs. + UA treated with IV Rocephin 1 gm Q 24 hours. Urine and Blood cultures pending. BPs are 90/56 to 106/54 today with HR 84-88bpm. ordered daily weights and strict I/Os. ordered probiotics and Cranberry extract. (3) Weakness: Code(s): R53.1 - Weakness Status: Acute Assessment and Plan: Recent Acute Fracture of right and left pubis, intial, nondisplaced, closed. Patient admitted for Swing Rehab after her brief hospitalization for further strengthening, learning to use any devices and durable medical equipment, and recovering from this new injury. PRN and scheduled pain control in place she will need to follow-up with her orthopedic surgeon Dr. Gutierrez after discharge PT and OT evaluation in place may participate in therapeutic activities continue to increase daily protein intake checking daily orthostatic vital signs. chronic anemia noted when reviewing all of her labs in the medical chart; her hemoglobin at admission on 12/31 was greater than 9 and appeared to be normal for her; then she received 1 L IVFs on 01/01, so her Hgb on 01/02 was 8.4; will continue to monitor. on daily Niferex, her Iron panel 2-3 months ago was significantly low. K=3.6 today. supplementing 20meq KCLpowder BID and Calcium PO BID , as they were low at admission. (4) CKD (chronic kidney disease): Code(s): N18.9 - Chronic kidney disease, unspecified Status: Acute Assessment and Plan: LAUREN on CKD. Lowest creatinine 1.0 in medical chart review. Creatinine today 1.05. low iron panel, on daily iron. Urine cultures and blood cultures are pending. strict I and Os ordered titrating medication
[2020-01-04] MEDS: ACETAMINOPHEN 500 MG TABLET 1000 MG PO ×2 (12:21→17:06)
[2020-01-04 16:00] VITALS: BP 98/46; PULSE 74; RESP 16; TEMP 36.1; O2SAT 93
--- NOTE | 2020-01-04 17:19 | PC.NURSE ---
1330 Claims meds have helped. still has pain 5-6. denies n/v. claims just not hungry. just wants to sleep.repositioned. heels off bed.
[2020-01-04 19:04] LABS: Hematocrit 24.9 % (35.0-42.0); Hemoglobin 8.3 g/dL (11.7-13.8); Mean Corpuscular HGB Conc 33.3 g/dL (32.0-36.0); Mean Corpuscular Hemoglobin 31.1 pg (27.0-31.0); Mean Corpuscular Volume 93.3 fL (78.0-102.0); Mean Platelet Volume 11.4 fl (9.2-11.8); Platelet Count Result 131 K/mm3 (150-420); Red Blood Count 2.67 M/mm3 (4.20-5.40); Red Cell Distribution Width 15.7 % (11.6-14.4); White Blood Count 10.8 K/mm3 (4.8-10.8)
[2020-01-04 21:16] VITALS: BP 92/45; PULSE 84
[2020-01-04] MEDS: MELATONIN 3 MG TABLET PO (21:20)
[2020-01-05] VITALS: BP 93/51; PULSE 82; RESP 18; TEMP 36.3; O2SAT 97
[2020-01-05 07:20] VITALS: BP 97/53; PULSE 86; RESP 18; TEMP 36.2; O2SAT 90
[2020-01-05] MEDS: TAMSULOSIN HCL 0.4 MG CAPSULE PO (08:33)
[2020-01-05] MEDS: SACCHAROMYCES BOULARDII 250 MG CAPSULE PO (08:33)
[2020-01-05] MEDS: SERTRALINE HCL 50 MG TABLET 100 MG PO (08:33)
[2020-01-05] MEDS: MONTELUKAST SODIUM 10 MG TABLET PO (08:33)
[2020-01-05] MEDS: ACETAMINOPHEN 500 MG TABLET 1000 MG PO ×3 (08:33→17:59)
[2020-01-05] MEDS: GABAPENTIN 300 MG CAPSULE PO ×3 (08:34→18:01)
[2020-01-05] MEDS: FUROSEMIDE 20 MG TABLET PO (08:34)
[2020-01-05] MEDS: POLYSACCHARIDE IRON COMPLEX 150 MG CAPSULE PO ×2 (08:35→09:20)
[2020-01-05] MEDS: ASPIRIN 81 MG CHEWABLE TABLET PO (08:35)
[2020-01-05] MEDS: POTASSIUM CHLORIDE 20 MEQ TABLET PO (08:35)
[2020-01-05] MEDS: CALCIUM CARBONATE (OSCAL) 500 MG TABLET PO (08:35)
[2020-01-05] MEDS: ONDANSETRON HCL ODT 4 MG TABLET PO (14:16)
[2020-01-05 15:38] VITALS: BP 86/53; PULSE 89; RESP 18; TEMP 36.6; O2SAT 100
[2020-01-05 16:29] LABS: Phosphorus 2.9 mg/dL (2.6-4.7)
--- NOTE | 2020-01-05 17:11 | PM.EVENT ---
Event Note Event Note Event Note: Patient has had intermittent nausea, approximately once to twice a day, with no associated action or medication prior to this nausea. She does not actually vomit, but has dry heaves. This could be related to any of her new medications, fungal infection, yeast infection, UTI, electrolyte disturbance, or orthostatic hypotension, or multiple reasons. Upon checking her magnesium level found to be 1.0, it was replenished with IV Mag, will continue her oral Mag a t.i.d. dosing. Her low magnesium is most likely due to her poor eating habits and her poor oral intake, I have ordered additional dietary supplements, but she still does not eat enough. Her magnesium may also be low due to her daily 20 mg of Lasix, but we need to continue her Lasix due to her to and 3+ pitting edema. Recommend rechecking her Mag level again soon , and I have ordered that for tomorrow.
[2020-01-05] MEDS: MAGNESIUM SULF 4 GM/WATER100ML 4 GM/100 ML BAG IVPB (17:59)
--- NOTE | 2020-01-05 19:25 | PC.NURSE ---
Patient sleeping quietly in bed with hob elevated. Shows no signs of distress. Breathing even and unlabored. Call light at side.
[2020-01-06] VITALS (7 sets, daily range): BP systolic 87–118; BP diastolic 50–66; PULSE 88–115; RESP 16–20; TEMP 36.4–36.9; O2SAT 70–96
[2020-01-06] MEDS: ONDANSETRON HCL ODT 4 MG TABLET PO (04:53)
[2020-01-06 06:19] LABS: BNP 19.4 pg/mL (0-100)
[2020-01-06 06:51] LABS: Magnesium 1.8 mg/dL (1.8-2.4)
--- NOTE | 2020-01-06 06:55 | PC.NURSE ---
Rocephin IVPB started @ this time.
[2020-01-06] MEDS: ASPIRIN 81 MG CHEWABLE TABLET PO (08:44)
[2020-01-06] MEDS: ACETAMINOPHEN 500 MG TABLET 1000 MG PO ×2 (08:45→13:53)
[2020-01-06] MEDS: SERTRALINE HCL 50 MG TABLET 100 MG PO (08:45)
[2020-01-06] MEDS: GABAPENTIN 300 MG CAPSULE PO ×3 (08:45→18:22)
[2020-01-06] MEDS: FUROSEMIDE 20 MG TABLET PO (08:46)
[2020-01-06] MEDS: TAMSULOSIN HCL 0.4 MG CAPSULE PO (08:46)
--- NOTE | 2020-01-06 10:20 | PCOTNOTE ---
OT attempted to see patient for treatment however patient refused secondary to feeling nauseous and vomiting. MS Will attempt in pm.
--- NOTE | 2020-01-06 11:25 | PC.NURSE ---
Patient resting quietly in bed, denies any needs Call bernstein at side. States she is still not feeling great.
--- NOTE | 2020-01-06 13:55 | PC.NURSE ---
Patient sitting up at side of bed working with PT. Patient states she is feeling light headed. Appears pale. 02 sat on room air reported to be 70-76%, HR tachy. 02 reapplied to patient, 02 sat increased to 90% on 2l per nc within 5 minutes. Patient states she is feeling a little better. PT repositioned patient back in bed. Pitting noted to be 3-4+ on bilateral lower legs up to thighs. [employer] Bijan Notified of patient condition.
[2020-01-06 14:36] LABS: Alanine Aminotransferase 325 U/L (14-59); Albumin Level 0.9 g/dL (3.4-5.0); Alkaline Phosphatase 242 U/L (46-116); Anion Gap 13.2 mmol/L (7-16); Aspartate Amino Transferase 796 U/L (15-37); Bilirubin,Total 0.7 mg/dL (0.00-1.00); Blood Urea Nitrogen 14 mg/dL (7-18); Calcium 7.4 mg/dL (8.5-10.1); Carbon Dioxide 23 mmol/L (21-32); Chloride 108 mmol/L (98-108); Estimated CRCL calculation 36 ml/min; Estimated Glomerular Filt Rate 46; Glucose 75 mg/dL (70-99); Osmolality Calculated 289 mOsm/kg (285-295); Potassium 4.2 mmol/L (3.5-5.1); Sodium 140 mmol/L (136-145)
--- NOTE | 2020-01-06 15:12 | PCPTNOTE ---
01/06/20-pt was not seen for morning appointment as nurse and pt stated that pt has had a rough morning, noting she has been vomiting all morning and movement makes it worse.-.
[2020-01-06 15:28] LABS: Hematocrit 27.1 % (35.0-42.0); Hemoglobin 8.8 g/dL (11.7-13.8); Mean Corpuscular HGB Conc 32.5 g/dL (32.0-36.0); Mean Corpuscular Hemoglobin 30.9 pg (27.0-31.0); Mean Corpuscular Volume 95.1 fL (78.0-102.0); Mean Platelet Volume 12.6 fl (9.2-11.8); Platelet Count Result 126 K/mm3 (150-420); Red Blood Count 2.85 M/mm3 (4.20-5.40); Red Cell Distribution Width 16.1 % (11.6-14.4); White Blood Count 11.3 K/mm3 (4.8-10.8)
--- NOTE | 2020-01-06 15:30 | PC.NURSE ---
Patient sleeping quietly in bed. BLE elevated. Shows no signs of distress. Call bernstein at side.
--- NOTE | 2020-01-06 15:57 | P.PNIM_ITS ---
Progress Note: A&P Assessment and Plan (1) Closed bilateral fracture of pubic rami: Onset Date: 01/01/20 <LOLLY Ontiveros - Last Filed: 01/07/20 12:07> Code(s): S32.591A - Other specified fracture of right pubis, initial encounter for closed fracture; S32.592A - Other specified fracture of left pubis, initial encounter for closed fracture <LOLLY Ontiveros - Last Filed: 01/07/20 12:07> Status: Acute <LOLLY Ontiveros - Last Filed: 01/07/20 12:07> Assessment and Plan: * Fracture of right and left pubis, intial, nondisplaced, closed. * Cont weight-bearing as tolerated, and with pain control. * Patient admitted for Swing Rehab after her brief hospitalization for further strengthening, learning to use any devices and durable medical equipment, and recovering from this new injury. * PRN and scheduled pain control in place * follow-up with her orthopedic surgeon Dr. Gutierrez after discharge * ice and elevate on a regular basis * maintain compression stocking to keep swelling down consistently <LOLLY Ontiveros - Last Filed: 01/07/20 12:07> (2) Hypotension: Onset Date: ~01/01/20 <LOLLY Ontiveros - Last Filed: 01/07/20 12:07> Code(s): I95.9 - Hypotension, unspecified <LOLLY Ontiveros - Last Filed: 01/07/20 12:07> Status: Acute <LOLLY Ontiveros - Last Filed: 01/07/20 12:07> Assessment and Plan: * Continue to hold multiple home meds bp remains soft, lasix 20mg daily and tamsulosin 0.4mg Q am * Home Med Metoprolol Succinate 25 mg Q HS was decreased to 12.5 mg Q HS on admission * continue vital signs is ordered * will adjust medication as needed <LOLLY Ontiveros - Last Filed: 01/07/20 12:07> (3) Weakness: Code(s): R53.1 - Weakness <LOLLY Ontiveros Last Filed: 01/07/20 12:07> Status: Acute <Bijan FernandezTIFFANIEOtiliaStephenie - Last Filed: 01/07/20 12:07> Assessment and Plan: * Recent Acute Fracture of right and left pubis, intial, nondisplaced, closed. * Patient admitted for Swing Rehab after her brief hospitalization for further strengthening, learning to use any devices and durable medical equipment, and recovering from this new injury. * Exhibit tolerance during physical activity as evidenced by a normal fluctuation of vital signs during physical activity. * Patient will be ability to perform required activities of daily living. * Provide appropriate nutrition for healing and strength. * Use appropriate to prevent falls. * Continue physical therapy/occupational therapy. <LOLLY Ontiveros - Last Filed: 01/07/20 12:07> (4) CKD (chronic kidney disease): Code(s): N18.9 - Chronic kidney disease, unspecified <LOLLY Ontiveros - Last Filed: 01/07/20 12:07> Status: Acute <Delfinocailin Plaza TIFFANIE FernandezOtiliaStephenie - Last Filed: 01/07/20 12:07> Assessment and Plan: * LAUREN on CKD. * Lowest creatinine 1.0 in medical chart review. * Creatinine today 1.18 * continue daily iron. * Urine cultures and blood cultures are pending. * strict I and Os ordered * titrating medications to improve BPs for better MAPs and renal perfusion. * hold nephrotoxic medications. * will continue to encourage oral hydration <LOLLY Ontiveros - Last Filed: 01/07/20 12:07> Subjective Date/time seen: .01/06/20 15:57 was notified by nurse staff that patient has edema in her lower extremities , her upper thighs had increased dramatically. completed labs noted that pat
--- NOTE | 2020-01-06 15:57 | PM.IMPN ---
Progress Note: A&P Assessment and Plan (1) Closed bilateral fracture of pubic rami: Onset Date: 01/01/20 <LOLLY Ontiveros - Last Filed: 01/07/20 12:07> Code(s): S32.591A - Other specified fracture of right pubis, initial encounter for closed fracture; S32.592A - Other specified fracture of left pubis, initial encounter for closed fracture <LOLLY Ontiveros - Last Filed: 01/07/20 12:07> Status: Acute <Delfinocailin DoradoLOLLY Hensley - Last Filed: 01/07/20 12:07> Assessment and Plan: Fracture of right and left pubis, intial, nondisplaced, closed. Cont weight-bearing as tolerated, and with pain control. Patient admitted for Swing Rehab after her brief hospitalization for further strengthening, learning to use any devices and durable medical equipment, and recovering from this new injury. PRN and scheduled pain control in place follow-up with her orthopedic surgeon Dr. Gutierrez after discharge ice and elevate on a regular basis maintain compression stocking to keep swelling down consistently <LOLLY Ontiveros - Last Filed: 01/07/20 12:07> (2) Hypotension: Onset Date: ~01/01/20 <LOLLY Ontiveros - Last Filed: 01/07/20 12:07> Code(s): I95.9 - Hypotension, unspecified <LOLLY Ontiveros - Last Filed: 01/07/20 12:07> Status: Acute <LOLLY Ontiveros - Last Filed: 01/07/20 12:07> Assessment and Plan: Continue to hold multiple home meds bp remains soft, lasix 20mg daily and tamsulosin 0.4mg Q am Home Med Metoprolol Succinate 25 mg Q HS was decreased to 12.5 mg Q HS on admission continue vital signs is ordered will adjust medication as needed <LOLLY Ontiveros - Last Filed: 01/07/20 12:07> (3) Weakness: Code(s): R53.1 - Weakness <LOLLY Ontiveros - Last Filed: 01/07/20 12:07> Status: Acute <LOLLY Ontiveros - Last Filed: 01/07/20 12:07> Assessment and Plan: Recent Acute Fracture of right and left pubis, intial, nondisplaced, closed. Patient admitted for Swing Rehab after her brief hospitalization for further strengthening, learning to use any devices and durable medical equipment, and recovering from this new injury. Exhibit tolerance during physical activity as evidenced by a normal fluctuation of vital signs during physical activity. Patient will be ability to perform required activities of daily living. Provide appropriate nutrition for healing and strength. Use appropriate to prevent falls. Continue physical therapy/occupational therapy. <Bijan Plaza TIFFANIE FernandezOtiliaStephenie - Last Filed: 01/07/20 12:07> (4) CKD (chronic kidney disease): Code(s): N18.9 - Chronic kidney disease, unspecified <Bijan Plaza TIFFANIE FernandezYa - Last Filed: 01/07/20 12:07> Status: Acute <Bijan Plaza LETI FernandezRebeca Bingham Last Filed: 01/07/20 12:07> Assessment and Plan: LAUREN on CKD. Lowest creatinine 1.0 in medical chart review. Creatinine today 1.18 continue daily iron. Urine cultures and blood cultures are pending. strict I and Os ordered titrating medications to improve BPs for better MAPs and renal perfusion. hold nephrotoxic medications. will continue to encourage oral hydration <Bijan Plaza TIFFANIE FernandezYa - Last Filed: 01/07/20 12:07> Subjective Date/time seen: .01/06/20 15:57 was notified by nurse staff that patient has edema in her lower extremities , her upper thighs had increased dramatically. completed labs noted that patient's liver function tests had dramatically increased. patient has scheduled Tylenol, I have DCed her tylenol and will avoid any nephrotoxic agents. patient does have a history of chronic lower extremity edema. chest x-ray is pending BnP within normal limits, will do repeat labs in a.m. did a hepatic workup. <Bijan EstradaLOLLY Hensley - Last Filed: 01/07/20 12:07>
[2020-01-06 16:28] LABS: Acetaminophen 28 ug/mL (10-30); Ammonia 38 umol/L (11-32); Folic Acid 13.4 ng/mL (8.6->20); GGT 45 U/L (5-55)
[2020-01-06 16:30] LABS: CRP > 11.0 mg/dL (0.0-0.9)
[2020-01-06 16:31] LABS: Vitamin B12 > 2000 pg/mL (193-986)
[2020-01-06 16:32] LABS: Thyroid Stimulating Hormone Reflex 5.95 u/IU/mL (0.36-3.74)
[2020-01-06 16:47] LABS: Alanine Aminotransferase 275 U/L (14-59); Albumin Level 0.8 g/dL (3.4-5.0); Alkaline Phosphatase 225 U/L (46-116); Aspartate Amino Transferase 473 U/L (15-37); Bilirubin Direct 0.7 mg/dL (0-0.2); Bilirubin,Total 0.7 mg/dL (0.00-1.00); Ferritin 634 ng/mL (8-252); Iron 42 ug/dL (50-170); Percent Iron Saturation 75 % (12-57); Total Protein 3.8 g/dL (6.4-8.2)
[2020-01-06 16:49] LABS: Free T4 Free Thyroxine Reflex 0.36 ng/dL (0.76-1.46)
[2020-01-06] MEDS: FUROSEMIDE INJ 40 MG/4 ML VIAL IV PUSH (18:22)
[2020-01-07] VITALS: BP 82/49; PULSE 100; RESP 18; TEMP 36.9; O2SAT 94
[2020-01-07 05:48] LABS: Basophils Absolute Auto 0.02 K/mm3 (0.00-0.10); Basophils Percent Auto 0.3 % (0.0-1.0); Eosinophils Absolute Auto 0.09 K/mm3 (0.02-0.50); Eosinophils Percent Auto 1.2 % (1.0-6.0); Hematocrit 23.5 % (35.0-42.0); Hemoglobin 7.9 g/dL (11.7-13.8); Immature Granulocyte Absolute 0.03 K/mm3 (0.00-0.00); Immature Granulocyte Percent A 0.4 % (0.0-0.0); Lymphocytes Absolute Auto 1.94 K/mm3 (1.10-4.50); Lymphocytes Percent Auto 25.1 % (18.0-42.0); Mean Corpuscular HGB Conc 33.6 g/dL (32.0-36.0); Mean Corpuscular Hemoglobin 30.7 pg (27.0-31.0); Mean Corpuscular Volume 91.4 fL (78.0-102.0); Mean Platelet Volume 12.2 fl (9.2-11.8); Monocytes Absolute Auto 0.33 K/mm3 (0.10-0.90); Monocytes Percent Auto 4.3 % (2.0-11.0); Neutrophils Absolute Auto 5.3 K/mm3 (1.7-7.2); Neutrophils Percent Auto 68.7 % (50.0-70.0); Platelet Count Result 110 K/mm3 (150-420); Red Blood Count 2.57 M/mm3 (4.20-5.40); Red Cell Distribution Width 16.2 % (11.6-14.4); White Blood Count 7.7 K/mm3 (4.8-10.8)
[2020-01-07 06:06] LABS: Alanine Aminotransferase 212 U/L (14-59); Albumin Level 0.7 g/dL (3.4-5.0); Alkaline Phosphatase 218 U/L (46-116); Anion Gap 10.1 mmol/L (7-16); Aspartate Amino Transferase 231 U/L (15-37); Bilirubin,Total 0.7 mg/dL (0.00-1.00); Blood Urea Nitrogen 14 mg/dL (7-18); Calcium 7.3 mg/dL (8.5-10.1); Carbon Dioxide 27 mmol/L (21-32); Chloride 110 mmol/L (98-108); Estimated CRCL calculation 36 ml/min; Estimated Glomerular Filt Rate 45; Glucose 86 mg/dL (70-99); Osmolality Calculated 295 mOsm/kg (285-295); Potassium 4.1 mmol/L (3.5-5.1); Sodium 143 mmol/L (136-145)
[2020-01-07] MEDS: TRAMADOL HCL 50 MG TABLET PO (06:13)
--- NOTE | 2020-01-07 07:47 | PC.NURSE ---
ELEVATOR REPAIRER HELPER IN ROOM PERFORMING ULS OF LIVER.
[2020-01-07 08:00] VITALS: BP 88/50; PULSE 64; RESP 20; TEMP 36.8; O2SAT 91
[2020-01-07] MEDS: CALCIUM CARBONATE (OSCAL) 500 MG TABLET PO ×2 (08:07→16:31)
[2020-01-07] MEDS: POTASSIUM CHLORIDE 20 MEQ TABLET PO ×2 (08:07→16:31)
[2020-01-07] MEDS: POLYSACCHARIDE IRON COMPLEX 150 MG CAPSULE PO (08:07)
[2020-01-07] MEDS: ONDANSETRON HCL ODT 4 MG TABLET PO (08:18)
[2020-01-07 09:00] VITALS: BP 88/50; PULSE 64; RESP 20; TEMP 36.8; O2SAT 91
[2020-01-07] MEDS: MONTELUKAST SODIUM 10 MG TABLET PO (09:10)
[2020-01-07] MEDS: GABAPENTIN 300 MG CAPSULE PO ×3 (09:10→16:31)
[2020-01-07] MEDS: ASPIRIN 81 MG CHEWABLE TABLET PO (09:10)
[2020-01-07] MEDS: FUROSEMIDE 20 MG TABLET PO (09:10)
[2020-01-07] MEDS: SERTRALINE HCL 50 MG TABLET 100 MG PO (09:10)
[2020-01-07] MEDS: TAMSULOSIN HCL 0.4 MG CAPSULE PO (09:10)
--- NOTE | 2020-01-07 09:10 | PC.NURSE ---
DENIES NAUSEA AT PRESENT.
--- NOTE | 2020-01-07 11:16 | PC.NURSE ---
CARE CONFERENCE WITH PT, CARE COORDINATION, DAUGHTER, PATIENT AND RAND MAKER DONE VIA PHONE.
--- NOTE | 2020-01-07 12:07 | PM.EVENT ---
Event Note Event Note Event Note: patient LFT has improved since yesterday . will repeat in 48 hrs
[2020-01-07 15:59] VITALS: BP 94/50; PULSE 98; RESP 20; TEMP 37.1; O2SAT 98
[2020-01-07 20:00] VITALS: PULSE 100; RESP 18; O2SAT 94
[2020-01-07 21:41] VITALS: PULSE 100
--- NOTE | 2020-01-07 21:45 | PC.NURSE ---
Metoprolol held due to blood pressure of 89/49. Patient denies feeling weak, dizzy, lightheaded. Denies any complaints. Call light in reach.
[2020-01-08] VITALS: BP 96/51; PULSE 104; RESP 18; TEMP 36.7; O2SAT 94
[2020-01-08] MEDS: TRAMADOL HCL 50 MG TABLET PO (03:04)
[2020-01-08 08:00] VITALS: BP 92/48; PULSE 68; RESP 18; TEMP 36.6; O2SAT 91
[2020-01-08] MEDS: MONTELUKAST SODIUM 10 MG TABLET PO (08:46)
[2020-01-08] MEDS: SERTRALINE HCL 50 MG TABLET 100 MG PO (08:46)
[2020-01-08] MEDS: TAMSULOSIN HCL 0.4 MG CAPSULE PO (08:47)
[2020-01-08] MEDS: POTASSIUM CHLORIDE 20 MEQ TABLET PO ×2 (08:47→17:12)
[2020-01-08] MEDS: POLYSACCHARIDE IRON COMPLEX 150 MG CAPSULE PO (08:47)
[2020-01-08] MEDS: FUROSEMIDE 20 MG TABLET PO (08:47)
[2020-01-08] MEDS: CALCIUM CARBONATE (OSCAL) 500 MG TABLET PO ×2 (08:47→17:11)
[2020-01-08] MEDS: ASPIRIN 81 MG CHEWABLE TABLET PO (08:47)
[2020-01-08] MEDS: GABAPENTIN 300 MG CAPSULE PO ×3 (08:47→17:11)
[2020-01-08] MEDS: LIDOCAINE 5% PATCH 3 PATCH TRANSDERM (09:34)
[2020-01-08 14:31] VITALS: BP 96/46
[2020-01-08 16:00] VITALS: BP 90/48; PULSE 74; RESP 16; O2SAT 92
[2020-01-08 19:30] VITALS: BP 98/47; PULSE 110; RESP 18; TEMP 36.6; O2SAT 90
[2020-01-08 20:08] LABS: Ceruloplasmin 15 mg/dL (18-53)
[2020-01-09] VITALS: BP 98/58; PULSE 104; RESP 16; TEMP 36.4; O2SAT 93
[2020-01-09 08:00] VITALS: PULSE 110; RESP 20; O2SAT 91
[2020-01-09] MEDS: CALCIUM CARBONATE (OSCAL) 500 MG TABLET PO ×2 (10:17→17:06)
[2020-01-09] MEDS: GABAPENTIN 300 MG CAPSULE PO ×3 (10:17→17:09)
[2020-01-09] MEDS: TAMSULOSIN HCL 0.4 MG CAPSULE PO (10:17)
[2020-01-09] MEDS: ASPIRIN 81 MG CHEWABLE TABLET PO (10:18)
[2020-01-09] MEDS: SERTRALINE HCL 50 MG TABLET 100 MG PO (10:18)
[2020-01-09] MEDS: FUROSEMIDE 20 MG TABLET PO (10:18)
[2020-01-09] MEDS: POTASSIUM CHLORIDE 20 MEQ TABLET PO ×2 (10:18→17:06)
[2020-01-09] MEDS: MONTELUKAST SODIUM 10 MG TABLET PO (10:19)
[2020-01-09] MEDS: POLYSACCHARIDE IRON COMPLEX 150 MG CAPSULE PO (10:19)
[2020-01-09 15:43] VITALS: BP 96/60; PULSE 98; RESP 20; TEMP 36.6; O2SAT 92
--- NOTE | 2020-01-09 16:34 | PC.NURSE ---
GENERALIZED EDEMA TO ARMS, TORSO AND LEGS.
--- NOTE | 2020-01-09 16:38 | PC.NURSE ---
VOIDED LARGE AMOUNT MILAGROS URINE IN BEDPAN AND SOME SPILT ONTO THE BED.
[2020-01-09] MEDS: METOPROLOL SUCCINATE EXT REL 25 MG TABCR 12.5 MG PO (21:06)
[2020-01-09 21:24] LABS: Hepatitis B Surface Antibody Nonreactive (Nonreactive); Hepatitis C Signal to Cutoff 0.05 ratio (<1.00); Hepatitis C Virus Antibody Nonreactive (Nonreactive)
[2020-01-10] VITALS (7 sets, daily range): BP systolic 90–122; BP diastolic 54–90; PULSE 80–104; RESP 18–20; TEMP 36.2–36.8; O2SAT 92–95
--- NOTE | 2020-01-10 02:26 | PC.NURSE ---
Pt asleep and no signs of discomfort noted. Oxygen remains in place at 3 liters per nasal cannula.
--- NOTE | 2020-01-10 03:17 | PC.NURSE ---
Pt asleep and no signs of discomfort noted.
--- NOTE | 2020-01-10 04:30 | PC.NURSE ---
Pt asleep and no signs of discomfort noted.
--- NOTE | 2020-01-10 06:37 | PC.NURSE ---
Pt remains dry at this time and denied the need to void.
[2020-01-10] MEDS: CALCIUM CARBONATE (OSCAL) 500 MG TABLET PO ×2 (08:59→16:38)
[2020-01-10] MEDS: POTASSIUM CHLORIDE 20 MEQ TABLET PO ×2 (08:59→16:38)
[2020-01-10] MEDS: POLYSACCHARIDE IRON COMPLEX 150 MG CAPSULE PO (08:59)
[2020-01-10] MEDS: GABAPENTIN 300 MG CAPSULE PO ×3 (09:00→16:39)
[2020-01-10] MEDS: FUROSEMIDE 20 MG TABLET PO (09:00)
[2020-01-10] MEDS: ASPIRIN 81 MG CHEWABLE TABLET PO (09:00)
[2020-01-10] MEDS: LIDOCAINE 5% PATCH 3 PATCH TRANSDERM (09:01)
[2020-01-10] MEDS: MONTELUKAST SODIUM 10 MG TABLET PO (09:01)
[2020-01-10] MEDS: SERTRALINE HCL 50 MG TABLET 100 MG PO (09:01)
[2020-01-10] MEDS: TAMSULOSIN HCL 0.4 MG CAPSULE PO (09:02)
--- NOTE | 2020-01-10 11:25 | PM.EVENT ---
Event Note Event Note Event Note: Swing Bed note. Not feeling well today;achy. Pelvic pain with movement. Denies hx of high iron or liver problems/ hepatitis. O) Laying supine in no obvious distress. VSS Breath sounds are decreased but clear. Lidocaine patches on back. Abdomen is flat, soft and nontender. No palpable liver edge. Discussed with Bijan Fernandez. Elevated ferritin and transferrin saturation indicates iron overload, possibly hemochromatosis. Bijan will check previous LFTs and iron studies if done. Iron studies need to be repeated when she has recovered . Elevated liver function tests: Will look at pre-hospitalization labs. If chronic may be secondary to hemochromatosis. Will observe symptoms of fatigue/myalgia today.
--- NOTE | 2020-01-10 14:23 | PM.EVENT ---
Event Note Event Note Event Note: PATIENT TSH ELEVATED AND T4 LOW STARTED THE PATIENT ON LEVOTHYROXINE 12.5 MG DAILY. PATIENT WILL HAVE TO F/U WITH PCP FOR HEMOCHROMATOSIS <TIFFANIE Ontiveros-Stephenie - Last Filed: 01/10/20 14:25>
[2020-01-10] MEDS: METOPROLOL SUCCINATE EXT REL 25 MG TABCR 12.5 MG PO (20:50)
[2020-01-11] VITALS: BP 69/39; PULSE 102; RESP 16; TEMP 36.6; O2SAT 80
--- NOTE | 2020-01-11 00:24 | PC.NURSE ---
Pt asleep and no signs of discomfort noted. Oxygen mask remains in place at this tome.
--- NOTE | 2020-01-11 00:45 | ECG_ITS ---
Measurements Intervals [place] Rate: 101 P: 57 WV: 161 QRS: -17 QRSD: 164 T: 106 QT: 386 QTc: 501 Interpretive Statements SINUS TACHYCARDIA LEFT BUNDLE BRANCH BLOCK ABNORMAL ECG Electronically Signed On 01-11-2020 8:15:34 CDT by Auysh Pratt D.O.
[2020-01-11] MEDS: NOREPINEPHRINE 8 MG/D5W 250 ML 8 MG/250 ML BAG 9.38 MG IV CONT ×2 (01:10→02:05)
[2020-01-11 01:33] LABS: Basophils Absolute Auto 0.01 K/mm3 (0.00-0.10); Basophils Percent Auto 0.1 % (0.0-1.0); Eosinophils Absolute Auto 0.05 K/mm3 (0.02-0.50); Eosinophils Percent Auto 0.5 % (1.0-6.0); Hematocrit 24.2 % (35.0-42.0); Immature Granulocyte Absolute 0.05 K/mm3 (0.00-0.00); Immature Granulocyte Percent A 0.5 % (0.0-0.0); Lymphocytes Absolute Auto 1.87 K/mm3 (1.10-4.50); Lymphocytes Percent Auto 18.8 % (18.0-42.0); Mean Corpuscular HGB Conc 33.1 g/dL (32.0-36.0); Mean Corpuscular Volume 96.8 fL (78.0-102.0); Mean Platelet Volume 11.7 fl (9.2-11.8); Monocytes Absolute Auto 0.37 K/mm3 (0.10-0.90); Monocytes Percent Auto 3.7 % (2.0-11.0); Neutrophils Absolute Auto 7.6 K/mm3 (1.7-7.2); Neutrophils Percent Auto 76.4 % (50.0-70.0); Platelet Count Result 172 K/mm3 (150-420)
[2020-01-11 01:49] LABS: BNP 99.7 pg/mL (0-100)
[2020-01-11] MEDS: SODIUM CHLORIDE 0.9% IV 250 ML 999 ML IVPB (01:50)
[2020-01-11 01:53] LABS: Lactic Acid 2.1 mmol/L (0.4-2.0)
[2020-01-11 02:06] LABS: Troponin I 0.03 ng/mL (0.00-0.056)
[2020-01-11 02:08] LABS: Alanine Aminotransferase 91 U/L (14-59); Alkaline Phosphatase 299 U/L (46-116); Anion Gap 11.8 mmol/L (7-16); Aspartate Amino Transferase 57 U/L (15-37); Blood Urea Nitrogen 16 mg/dL (7-18); Calcium 7.8 mg/dL (8.5-10.1); Carbon Dioxide 25 mmol/L (21-32); Chloride 105 mmol/L (98-108); Estimated CRCL calculation 35 ml/min; Estimated Glomerular Filt Rate 52; Glucose 66 mg/dL (70-99); Magnesium 1.5 mg/dL (1.8-2.4); Osmolality Calculated 281 mOsm/kg (285-295); Potassium 5.8 mmol/L (3.5-5.1); Total Protein 4.7 g/dL (6.4-8.2)
[2020-01-11] MEDS: SODIUM CHLORIDE 0.9% IV 1,000 ML 100 ML IV CONT (02:08)
[2020-01-11 02:12] LABS: Albumin Level < 0.6 g/dL (3.4-5.0)
[2020-01-11 02:13] LABS: Sodium 136 mmol/L (136-145)
[2020-01-11 02:15] LABS: CRP 20.5 mg/dL (0.0-0.9)
--- NOTE | 2020-01-11 02:28 | PC.NURSE ---
Pt's daughter, Gloria Vazquez, called but no answer. Message left on her answering machine.
--- NOTE | 2020-01-11 02:32 | PC.NURSE ---
Gloria Vazquez dtr, returned phone call and gave her permission to transfer pt to another facility.
--- NOTE | 2020-01-11 02:40 | WPDPN ---
Progress Note: A&P Additional Plan Hypotension - pt's blood pressure has been >90, tonight in the 70s systolic. Possibly related to sepsis, hypovolemia, or cardiac failure. Bilateral ground glass appearance on chest X ray: pul. edema vs. pneumonia vs ARDS Discussed with Dr. Chong, electronic semiconductor processor at [facility]. Start Zosyn and vancomycin, central line if norepinephrine dose exceeds 5 u/min. Continue 02 with non-rebreather. MPOA notified. Time Spent With Patient Time: Pt. stable at 3:30; to be transferred by ambulance. Time with patient: Greater than 35 minutes Review of Systems Constitutional: Constitutional: Reports weakness ENT: Denies nasal discharge Comments: no sore throat Cardiovascular: Cardiovascular: Reports no additional cardiovascular complaints Respiratory: Respiratory: Denies cough Gastrointestinal: Gastrointestinal: Denies diarrhea, Denies nausea and Denies vomiting Genitourinary: Genitourinary: Denies dysuria Comments: incontinence Musculoskeletal: Comments: pain in pelvis with movement. Integumentary/Breasts: Skin/Breast: Denies rash Neurologic: Reports system reviewed and no additional complaints, except as documented Exam Const: Other: HOB at 20 degrees. Talking full sentences. HENMT: Mouth: Yes moist mucous membranes Eyes: General: appearance normal, both eyes and all related structures Neck: Lymphatic: lymphadenopathy not noted Other: difficult to assess JVD because of labored breathing Resp: Other: diffuse bilateral course rales. No wheezes Inspiration = expiration, somewhat labored. Cardio: Rate: regular rate Rhythm: regular rhythm Heart sounds: no gallops and no murmurs GI: GI Palp: Yes Tenderness to palpation present (GI) (Minor RUQ tenderness) Urinary Catheter: Urinary Catheter: patent and draining Skin: General skin exam: normal color Other: warm and dry Neuro: Speech: normal speech Extrem: Other: pitting edema arms , legs and feet. Psych: Mental Status: mental status grossly normal Affect: normal affect and No Anxious affect present Objective Data Vital Signs Vital Signs: Vital Signs - 24 hr 01/10/20 07:49 01/10/20 08:00 01/10/20 13:11 Temperature 36.4 C 36.4 C 36.8 C Pulse Rate 100 100 100 Respiratory Rate 18 18 18 Blood Pressure 90/54 L 90/54 L 95/54 L Pulse Oximetry 92 92 94 01/10/20 13:13 01/10/20 16:00 01/10/20 20:50 Temperature 36.8 C Pulse Rate 104 H 84 80 Respiratory Rate 20 20 Blood Pressure 98/60 L 122/90 Pulse Oximetry 93 95 Intake/Output Intake/Output: Intake & Output 01/08/20 01/09/20 01/10/20 01/11/20 23:59 23:59 23:59 23:59 Intake Total 1260 560 620 Output Total 1375 350 275 Balance -115 210 345 Meds/Results Medications: Active Medications Generic Name Dose Route Start Last Admin Trade Name Freq PRN Reason Stop Dose Admin Albuterol 2.5 mg 01/02/20 12:29 Albuterol Sulf Neb 2.5 Mg/3 Ml INHALATION Q4HRT PRN shortness of breath or wheezing Albuterol/Ipratropium 3 ml 01/03/20 13:49 Duoneb 0.5-2.5 Mg Inh Soln INHALATION Q6HRT PRN Emphysema/Cough/SOB Aspirin 81 mg 01/03/20 09:00 01/10/20 09:00 Aspirin Chewable PO 81 mg DAILY CHRISTELLE Administration Bupropion HCl 150 mg 01/03/20 09:00 01/10/20 09:00 Wellbutrin-Sr (12 Hr) PO 150 mg DAILY CHRISTELLE Administration Calcium Carbonate 500 mg 01/02/20 17:00 01/10/20 16:38 Oscal 500 Mg PO 500 mg BIDWM CHRISTELLE Administration Diphenoxylate HCl/Atropine 1 tablet 01/02/20 17:00 01/10/20 16:38 Lomotil Tab 2.5 Mg PO 1 tablet BID CHRISTELLE Administration Docusate Sodium 100 mg 01/02/20 12:29 Colace Capsule PO BID PRN constipation Furosemide 20 mg 01/04/20 09:15 01/10/20 09:00 Lasix Tablet PO 20 mg DAILY CHRISTELLE Administration Gabapentin 300 mg 01/02/20 13:00 01/10/20 16:39 Neurontin PO 300 mg TID CHRISTELLE Administration Norepinephrine Bitartrate 8 mg in 250 mls @ 9.375 mls/
[2020-01-11 02:51] LABS: Add Urine Microscopic? YES; Appearance Urine Sl Cloudy (Clear); Bilirubin Urine Negative (Negative); Blood Urine Negative (Negative); Color Urine Yellow (Yellow); Glucose Urine UA Negative (Negative); Ketones Urine Negative (Negative); Leukocyte Esterase Ur Negative (Negative); Nitrate Urine Negative (Negative); Protein Urine Negative (Negative); Urobilinogen Urine 0.2 mg/dL (0.2-1.0); pH Urine 5.5 (5.0-8.0)
[2020-01-11 02:52] LABS: Bacteria Urine None seen /hpf; RBC Urine None seen /hpf (0-2); Squamous Epithelial Cell Urine Few /hpf (Few); WBC Urine None seen /hpf (0-3)
[2020-01-11 02:53] LABS: Budding Yeast Urine Present /hpf
--- NOTE | 2020-01-11 03:43 | PC.NURSE ---
[facility] called to get report on pt. Report given to RICK Schultz.
--- NOTE | 2020-01-11 05:10 | PC.NURSE ---
[facility] called for a transfer.
--- NOTE | 2020-01-11 05:59 | PC.NURSE ---
0920 [facility] here to pick pt up.
--- NOTE | 2020-01-11 06:46 | PC.NURSE ---
Pt's daughter called to ask if her mother was transported to [facility]. She was given information on her mother's transfer.
--- NOTE | 2020-01-11 07:03 | PC.NURSE ---
2330 Pt dozing quietly and oxygen on at 3 liters per simple mask. No signs of discomfort noted.
--- NOTE | 2020-01-11 07:09 | PC.NURSE ---
0020 Dr. Carpio notified of change in pt's condition. He said he would come up to evaluate pt.
--- NOTE | 2020-01-11 07:13 | PC.NURSE ---
0100 Two new IV sites started to the left and right hands.
--- NOTE | 2020-01-11 07:15 | PC.NURSE ---
0110 Norepinephrine 8 mg IV hung and infusing as ordered.
--- NOTE | 2020-01-11 07:17 | PC.NURSE ---
0130 250 ml bolus of NS infusing as ordered.
--- NOTE | 2020-01-11 07:18 | PC.NURSE ---
200 Wyatt catheter #16 placed as ordered. Immediate return of clear, bhavana urine. Pt resting quietly in bed at this time. SAO2 is 94% with oxygen on at 4 liters per simple mask.
--- NOTE | 2020-01-11 07:21 | PC.NURSE ---
0210 Blood pressure is 110/59.
--- NOTE | 2020-01-11 07:22 | PC.NURSE ---
0303 Zosyn 4.5 gm IVPB hung and infusing as ordered.
--- NOTE | 2020-01-11 07:23 | PC.NURSE ---
0330 IV vancomycin 1000 mg hung and infusing as ordered.
--- NOTE | 2020-01-11 07:24 | PC.NURSE ---
0410 IV fluid continues to infuse as ordered. Blood pressure is 101/50.
[2020-01-11] MEDS: SODIUM CHLORIDE 0.9% IV 500 ML IV CONT (07:39)
--- NOTE | 2020-01-14 07:49 | PM.DS ---
DS: Summary Hospital Course Reason for hospitalization: Pt. had been stable until RN identified systolic pressure in the 70s at midnight, 08/12. Evaluation revealed alert and oriented patient with minor retractions. The chest X ray showed diffuse pulmonary infiltrates consistent with her physical exam of diffuse rales. BNP of 99, up from 19. DDX of pulmonary edema versus diffuse pneumonia vs. ARDS. Fluid bolus plus norepinephrine drip were administered. Forehead pulse ox on a non-rebreather was in the 90th percentile, blood pressure systolic in the 90-100 systolic range. Urine output when salgado was inserted about 1 AM was ~ 300 ml with subsequent continued urine output. soil science technical officer unable to obtain arterial blood gas.Because of tenuous cardiovascular status pt. was not intubated. Airway was not in jeopardy and pt was oxygenating. Zosyn and vancomycin were adminsterhed Hospitalist at [place] refused patient in transfer because pt was too unstable. Dr. Chong accepted patient in transfer to ICU at [facility]. Pt's blood pressure maintained on 5 mcg/min of norepinephrine. Dr. Chong felt any further increase in dose warranted a central line (which did not occur). Some patient transfer delay because edematous arms made inserting an additional IV line difficult. [facility] asked IV be placed so CT scan could be done as soon as patient arrived at [facility]. [facility] again contacted and instructed to send patient without additional line. Blood pressure and pulse ox remained in the 90's at the time of discharge. Time Spent with Patient Time attestation: total time spent providing and/or coordinating discharge services: 1 hour Exam Const: General: cooperative, no acute distress and other (pale); No confusion Nutritional Appearance: thin Orientation/consciousness: patient oriented x3 Limitations: no limitations Other: weak, needed assistance sitting up HENMT: Head: normal to inspection and no acral cyanosis Mouth: Yes Normal oral and palatal mucosa present and Yes moist mucous membranes abnormal Throat: posterior oropharynx normal Eyes: General: appearance normal, both eyes and all related structures Neck: Neck: no lymphadenopathy Lymphatic: lymphadenopathy not noted Other: difficult to assess JVD because of labored breathing Chest: Chest palpation & inspection: normal palpation of entire chest wall Resp: Effort & Inspection: abnormal respiratory effort (Exaggerated chest expansion with each breath), able to speak in complete sentences, no grunting, no pursed lip breathing, no respiratory distress, retractions, no tripod positioning and other (Inspiration = expiration. ) Auscultation: rales (Course rales in all lung ruiz), no rhonchi and no wheezes Other: Cardio: Jugular venous distension: other (JVD at 20 degrees not obviously elevated) Palpation: no palpable S3 Rate: regular rate, not bradycardic and not tachycardic Rhythm: regular rhythm Heart sounds: Clicking heart sound present, no gallops and no murmurs GI: Inspection: normal to inspection and non-distended GI Palp: Yes Soft to palpation, Yes Tenderness to palpation present (GI) (RUQ. ) and No Hepatomegaly present Auscultation: Hypoactive bowel sounds present : General: Yes no CVA tenderness Back/Spine/Pelvis: Back: no CVA tenderness Thoracic/Lumbar Spine: thoracic and lumbar spine normal to inspection Skin: General skin exam: normal color, no rashes or lesions noted, no erythema and other (skin warm and dry. Fingertips cyanotic with >2 seconds capillary refill) Wounds: wounds noted Other: Upper and lower extremities edematouos Neuro: General: patient oriented x3, No gait normal and No confusion Cranial nerves: Yes Equal, round and reactive pupils present, Yes facial symmetry and Yes Normal hearing present Cognition (Neuro): normal cognition Speech: normal speech Other: she is moving her left and right legs much better today and with more strength today than her admission ex
== END 2020-01-11 05:50 | disposition short-term general hospital (02) | DRG 560 ==
PROVIDERS: Family Medicine; Nurse Practitioner; Admitting Provider Emergency Medicine; Visit Provider Emergency Medicine
DX: S32.502D Unspecified fracture of left pubis, subsequent encounter for fracture with routine healing (principal); I13.0 Hypertensive heart and chronic kidney disease with heart failure and stage 1 through stage 4 chronic kidney disease, or unspecified chronic kidney disease; S32.501D Unspecified fracture of right pubis, subsequent encounter for fracture with routine healing; E86.0 Dehydration; I95.9 Hypotension, unspecified; E83.42 Hypomagnesemia; R74.8 Abnormal levels of other serum enzymes; S72.002D Fracture of unspecified part of neck of left femur, subsequent encounter for closed fracture with routine healing; I11.0 Hypertensive heart disease with heart failure; I50.9 Heart failure, unspecified; N18.9 Chronic kidney disease, unspecified; W19.XXXD Unspecified fall, subsequent encounter; J44.9 Chronic obstructive pulmonary disease, unspecified; M19.90 Unspecified osteoarthritis, unspecified site; F41.9 Anxiety disorder, unspecified; D64.9 Anemia, unspecified; E83.119 Hemochromatosis, unspecified; Z87.891 Personal history of nicotine dependence
CPT/HCPCS: 36415; 36600; 71045; 76705; 80048; 80053; 80076; 80307; 81001; 82103; 82140; 82390; 82607; 82728; 82746; 82977; 83540; 83550; 83605; 83735; 83880; 84100; 84439; 84443; 84484; 85025; 85027; 86038; 86140; 86706; 93005; 97110; 97161; 97165; 97530; 97535; A9270; J0696; J1940; J2270; J2543; J3370; J3475; J7030; J7040; J7050

== ENCOUNTER 2020-01-11 06:07 | Emergency (ER) | payer MEDICARE, SELFPAY ==
[2020-01-11 06:10] VITALS: BP 106/63; PULSE 102; RESP 18; TEMP 36.2; O2SAT 100
--- NOTE | 2020-01-11 06:33 | ED.GENADULT ---
HPI - General Adult General Chief complaint: Altered Mental Status Stated complaint: lown bp Source: EMS Mode of arrival: EMS Limitations: clinical condition History of Present Illness HPI narrative: This is an abbreviated note. 74 y.o. patient was being transferred by EMS to [facility] with hypotension and bilateral lung opacifications s/o CHF vs. pneumonia. Pt. had been stabilized at .. with fluids and norepinephrine 5 mg/min achieving a BP ~ 100 systolic, pulse ox on non-rebreather of 95-100%, given Zosyn + vancomycin prior to transfer. EMS reports just after leaving [facility]. pt's pulse dropped into the 30s, unable to get pulse ox or blood pressure. Fluid bolus given, EMS returned to [facility]. Pt. deemed to unstable to transfer. Related Data Home Medications Medication Instructions Recorded Confirmed aspirin 81 mg PO DAILY 10/05/19 01/02/20 Allergies Allergy/AdvReac Type Severity Reaction Status Date / Time clams Allergy Unknown Verified 12/30/19 14:12 Review of Systems Review of Systems: ROS unobtainable: Yes unobtainable due to medical condition [facility] Social History Social History Social History: Patient lives at home with her adopted daughter who is really her biological granddaughter. That daughter is durable power assistant prosecuting attorney for healthcare. The patient wishes to be a full code. She had 3 biological children and 1 adopted child. The patient tells me that she smoked to half a pack a cigarettes a day and quit 12 years ago. 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 is awake, answers questions. Pale. RR 20, non-labored. Resp: Other: Bilateral diffuse course rales. . Cardio: Rate: regular rate Rhythm: regular rhythm Other: JVD elevated no murmur. Neuro: General: oriented to person, oriented to place and moves all extremities Speech: normal speech Extrem: General: other (fingers cyanotic, >2 second capillary refill. ) Course Course Emergency Course: Pt's blood pressure on arrival 106/63 P = 102, RR = 18 T = 36.2. on non-rebreather mask. Dr. Rabago, [facility] information technology specialist contacted and is in agreement with transfer by helicopter. Patient info given to helicopter EMS at 7 AM. Vital Signs Vital signs: Vital Signs Temperature 36.2 C L 01/11/20 06:10 Pulse Rate 102 H 01/11/20 06:10 Respiratory Rate 18 01/11/20 06:10 Blood Pressure 106/63 01/11/20 06:10 Pulse Oximetry 100 01/11/20 06:10 Temperature 36.2 C L 01/11/20 06:40 Pulse Rate 104 H 01/11/20 06:40 Respiratory Rate 16 01/11/20 06:40 Blood Pressure 135/77 01/11/20 06:40 Pulse Oximetry 100 01/11/20 06:40 Medical Decision Making MDM Narrative Medical decision making narrative: Pt. had over 100 ml of urine over 60 minutes in E.D. Etiology of bilateral infiltrates pulmonary edema vs. pneumonia vs. ARDS. Chest X rays over the past 10 days, increase in BNP, and progressively worsening edema all point to pulmonary edema as etiology. Addressing patients hypotension with fluids risks precipitating respiratory failure. Intubating patient with tenuous blood pressure risks cardiac arrest. Diuresis risks worsening hypotension. Increasing norepinephrine using a peripheral line risks comp
--- NOTE | 2020-01-11 06:33 | PC.NURSE ---
Pt. rerturned via EMS for stabalization via EMS before transfer to [facility]. Upon eval by ERP, pt. alert, stable at this time and call being made for transfer via [facility]. [facility] notifed per ERP Dr. Carpio and update given.
--- NOTE | 2020-01-11 06:38 | PC.NURSE ---
ERP spoke c Dr. Rabago and update on pt. status given. Pt. noted alert and VSS at this time. Awaiting [facility] for transfer.
[2020-01-11 06:40] VITALS: BP 135/77; PULSE 104; RESP 16; TEMP 36.2; O2SAT 100
--- NOTE | 2020-01-11 06:40 | ECG_ITS ---
Measurements Intervals [place] Rate: 95 P: 30 RI: 150 QRS: -14 QRSD: 156 T: 146 QT: 390 QTc: 492 Interpretive Statements SINUS RHYTHM LEFT BUNDLE BRANCH BLOCK BASELINE ARTIFACT- I, II, III, AVL, V3-V6 ABNORMAL ECG Electronically Signed On 01-11-2020 8:15:06 CDT by Ayush Pratt D.O.
--- NOTE | 2020-01-11 07:01 | PC.NURSE ---
Report given to [facility] crew by ERP Dr. Carpio. Pt. remains stable, VSS.
== END 2020-01-11 07:23 | disposition short-term general hospital (02) ==
PROVIDERS: Emergency Provider Family Medicine
DX: I50.9 Heart failure, unspecified (principal); Z87.891 Personal history of nicotine dependence
CPT/HCPCS: 93005; 99283; 99285